=== PATIENT | female | born 1950 | race Caucasian/White ===

== ENCOUNTER → 2018-02-20 08:48 | Outpatient (CLI) | payer MEDICARE, SELFPAY ==
[2018-02-20 09:23] LABS: Hematocrit 28.7 % (37-47); Hemoglobin 8.6 g/dl (12.0-15.0); Mean Corpuscular Hgb 23.2 pg (27.0-32.0); Mean Corpuscular Volume 77.6 fL (81-99); Mean Platelet Vol. 11.7 fl (6.2-12.0); Platelet Count 181 K/mm3 (150-450); RBC Distribution Width CV 17.1 % (11.6-14.6); White Blood Count 4.1 K/mm3 (4.4-11.0)
[2018-02-20 09:24] LABS: Scan Indicated on CBC? Y/N NO
[2018-02-20 09:36] LABS: Albumin, Serum 3.4 g/dL (3.2-5.0); BUN 14 mg/dL (7-18); BUN/Creat Ratio 8.9 RATIO (10-20); Calcium,Total 8.8 mg/dL (8.5-10.1); Chloride 108 mmol/L (98-107); Creatinine, Serum 1.58 mg/dL (0.55-1.02); EST Glomerular Filtration Rate 34 mL/min (>60); Est Glom Filt Rate - Afr Amer 42 mL/min (>60); Glucose 142 mg/dL (74-106); Phosphorus 3.5 mg/dL (2.5-4.9); Potassium 4.3 mmol/L (3.5-5.1); Sodium Level 143 mmol/L (136-145)
[2018-02-20 09:46] LABS: Microalbumin,Random Urine 26.6 mg/L (NO RANGE EST.); Microalbumin:Creatinine Ratio 21.3 mg/g CRE (<30 mg/g CRE)
[2018-02-21 09:06] LABS: PTHIN 84.9 pg/mL (18.4-80.1)
[2018-02-21 09:37] LABS: Vitamin D,25 Hydroxy 41.2 ng/mL (29.95-100.01)
== END ==
PROVIDERS: Family Provider Student in an Organized Health Care Education/Training Program; PCP Student in an Organized Health Care Education/Training Program; Visit Provider Internal Medicine Nephrology
DX: N18.4 Chronic kidney disease, stage 4 (severe) (principal)
CPT/HCPCS: 36415; 80069; 82043; 82306; 82570; 83970; 85027

== ENCOUNTER → 2018-04-04 12:30 | Outpatient (CLI) | payer MEDICARE, SELFPAY ==
--- NOTE | 2018-04-04 12:45 | RAD_ITS ---
STUDY: X-RAY - LUMBAR SPINE REASON FOR EXAM: Female, 67 years old. Back pain worsening radiating down left leg TECHNIQUE: 3 view(s) of the lumbar spine were obtained. COMPARISON: October 10, 2015 lumbar spine x-ray FINDINGS: There is an exaggerated lumbar lordosis. There is a levoscoliosis of the lumbar spine. There is slight anterolisthesis at the level of L4-L5. This appears stable when compared to prior study. There is multilevel spondylosis. There is mild disc space narrowing and endplate sclerosis. There are surgical clips in the right upper quadrant status post cholecystectomy. There is facet arthropathy especially at the level of L4-L5 and L5-S1. The soft tissue structures are unremarkable. RAD/Lumbar Spine 2 or 3 Views IMPRESSION: There is multilevel degenerative disc disease. Worsening levoscoliosis of the lumbar spine. Similar appearing mild anterolisthesis at L4-L5. Facet arthropathy L4-L5 L5-S1. Electronically Signed: Marina Pena MD at 15:50 EDT Tel , Service support ,
== END ==
PROVIDERS: Family Provider Student in an Organized Health Care Education/Training Program; PCP Student in an Organized Health Care Education/Training Program; Visit Provider Anesthesiology Pain Medicine
DX: M54.9 Dorsalgia, unspecified (principal)
CPT/HCPCS: 72100

== ENCOUNTER → 2018-04-22 12:27 | Outpatient (CLI) | payer MEDICARE, SELFPAY ==
[2018-04-22 13:06] LABS: Hemoglobin A1c 6.4 % (4.2-6.3)
[2018-04-22 13:14] LABS: Microalbumin,Random Urine 16.9 mg/L (NO RANGE EST.); Microalbumin:Creatinine Ratio 14.3 mg/g CRE (<30 mg/g CRE)
[2018-04-22 13:22] LABS: Anion Gap 11 (5-15); BUN 15 mg/dL (7-18); BUN/Creat Ratio 10.1 RATIO (10-20); Calcium,Total 9.2 mg/dL (8.5-10.1); Chloride 107 mmol/L (98-107); Creatinine, Serum 1.49 mg/dL (0.55-1.02); EST Glomerular Filtration Rate 37 mL/min (>60); Est Glom Filt Rate - Afr Amer 45 mL/min (>60); Glucose 97 mg/dL (74-106); Potassium 4.3 mmol/L (3.5-5.1); Sodium Level 144 mmol/L (136-145)
== END ==
PROVIDERS: Family Provider Student in an Organized Health Care Education/Training Program; PCP Student in an Organized Health Care Education/Training Program; Visit Provider Student in an Organized Health Care Education/Training Program
DX: Z79.899 Other long term (current) drug therapy (principal); M54.9 Dorsalgia, unspecified; M54.2 Cervicalgia
CPT/HCPCS: 80048; 82043; 82570; 83036; 97113

== ENCOUNTER 2018-05-01 11:00 | Outpatient (RCR) | payer MEDICARE, SELFPAY ==
--- NOTE | 2018-03-28 15:31 | HP.PTEVAL_ITS ---
Patient's Visit Information ISIS JONES is a 67 year old F referred to Physical Therapy by Sherri Pastor with a diagnosis of BACK AND NECK PAIN. Date of Evaluation: 03/28/18 Physical Therapist: Michelle Melton - Visit Plan Frequency: 2-3x /Week Duration: 4-6 Weeks Plan: AQUATIC THERAPY FOR PAIN RELEIF, POSTURE CORRECTION/STRENGTHENING, INSTRUCTION IN APPROPRIATE BODY MECHANICS AND ACTIVITY MODIFICATIONS. DLS STARTING WITH A NEUTRAL SPINE PROGRESSING ROM TOLERATED. ALEKSEY LE ROM, STRETCHING AND STRENGTHENING. HEP INSTRUCTION. - Subjective Subjective: Diagnosis: Work/Leisure: RETIRED. Disability: YES. Present symptoms: LOW BACK PAIN, NECK AND SHOULDER PAIN, MID BACK PAIN ON LEFT, LEFT LE PAIN TO FOOT. INTERMITTENT RIGHT LE PAIN TOO. INTERMITTENT ALEKSEY LE NUMBNESS AND TINGLING. INTERMITTENT ALEKSEY UE NUMBNESS AND TINGLING. Present since: CHRONIC. Pain Scale: WORST 8/10, LEAST 3/10. Currently: 8/10. Commenced as a result of: NO APPARENT REASON. Symptoms at onset: LEGS. Worse: CROCHETING , SWEEPING THE FLOOR, TRYING TO DO OUTSIDE WORK IN FLOWER BEDS, WALKING, HOUSEKEEPING, LIFTING, AND BENDING. Better: HOT SHOWER. Disturbed sleep: NO. Previous history/Previous treatment: PHYSICAL THERAPY, PAIN MGMT - INJECTIONS, CHIRO LONG TIME AGO. Coughing/sneezing/straining: NEGATIVE. Gait : INDEP GAIT WITHOUT AD. DISTANCE LIMITED. LEANS ON CART TO GROCERY SHOP. Difficulty initiating urinatin: NO. DIZZINESS: INTERMITTENT. DIFFICULTY SWOLLOWING: NO. Accidents: FELL SATURDAY NIGHT TAKING THE DOG OUT. DOG PULLED. HURT BACK AND LEFT LEG. WENT TO DR. PASTOR ON SATURDAY AND THIS HAPPENED ON SATURDAY. DOES NOT WANT TO GO TO THE DOCTOR BEFORE STARTING THERAPY. STATES SHE DOESN'T HAVE ANY PAIN NOW THAT SHE HASN'T HAD BEFORE. Unexplained weight loss: NO. Imaging: NECK MRI A YEAR AGO: MPRESSION: No significant interval changes since the last examination. C3-4 small central disc herniation of the protrusion type. C4-5 degenerative disc disease with annular bulge contacting the ventral. aspect of the cord with minimal spinal canal stenosis and left foraminal. stenosis. C5-6 and C6-7 and bulges with right foraminal stenosis at C5-6. NO RECENT LUMBAR IMAGING FOUND. PMH: LUPAS , NIDDM, HTN, ARTHRITIS, ANXIETY. Recent major surgery: ALEKSEY TKR'S. LEFT ACHILLES REPAIR - Objective Sitting Posture: POOR. FORWARD HEAD, ROUNDED SHOULDERS AND INCREASED KYPHOSIS. Standing Posture: POOR. INCREASED TRUNK FLEXION. Lordosis: REDUCED. THERE IS A RED SCRATCH OVER THE LEFT LOW BACK/BUTTOCK AREA. Lateral shift: NO. Relevant shift: N/A. Active Correction of posture: WORSE. Other Observations: INDEP GAIT INTO PT WITHOUT ANY ASSISTIVE DEVICES AND WITHOUT LOB OR ASSYMETRICAL LIMP BUT DECREASED CADANCE AND INCREASED TRUNK FLEXION. Motor deficit: ALEKSEY UE STRENGTH GROSSLY 4/5 EXCEPT RIGHT SHOULDER ER 3+/5. ALEKSEY LE STRENGTH GROSSLY 4/5. Sensory deficit: ALEKSEY UE AND LE LIGHT TOUCH SENSATION GROSSLY INTACT AND SYMMETRICAL BUT FEET NT. ROM deficit: ALEKSEY SHOULER ELEVATION ABOUT 25% LIMITED. TIGHT ALEKSEY HIP FLEXORS, HAMSTRINGS AND GASTROC SOLEUS COMPLEX'S. Lumbar mvmt loss: flex - MOD. ext - JONAS. R SG - JONAS. L SG - MOD TO JONAS. PATIENT COMPLAINT OF INCREASED THORACIC AND LUMBAR PAIN WITH ROM TESTING ALL PLANES. CERVICAL MVMT LOSS: FLEX - NIL, PRO - NIL, EXT - JONAS, RET - JONAS, ALEKSEY ROT - MOD, ALEKSEY SB - MOD TO JONAS. C/O INCRASED PAIN WITH CERVICAL ROM TESTING TOO. Core strength: POOR. Palpation: PATIENT IS TENDER IN HER ENTIRE SPINE WITH PALPATION BUT SHE IS ESPECIALLY HYPERSENSATIVE WITH VERY LIGHT PALPATION OF THE T9,10, 11 AND 12 REGION. SHE REPORTS SHE HAS BEEN HAVING PAIN HERE FOR A LONG TIME BUT IT IS WORSE SINCE SHE FELL SATURDAY. I STRONGLY RECOMMENDED SHE CONTACT HER PHYSICIAN TO REPORT THIS INCREASED PAIN. - Goals Goal 1:: DECREASE C/O SPINE AND EXTREMITY SX'S. Goal Time Frame: 4-6 Weeks Goal 2:: IMPROVE PERSONAL CARE, LIFTING, WALKING, STANDING, SOCIAL LIFE AND HOMEMAKING FUNCTION Goal Time Frame: 4-6 Weeks Goal 3:: INSTRUCT IN PROPHYLAXIS Goal Time Frame: 4-6 Weeks - Rehabilitation Potential Rehabilitation Potential: Fair - Anticipated Interventions Patient/Client Instruction: Educate patient on: Condition, Plan of Care, Risk Factors, Benefits of Fitness Program For the Purpose of:: To improve self management Therapeutic Exercise to Include: Strength training, Body mechanics, Postural training, Flexibilty training, Gait and locomotor training, In an aquatic setting, Active ROM, Dynamic Lumbar Stabilization, Scapular Strength/ Stabilization For the Purpose of:: To decrease pain, To increase tolerance to activity/ condition/position, To improve performance and independence with ADL's, To improve ability of physical actions for home/community/work/leisure, To improve gait and locomotor functions Thank you for the opportunity to evaluate your patient. For Medicare and Medicare HMO plans, please review the plan of care and approve it. It will need to be FAXED BACK to us at [phone] for Medicare purposes. Please let me know if there are questions or concerns regarding this plan of care. Physician Signature: Date:
--- NOTE | 2018-05-01 14:14 | HP.PTDCSUM_ITS ---
HP - PT D/C Summary It has been my pleasure to treat ISIS JONES under orders from Sherri Pastor, for the diagnosis of BACK AND NECK PAIN for a total of 10 visit(s). Discharge Date: Please see the following information for a summary of their discharge status. - Subjective Subjective: PATIENT REPORTS SHE ENJOYED THE WATER AND SOME OF THE THINGS AT THE END WERE KIND OF HARD BUT THEY WERE NOT HURTFUL. SHE REPORTS SHE REALLY LIKES THE WATER AND AND SHE IS JOINING [employer]. 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 Present symptoms: LOW BACK PAIN, NECK AND SHOULDER PAIN, MID BACK PAIN ON LEFT, LEFT LE PAIN TO FOOT. INTERMITTENT RIGHT LE PAIN TOO. INTERMITTENT ALEKSEY LE NUMBNESS AND TINGLING. PATIENT REPORTS MOST OF HER SYMPTOMS ARE ALL STILL OCCURRING BUT THEY ARE BETTER. Pain Scale: WORST 7/10, LEAST 0/10. Currently: 3/10 LOW BACK PAIN. SHE REPORTS SHE CAN GET HER PAIN TO 0/10 IN THE POOL. PATIENT DENIES HAVING ANY MORE FALLS SINCE STARTING PT. PATIENT REPORTS SHE FEELS A LOT BETTER BECAUSE SHE KNOWS HOW TO GET UP AND DOWN FROM A CHAIR, IN AND OUT OF A CAR AND MOVE IN GENERAL BETTER NOW TO PROTECT HER BACK. REPORTS APPOINTMENT PENDING WITH DR. PASTOR May. - Pain Cerv. Spine Pain Intensity (Out of 10): 2 Lumbar Spine Pain Intensity (Out of 10): 3 LE Pain Intensity (Out of 10): 0 - Overall Improvement % Improvement: 75 - Objective Objective/Function: PATIENT IS INDEP WITH A HEP AND POOL EX'S AND WISHES TO BE DISCHARGED. Motor deficit: ALEKSEY UE STRENGTH GROSSLY 4/5 EXCEPT RIGHT SHOULDER ER 3+/5. ALEKSEY LE STRENGTH GROSSLY 4/5. Sensory deficit: ALEKSEY UE AND LE LIGHT TOUCH SENSATION GROSSLY INTACT AND SYMMETRICAL BUT FEET NT. ROM deficit: ALEKSEY SHOULER ELEVATION ABOUT 25% LIMITED. TIGHT ALEKSEY HIP FLEXORS, HAMSTRINGS AND GASTROC SOLEUS COMPLEX'S. Lumbar mvmt loss: flex - MIN. ext - JONAS. R SG - MOD. L SG - MOD. PATIENT COMPLAINT OF INCREASED THORACIC AND LUMBAR PAIN WITH ROM TESTING INTO EXTENSION AND RIGHT SG'ING. NO SIGNIFICANT CHANGE IN NECK OR SHOULDER TESTING. LUMBAR OSWESTRY SCORE HAS IMPROVED FROM 19 TO 16. - Goals Goal 1:: DECREASE C/O SPINE AND EXTREMITY SX'S. Goal Progress: Goal Met Goal 2:: IMPROVE PERSONAL CARE, LIFTING, WALKING, STANDING, SOCIAL LIFE AND HOMEMAKING FUNCTION Goal Progress: Goal Met Goal 3:: INSTRUCT IN PROPHYLAXIS Goal Progress: Goal Met - Plan Plan: D/C. PATIENT IS AGREEABLE TO DISCHARGE. - D/C Information If there are questions or concerns regarding this patient's physical therapy, please feel free to call me at [phone]. Thank you for the referral of this patient. Sincerely, Michelle Melton
== END 2018-05-01 19:00 | disposition home or self-care (01) ==
LOC: PT 11:00
PROVIDERS: Family Provider Student in an Organized Health Care Education/Training Program; PCP Student in an Organized Health Care Education/Training Program; Visit Provider Anesthesiology Pain Medicine
DX: M54.9 Dorsalgia, unspecified (principal); M54.2 Cervicalgia
CPT/HCPCS: 97113; 97162; 97164; 97530

== ENCOUNTER → 2018-06-03 12:12 | Outpatient (CLI) | payer MEDICARE, SELFPAY ==
[2018-06-03 12:36] LABS: Absolute Lymphocyte Count 1.38 X10^3/ul (0.83-4.51); Absolute Neutrophil Count 4.4 X10^3/uL (2.0-7.7); Basophil# 0.03 X10^3/uL; Basophil% 0.5 % (0-1); Eosinophil# 0.22 X10^3/uL; Eosinophils% 3.4 % (0-5); Hematocrit 36.2 % (37-47); Lymphocyte # 1.38 X10^3/ul (4.0); Lymphocyte % 21.5 % (19-41); Mean Corp Hgb Conc 33.1 g/gl (32-36); Mean Corpuscular Hgb 28.8 pg (27.0-32.0); Mean Platelet Vol. 12.1 fl (6.2-12.0); Monocyte# 0.41 X10^3/uL; Monocyte% 6.4 % (0-10); Neutrophil # 4.38 X10^3/uL (2.7-7.7); POSITIVE COUNT NO; POSITIVE DIFFERENTIAL NO; POSITIVE MORPHOLOGY NO; Platelet Count 137 K/mm3 (150-450); RBC Distribution Width CV 16.6 % (11.6-14.6); RBC Distribution Width SD 52.4 fl (35.1-43.9); Red Blood Count 4.16 M/mm3 (4.2-5.4); White Blood Count 6.4 K/mm3 (4.4-11.0)
[2018-06-03 13:15] LABS: AST(SGOT) 24 U/L (15-37); Alanine Aminotransfer ALT/SGPT 20 U/L (13-56); Albumin, Serum 3.4 g/dL (3.2-5.0); Alkaline Phosphatase 83 U/L (45-117); Anion Gap 6 (5-15); BUN 15 mg/dL (7-18); BUN/Creat Ratio 9.9 RATIO (10-20); Calcium,Total 9.1 mg/dL (8.5-10.1); Chloride 111 mmol/L (98-107); Creatinine, Serum 1.52 mg/dL (0.55-1.02); EST Glomerular Filtration Rate 36 mL/min (>60); Est Glom Filt Rate - Afr Amer 44 mL/min (>60); Globulin 3.5 g/dL (2.2-4.2); Glucose 98 mg/dL (74-106); Potassium 4.3 mmol/L (3.5-5.1); Protein, Total 6.9 g/dL (6.4-8.2); Sodium Level 143 mmol/L (136-145)
== END ==
PROVIDERS: Family Provider Student in an Organized Health Care Education/Training Program; PCP Student in an Organized Health Care Education/Training Program; Visit Provider Internal Medicine Rheumatology
DX: M06.4 Inflammatory polyarthropathy (principal); M35.00 Sjogren syndrome, unspecified; E11.42 Type 2 diabetes mellitus with diabetic polyneuropathy; I10 Essential (primary) hypertension; E78.4 Other hyperlipidemia; K22.70 Barrett's esophagus without dysplasia; K21.0 Gastro-esophageal reflux disease with esophagitis; F32.89 Other specified depressive episodes
CPT/HCPCS: 36415; 80053; 85025

== ENCOUNTER → 2018-08-21 10:16 | Outpatient (CLI) | payer MEDICARE, SELFPAY ==
[2018-08-21 11:08] LABS: Hematocrit 38.4 % (37-47); Hemoglobin 12.5 g/dl (12.0-15.0); Mean Corp Hgb Conc 32.6 g/gl (32-36); Mean Corpuscular Volume 92.1 fL (81-99); Mean Platelet Vol. 12.3 fl (6.2-12.0); Platelet Count 166 K/mm3 (150-450); RBC Distribution Width CV 14.4 % (11.6-14.6); RBC Distribution Width SD 47.4 fl (35.1-43.9); Red Blood Count 4.17 M/mm3 (4.2-5.4); White Blood Count 6.1 K/mm3 (4.4-11.0)
[2018-08-21 11:11] LABS: Scan Indicated on CBC? Y/N NO
[2018-08-21 11:14] LABS: Protein, Urine (Random) 38.5 mg/dL (<11.9); Protein:Creat Ratio 279 mg/g CRE (0-200)
[2018-08-21 11:28] LABS: Albumin, Serum 3.4 g/dL (3.2-5.0); BUN 18 mg/dL (7-18); BUN/Creat Ratio 11.1 RATIO (10-20); Calcium,Total 9.2 mg/dL (8.5-10.1); Chloride 110 mmol/L (98-107); Creatinine, Serum 1.62 mg/dL (0.55-1.02); EST Glomerular Filtration Rate 33 mL/min (>60); Est Glom Filt Rate - Afr Amer 40 mL/min (>60); Glucose 113 mg/dL (74-106); Iron 54 ug/dL (50-170); Iron Binding Capacity,Total 344 ug/dL (250-450); PERCENT IRON SATURATION 15.7 % (15.0-55.0); Potassium 4.3 mmol/L (3.5-5.1); Sodium Level 142 mmol/L (136-145)
[2018-08-21 11:33] LABS: PTHIN 76.8 pg/mL (18.4-80.1); Vitamin D,25 Hydroxy 25.4 ng/mL (29.95-100.01)
== END ==
PROVIDERS: Family Provider Student in an Organized Health Care Education/Training Program; PCP Student in an Organized Health Care Education/Training Program; Visit Provider Internal Medicine Nephrology
DX: N18.4 Chronic kidney disease, stage 4 (severe) (principal); D64.9 Anemia, unspecified; R80.9 Proteinuria, unspecified
CPT/HCPCS: 36415; 80069; 82306; 82570; 83540; 83550; 83970; 84156; 85027

== ENCOUNTER → 2018-08-25 14:47 | Outpatient (CLI) | payer MEDICARE, SELFPAY ==
--- NOTE | 2018-08-25 14:53 | RAD_ITS ---
STUDY: X-RAY - RIGHT SHOULDER REASON FOR EXAM: Female, 67 years old. Right shoulder pain TECHNIQUE: 4 view(s) of the shoulder. COMPARISON: None. FINDINGS: There is mild degenerative arthrosis of the glenohumeral articulation. There is degenerative arthrosis of the acromioclavicular joint without inferior osseous spur formation. Normal acromion. Normal humeral head and visualized proximal humerus. The soft tissue structures are unremarkable. Normal visualized pulmonary apex. RAD/Shoulder min 2 Views IMPRESSION: Mild degenerative changes without acute findings Electronically Signed: Nitish Le DO at 11:42 EDT Tel , Service support ,
== END ==
PROVIDERS: Family Provider Student in an Organized Health Care Education/Training Program; PCP Student in an Organized Health Care Education/Training Program; Visit Provider Anesthesiology Pain Medicine
DX: M25.511 Pain in right shoulder (principal)
CPT/HCPCS: 73030

== ENCOUNTER → 2018-11-05 17:06 | Outpatient (CLI) | payer MEDICARE, SELFPAY ==
[2018-11-05 17:49] LABS: Hematocrit 41.3 % (37-47); Hemoglobin 13.3 g/dl (12.0-15.0); Mean Corp Hgb Conc 32.2 g/gl (32-36); Mean Corpuscular Hgb 30.2 pg (27.0-32.0); Mean Corpuscular Volume 93.9 fL (81-99); Mean Platelet Vol. 11.8 fl (6.2-12.0); Platelet Count 172 K/mm3 (150-450); RBC Distribution Width CV 13.3 % (11.6-14.6); RBC Distribution Width SD 45.7 fl (35.1-43.9); White Blood Count 6.3 K/mm3 (4.4-11.0)
[2018-11-05 17:58] LABS: Scan Indicated on CBC? Y/N NO
[2018-11-05 18:05] LABS: Albumin, Serum 3.9 g/dL (3.2-5.0); BUN 25 mg/dL (7-18); BUN/Creat Ratio 17.6 RATIO (10-20); Creatinine, Serum 1.42 mg/dL (0.55-1.02); EST Glomerular Filtration Rate 39 mL/min (>60); Est Glom Filt Rate - Afr Amer 47 mL/min (>60); Globulin 3.8 g/dL (2.2-4.2); Glucose 94 mg/dL (74-106); Protein, Total 7.7 g/dL (6.4-8.2)
[2018-11-05 18:06] LABS: AST(SGOT) 19 U/L (15-37); Alanine Aminotransfer ALT/SGPT 21 U/L (13-56); Alkaline Phosphatase 101 U/L (45-117); Anion Gap 5 (5-15); Calcium,Total 9.1 mg/dL (8.5-10.1); Chloride 109 mmol/L (98-107); Potassium 4.6 mmol/L (3.5-5.1); Sodium Level 141 mmol/L (136-145); Thyroid Stim Hormone (TSH) 2.06 uIU/mL (0.358-3.74); Vitamin B12 277 pg/mL (211-911); Vitamin D,25 Hydroxy 18.6 ng/mL (29.95-100.01)
== END ==
PROVIDERS: Family Provider Student in an Organized Health Care Education/Training Program; PCP Student in an Organized Health Care Education/Training Program; Referring Provider Student in an Organized Health Care Education/Training Program; Visit Provider Student in an Organized Health Care Education/Training Program
DX: E55.9 Vitamin D deficiency, unspecified (principal); F03.90 Unspecified dementia, unspecified severity, without behavioral disturbance, psychotic disturbance, mood disturbance, and anxiety; I67.9 Cerebrovascular disease, unspecified
CPT/HCPCS: 80053; 82306; 82607; 84443; 85027

== ENCOUNTER → 2018-11-12 10:39 | Outpatient (CLI) | payer MEDICARE, SELFPAY ==
[2018-11-12 11:23] LABS: Absolute Lymphocyte Count 1.37 X10^3/ul (0.83-4.51); Absolute Neutrophil Count 3.6 X10^3/uL (2.0-7.7); Basophil# 0.03 X10^3/uL; Basophil% 0.5 % (0-1); Eosinophil# 0.33 X10^3/uL; Eosinophils% 5.8 % (0-5); Hemoglobin 13.1 g/dl (12.0-15.0); Lymphocyte # 1.37 X10^3/ul (4.0); Lymphocyte % 24.1 % (19-41); Mean Corpuscular Hgb 30.2 pg (27.0-32.0); Mean Corpuscular Volume 94.5 fL (81-99); Mean Platelet Vol. 12.1 fl (6.2-12.0); Monocyte# 0.37 X10^3/uL; Monocyte% 6.5 % (0-10); Neutrophil # 3.57 X10^3/uL (2.7-7.7); Neutrophil % 62.9 % (47-70); Platelet Count 155 K/mm3 (150-450); RBC Distribution Width CV 13.2 % (11.6-14.6); Red Blood Count 4.34 M/mm3 (4.2-5.4); White Blood Count 5.7 K/mm3 (4.4-11.0)
[2018-11-12 11:26] LABS: POSITIVE COUNT NO; POSITIVE DIFFERENTIAL NO; POSITIVE MORPHOLOGY NO
[2018-11-12 11:48] LABS: AST(SGOT) 19 U/L (15-37); Alanine Aminotransfer ALT/SGPT 23 U/L (13-56); Albumin, Serum 3.7 g/dL (3.2-5.0); Alkaline Phosphatase 96 U/L (45-117); Anion Gap 8 (5-15); BUN 30 mg/dL (7-18); BUN/Creat Ratio 19.2 RATIO (10-20); Calcium,Total 9.1 mg/dL (8.5-10.1); Chloride 107 mmol/L (98-107); Creatinine, Serum 1.56 mg/dL (0.55-1.02); EST Glomerular Filtration Rate 35 mL/min (>60); Est Glom Filt Rate - Afr Amer 42 mL/min (>60); Globulin 3.6 g/dL (2.2-4.2); Glucose 97 mg/dL (74-106); Potassium 5.2 mmol/L (3.5-5.1); Protein, Total 7.3 g/dL (6.4-8.2); Sodium Level 140 mmol/L (136-145)
--- OUTSIDE RECORDS SUMMARY | 2018-12-29 12:42 | XMS RPT_ITS ---
:1950 Author Organization OHIP Support Name Relationship Address Phone R Unavailable Unavailable Unavailable CECILIA WRIGHT Unavailable [address] + [place] [address] SHUFF, JULIO Unavailable [address] + [place] [address] R Unavailable Unavailable Unavailable CECILIA WRIGHT Unavailable [address] + [place] [address] SHUFF, JULIO Unavailable [address] + [place] [address] R Unavailable Unavailable Unavailable CECILIA WRIGHT Unavailable [address] + [place] [address] SHUFF, JULIO Unavailable [address] + [place] [address] R Unavailable Unavailable Unavailable CECILIA WRIGHT Unavailable [address] + [place] [address] SHUFF, JULIO Unavailable [address] + [place] [address] R Unavailable Unavailable Unavailable CECILIA WRIGHT Unavailable [address] + [place] [address] SHUFF, JULIO Unavailable [address] + [place] [address] R Unavailable Unavailable Unavailable CECILIA WRIGHT Unavailable [address] + [place] [address] SHUFF, JULIO Unavailable [address] + [place] [address] R Unavailable Unavailable Unavailable CECILIA WRIGHT Unavailable [address] + [place] [address] SHUFF, JULIO Unavailable [address] + [place] [address] R Unavailable Unavailable Unavailable CECILIA WRIGHT Unavailable [address] + [place] [address] SHUFF, JULIO Unavailable [address] + [place] [address] R Unavailable Unavailable Unavailable ROBERT CECILIA Unavailable [address] + [place] [address] SHUFF, JULIO Unavailable [address] + [place] [address] R Unavailable Unavailable Unavailable ROBERT, CECILIA Unavailable [address] + [place] [address] SHUFF, JULIO Unavailable [address] + [place] [address] R Unavailable Unavailable Unavailable ROBERT CECILIA Unavailable [address] + [place] [address] SHUFF, JULIO Unavailable [address] + [place] [address] Care Team Providers Name Role Phone BUSH, AKIL L Referring Unavailable BUSH, AKIL L Attending Unavailable BUSH, AKIL L Referring Unavailable BUSH, AKIL L Referring Unavailable BUSH, AKIL L Referring Unavailable BUSH, AKIL L Attending Unavailable BUSH, AKIL L Referring Unavailable BUSH, AKIL L Referring Unavailable BUSH, AKIL L Attending Unavailable BUSH, AKIL L Referring Unavailable BUSH, AKIL L Referring Unavailable BUSH, AKIL L Referring Unavailable BUSH, AKIL L Referring Unavailable Josuelanandressa, [place] Attending Unavailable Josuelanandressa, [place] Referring Unavailable Bush, Akil Primary Care Unavailable Bush, Akil Attending Unavailable Bush, Akil Referring Unavailable Bush, Akil Primary Care Unavailable Alena, Jayaprakash Attending Unavailable Alena, Jayaprakash Referring Unavailable Bush, Akil Primary Care Unavailable Basali, Ayman Attending Unavailable Basali, Ayman Referring Unavailable Bush, Akil Primary Care Unavailable Basali, Ayman Attending Unavailable Bush, Akil Primary Care Unavailable Basali, Ayman Referring Unavailable Bush, Akil Attending Unavailable Bush, Akil Referring Unavailable Bush, Akil Primary Care Unavailable Bush, Akil Attending Unavailable Bush, Akil Primary Care Unavailable Bush, Akil Referring Unavailable Josuelanki, Georgia Attending Unavailable Josuelanki, [place] Referring Unavailable Bush, Akil Primary Care Unavailable Alena, Jayaprakash Attending Unavailable Alena, Jayaprakash Referring Unavailable Bush, Akil Primary Care Unavailable Basali, Ayman Attending Unavailable Basali, Ayman Referring Unavailable Bush, Akil Primary Care Unavailable Akil Bush Attending Unavailable Akil Bush Referring Unavailable Akil Bush Primary Care Unavailable PROBLEMS PROBLEMS DATE TYPE CONDITION / CODE ATTENDING STATUS SOURCE 12/22/2018 Active Altered mental NA Active [place] status, unspecified Clinic Main / R41.82(ICD-10) [place] Repository 12/22/2018 Active Essential (primary) [facility] hypertension / Clinic Main I10(ICD-10) [place] Repository 12/22/2018 Active Deficiency of other [facility] specified B group Clinic Main vitamins / [place] E53.8(ICD-10) Repository 12/18/2018 Unknown R76.8 - Other Akil Bush Active [place] specified abnormal Community immunological Hospital findings in serum / Repository R76.8(ICD-10) 12/16/2018 Active Other specified Active [place] abnormal Clinic Main immunological [place] findings in serum / Repository R76.8(ICD-10) 12/12/2018 Unknown Z20.5 - Contact with Akil Bush Active [place] and (suspected) Community exposure to viral Hospital hepatitis / Repository Z20.5(ICD-10) 12/12/2018 Active Contact with and Active [place] (suspected) exposure Clinic Main to viral hepatitis / [place] Z20.5(ICD-10) Repository 11/12/2018 Unknown 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 / Community M06.4(ICD-10) Hospital Repository 11/12/2018 Unknown 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, Community unspecified / Hospital M35.00(ICD-10) Repository 11/12/2018 Unknown K21.0 - Veladam [place] Active [place] Gastro-esophageal Community reflux disease with Hospital esophagitis / Repository K21.0(ICD-10) 11/12/2018 Unknown I10 - Essential Adelfo Madisonma Active [place] (primary) Community hypertension / Hospital I10(ICD-10) Repository 11/12/2018 Unknown E11.42 - Type 2 Vellanandressa, [place] Active [place] diabetes mellitus Community with diabetic Hospital polyneuropathy / Repository E11.42(ICD-10) 11/12/2018 Unknown 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 / Hospital K22.70(ICD-10) Repository 11/05/2018 Unknown E55.9 - Vitamin D Akil Bush Active [place] deficiency, Community unspecified / Hospital E55.9(ICD-10) Repository 11/05/2018 Unknown F03.90 - Unspecified BushAkil woods Active [place] dementia without Community behavioral Hospital disturbance / Repository F03.90(ICD-10) 11/05/2018 Unknown I67.9 - Akil Bush Active [place] Cerebrovascular Community disease, unspecified Hospital / I67.9(ICD-10) Repository 11/05/2018 Active Unspecified dementia NA Active [place] without behavioral Clinic Main disturbance / [place] F03.90(ICD-10) Repository 11/05/2018 Active Cerebrovascular NA Active [place] disease, unspecified Clinic Main / I67.9(ICD-10) [place] Repository 11/05/2018 Active Vitamin D NA Active [place] deficiency, Clinic Main unspecified / [place] E55.9(ICD-10) Repository 08/21/2018 Unknown N18.4 - Chronic Alena, Active [place] kidney disease, [facility] stage 4 (severe) / Hospital N18.4(ICD-10) Repository 08/21/2018 Unknown D64.9 - Anemia, Alena, Active [place] unspecified / [facility] D64.9(ICD-10) Hospital Repository 06/03/2018 Unknown E78.4 - Other Vellanki, [place] Active [place] hyperlipidemia / Community E78.4(ICD-10) Hospital Repository 05/07/2018 Active Encounter for NA Active [place] screening mammogram Clinic Main for malignant [place] neoplasm of breast / Repository Z12.31(ICD-10) 05/02/2018 Unknown M54.9 - Dorsalgia, Basali, Ayman Active [place] unspecified / Community M54.9(ICD-10) Hospital Repository 04/23/2018 Unknown Z79.899 - Other long Akil Bush Active [place] term (current) drug Community therapy / Hospital Z79.899(ICD-10) Repository 04/22/2018 Active Other half-way NA Active [place] (current) drug Clinic Main therapy / [place] Z79.899(ICD-10) Repository PROCEDURES PROCEDURES No Procedure Records FoundRESULTS RESULTS PROGRESS Observed: 12/22/2018 Status: COMPLETED Source: [place] 2:36 PM [facility] REPOSITORY HNO ID: [id number] Author: Alexander Vernon Service: (none) Author Type: (none) Type: Progress Notes Filed: 12/22/2018 2:37 PM Note Text: Radiology Service Progress Note PATIENT NAME: Belén Wright DATE OF SERVICE: December 22, 2018 TIME: 2:36 PM PATIENT IDENTITY VERIFICATION COMPLETED USING TWO (2) METHODS: Patient confirmed name verbally and Date of . PATIENT GENDER DATA: Female. status: : No status: NO. PATIENT RELEVANT IMPLANT DATA REVIEWED: Yes RADIOLOGY DEPARTMENT: MR; Exam(s) Completed: Head: Routine Brain PERIPHERAL IV DATA: Not applicable SIGNED BY: Alexander Vernon December 22, 2018 2:36 PM MRI BRAIN WO IVCON Observed: 12/22/2018 Status: F Source: [place] 2:31 PM [facility] REPOSITORY * * *Final Report* * * DATE OF EXAM: Dec 22 2018 2:31PM [id number] [id number] - MRI BRAIN WO IVCON / PROCEDURE REASON: multiple diagnoses * * * * Physician Interpretation * * * * EXAMINATION: MRI BRAIN WO IVCON CLINICAL HISTORY: Altered mental status, unspecified altered mental status type. Dementia without behavioral disturbance, unspecified dementia type. Cerebral microvascular disease. Essential hypertension TECHNIQUE: Routine noncontrast MRI protocol including diffusion images. MQ: [id number] COMPARISON: CT brain 05/01/2016. RESULT: Acute Change: There is no evidence of restricted diffusion to suggest an acute infarct. Hemorrhage: No evidence of prior parenchymal hemorrhage on the gradient echo images. Mass Lesion/ Mass Effect: No evidence of an intracranial mass or extra-axial fluid collection. No significant mass effect. Chronic Change: Scattered patchy and confluent areas of increased T2 and FLAIR signal are present in the supratentorial white matter which is nonspecific but likely represents moderate sequela of chronic microvascular ischemia. Remote lacunar infarcts in the left cerebellum and bilateral oglesby radiata. Parenchyma: No significant volume loss for age. Ventricles: Normal caliber and morphology. Skull Base: Hypothalamic and pituitary region are grossly normal. Craniocervical junction is normal. No significant marrow replacement process. Vasculature: Major intracranial arterial structures, and dural venous sinuses show typical flow void, suggesting patency by spin echo criteria. Other: The visualized paranasal sinuses clear. Small nonspecific fluid in the right mastoid air cells. The orbits demonstrated bilateral lens replacement. Extracranial soft tissues are unremarkable. IMPRESSION: No acute intracranial findings. White matter signal abnormalities chart nonspecific but likely represent sequela of chronic microvascular ischemic disease. Small right mastoid effusion. Twisting Machine Operator: BRANT Transcribe Date/Time: Dec 22 2018 2:34P Dictated by : JAVY STRANGE MD This examination was interpreted and the report reviewed and electronically signed by: JAVY STRANGE MD on Dec 22 2018 2:39PM EST [id number] LIVER PROFILE Collected: 12/16/2018 Status: F Source: [place] 1:15 PM [facility] Order Comment: Comments: [id number], HBV EVALUATION PROFILE, ROOM TEMP TYPE CODE TESTS RESULT OUT OF RANGE REFERENCE UNITS LAB L501.1500 6.4-8.2 g/dL Normal T PROT 7.0 LAB L501.1800 3.2-5.0 g/dL Normal ALB 3.6 LAB L501.1950 2.2-4.2 g/dL Normal GLOB 3.4 LAB L501.4100 15-37 U/L Normal AST 20 LAB L501.4305 45-117 U/L Normal ALK P 89 LAB L501.4405 13-56 U/L Normal ALT 21 LAB L501.4600 0.20-1.00 mg/dL Normal T BILI 0.30 LAB L501.4700 0.00-0.30 mg/dL Normal D BILI 0.13 Performed By: #### L500.3400 #### [facility] [address] [place] [address]. [place], [address] MISCELLANEOUS LAB Collected: 12/16/2018 Status: F Source: [place] PROCEDURE 1:15 PM [facility] [place] Order Comment: Comments: [id number], HBV EVALUATION PROFILE, ROOM TEMP Test(s) Ordered: [id number], HBV EVALUATION PROFILE, ROOM TEMP TYPE CODE TESTS RESULT OUT OF RANGE REFERENCE UNITS LAB L801.1541 Normal [facility] LAB TEST Result Comment: TEST RESULT LIMITS HBV Evaluation Profile HBsAg Screen Negative Negative Hep B Core Ab, Tot Negative Negative Hep B Surface Ab, Qual Non Reactive Non Reactive: Inconsistent with immunity, less than 10 mIU/mL Reactive: Consistent with immunity, greater than 9.9 mIU/mL TESTING PERFORMED AT [facility]. ORIGINAL REPORT ON FILE IN LAB CONTAINS ADDITIONAL TEST SITE INFORMATION. Performed By: #### L801.1541 #### [facility] [address] [place], [place], [address] HEPATITIS C ANTIBODIES Collected: 12/16/2018 Status: F Source: [place] 1:15 PM [facility] [place] TYPE CODE TESTS RESULT OUT OF RANGE REFERENCE UNITS LAB L3100.0650 0.0-0.9 s/co ratio Normal HEP C AB <0.1 Result Comment: Negative: < 0.8 Indeterminate: 0.8 - 0.9 Positive: > 0.9 The CDC recommends that a positive HCV antibody result be followed up with a HCV Nucleic Acid Amplification test ([id number]). Performed at: [address] [id number] Paving Contractor: Jose Angel Lynch PhD, Phone: [phone] Performed By: #### L3100.0625 #### [facility] (refer to report for specific site) refer to report for address and phone number HEPATIC FUNCTN PANEL Collected: 12/16/2018 Status: F Source: [place] 12:09 PM CLINIC MAIN [facility] REPOSITORY TYPE CODE TESTS RESULT OUT OF REFERENCE UNITS RANGE LAB ALB 3.9-4.9 g/dL Test Albumin sent to [facility]. Result Comment: Account Credited [facility] TBIL 0.2-1.3 mg/dL Bilirubin, Test Total sent to [facility]. Result Comment: Account Credited [facility] CBIL <0.2 mg/dL Bilirubin,Conjugated Test sent to [facility]. Result Comment: Account Credited [facility] ALKP 34-123 U/L Alkaline Test Phosphatase sent to [facility]. Result Comment: Account Credited [facility] AST 13-35 U/L Test sent AST to [facility]. Result Comment: Account Credited [facility] ALT 7-38 U/L Test sent to ALT [facility]. Result Comment: Account Credited [facility] TP 6.3-8.0 g/dL Protein, Test Total sent to [facility]. Result Comment: Account Credited [facility] HEPATITIS REMOTE PANEL Collected: 12/16/2018 Status: F Source: [place] 12:09 PM [facility] REPOSITORY TYPE CODE TESTS RESULT OUT OF RANGE REFERENCE UNITS LAB AHBCOT Negative Test Abnormal Hep B sent to [facility]. Result Comment: Account Credited [facility] AHCV Negative Abnormal Test Alert Hepatitis C Ab sent to [facility]. Result Comment: Account Credited [facility] HBSAGR Negative Abnormal Test Alert HBsAg sent to [facility]. Result Comment: Account Credited [facility] AHBSAG Negative Abnormal Test Alert HepB Surface sent to [facility]. Result Comment: Account Credited [facility] HEPATITIS REMOTE PANEL Collected: 12/12/2018 Status: F Source: [place] 12:00 PM [facility] REPOSITORY TYPE CODE TESTS RESULT OUT OF RANGE REFERENCE UNITS LAB AHBCOT Negative Test Abnormal Hep B sent to [facility]. Result Comment: Account Credited [facility] AHCV Negative Abnormal Test Alert Hepatitis C Ab sent to [facility]. Result Comment: Account Credited [facility] HBSAGR Negative Abnormal Test Alert HBsAg sent to [facility]. Result Comment: Account Credited [facility] LAB AHBSAG Negative Abnormal Test Alert HepB Surface sent to [facility]. Result Comment: Account Credited [facility] HEPATITIS ABC PROFILE Collected: 12/12/2018 Status: F Source: [place] 11:40 AM [facility] [place] TYPE CODE TESTS RESULT OUT OF RANGE REFERENCE UNITS LAB L3100.0200 Negative Normal HEP A Negative IgM 6734 LAB L3100.0300 Negative Normal HEP A Negative AB,T.6726 LAB L3100.0400 Negative Normal HB Negative SURF AG LAB L3100.0440 Negative High HB Positive CORE [id number] Result Comment: RESULTS CALLED TO Angella Pope 12/15/18 0931 [place]. REPORT READ BACK BY same. Sent to infection control. LAB L3100.0460 Negative Normal HEP B CORE,TOT Negative LAB L3100.0510 . Normal Hep B [place] AB Non Reactive Result Comment: Non Reactive: Inconsistent with immunity, less than 10 mIU/mL Reactive: Consistent with immunity, greater than 9.9 mIU/mL LAB L3100.0750 0.0-0.9 s/co ratio Normal HCV Ab 0.1 LAB L3100.0765 . Normal COMMENT Comment Result Comment: Non reactive HCV antibody screen is consistent with no HCV infection, unless recent infection is suspected or other evidence exists to indicate HCV infection. Performed at: - [facility] [address] [id number] Paving Contractor: Jose Angel Lynch PhD, Phone: [phone] Performed By: #### L3000.0700 #### [facility] (refer to report for specific site) refer to report for address and phone number PROGRESS Observed: 12/12/2018 Status: COMPLETED Source: [place] 11:24 AM [facility] [place] REPOSITORY O ID: [id number] Author: Akil Bush Service: (none) Author Type: Physician Type: Progress Notes Filed: 12/12/2018 11:28 AM Note Text: CC: Belén Wright is a 67 year old female who presents to the office for memory . HPI: Memory loss, short term, forgetting what she ate for lunch earlier in day, forgetting the subject/topic on her TV show that she watched and Unable to recall to tell her grandchild or . Not getting lost places. Denies new headaches or falls or vision changes or bladder incontinence or retention or shuffling gait. Mother had dementia and diagnosed in her 70s, likely was Alzheimer's disease. Hasn't been tested for this in the past. She also had to throw away 2-3 batches of cookies recently due to forgetting 1-2 ingredients that she still has no idea what she forgot. She also had to throw away 2-3 batches of rock candy because she used a meat thermometer instead of a candy thermometer for testing temp. is also noticing that she is becoming more forgetful Labs showed low vitamin D and B12 levels, never on vitamin B12 injections in the past. Normal thyroid, stable CMP and CBC labs. Hasn't had recent imaging PAST MEDICAL HISTORY Diagnosis Date - Arthritis - CKD (chronic kidney disease) stage 3, GFR 30-59 ml/min ([facility]) Sees Dr. 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 Rice - TOTAL KNEE REPLACEMENT 2004 bilateral - TUBAL LIGATION HX 1979 Current Outpatient Prescriptions: venlafaxine ER (EFFEXOR XR) 37.5 mg 24 hr capsule Take 1 capsule by mouth once daily. TAPERING OFF sertraline (ZOLOFT) 50 mg tablet Take 1 tablet by mouth once daily. INCREASING DOSE losartan (COZAAR) 100 mg tablet Take 1 tablet by mouth once daily. metFORMIN (GLUCOPHAGE) 1,000 mg tablet Take 2 tablets by mouth daily with breakfast. cyclobenzaprine (FLEXERIL) 10 mg tablet Take 1 tablet by mouth twice daily as needed. ondansetron (ZOFRAN) 4 mg tablet Take 1 tablet by mouth every 8 hours as needed. simvastatin (ZOCOR) 80 mg tablet Take 1 tablet by mouth once daily. gabapentin (NEURONTIN) 300 mg capsule Take 1 capsule by mouth three times daily for 30 days. omeprazole (PRILOSEC) 20 mg capsule Take 1 capsule by mouth once daily. HYDROcodone-acetaminophen (NORCO) 5-325 mg per tablet Take 1 tablet by mouth twice daily as needed for Pain. Per Dr. Pastor albuterol HFA (PROVENTIL HFA, VENTOLIN HFA) 90 mcg/actuation inhaler Inhale 2 Puffs as instructed every 6 hours as needed for Wheezing/Shortness of Breath. hydroxychloroquine (PLAQUENIL) 200 mg tablet 400 mg daily No current facility-administered medications for this visit. ALLERGIES Allergen Reactions - Ciprofloxacin Rash - Contrast Dye Other: See Comments Breaks out with blisters - Sulfabenzamide Rash, GI Upset, Other: See Comments Breaks out in a hot sweat Social History Marital status: Spouse name: Years of education: Number of children: Social History Main Topics Smoking status: Never Smoker Smokeless tobacco: Never Used Alcohol use: No Drug use: No ROS: See HPI PE: BP 134/80 Pulse 80 Temp (Src) 96.1 (Left Tympanic) Resp 20 Wt 196 lb (88.9kg) Gen: AANDOX3, NAD, non-toxic appearing HEENT: PERRLA, EOMs intact b/l, nares without drainage, pharynx without erythema, exudate, lesions, or drainage. Uvula midline. Neck: No LAD, no thyromegaly, no meningismus. CV: RRR, no murmur Lungs: CTA b/l, no wheezing Skin: No rashes, lesions, or wounds on exposed skin. Non focal neuro, has a resting arm tremor and + romberg sign, normal strength and DTRs UE and LE b/l No edema MINI-MENTAL STATE EXAMINATION (MMSE) Make the patient comfortable and establish rapport. Ask questions in the order listed. Total possible score is 30. ORIENTATION 1. What is the (year) (season) (date) (day) (month)? Max score=5 Patient's score=5 2. Where are we? (state) (county) (town or city) (hospital) (floor)? Max score=5 Patient's score=5 REGISTRATION Ask the patient if you may test his/her memory. Then say the names of 3 unrelated objects, clearly and slowly, about one second for each (eg, apple, table, momo). After you have said all 3, ask him/her to repeat them. This first repetition determines the score(0-3), but keep saying them until he/she can repeat all 3, up to 6 trials. Max score=3 Patient's score=3 ATTENTION AND CALCULATION Ask the patient to begin with 100 and count backwards by 7. Stop after 5 subtractions (93, 86, 79, 72, 65). Score the total number of correct answers. If the patient cannot or will not perform the serial 7s task, ask him/her to spell the word WORLD backwards. The score is the number of letters in the correct order (eg, DLROW=5; DLRW=4; DLORW, DLW=3; OW=2; DRLWO=1). Max score=5 Patient's score=4 RECALL Ask the patient to recall the 3 items repeated above (eg, apple, table, momo). Max score=3 Patient's score=2 LANGUAGE Naming: Show the patient a wristwatch and ask him/her what it is. Repeat for pencil. Max score=2 Patient's score=2 Repetition: Ask the patient to repeat the phrase No ifs, ands, or buts: after you. Max score=1 Patient's score=1 3-Stage Command: Give the patient a piece of blank paper and ask him/her to take a piece of paper in your right hand, fold it in half, put it on the floor. Score 1 point for each part correctly executed. Max score=3 Patient's score=3 Reading: On a blank piece of paper, print the sentence CLOSE YOUR EYES in letters large enough for the patient to see clearly. Ask him/her to read it and do what it says. Score 1 point only if he/she actually closes his/her eyes. Max score=1 Patient's score=1 Writing: Give the patient a blank piece of paper and ask him/her to write a sentence. Do not dictate a sentence; it is to be written spontaneously. It must contain a subject and verb and be sensible. Correct grammar and punctuation are not necessary. Max score=1 Patient's score=1 Copying: Ask the patient to copy the figure of intersecting pentagons exactly as it is. All 10 angles must be present and 2 must intersect to form a 4-sided figure to score 1 point. Tremor and rotation are ignored. Max score=1 Patient's score=1 MAXIMUM TOTAL SCORE = 30 TOTAL SCORE = 28/30 Suggested guideline for determining the severity of cognitive impairment: Mild: MMSE>21 Moderate: MMSE 10-20 Severe: MMSE<9 Expected decline in MMSE scores in untreated mild to moderate Alzheimer's patient is 2 to 4 points per year. *Adapted from Folstein et al.1 and Chel and Folstein2. (c) 1974, 1997 [employer] Used with permission. References: 1. Folstein MF, Folstein SE, Vahe TN. Mini- Mental State: a practical method for grading the cognitive state of patients for the clinician. J Psychiatr Res. 1975; 12:189-198. 2. Chel, JR, Folstein MF, Mini-Mental State Examination (MMSE). Psychopharm Bull. 1988;24:689-692. 3. Ernestina JT, Myriam FJ, Oz RD, Abundio A, Kaykay F. Neuropsychological function in Alzheimer's disease: pattern of impairment and rates of progression. Arch Neurol. 1988;45:263-268. 4. Migdalia INIGUEZ, Tamia B, Oliver SShaniqueP, Cheyanne ROBERTS. Predictors of cognitive and functional progression in patients with probable Alzheimer's disease. Neurology. 1992;42:7902-9291. ASSESSMENT/PLAN: 1. Dementia without behavioral disturbance, unspecified dementia type - ICD9: 294.20, ICD10: F03.90 (primary diagnosis) - need for MRI brain as ordered, if showing vascular changes then would recommend starting on Plavix as a consideration, if volume changes extreme then needs to consider alzheimer's medications, needs to likely also start on Vitamin B12 monthly injections as well - MRI BRAIN WO IVCON 2. Cerebral microvascular disease - ICD9: 437.9, ICD10: I67.9 - see above - MRI BRAIN WO IVCON 3. Essential hypertension - ICD9: 401.9, ICD10: I10 - good control - Continue current medication(s) - Encouraged dietary sodium restriction/DASH diet - Recommended regular aerobic exercise. - Recommend home blood pressure monitoring, to bring results in on next visit - Goal of BP <130/80 - MRI BRAIN WO IVCON 4. Altered mental status, unspecified altered mental status type - ICD9: 780.97, ICD10: R41.82 - see above - MRI BRAIN WO IVCON 5. Vitamin B12 deficiency - ICD9: 266.2, ICD10: E53.8 - see above - MRI BRAIN WO IVCON 6. Vitamin D deficiency - ICD9: 268.9, ICD10: E55.9 - see above 7. Exposure to hepatitis C - ICD9: V01.79, ICD10: Z20.5 - HEP REMOTE PANEL BL Akil Bush DO Return if no improvement. Follow up with Akil Bush DO. Discussed risks, benefits, alternatives, and potential side effects of medications. Patient/Guardian expressed understanding and agreed with the plan. See patient instructions. kAil Bush, [address] [place] [address] VANNESSA Observed: 12/12/2018 Status: COMPLETED Source: [place] 11:00 AM [facility] REPOSITORY Office Visit (FAMPWS) BELÉN WRIGHT ([id number]) 1950 F Date Time Provider Department 12/12/18 11:00 AM [facility] During your visit today, we recorded the following information about you: Temperature Pulse Respiration Blood pressure 96.1 degrees 80/minute 20/minute 134/80 Weight 88.9 kg Akil Bush DO 12/12/2018 11:28 AM Signed CC: Belén Wright is a 67 year old female who presents to the office for memory . HPI: Memory loss, short term, forgetting what she ate for lunch earlier in day, forgetting the subject/topic on her TV show that she watched and Unable to recall to tell her grandchild or . Not getting lost places. Denies new headaches or falls or vision changes or bladder incontinence or retention or shuffling gait. Mother had dementia and diagnosed in her 70s, likely was Alzheimer's disease. Hasn't been tested for this in the past. She also had to throw away 2-3 batches of cookies recently due to forgetting 1-2 ingredients that she still has no idea what she forgot. She also had to throw away 2-3 batches of rock candy because she used a meat thermometer instead of a candy thermometer for testing temp. is also noticing that she is becoming more forgetful Labs showed low vitamin D and B12 levels, never on vitamin B12 injections in the past. Normal thyroid, stable CMP and CBC labs. Hasn't had recent imaging PAST MEDICAL HISTORY Diagnosis Date - Arthritis - CKD (chronic kidney disease) stage 3, GFR 30-59 ml/min ([facility]) Sees Dr. 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 Rice - TOTAL KNEE REPLACEMENT 2004 bilateral - TUBAL LIGATION HX 1979 Current Outpatient Prescriptions: venlafaxine ER (EFFEXOR XR) 37.5 mg 24 hr capsule Take 1 capsule by mouth once daily. TAPERING OFF sertraline (ZOLOFT) 50 mg tablet Take 1 tablet by mouth once daily. INCREASING DOSE losartan (COZAAR) 100 mg tablet Take 1 tablet by mouth once daily. metFORMIN (GLUCOPHAGE) 1,000 mg tablet Take 2 tablets by mouth daily with breakfast. cyclobenzaprine (FLEXERIL) 10 mg tablet Take 1 tablet by mouth twice daily as needed. ondansetron (ZOFRAN) 4 mg tablet Take 1 tablet by mouth every 8 hours as needed. simvastatin (ZOCOR) 80 mg tablet Take 1 tablet by mouth once daily. gabapentin (NEURONTIN) 300 mg capsule Take 1 capsule by mouth three times daily for 30 days. omeprazole (PRILOSEC) 20 mg capsule Take 1 capsule by mouth once daily. HYDROcodone-acetaminophen (NORCO) 5-325 mg per tablet Take 1 tablet by mouth twice daily as needed for Pain. Per Dr. Pastor albuterol HFA (PROVENTIL HFA, VENTOLIN HFA) 90 mcg/actuation inhaler Inhale 2 Puffs as instructed every 6 hours as needed for Wheezing/Shortness of Breath. hydroxychloroquine (PLAQUENIL) 200 mg tablet 400 mg daily No current facility-administered medications for this visit. ALLERGIES Allergen Reactions - Ciprofloxacin Rash - Contrast Dye Other: See Comments Breaks out with blisters - Sulfabenzamide Rash, GI Upset, Other: See Comments Breaks out in a hot sweat Social History Marital status: Spouse name: Years of education: Number of children: Social History Main Topics Smoking status: Never Smoker Smokeless tobacco: Never Used Alcohol use: No Drug use: No ROS: See HPI PE: BP 134/80 Pulse 80 Temp (Src) 96.1 (Left Tympanic) Resp 20 Wt 196 lb (88.9kg) Gen: AANDOX3, NAD, non-toxic appearing HEENT: PERRLA, EOMs intact b/l, nares without drainage, pharynx without erythema, exudate, lesions, or drainage. Uvula midline. Neck: No LAD, no thyromegaly, no meningismus. CV: RRR, no murmur Lungs: CTA b/l, no wheezing Skin: No rashes, lesions, or wounds on exposed skin. Non focal neuro, has a resting arm tremor and + romberg sign, normal strength and DTRs UE and LE b/l No edema MINI-MENTAL STATE EXAMINATION (MMSE) Make the patient comfortable and establish rapport. Ask questions in the order listed. Total possible score is 30. ORIENTATION 1. What is the (year) (season) (date) (day) (month)? Max score=5 Patient's score=5 2. Where are we? (state) (county) (town or city) (hospital) (floor)? Max score=5 Patient's score=5 REGISTRATION Ask the patient if you may test his/her memory. Then say the names of 3 unrelated objects, clearly and slowly, about one second for each (eg, apple, table, momo). After you have said all 3, ask him/her to repeat them. This first repetition determines the score(0-3), but keep saying them until he/she can repeat all 3, up to 6 trials. Max score=3 Patient's score=3 ATTENTION AND CALCULATION Ask the patient to begin with 100 and count backwards by 7. Stop after 5 subtractions (93, 86, 79, 72, 65). Score the total number of correct answers. If the patient cannot or will not perform the serial 7s task, ask him/her to spell the word WORLD backwards. The score is the number of letters in the correct order (eg, DLROW=5; DLRW=4; DLORW, DLW=3; OW=2; DRLWO=1). Max score=5 Patient's score=4 RECALL Ask the patient to recall the 3 items repeated above (eg, apple, table, momo). Max score=3 Patient's score=2 LANGUAGE Naming: Show the patient a wristwatch and ask him/her what it is. Repeat for pencil. Max score=2 Patient's score=2 Repetition: Ask the patient to repeat the phrase No ifs, ands, or buts: after you. Max score=1 Patient's score=1 3-Stage Command: Give the patient a piece of blank paper and ask him/her to take a piece of paper in your right hand, fold it in half, put it on the floor. Score 1 point for each part correctly executed. Max score=3 Patient's score=3 Reading: On a blank piece of paper, print the sentence CLOSE YOUR EYES in letters large enough for the patient to see clearly. Ask him/her to read it and do what it says. Score 1 point only if he/she actually closes his/her eyes. Max score=1 Patient's score=1 Writing: Give the patient a blank piece of paper and ask him/her to write a sentence. Do not dictate a sentence; it is to be written spontaneously. It must contain a subject and verb and be sensible. Correct grammar and punctuation are not necessary. Max score=1 Patient's score=1 Copying: Ask the patient to copy the figure of intersecting pentagons exactly as it is. All 10 angles must be present and 2 must intersect to form a 4-sided figure to score 1 point. Tremor and rotation are ignored. Max score=1 Patient's score=1 MAXIMUM TOTAL SCORE = 30 TOTAL SCORE = 28/30 Suggested guideline for determining the severity of cognitive impairment: Mild: MMSE>21 Moderate: MMSE 10-20 Severe: MMSE<9 Expected decline in MMSE scores in untreated mild to moderate Alzheimer's patient is 2 to 4 points per year. *Adapted from Folstein et al.1 and Chel and Ralph2. (c) 1974, 1997 [employer] Used with permission. References: 1. Ralph BANERJEE, Ralph SE, [place]he [place]. Mini- Mental State: a practical method for grading the cognitive state of patients for the clinician. J Psychiatr Res. 1975; 12:189-198. 2. JR Chel, Folstein MF, Mini-Mental State Examination (MMSE). Psychopharm Bull. 1988;24:689-692. 3. Ernestina JT, Miguel FJ, Oz RD, Abundio A, Kaykya F. Neuropsychological function in Alzheimer's disease: pattern of impairment and rates of progression. Arch Neurol. 1988;45:263-268. 4. Migdalia INIGUEZ, Tamia B, Oliver Drummond P, Cheyanne ROBERTS. Predictors of cognitive and functional progression in patients with probable Alzheimer's disease. Neurology. 1992;42:7274-4607. ASSESSMENT/PLAN: 1. Dementia without behavioral disturbance, unspecified dementia type - ICD9: 294.20, ICD10: F03.90 (primary diagnosis) - need for MRI brain as ordered, if showing vascular changes then would recommend starting on Plavix as a consideration, if volume changes extreme then needs to consider alzheimer's medications, needs to likely also start on Vitamin B12 monthly injections as well - MRI BRAIN WO IVCON 2. Cerebral microvascular disease - ICD9: 437.9, ICD10: I67.9 - see above - MRI BRAIN WO IVCON 3. Essential hypertension - ICD9: 401.9, ICD10: I10 - good control - Continue current medication(s) - Encouraged dietary sodium restriction/DASH diet - Recommended regular aerobic exercise. - Recommend home blood pressure monitoring, to bring results in on next visit - Goal of BP <130/80 - MRI BRAIN WO IVCON 4. Altered mental status, unspecified altered mental status type - ICD9: 780.97, ICD10: R41.82 - see above - MRI BRAIN WO IVCON 5. Vitamin B12 deficiency - ICD9: 266.2, ICD10: E53.8 - see above - MRI BRAIN WO IVCON 6. Vitamin D deficiency - ICD9: 268.9, ICD10: E55.9 - see above 7. Exposure to hepatitis C - ICD9: V01.79, ICD10: Z20.5 - HEP REMOTE PANEL BL Akil Bush DO Return if no improvement. Follow up with Akil Bush DO. Discussed risks, benefits, alternatives, and potential side effects of medications. Patient/Guardian expressed understanding and agreed with the plan. See patient instructions. Akil Bush DO [address] [place] [address] Referring Provider: AKIL BUSH [[id number]] Allergies As of Date: 12/12/2018 Noted Allergy Reaction CIPROFLOXACIN 08/01/2017 2 - Rash CONTRAST DYE 09/14/2014 14 - Other: See Comments Comments: Breaks out with blisters SULFABENZAMIDE 09/14/2014 2 - Rash 8 - GI Upset 14 - Other: See Comments Comments: Breaks out in a hot sweat Date Reviewed: 12/12/2018 Reviewed by: Shelley Waggoner LPN - Fully Assessed Reason for Visit: Follow Up [171] Primary Visit Diagnosis:Dementia without behavioral disturbance, unspecified dementia type [F03.90] Other Visit Diagnoses:Cerebral microvascular disease [I67.9] Essential hypertension [I10] Altered mental status, unspecified altered mental status type [R41.82] Vitamin B12 deficiency [E53.8] Vitamin D deficiency [E55.9] Exposure to hepatitis C [Z20.5] Order(s):MRI BRAIN WO IVCON [9119563] Order #: [id number] FUTURE HEP REMOTE PANEL BL [SQHREMOP] Order #: [id number] FUTURE Prescriptions as of 12/12/2018 Sig: VENLAFAXINE ER 37.5 MG CAPSUL* Take 1 capsule by mouth once * SERTRALINE 50 MG TABLET Take 1 tablet by mouth once d* LOSARTAN 100 MG TABLET Take 1 tablet by mouth once d* METFORMIN 1,000 MG TABLET Take 2 tablets by mouth daily* CYCLOBENZAPRINE 10 MG TABLET Take 1 tablet by mouth twice * ONDANSETRON HCL 4 MG TABLET Take 1 tablet by mouth every * SIMVASTATIN 80 MG TABLET Take 1 tablet by mouth once d* GABAPENTIN 300 MG CAPSULE Take 1 capsule by mouth three* OMEPRAZOLE 20 MG CAPSULE,ANNE MARIE* Take 1 capsule by mouth once * HYDROCODONE 5 MG-ACETAMINOPHE* Take 1 tablet by mouth twice * ALBUTEROL SULFATE HFA 90 MCG/* Inhale 2 Puffs as instructed * HYDROXYCHLOROQUINE 200 MG TAB* 400 mg daily Problem List As Of Date 12/12/2018 Noted Resolved Diabetes mellitus type 2 in obese (HCC) [E11.69*INVALID FOR*02/27/2016 Hypertension [I10] INVALID FOR* Hypercholesteremia [E78.00] INVALID FOR* GERD (gastroesophageal reflux disease) [K21.9] INVALID FOR*02/27/2016 Depression [F32.9] INVALID FOR* Anxiety [F41.9] INVALID FOR* Lupus (HCC) [M32.9] INVALID FOR* Controlled substance agreement signed [Z00.480] INVALID FOR* Diabetes mellitus type 2, controlled, without c* Diarrhea [R19.7] INVALID FOR* GERD without esophagitis [K21.9] INVALID FOR* CKD stage 3 due to type 2 diabetes mellitus (HC*INVALID FOR* More... Encounter Status:Closed by AKIL BUSH DO on 12/12/18 CBC W/DIFF, AUTOMATED Collected: 11/12/2018 Status: F Source: [place] 10:44 AM [facility] [place] TYPE CODE TESTS RESULT OUT OF RANGE REFERENCE UNITS LAB L100.1000 4.4-11.0 K/mm3 Normal WBC 5.7 LAB L100.1200 4.2-5.4 M/mm3 Normal RBC 4.34 LAB L100.1300 12.0-15.0 g/dl Normal HGB 13.1 LAB L100.1400 37-47 % Normal HCT 41.0 LAB L100.1500 81-99 fL Normal MCV 94.5 LAB L100.1600 27.0-32.0 pg Normal MCH 30.2 LAB L100.1700 32-36 g/gl Normal MCHC 32.0 LAB L100.1810 11.6-14.6 % Normal RDW CV 13.2 LAB L100.1820 35.1-43.9 fl High RDW SD 44.0 LAB L100.1900 150-450 K/mm3 Normal PLT 155 LAB L100.2000 6.2-12.0 fl High MPV 12.1 LAB L100.2100 47-70 % Normal NEUT% 62.9 LAB L100.2200 19-41 % Normal LY% 24.1 LAB L100.2300 0-10 % Normal MONO% 6.5 LAB L100.2400 0-5 % High EO% 5.8 LAB L100.2500 0-1 % Normal BASO% 0.5 LAB L100.2550 0.0-0.9 % Normal IM GRAN % 0.200 Result Comment: IG% - Immature Granulocytes (promyelocytes, myelocytes and metamyelocytes) > 1% indicates that a LEFT SHIFT is Present. LAB L100.2620 2.0-7.7 X10 3/uL Normal Absolute Neut 3.6 LAB L100.2720 0.83-4.51 X10 3/ul Normal Absolute Lymph 1.37 Performed By: #### L100.0100 #### [facility] [address] [place], [address] COMPREHENSIVE METABOLIC Collected: 11/12/2018 Status: F Source: [place] 10:44 AM [facility] [place] TYPE CODE TESTS RESULT OUT OF RANGE REFERENCE UNITS LAB L501.0100 74-106 mg/dL Normal GLU 97 Result Comment: Please note revised GLUCOSE reference range effective 2018. LAB L501.1000 7-18 mg/dL High BUN 30 LAB L501.1100 0.55-1.02 mg/dL High CREAT,SERUM 1.56 Result Comment: The validity of the calculated GFR AND GFRAA in patients over 70 years has not been determined. Clinical correlation is essential. LAB L501.1110 >60 mL/min Low EST GFR 35 Result Comment: Non- GFR Calc LAB L501.1115 >60 mL/min Low EST GFR - AA 42 Result Comment: GFR Calc LAB L501.1300 10-20 RATIO Normal BUN/CRE 19.2 LAB L501.1500 6.4-8.2 g/dL T Normal PROT 7.3 LAB L501.1800 3.2-5.0 g/dL Normal ALB 3.7 LAB L501.1950 2.2-4.2 g/dL Normal GLOB 3.6 LAB L501.2000 0.9-2.4 RATIO Normal A/G 1.0 LAB L501.2200 8.5-10.1 mg/dL CA Normal 9.1 LAB L501.4100 15-37 U/L Normal AST 19 LAB L501.4305 45-117 U/L Normal ALK P 96 LAB L501.4405 13-56 U/L Normal ALT 23 LAB L501.4600 0.20-1.00 mg/dL T Normal BILI 0.40 LAB L501.5300 136-145 mmol/L NA Normal 140 LAB L501.5600 3.5-5.1 mmol/L High K 5.2 LAB L501.5900 98-107 mmol/L CL Normal 107 LAB L501.6100 21.0-32.0 mmol/L Normal CO2 25.0 LAB L501.6200 5-15 Normal GAP 8 Performed By: #### L500.4050 #### [facility] [address] [place], [address] PROGRESS Observed: 11/05/2018 Status: COMPLETED Source: [place] 4:37 PM [facility] [place] REPOSITORY HNO ID: [id number] Author: Akil Bush Service: (none) Author Type: Physician Type: Progress Notes Filed: 11/05/2018 4:45 PM Note Text: Patient presents with: Follow Up: 6 months Imm/Inj: Flu Vaccine HPI: Belén Wright is a 67 year old female who presents to the office today for review of health conditions. Concerns today: Depression, seems to be more down lately, taking the effexor 75 mg twice a day, has been on this medication for a while, doesn't remember ever being on anything else. No SI or HI, Memory loss, short term, forgetting what she ate for lunch earlier in day, forgetting the subject/topic on her TV show that she watched and Unable to recall to tell her grandchild or . Not getting lost places. Denies new headaches or falls or vision changes or bladder incontinence or retention or shuffling gait. Mother had dementia and diagnosed in her 70s, likely was Alzheimer's disease. Hasn't been tested for this in the past Ms. Wright has past history of diabetes. Since our last visit she denies excessive thirst or increased frequency of urination, chest pain or dyspnea , new or unusual visual symptoms and low sugar/hypoglycemic reactions. Follows a diabetic diet some of the time. She is compliant with medication(s) and is tolerating med(s) without any side effects. She reports checking her glucose on a once a day schedule with sugars in the <150 range. Patient's last HgA1C was Hemoglobin A1C (%) Date Value 11/01/2018 5.9 04/22/2018 Test sent to [facility]. ) Last Ophthalmology exam was within the past 12 months Ms. Wright reports history of hyperlipidemia. Current therapy includes simvastatin (Zocor) 80 mg. Denies side effects of muscle weakness or achiness. Her most recent lipid panels are reviewed. Cholesterol, Total (mg/dL) Date Value 11/01/2018 120 HDL Cholesterol (mg/dL) Date Value 11/01/2018 58 LDL Cholesterol (mg/dL) Date Value 11/01/2018 45 Triglyceride (mg/dL) Date Value 11/01/2018 85 Ms. Wright indicates a history of hypertension and states that she is feeling well and denies any symptoms referable to elevated blood pressure. Specifically denies headache, chest pain, palpitations, dyspnea and peripheral edema. Patient denies any side effects of her medication(s) and is compliant with their regimen. Last 3 Encounter BP Readings: Date: BP: 11/05/2018 124/80 05/02/2018 116/80 02/01/2018 110/68 She watches her diet for sodium, low fat and low cholesterol some of the time. She does not check BP's generally. Belén gets minimal exercise. PAST MEDICAL HISTORY Diagnosis Date - Arthritis - CKD (chronic kidney disease) stage 3, GFR 30-59 ml/min Sees Dr. 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 Rice - TOTAL KNEE REPLACEMENT 2004 bilateral - TUBAL LIGATION HX 1979 Social History Marital status: Spouse name: Years of education: Number of children: Social History Main Topics Smoking status: Never Smoker Smokeless tobacco: Never Used Alcohol use: No Drug use: No No family history on file. Allergies: ALLERGIES Allergen Reactions - Ciprofloxacin Rash - Contrast Dye Other: See Comments Breaks out with blisters - Sulfabenzamide Rash, GI Upset, Other: See Comments Breaks out in a hot sweat Current Meds: losartan (COZAAR) 100 mg tablet Take 1 tablet by mouth once daily. metFORMIN (GLUCOPHAGE) 1,000 mg tablet Take 2 tablets by mouth daily with breakfast. venlafaxine ER (EFFEXOR XR) 75 mg 24 hr capsule Take 1 capsule by mouth twice daily. cyclobenzaprine (FLEXERIL) 10 mg tablet Take 1 tablet by mouth twice daily as needed. ondansetron (ZOFRAN) 4 mg tablet Take 1 tablet by mouth every 8 hours as needed. simvastatin (ZOCOR) 80 mg tablet Take 1 tablet by mouth once daily. gabapentin (NEURONTIN) 300 mg capsule Take 1 capsule by mouth three times daily for 30 days. omeprazole (PRILOSEC) 20 mg capsule Take 1 capsule by mouth once daily. HYDROcodone-acetaminophen (NORCO) 5-325 mg per tablet Take 1 tablet by mouth twice daily as needed for Pain. Per Dr. Pastor albuterol HFA (PROVENTIL HFA, VENTOLIN HFA) 90 mcg/actuation inhaler Inhale 2 Puffs as instructed every 6 hours as needed for Wheezing/Shortness of Breath. hydroxychloroquine (PLAQUENIL) 200 mg tablet 400 mg daily sertraline (ZOLOFT) 25 mg tablet Take 1 tablet by mouth once daily. Review of Systems: The remainder of the review of systems is negative. PE: 11/05/18 1513 BP: 124/80 Pulse: 76 Resp: 16 Temp: 36.3 ?C (97.4 ?F) TempSrc: Left Tympanic Weight: 86.6 kg (191 lb) Gen: AANDO, NAD, non-toxic appearing, tearful, obese, appropriately dressed, cooperative HEENT: NT/AC, PERRLA, EOMs intact b/l, nares clear and patent b/l, pharynx without erythema, exudate or lesions. Missing teeth, slightly dry mucous membranes, Uvula midline. EACs without erythema or debris. TMs pearly bradley with intact landmarks b/l. Neck: supple, No cervical LAD, no thyromegaly, no carotid bruits CV: RRR, normal S1 and S2, no murmurs, no gallops, no rubs, Pulses 2+ and symmetric in UE and LE b/l Lungs: normal respiratory effort, CTA b/l, no wheezing or rhonchi or rales Abd: soft, NT, ND, +BS, no hepatosplenomegaly MS: FROM all 4 extremities Neuro: CN II-XII intact b/l, strength 5/5 b/l UE and LE, DTRs 2/4 UE and LE, sensation intact. Skin: warm, dry, intact, No rashes or lesions on exposed skin. Overall steady balance ASSESSMENT/PLAN: 1. Need for vaccination - ICD9: V05.9, ICD10: Z23 (primary diagnosis) - INFLUENZA SEASONAL HIGH DOSE AGE 65+ 2. Controlled type 2 diabetes mellitus without complication, without long-term current use of insulin (HCC) - ICD9: 250.00, ICD10: E11.9 Controlled. - Continue current medications - Blood glucose monitoring on a weekly schedule - LOSARTAN 100 MG TABLET - METFORMIN 1,000 MG TABLET - ONDANSETRON HCL 4 MG TABLET 3. Other depression - ICD9: 311, ICD10: F32.89 - taper off the Effexor, start on Zoloft, will plan on getting off the Effexor and increasing Zoloft to target dose depending on mood and control of symptoms. Wondering if the effexor is causing SE of memory changes. - VENLAFAXINE ER 75 MG CAPSULE,EXTENDED RELEASE 24 HR - SERTRALINE 25 MG TABLET 4. Hypercholesteremia - ICD9: 272.0, ICD10: E78.00 - suboptimal control - Continue current medication. - Encouraged following a low fat, low cholesterol diet. - Discussed the benefits of regular aerobic exercise and weight loss. - SIMVASTATIN 80 MG TABLET 5. Pain, joint, multiple sites - ICD9: 719.49, ICD10: M25.50 - would recommend consideration of tapering down on dose of medication because may be causing memory loss - GABAPENTIN 300 MG CAPSULE 6. Dementia without behavioral disturbance, unspecified dementia type - ICD9: 294.20, ICD10: F03.90 - unsure of cause of memory loss/changes, labs as ordered, CT brain and tapering down on Effexor and starting on Zoloft, will need to complete MMSE evaluation in office at follow up and then Neurology referral afterwards if abnormal. - CT BRAIN WO IVCON - VITAMIN B12 BLOOD - TSH BLD - CBC - COMP METABOLIC PANEL 7. Cerebral microvascular disease - ICD9: 437.9, ICD10: I67.9 - see above, start on ASA, seen on CT brain in the past changes of vessel disease. - CT BRAIN WO IVCON - VITAMIN B12 BLOOD - TSH BLD - CBC - COMP METABOLIC PANEL 8. Vitamin D deficiency - ICD9: 268.9, ICD10: E55.9 - VITAMIN D 25 HYDROXY Akil Bush DO To ER if develops chest pain, shortness of breath, or severe worsening of symptoms. Discussed risks, benefits, alternatives, and potential side effects of medications. Patient expressed understanding and agreed with the plan. Akil Bush DO [address] [place] [address] CBC-COMPLETE BLOOD CNT Collected: 11/05/2018 Status: F Source: [place] NO DIFF 4:25 PM [facility] [place] CODE TESTS RESULT OUT OF RANGE REFERENCE UNITS LAB L100.1000 4.4-11.0 K/mm3 Normal WBC 6.3 LAB L100.1200 4.2-5.4 M/mm3 Normal RBC 4.40 LAB L100.1300 12.0-15.0 g/dl Normal HGB 13.3 LAB L100.1400 37-47 % Normal HCT 41.3 LAB L100.1500 81-99 fL Normal MCV 93.9 LAB L100.1600 27.0-32.0 pg Normal MCH 30.2 LAB L100.1700 32-36 g/gl Normal MCHC 32.2 LAB L100.1810 11.6-14.6 % Normal RDW CV 13.3 LAB L100.1820 35.1-43.9 fl High RDW SD 45.7 LAB L100.1900 150-450 K/mm3 Normal PLT 172 LAB L100.2000 6.2-12.0 fl Normal MPV 11.8 Performed By: #### L100.0500 #### [facility] [address] [place], [place], [address] COMPREHENSIVE METABOLIC Collected: 11/05/2018 Status: F Source: [place] PROFIL 4:25 PM [facility] [place] CODE TESTS RESULT OUT OF RANGE REFERENCE UNITS LAB L501.0100 74-106 mg/dL Normal GLU 94 Result Comment: Please note revised GLUCOSE reference range effective 2018. LAB L501.1000 7-18 mg/dL High BUN 25 LAB L501.1100 0.55-1.02 mg/dL High CREAT,SERUM 1.42 Result Comment: The validity of the calculated GFR AND GFRAA in patients over 70 years has not been determined. Clinical correlation is essential. LAB L501.1110 >60 mL/min Low EST GFR 39 Result Comment: Non- GFR Calc LAB L501.1115 >60 mL/min Low EST GFR - AA 47 Result Comment: GFR Calc LAB L501.1300 10-20 RATIO Normal BUN/CRE 17.6 LAB L501.1500 6.4-8.2 g/dL T Normal PROT 7.7 LAB L501.1800 3.2-5.0 g/dL Normal ALB 3.9 LAB L501.1950 2.2-4.2 g/dL Normal GLOB 3.8 LAB L501.2000 0.9-2.4 RATIO Normal A/G 1.0 LAB L501.2200 8.5-10.1 mg/dL CA Normal 9.1 LAB L501.4100 15-37 U/L Normal AST 19 LAB L501.4305 45-117 U/L Normal ALK P 101 LAB L501.4405 13-56 U/L Normal ALT 21 LAB L501.4600 0.20-1.00 mg/dL T Normal BILI 0.40 LAB L501.5300 136-145 mmol/L NA Normal 141 LAB L501.5600 3.5-5.1 mmol/L K Normal 4.6 LAB L501.5900 98-107 mmol/L High CL 109 LAB L501.6100 21.0-32.0 mmol/L Normal CO2 27.0 LAB L501.6200 5-15 Normal GAP 5 Performed By: #### L500.4050, L501.9520 #### [facility] [address] [place], [place], [id number] THYROID STIM HORMONE Collected: 11/05/2018 Status: F Source: [place] (TSH) 4:25 PM [facility] [place] CODE TESTS RESULT OUT OF RANGE REFERENCE UNITS LAB L501.9520 0.358-3.74 uIU/mL Normal TSH 2.06 Performed By: #### L500.4050, L501.9520 #### [facility] [address] [place], [address] VITAMIN B12 Collected: 11/05/2018 Status: F Source: [place] 4:25 PM [facility] [place] CODE TESTS RESULT OUT OF RANGE REFERENCE UNITS LAB L503.0105 211-911 pg/mL Normal Vitamin B12 277 Performed By: #### L503.0105, L506.1000 #### [facility] [address] [place], [address] VITAMIN D,25 HYDROXY Collected: 11/05/2018 Status: F Source: [place] 4:25 PM [facility] [place] CODE TESTS RESULT OUT OF REFERENCE UNITS RANGE LAB L506.1000 29.95-100.01 ng/mL Low Vitamin D 18.6 25-OH Result Comment: Vitamin D 25(OH) Status Range Deficiency <20 ng/mL (50nmol/L) Insuffciency 20 - 30 ng/mL (50 - 75 nmol/L) Sufficiency 30 - 100 ng/mL (75 - 250 nmol/L) Toxicity >100 ng/mL (>250 nmol/L) Performed By: #### L503.0105, L506.1000 #### [facility] [address] [place], [address] VITAMIN B12 Collected: 11/05/2018 Status: F Source: [place] 4:23 PM [facility] REPOSITORY TYPE CODE TESTS RESULT OUT OF REFERENCE UNITS RANGE LAB B12 232-1245 pg/mL Test Vitamin B12 sent to [facility]. Result Comment: Account Credited LATHA CBC Collected: 11/05/2018 Status: F Source: [place] 4:23 PM [facility] REPOSITORY TYPE CODE TESTS RESULT OUT OF REFERENCE UNITS RANGE LAB WBC 3.70-11.00 k/uL Test WBC sent to [facility]. Result Comment: Account Credited [facility] RBC 3.90-5.20 m/uL Test sent RBC to [facility]. Result Comment: Account Credited [facility] HGB 11.5-15.5 g/dL Hemoglobin Test sent to [facility]. Result Comment: Account Credited [facility] HCT 36.0-46.0 % Hematocrit Test sent to [facility]. Result Comment: Account Credited [facility] MCV 80.0-100.0 fL Test sent MCV to [facility]. Result Comment: Account Credited [facility] MCH 26.0-34.0 pG Test sent MCH to [facility]. Result Comment: Account Credited [facility] MCHC 30.5-36.0 g/dL Test MCHC sent to [facility]. Result Comment: Account Credited [facility] RDWCV 11.5-15.0 % Test RDW-CV sent to [facility]. Result Comment: Account Credited [facility] PLTCT 150-400 k/uL Test Platelet Count sent to [facility]. Result Comment: Account Credited [facility] MPV 9.0-12.7 fL Test sent MPV to [facility]. Result Comment: Account Credited [facility] LAB KINJAL Recheck Test sent to [facility]. Result Comment: Account Credited JOVANNIE LAB REVW Test sent to Review [facility]. Result Comment: Account Credited [facility] CBCCOM Comment Test sent to [facility]. Result Comment: Account Credited [facility] LAB ABSNUC <0.01 k/uL Test Absolute nRBC sent to [facility]. Result Comment: Account Credited [facility] COMP METABOLIC PANEL Collected: 11/05/2018 Status: F Source: [place] 4:23 PM [facility] REPOSITORY TYPE CODE TESTS RESULT OUT OF REFERENCE UNITS RANGE LAB TP 6.3-8.0 g/dL Test sent to [facility]. Result Comment: Account Credited [facility] ALB 3.9-4.9 g/dL Test Albumin sent to [facility]. Result Comment: Account Credited [facility] CA 8.5-10.2 mg/dL Test Calcium, Total sent to [facility]. Result Comment: Account Credited [facility] TBIL 0.2-1.3 mg/dL Bilirubin, Test Total sent to [facility]. Result Comment: Account Credited [facility] ALKP 34-123 U/L Alkaline Test Phosphatase sent to [facility]. Result Comment: Account Credited [facility] AST 13-35 U/L Test sent AST to [facility]. Result Comment: Account Credited [facility] GLU 74-99 mg/dL Test sent Glucose to [facility]. Result Comment: Account Credited [facility] BUN 7-21 mg/dL Test sent BUN to [facility]. Result Comment: Account Credited [facility] CRET 0.58-0.96 mg/dL Creatinine Test sent to [facility]. Result Comment: Account Credited [facility] NA 136-144 mmol/L Test Sodium sent to [facility]. Result Comment: Account Credited [facility] K 3.7-5.1 mmol/L Test Potassium sent to [facility]. Result Comment: Account Credited [facility] CL 97-105 mmol/L Test Chloride sent to [facility]. Result Comment: Account Credited [facility] CO2 22-30 mmol/L Test sent CO2 to [facility]. Result Comment: Account Credited [facility] AGAP 9-18 mmol/L Test sent Anion Gap to [facility]. Result Comment: Account Credited [facility] ALT 7-38 U/L Test sent to ALT [facility]. Result Comment: Account Credited [facility] GFRAA eGFR- Amer. Test sent to [facility]. Result Comment: Account Credited [facility] GFRNAA . eGFR-All Test sent Other Races to [facility]. Result Comment: Account Credited [facility] GFRPED eGFR-Ped. Test sent Factor to [facility]. Result Comment: Account Credited JOVANNIE TSH Collected: 11/05/2018 Status: F Source: [place] 4:23 PM [facility] REPOSITORY TYPE CODE TESTS RESULT OUT OF REFERENCE UNITS RANGE LAB TSH 0.400-5.500 uU/mL Test TSH sent to [facility]. Result Comment: Account Credited JOVANNIE VITAMIN D 25 HYDROXY Collected: 11/05/2018 Status: F Source: [place] 4:23 PM [facility] REPOSITORY TYPE CODE TESTS RESULT OUT OF REFERENCE UNITS RANGE LAB VITD 31.0-80.0 ng/mL Test Vitamin D 25 sent to [facility]. Result Comment: Account Credited LATHA PROGRESS Observed: 11/05/2018 Status: COMPLETED Source: [place] 3:22 PM [facility] REPOSITORY HNO ID: [id number] Author: Shelley Waggoner LPN Service: (none) Author Type: (none) Type: Progress Notes Filed: 11/05/2018 4:45 PM Note Text: 67 year old female here for INACTIVATED INFLUENZA VACCINE. 3681-7610 Season Patient is identified by name and date of : Yes [] CONTRAINDICATIONS color enhanced section Age less than 6 months? No Allergy to eggs, chicken, chicken feathers, or chicken dander? No Allergy to thimerosal (a preservative) or formaldehyde, gelatin? No History of severe reaction to any vaccine component or a previous dose of influenza vaccination? No History of Guillain-Harrison Syndrome within 6 weeks after a previous influenza vaccine? No Patient is not moderately or severely ill? No Current temperature greater or equal to 100.4F? No History of Bone Marrow Transplant prior 6 months or solid organ transplant in the past 3 months ? No History of fainting after a prior injection or medical procedure? No- ? If patient has fainted in the past, the CDC recommends sitting or lying down for 15 minutes after the vaccination. [] VERIFICATION color enhanced section Was the answer Yes for any of the above contraindications? No contraindications present. Acceptable to proceed with vaccine. Patient/guardian agrees the above answers are true to the best of their knowledge? Yes Flu vaccine information sheet given? Yes See immunization activity in [facility] for details of immunizations adminstered today. Patient age: [age] year old For The 9970-8742 Flu Season 6-35 months old: Fluzone 0.25 ml - IM (Preservative Free) 3 years of age: Fluzone 0.5 ml - IM (Preservative Free) 3 years and older: Fluzone 0.5 ml- IM-(with Preservatives) 65+ years old: 2-49 years old Fluzone High-Dose 0.5 ml - IM (Preservative Free) FLUMIST- intranasal REMEMBER: If patient is less than 9 years of age and this is the first vaccine of Influenza to be received in any flu season, they should receive a second dose in one months time. CNOV Observed: 11/05/2018 Status: COMPLETED Source: [place] 3:20 PM [facility] REPOSITORY Office Visit (FAMPWS) BELÉN WRIGHT ([id number]) 1950 F Date Time Provider Department 11/05/18 3:20 PM AKIL BUSH FAMPWS During your visit today, we recorded the following information about you: Temperature Pulse Respiration Blood pressure 97.4 degrees 76/minute 16/minute 124/80 Weight 86.6 kg Shelley Waggoner LPN 11/05/2018 4:45 PM Signed 67 year old female here for INACTIVATED INFLUENZA VACCINE. 4228-4307 Season Patient is identified by name and date of : Yes [] CONTRAINDICATIONS color enhanced section Age less than 6 months? No Allergy to eggs, chicken, chicken feathers, or chicken dander? No Allergy to thimerosal (a preservative) or formaldehyde, gelatin? No History of severe reaction to any vaccine component or a previous dose of influenza vaccination? No History of Guillain-Harrison Syndrome within 6 weeks after a previous influenza vaccine? No Patient is not moderately or severely ill? No Current temperature greater or equal to 100.4F? No History of Bone Marrow Transplant prior 6 months or solid organ transplant in the past 3 months ? No History of fainting after a prior injection or medical procedure? No- ? If patient has fainted in the past, the CDC recommends sitting or lying down for 15 minutes after the vaccination. [] VERIFICATION color enhanced section Was the answer Yes for any of the above contraindications? No contraindications present. Acceptable to proceed with vaccine. Patient/guardian agrees the above answers are true to the best of their knowledge? Yes Flu vaccine information sheet given? Yes See immunization activity in [facility] for details of immunizations adminstered today. Patient age: [age] year old For The 1150-8668 Flu Season 6-35 months old: Fluzone 0.25 ml - IM (Preservative Free) 3 years of age: Fluzone 0.5 ml - IM (Preservative Free) 3 years and older: Fluzone 0.5 ml- IM-(with Preservatives) 65+ years old: 2-49 years old Fluzone High-Dose 0.5 ml - IM (Preservative Free) FLUMIST- intranasal REMEMBER: If patient is less than 9 years of age and this is the first vaccine of Influenza to be received in any flu season, they should receive a second dose in one months time. Akil Bush, 11/05/2018 3:56 PM Signed Start on Zoloft 25 mg at bedtime once a day. In 1 week, start to taper off the Effexor by decreasing the dose to 1 capsule (75 mg) once a day in the morning (stop the evening dose). Continue this once a day Effexor for 3 weeks. Akil Bush DO 11/05/2018 4:45 PM Signed Patient presents with: Follow Up: 6 months Imm/Inj: Flu Vaccine HPI: Belén Wright is a 67 year old female who presents to the office today for review of health conditions. Concerns today: Depression, seems to be more down lately, taking the effexor 75 mg twice a day, has been on this medication for a while, doesn't remember ever being on anything else. No SI or HI, Memory loss, short term, forgetting what she ate for lunch earlier in day, forgetting the subject/topic on her TV show that she watched and Unable to recall to tell her grandchild or . Not getting lost places. Denies new headaches or falls or vision changes or bladder incontinence or retention or shuffling gait. Mother had dementia and diagnosed in her 70s, likely was Alzheimer's disease. Hasn't been tested for this in the past Ms. Wright has past history of diabetes. Since our last visit she denies excessive thirst or increased frequency of urination, chest pain or dyspnea , new or unusual visual symptoms and low sugar/hypoglycemic reactions. Follows a diabetic diet some of the time. She is compliant with medication(s) and is tolerating med(s) without any side effects. She reports checking her glucose on a once a day schedule with sugars in the <150 range. Patient's last HgA1C was Hemoglobin A1C (%) Date Value 11/01/2018 5.9 04/22/2018 Test sent to [facility]. ) Last Ophthalmology exam was within the past 12 months Ms. Wright reports history of hyperlipidemia. Current therapy includes simvastatin (Zocor) 80 mg. Denies side effects of muscle weakness or achiness. Her most recent lipid panels are reviewed. Cholesterol, Total (mg/dL) Date Value 11/01/2018 120 HDL Cholesterol (mg/dL) Date Value 11/01/2018 58 LDL Cholesterol (mg/dL) Date Value 11/01/2018 45 Triglyceride (mg/dL) Date Value 11/01/2018 85 Ms. Wright indicates a history of hypertension and states that she is feeling well and denies any symptoms referable to elevated blood pressure. Specifically denies headache, chest pain, palpitations, dyspnea and peripheral edema. Patient denies any side effects of her medication(s) and is compliant with their regimen. Last 3 Encounter BP Readings: Date: BP: 11/05/2018 124/80 05/02/2018 116/80 02/01/2018 110/68 She watches her diet for sodium, low fat and low cholesterol some of the time. She does not check BP's generally. Belén gets minimal exercise. PAST MEDICAL HISTORY Diagnosis Date - Arthritis - CKD (chronic kidney disease) stage 3, GFR 30-59 ml/min Sees Dr. 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 Rice - TOTAL KNEE REPLACEMENT 2005 bilateral - TUBAL LIGATION HX 1980 Social History Marital status: Spouse name: Years of education: Number of children: Social History Main Topics Smoking status: Never Smoker Smokeless tobacco: Never Used Alcohol use: No Drug use: No No family history on file. Allergies: ALLERGIES Allergen Reactions - Ciprofloxacin Rash - Contrast Dye Other: See Comments Breaks out with blisters - Sulfabenzamide Rash, GI Upset, Other: See Comments Breaks out in a hot sweat Current Meds: losartan (COZAAR) 100 mg tablet Take 1 tablet by mouth once daily. metFORMIN (GLUCOPHAGE) 1,000 mg tablet Take 2 tablets by mouth daily with breakfast. venlafaxine ER (EFFEXOR XR) 75 mg 24 hr capsule Take 1 capsule by mouth twice daily. cyclobenzaprine (FLEXERIL) 10 mg tablet Take 1 tablet by mouth twice daily as needed. ondansetron (ZOFRAN) 4 mg tablet Take 1 tablet by mouth every 8 hours as needed. simvastatin (ZOCOR) 80 mg tablet Take 1 tablet by mouth once daily. gabapentin (NEURONTIN) 300 mg capsule Take 1 capsule by mouth three times daily for 30 days. omeprazole (PRILOSEC) 20 mg capsule Take 1 capsule by mouth once daily. HYDROcodone-acetaminophen (NORCO) 5-325 mg per tablet Take 1 tablet by mouth twice daily as needed for Pain. Per Dr. Pastor albuterol HFA (PROVENTIL HFA, VENTOLIN HFA) 90 mcg/actuation inhaler Inhale 2 Puffs as instructed every 6 hours as needed for Wheezing/Shortness of Breath. hydroxychloroquine (PLAQUENIL) 200 mg tablet 400 mg daily sertraline (ZOLOFT) 25 mg tablet Take 1 tablet by mouth once daily. Review of Systems: The remainder of the review of systems is negative. PE: 11/05/18 1513 BP: 124/80 Pulse: 76 Resp: 16 Temp: 36.3 ?C (97.4 ?F) TempSrc: Left Tympanic Weight: 86.6 kg (191 lb) Gen: AANDO, NAD, non-toxic appearing, tearful, obese, appropriately dressed, cooperative HEENT: NT/AC, PERRLA, EOMs intact b/l, nares clear and patent b/l, pharynx without erythema, exudate or lesions. Missing teeth, slightly dry mucous membranes, Uvula midline. EACs without erythema or debris. TMs pearly bradley with intact landmarks b/l. Neck: supple, No cervical LAD, no thyromegaly, no carotid bruits CV: RRR, normal S1 and S2, no murmurs, no gallops, no rubs, Pulses 2+ and symmetric in UE and LE b/l Lungs: normal respiratory effort, CTA b/l, no wheezing or rhonchi or rales Abd: soft, NT, ND, +BS, no hepatosplenomegaly MS: FROM all 4 extremities Neuro: CN II-XII intact b/l, strength 5/5 b/l UE and LE, DTRs 2/4 UE and LE, sensation intact. Skin: warm, dry, intact, No rashes or lesions on exposed skin. Overall steady balance ASSESSMENT/PLAN: 1. Need for vaccination - ICD9: V05.9, ICD10: Z23 (primary diagnosis) - INFLUENZA SEASONAL HIGH DOSE AGE 65+ 2. Controlled type 2 diabetes mellitus without complication, without long-term current use of insulin (HCC) - ICD9: 250.00, ICD10: E11.9 Controlled. - Continue current medications - Blood glucose monitoring on a weekly schedule - LOSARTAN 100 MG TABLET - METFORMIN 1,000 MG TABLET - ONDANSETRON HCL 4 MG TABLET 3. Other depression - ICD9: 311, ICD10: F32.89 - taper off the Effexor, start on Zoloft, will plan on getting off the Effexor and increasing Zoloft to target dose depending on mood and control of symptoms. Wondering if the effexor is causing SE of memory changes. - VENLAFAXINE ER 75 MG CAPSULE,EXTENDED RELEASE 24 HR - SERTRALINE 25 MG TABLET 4. Hypercholesteremia - ICD9: 272.0, ICD10: E78.00 - suboptimal control - Continue current medication. - Encouraged following a low fat, low cholesterol diet. - Discussed the benefits of regular aerobic exercise and weight loss. - SIMVASTATIN 80 MG TABLET 5. Pain, joint, multiple sites - ICD9: 719.49, ICD10: M25.50 - would recommend consideration of tapering down on dose of medication because may be causing memory loss - GABAPENTIN 300 MG CAPSULE 6. Dementia without behavioral disturbance, unspecified dementia type - ICD9: 294.20, ICD10: F03.90 - unsure of cause of memory loss/changes, labs as ordered, CT brain and tapering down on Effexor and starting on Zoloft, will need to complete MMSE evaluation in office at follow up and then Neurology referral afterwards if abnormal. - CT BRAIN WO IVCON - VITAMIN B12 BLOOD - TSH BLD - CBC - COMP METABOLIC PANEL 7. Cerebral microvascular disease - ICD9: 437.9, ICD10: I67.9 - see above, start on ASA, seen on CT brain in the past changes of vessel disease. - CT BRAIN WO IVCON - VITAMIN B12 BLOOD - TSH BLD - CBC - COMP METABOLIC PANEL 8. Vitamin D deficiency - ICD9: 268.9, ICD10: E55.9 - VITAMIN D 25 HYDROXY Akil Bush DO To ER if develops chest pain, shortness of breath, or severe worsening of symptoms. Discussed risks, benefits, alternatives, and potential side effects of medications. Patient expressed understanding and agreed with the plan. Akil Bush DO [address] [place] [address] Referring Provider: AKIL BUSH [[id number]] Allergies As of Date: 11/05/2018 Noted Allergy Reaction CIPROFLOXACIN 08/01/2017 2 - Rash CONTRAST DYE 09/14/2014 14 - Other: See Comments Comments: Breaks out with blisters SULFABENZAMIDE 09/14/2014 2 - Rash 8 - GI Upset 14 - Other: See Comments Comments: Breaks out in a hot sweat Date Reviewed: 11/05/2018 Reviewed by: Shelley Waggoner LPN - Fully Assessed Reason for Visit: Follow Up [171] Cmt: 6 months Imm/Inj [58] Cmt: Flu Vaccine Reason For Visit History Recorded Primary Visit Diagnosis:Need for vaccination [Z23] Other Visit Diagnoses:Controlled type 2 diabetes mellitus without complication, without long-term current use of insulin (HCC) [E11.9] Other depression [F32.89] Hypercholesteremia [E78.00] Pain, joint, multiple sites [M25.50] Dementia without behavioral disturbance, unspecified dementia type [F03.90] Cerebral microvascular disease [I67.9] Vitamin D deficiency [E55.9] Order(s):INFLUENZA SEASONAL HIGH DOSE AGE 65+ [[id number]] Order #: [id number] losartan (COZAAR) 100 mg tabletTake 1 tablet by mouth once daily.Disp: 30 tabletRfl: 5 metFORMIN (GLUCOPHAGE) 1,000 mg tabletTake 2 tablets by mouth daily with breakfast.Disp: 60 tabletRfl: 5 venlafaxine ER (EFFEXOR XR) 75 mg 24 hr capsuleTake 1 capsule by mouth twice daily.Disp: 60 capsuleRfl: 5 cyclobenzaprine (FLEXERIL) 10 mg tabletTake 1 tablet by mouth twice daily as needed.Disp: 60 tabletRfl: 5 ondansetron (ZOFRAN) 4 mg tabletTake 1 tablet by mouth every 8 hours as needed.Disp: 30 tabletRfl: 5 simvastatin (ZOCOR) 80 mg tabletTake 1 tablet by mouth once daily.Disp: 30 tabletRfl: 5 gabapentin (NEURONTIN) 300 mg capsuleTake 1 capsule by mouth three times daily for 30 days.Disp: 90 capsuleRfl: 5 CT BRAIN WO IVCON [[id number]] Order #: [id number] FUTURE VITAMIN B12 BLOOD [SQB12] Order #: [id number] FUTURE TSH BLD [SQTSH] Order #: [id number] FUTURE CBC [SQCBC] Order #: [id number] FUTURE COMP METABOLIC PANEL [SQCMP] Order #: [id number] FUTURE VITAMIN D 25 HYDROXY [SQVITD] Order #: [id number] FUTURE sertraline (ZOLOFT) 25 mg tabletTake 1 tablet by mouth once daily.Disp: 30 tabletRfl: 3 Prescriptions as of 11/05/2018 Sig: LOSARTAN 100 MG TABLET Take 1 tablet by mouth once d* METFORMIN 1,000 MG TABLET Take 2 tablets by mouth daily* VENLAFAXINE ER 75 MG CAPSULE,* Take 1 capsule by mouth twice* CYCLOBENZAPRINE 10 MG TABLET Take 1 tablet by mouth twice * ONDANSETRON HCL 4 MG TABLET Take 1 tablet by mouth every * SIMVASTATIN 80 MG TABLET Take 1 tablet by mouth once d* GABAPENTIN 300 MG CAPSULE Take 1 capsule by mouth three* OMEPRAZOLE 20 MG CAPSULE,ANNE MARIE* Take 1 capsule by mouth once * HYDROCODONE 5 MG-ACETAMINOPHE* Take 1 tablet by mouth twice * ALBUTEROL SULFATE HFA 90 MCG/* Inhale 2 Puffs as instructed * HYDROXYCHLOROQUINE 200 MG TAB* 400 mg daily SERTRALINE 25 MG TABLET Take 1 tablet by mouth once d* Problem List As Of Date 11/05/2018 Noted Resolved Diabetes mellitus type 2 in obese (HCC) [E11.69*INVALID FOR*02/27/2016 Hypertension [I10] INVALID FOR* Hypercholesteremia [E78.00] INVALID FOR* GERD (gastroesophageal reflux disease) [K21.9] INVALID FOR*02/27/2016 Depression [F32.9] INVALID FOR* Anxiety [F41.9] INVALID FOR* Lupus (HCC) [L93.0] INVALID FOR* Controlled substance agreement signed [Z79.899] INVALID FOR* Diabetes mellitus type 2, controlled, without c* Diarrhea [R19.7] INVALID FOR* GERD without esophagitis [K21.9] INVALID FOR* CKD stage 3 due to type 2 diabetes mellitus (HC*INVALID FOR* More... Other instructions from your clinician: Start on Zoloft 25 mg at bedtime once a day. In 1 week, start to taper off the Effexor by decreasing the dose to 1 capsule (75 mg) once a day in the morning (stop the evening dose). Continue this once a day Effexor for 3 weeks. Prescriptions ordered this encounter Disp Refills Start End LOSARTAN 100 MG TABLET 30 t* 5 11/05/2018 Route: ORAL Sig: Take 1 tablet by mouth once daily. METFORMIN 1,000 MG TABLET 60 t* 5 11/05/2018 Route: ORAL Sig: Take 2 tablets by mouth daily with breakfast. VENLAFAXINE ER 75 MG CAPSULE,EXTENDE* 60 c* 5 11/05/2018 Route: ORAL Sig: Take 1 capsule by mouth twice daily. CYCLOBENZAPRINE 10 MG TABLET 60 t* 5 11/05/2018 Route: ORAL Sig: Take 1 tablet by mouth twice daily as needed. ONDANSETRON HCL 4 MG TABLET 30 t* 5 11/05/2018 Route: ORAL Sig: Take 1 tablet by mouth every 8 hours as needed. SIMVASTATIN 80 MG TABLET 30 t* 5 11/05/2018 Route: ORAL Sig: Take 1 tablet by mouth once daily. GABAPENTIN 300 MG CAPSULE 90 c* 5 11/05/2018 12/05/2018 Route: ORAL Sig: Take 1 capsule by mouth three times daily for 30 days. SERTRALINE 25 MG TABLET 30 t* 3 11/05/2018 Route: ORAL Sig: Take 1 tablet by mouth once daily. Medications Discontinued During This Encounter losartan (COZAAR) 100 mg tablet 30 t* 5 06/03/2018 11/05/2018 Route: ORAL Sig: Take 1 tablet by mouth once daily. Disc: Reason for discontinue is not on file. metFORMIN (GLUCOPHAGE) 1,000 mg tabl* 60 t* 5 06/03/2018 11/05/2018 Route: ORAL Sig: Take 2 tablets by mouth daily with breakfast. Disc: Reason for discontinue is not on file. venlafaxine ER (EFFEXOR XR) 75 mg 24* 60 c* 5 06/03/2018 11/05/2018 Route: ORAL Sig: Take 1 capsule by mouth twice daily. Disc: Reason for discontinue is not on file. cyclobenzaprine (FLEXERIL) 10 mg tab* 60 t* 5 05/02/2018 11/05/2018 Route: ORAL Sig: Take 1 tablet by mouth twice daily as needed. Disc: Reason for discontinue is not on file. ondansetron (ZOFRAN) 4 mg tablet 30 t* 5 05/02/2018 11/05/2018 Route: ORAL Sig: Take 1 tablet by mouth every 8 hours as needed. Disc: Reason for discontinue is not on file. simvastatin (ZOCOR) 80 mg tablet 30 t* 5 05/02/2018 11/05/2018 Route: ORAL Sig: Take 1 tablet by mouth once daily. Disc: Reason for discontinue is not on file. gabapentin (NEURONTIN) 300 mg capsule 90 c* 5 05/02/2018 11/05/2018 Route: ORAL Sig: Take 1 capsule by mouth three times daily for 30 days. Disc: Reason for discontinue is not on file. Encounter Status:Closed by AKIL BUSH DO on 11/05/18 LIPID PANEL, BASIC Collected: 11/01/2018 Status: F Source: [place] 10:02 AM [facility] [place] REPOSITORY TYPE CODE TESTS RESULT OUT OF REFERENCE UNITS RANGE LAB CHOL <200 mg/dL Cholesterol 120 Result Comment: <200 mg/dL, Desirable 200-239 mg/dL, Borderline high >239 mg/dL, High LAB TRIGLY <150 mg/dL Triglyceride 85 Result Comment: <150 mg/dL, Normal 150-199 mg/dL, Borderline high 200-499 mg/dL, High >499 mg/dL, Very high LAB HDL >39 mg/dL HDL-Cholesterol 58 Result Comment: 40-59 mg/dL, Acceptable >59 mg/dL, High: Negative risk factor for coronary heart disease <40 mg/dL, Low: Positive risk factor for coronary heart disease LAB LDL <100 mg/dL LDL-Cholesterol 45 Result Comment: <100 mg/dL, Optimal 100-129 mg/dL, Near optimal/above optimal 130-159 mg/dL, Borderline high 160-189 mg/dL, High >189 mg/dL, Very high Secondary prevention optimal LDL Cholesterol levels are recommended to be < 70 mg/dL LAB NONHDL <130 mg/dL Non HDL Cholesterol 62 Result Comment: <130 mg/dL, Optimal 130-159 mg/dL, Near optimal/above optimal 160-189 mg/dL, Borderline high 190-219 mg/dL, High >219 mg/dL, Very high Secondary prevention optimal non HDL Cholesterol levels are recommended to be < 100 mg/dL LAB FT hrs Fasting Time 12 LAB VLDL <30 mg/dL VLDL Cholesterol 17 LAB TCHDL <5.10 TC:HDL Ratio 2.07 LAB LDLHDL <2.54 LDL:HDL Ratio 0.78 Result Comment: Reference: 1. National Cholesterol Education Program ATP III Guideline At-A-Glance Quick Desk Reference: National Heart, Lung, and Blood [place]. National Institutes of Health. 2001: NIH Publication No. 01-3305. 2. An International Atherosclerosis Society position paper: global recommendations for the management of dyslipidemia: executive summary, Atherosclerosis. 2014: 232(2):410-413. Performed By: #### LIPB, HBA1C #### [facility] [address] [address] HEMOGLOBIN A1C Collected: 11/01/2018 Status: F Source: [place] 10:02 AM [facility] REPOSITORY TYPE CODE TESTS RESULT OUT OF REFERENCE UNITS RANGE LAB HGBA1C 4.3-5.6 % High Hemoglobin A1c 5.9 Result Comment: [place] Diabetes Association guidelines indicate that patients with HgbA1c in the range 5.7-6.4% are at increased risk for development of diabetes, and intervention by lifestyle modification may be beneficial. HgbA1c greater or equal to 6.5% is considered diagnostic of diabetes. LAB HBA0 mg/dL Est. Average Glucose 123 Result Comment: eAG: (Estimated average glucose) is a calculated value from HgbA1c and is sales support representative of the average blood glucose level in the last 2-3 month period. Performed By: #### LIPB, HBA1C #### [facility] [address] [place], [place] [address] CNPTOUTREACH Observed: 10/21/2018 Status: COMPLETED Source: [place] 12:00 AM [facility] REPOSITORY Patient Outreach (INTMWH) BELÉN WRIGHT ([id number]) 1950 F Date Time Provider Department 10/21/18 AKIL BUSH [facility] During your visit today, we recorded the following information about you: Allergies As of Date: 10/21/2018 Noted Allergy Reaction CIPROFLOXACIN 08/01/2017 2 - Rash CONTRAST DYE 09/14/2014 14 - Other: See Comments Comments: Breaks out with blisters SULFABENZAMIDE 09/14/2014 2 - Rash 8 - GI Upset 14 - Other: See Comments Comments: Breaks out in a hot sweat Date Reviewed: 05/02/2018 Reviewed by: Akil Bush - Fully Assessed Visit Diagnosis:Medication management [Z79.899] Order(s):HGB A1C [DQPPB2D] Order #: [id number] FUTURE LIPID PANEL BASIC [SQLIPB] Order #: [id number] FUTURE Prescriptions as of 10/21/2018 Sig: ALBUTEROL SULFATE HFA 90 MCG/* Inhale 2 Puffs as instructed * HYDROCODONE 5 MG-ACETAMINOPHE* Take 1 tablet by mouth twice * HYDROXYCHLOROQUINE 200 MG TAB* 400 mg daily X CYCLOBENZAPRINE 10 MG TABLET Take 1 tablet by mouth twice * X GABAPENTIN 300 MG CAPSULE Take 1 capsule by mouth three* X LOSARTAN 100 MG TABLET Take 1 tablet by mouth once d* X METFORMIN 1,000 MG TABLET Take 2 tablets by mouth daily* X OMEPRAZOLE 20 MG CAPSULE,ANNE MARIE* Take 1 capsule by mouth once * X ONDANSETRON HCL 4 MG TABLET Take 1 tablet by mouth every * X SIMVASTATIN 80 MG TABLET Take 1 tablet by mouth once d* X VENLAFAXINE ER 75 MG CAPSULE,* Take 1 capsule by mouth twice* Problem List As Of Date 10/21/2018 Noted Resolved Diabetes mellitus type 2 in obese (HCC) [E11.69*INVALID FOR*02/27/2016 Hypertension [I10] INVALID FOR* Hypercholesteremia [E78.00] INVALID FOR* GERD (gastroesophageal reflux disease) [K21.9] INVALID FOR*02/27/2016 Depression [F32.9] INVALID FOR* Anxiety [F41.9] INVALID FOR* Lupus (HCC) [L93.0] INVALID FOR* Controlled substance agreement signed [Z79.899] INVALID FOR* Diabetes mellitus type 2, controlled, without c* Diarrhea [R19.7] INVALID FOR* GERD without esophagitis [K21.9] INVALID FOR* CKD stage 3 due to type 2 diabetes mellitus (HC*INVALID FOR* More... Encounter Status:Closed by EPIC, PRODUSER on 11/21/18 SHOULDER MIN 2 VIEWS Observed: 08/25/2018 Status: F Source: [place] 2:54 PM [facility] [place] [facility] Imaging Services [address] [place] [id number] Shoulder min 2 Views MR#: [id number] Acct: [id number] Name: BELÉN WRIGHT Rep #: [id number] : 1950 F 67 From: Nitish Le DO PCP: Akil Carroll DO Status: REG CLI Study: Shoulder min 2 Views Date of Exam: 08/25/18 Exam# [id number] Ordering Dr: Sherri Pastor MD STUDY: X-RAY - RIGHT SHOULDER REASON FOR EXAM: Female, 67 years old. Right shoulder pain TECHNIQUE: 4 view(s) of the shoulder. COMPARISON: None. FINDINGS: There is mild degenerative arthrosis of the glenohumeral articulation. There is degenerative arthrosis of the acromioclavicular joint without inferior osseous spur formation. Normal acromion. Normal humeral head and visualized proximal humerus. The soft tissue structures are unremarkable. Normal visualized pulmonary apex. RAD/Shoulder min 2 Views IMPRESSION: Mild degenerative changes without acute findings Electronically Signed: Nitish Le DO at 11:42 EDT Tel , Service support , CC: Sherri Pastor MD; Akil Carroll DO Twisting Machine Operator: Signed CBC-COMPLETE BLOOD CNT Collected: 08/21/2018 Status: F Source: [place] NO DIFF 10:22 AM [facility] [place] TYPE CODE TESTS RESULT OUT OF RANGE REFERENCE UNITS LAB L100.1000 4.4-11.0 K/mm3 Normal WBC 6.1 LAB L100.1200 4.2-5.4 M/mm3 Low RBC 4.17 LAB L100.1300 12.0-15.0 g/dl Normal HGB 12.5 LAB L100.1400 37-47 % Normal HCT 38.4 LAB L100.1500 81-99 fL Normal MCV 92.1 LAB L100.1600 27.0-32.0 pg Normal MCH 30.0 LAB L100.1700 32-36 g/gl Normal MCHC 32.6 LAB L100.1810 11.6-14.6 % Normal RDW CV 14.4 LAB L100.1820 35.1-43.9 fl High RDW SD 47.4 LAB L100.1900 150-450 K/mm3 Normal PLT 166 LAB L100.2000 6.2-12.0 fl High MPV 12.3 Performed By: #### L100.0500 #### [facility] [address] [place], [address] PROTEIN+CREATININE Collected: Status: F Source: [place] RATIO,URINE 08/21/2018 10:22 AM [facility] [place] TYPE CODE TESTS RESULT OUT OF RANGE REFERENCE UNITS LAB L501.1200 NO RANGE EST. mg/dL Normal UR CREAT 138.00 LAB L501.1930 <11.9 mg/dL High 38.5 PROTEIN,UR.R AN. LAB L501.1940 0-200 mg/g CRE High PROT:CRE 279 RATIO Performed By: #### L501.0900 #### [facility] [address] [facility] [place], [place], [address] RENAL PROFILE Collected: 08/21/2018 Status: F Source: [place] 10:22 AM [facility] [place] TYPE CODE TESTS RESULT OUT OF RANGE REFERENCE UNITS LAB L501.0100 74-106 mg/dL High GLU 113 Result Comment: Fasting Glucose result from 100 to 125 mg/dL suggests IMPAIRED HOMEOSTASIS per A.D.A. criteria. Please note revised GLUCOSE reference range effective 2018. LAB L501.1000 7-18 mg/dL Normal BUN 18 LAB L501.1100 0.55-1.02 mg/dL High CREAT,SERUM 1.62 Result Comment: The validity of the calculated GFR AND GFRAA in patients over 70 years has not been determined. Clinical correlation is essential. LAB L501.1110 >60 mL/min Low EST GFR 33 Result Comment: Non- GFR Calc LAB L501.1115 >60 mL/min Low EST GFR - AA 40 Result Comment: GFR Calc LAB L501.1300 10-20 RATIO Normal BUN/CRE 11.1 LAB L501.1800 3.2-5.0 g/dL Normal ALB 3.4 LAB L501.2200 8.5-10.1 mg/dL CA Normal 9.2 LAB L501.2300 2.5-4.9 mg/dL Normal PHOS 4.0 LAB L501.5300 136-145 mmol/L NA Normal 142 LAB L501.5600 3.5-5.1 mmol/L K Normal 4.3 LAB L501.5900 98-107 mmol/L High CL 110 LAB L501.6100 21.0-32.0 mmol/L Normal CO2 23.0 Performed By: #### L500.3600, L503.6030 #### [facility] [address] [place], [address] IRON+IRON BINDING Collected: 08/21/2018 Status: F Source: [place] CAPACITY 10:22 AM [facility] [place] TYPE CODE TESTS RESULT OUT OF RANGE REFERENCE UNITS LAB L503.6075 250-450 ug/dL TIBC Normal 344 LAB L503.6150 50-170 ug/dL IRON Normal 54 LAB L503.6250 15.0-55.0 % IRON Normal SATURATION 15.7 Performed By: #### L500.3600, L503.6030 #### [facility] [address] [place], [address] VITAMIN D,25 HYDROXY Collected: 08/21/2018 Status: F Source: [place] 10:22 AM [facility] [place] TYPE CODE TESTS RESULT OUT OF REFERENCE UNITS RANGE LAB L506.1000 29.95-100.01 ng/mL Low Vitamin D 25.4 25-OH Result Comment: Vitamin D 25(OH) Status Range Deficiency <20 ng/mL (50nmol/L) Insuffciency 20 - 30 ng/mL (50 - 75 nmol/L) Sufficiency 30 - 100 ng/mL (75 - 250 nmol/L) Toxicity >100 ng/mL (>250 nmol/L) Performed By: #### L506.1000 #### [facility] [address] [place], [address] PTHIN Collected: 08/21/2018 Status: F Source: [place] 10:22 AM [facility] [place] TYPE CODE TESTS RESULT OUT OF RANGE REFERENCE UNITS LAB L509.1000 18.4-80.1 pg/mL Normal PTHIN 76.8 Performed By: #### L509.1000 #### [facility] [address] [place], [address] CBC W/DIFF, AUTOMATED Collected: 06/03/2018 Status: F Source: [place] 12:20 PM [facility] [place] TYPE CODE TESTS RESULT OUT OF RANGE REFERENCE UNITS LAB L100.1000 4.4-11.0 K/mm3 Normal WBC 6.4 LAB L100.1200 4.2-5.4 M/mm3 Low RBC 4.16 LAB L100.1300 12.0-15.0 g/dl Normal HGB 12.0 LAB L100.1400 37-47 % Low HCT 36.2 LAB L100.1500 81-99 fL Normal MCV 87.0 LAB L100.1600 27.0-32.0 pg Normal MCH 28.8 LAB L100.1700 32-36 g/gl Normal MCHC 33.1 LAB L100.1810 11.6-14.6 % High RDW CV 16.6 LAB L100.1820 35.1-43.9 fl High RDW SD 52.4 LAB L100.1900 150-450 K/mm3 Low PLT 137 LAB L100.2000 6.2-12.0 fl High MPV 12.1 LAB L100.2100 47-70 % Normal NEUT% 68.0 LAB L100.2200 19-41 % Normal LY% 21.5 LAB L100.2300 0-10 % Normal MONO% 6.4 LAB L100.2400 0-5 % Normal EO% 3.4 LAB L100.2500 0-1 % Normal BASO% 0.5 LAB L100.2550 0.0-0.9 % Normal IM GRAN % 0.200 Result Comment: IG% - Immature Granulocytes (promyelocytes, myelocytes and metamyelocytes) > 1% indicates that a LEFT SHIFT is Present. LAB L100.2620 2.0-7.7 X10 3/uL Normal Absolute Neut 4.4 LAB L100.2720 0.83-4.51 X10 3/ul Normal Absolute Lymph 1.38 Performed By: #### L100.0100 #### [facility] [address] [place], [place], [address] COMPREHENSIVE METABOLIC Collected: 06/03/2018 Status: F Source: [place] [facility] 12:20 PM [facility] [place] TYPE CODE TESTS RESULT OUT OF RANGE REFERENCE UNITS LAB L501.0100 74-106 mg/dL Normal GLU 98 Result Comment: Please note revised GLUCOSE reference range effective 2018. LAB L501.1000 7-18 mg/dL Normal BUN 15 LAB L501.1100 0.55-1.02 mg/dL High CREAT,SERUM 1.52 Result Comment: The validity of the calculated GFR AND GFRAA in patients over 70 years has not been determined. Clinical correlation is essential. LAB L501.1110 >60 mL/min Low EST GFR 36 Result Comment: Non- GFR Calc LAB L501.1115 >60 mL/min Low EST GFR - AA 44 Result Comment: GFR Calc LAB L501.1300 10-20 RATIO Low BUN/CRE 9.9 LAB L501.1500 6.4-8.2 g/dL Normal T PROT 6.9 LAB L501.1800 3.2-5.0 g/dL Normal ALB 3.4 LAB L501.1950 2.2-4.2 g/dL Normal GLOB 3.5 LAB L501.2000 0.9-2.4 RATIO Normal A/G 1.0 LAB L501.2200 8.5-10.1 mg/dL Normal CA 9.1 LAB L501.4100 15-37 U/L Normal AST 24 LAB L501.4305 45-117 U/L Normal ALK P 83 LAB L501.4405 13-56 U/L Normal ALT 20 LAB L501.4600 0.20-1.00 mg/dL Normal T BILI 0.20 LAB L501.5300 136-145 mmol/L Normal NA 143 LAB L501.5600 3.5-5.1 mmol/L Normal K 4.3 LAB L501.5900 98-107 mmol/L High CL 111 LAB L501.6100 21.0-32.0 mmol/L Normal CO2 26.0 LAB L501.6200 5-15 Normal GAP 6 Performed By: #### L500.4050 #### [facility] [place], [address] CNCO Observed: 05/07/2018 Status: COMPLETED Source: [place] 4:26 PM [facility] REPOSITORY HNO ID: [id number] Author: Mammography Coordinator Service: (none) Author Type: Physician Type: Letter Filed: 05/08/2018 11:32 PM Note Text: May 07, 2018 PID: [id number] Belén Wright [address] [place] [id number] Dear Ms. Wright, We are pleased to inform you that the results of your recent breast imaging exam on 05/07/2018 are normal. Early detection of cancer is very important. We also understand recommendations regarding breast cancer screening are controversial. Please discuss with your primary care provider which strategy is best for you and whether a mammogram is right for you. Your imaging studies and report will be kept on file at [facility] as part of your permanent medical record and are available for your continuing care. Thank you for allowing us to help in meeting your health care needs. Sincerely, Dr. Francis Interpreting Radiologist [facility] (Normal over 40) [facility] SCREENING Observed: 05/07/2018 Status: F Source: [place] 4:14 PM [facility] REPOSITORY * * *Final Report* * * DATE OF EXAM: May 07 2018 4:14PM [facility] - [facility] SCREENING / PROCEDURE REASON: Encounter for screening mammogram for malignant neoplasm of breast * * * * Physician Interpretation * * * * RESULT: #[id number] - [facility] SCREENING BILATERAL DIGITAL SCREENING MAMMOGRAM WITH CAD: 05/07/2018 HISTORY: Screening Mammogram - patient reports NO breast symptoms /priors available for comparison. RESULT: TECHNIQUE: The study was acquired using full field digital technology and interpreted from soft copy. Current study was also evaluated with a Computer Aided Detection (CAD). Comparison is made to exams dated: 05/01/2017 mammogram, 02/07/2016 mammogram, 02/02/2015 mammogram - [facility], and 09/10/2013 mammogram. There are scattered fibroglandular elements in both breasts. No significant masses, calcifications, or other findings are seen in either breast. There has been no significant interval change. IMPRESSION: NEGATIVE There is no mammographic evidence of malignancy.A 1 year screening mammogram is recommended. Yvonne Francis M.D., jr/meka:05/07/2018 16:26:27 Senior Network Security Engineer: Analia VERNON(Nas)(Marciano), [facility] letter sent: Normal over 40 Mammogram BI-RADS: 1 Negative Twisting Machine Operator: Meka Transcribe Date/Time: May 07 2018 4:00P Dictated by: YVONNE FRANCIS MD This examination was interpreted and the report reviewed and electronically signed by: YVONNE FRANCIS MD on May 07 2018 4:26PM EST [id number] Observed: 05/07/2018 Status: COMPLETED Source: [place] 3:52 PM [facility] [place] REPOSITORY HNO ID: [id number] Author: Annie Vernon Service: (none) Author Type: (none) Type: Progress Notes Filed: 05/07/2018 3:52 PM Note Text: Radiology Service Progress Note PATIENT NAME: Belén Wright DATE OF SERVICE: May 07, 2018 TIME: 3:52 PM PATIENT IDENTITY VERIFICATION COMPLETED USING TWO (2) METHODS: Patient confirmed name verbally and Date of . PATIENT GENDER DATA: Female. status: : No status: NO. PATIENT RELEVANT IMPLANT DATA REVIEWED: Not Applicable RADIOLOGY DEPARTMENT: [facility] DATA: Not applicable SIGNED BY: Annie Vernon May 07, 2018 3:52 PM PROGRESS Observed: 05/02/2018 Status: COMPLETED Source: [place] 2:32 PM [facility] REPOSITORY HNO ID: [id number] Author: Akil Bush Service: (none) Author Type: Physician Type: Progress Notes Filed: 05/02/2018 2:48 PM Note Text: Patient presents with: Follow Up: 6 months HPI: Belén Wright is a 67 year old female who presents to the office today for review of health conditions. Concerns today: Overall doing well, no new concerns. ? Anxiety is overall stable, use of Valium for increased anxiety and insomnia with anxiety. No SE from medication she is concerned about CKD stage 3, seeing [facility] [facility], no new changes or concerns. Ms. Wright has past history of diabetes. Since our last visit she denies excessive thirst or increased frequency of urination, chest pain or dyspnea , numbness, tingling or pain in extremities, new or unusual visual symptoms and low sugar/hypoglycemic reactions. Follows a diabetic diet most of the time. She is compliant with medication(s) and is tolerating med(s) without any side effects. She reports checking her glucose on a infrequent to not at all basis schedule. Patient's last HgA1C was Hemoglobin A1C (%) Date Value 04/22/2018 Test sent to [facility]. 04/22/2018 6.4 10/29/2017 Test sent to [facility]. ) Last Ophthalmology exam was within the past 3 months Ms. Wright reports history of hyperlipidemia. Current therapy includes simvastatin (Zocor) 80 mg. Denies side effects of muscle weakness or achiness. Her most recent lipid panels are reviewed. Cholesterol, Total (mg/dL) Date Value 10/29/2017 Test sent to [facility]. HDL Cholesterol (mg/dL) Date Value 10/29/2017 Test sent to [facility]. LDL Cholesterol (mg/dL) Date Value 10/29/2017 Test sent to [facility]. Triglyceride (mg/dL) Date Value 10/29/2017 Test sent to [facility]. Ms. Wright indicates a history of hypertension and states that she is feeling well and denies any symptoms referable to elevated blood pressure. Specifically denies headache, chest pain, palpitations, dyspnea and peripheral edema. Patient denies any side effects of her medication(s) and is compliant with their regimen. Last 3 Encounter BP Readings: Date: BP: 05/02/2018 116/80 02/01/2018 110/68 11/01/2017 120/70 She watches her diet for sodium, low fat and low cholesterol some of the time. She does not check BP's generally. Belén gets minimal exercise. PAST MEDICAL HISTORY Diagnosis Date - Arthritis - CKD (chronic kidney disease) stage 3, GFR 30-59 ml/min Sees Dr. 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 Rice - TOTAL KNEE REPLACEMENT 2005 bilateral - TUBAL LIGATION HX 1980 Social History Marital status: Spouse name: Years of education: Number of children: Social History Main Topics Smoking status: Never Smoker Smokeless tobacco: Never Used Alcohol use: No Drug use: No No family history on file. Allergies: ALLERGIES Allergen Reactions - Ciprofloxacin Rash - Contrast Dye Other: See Comments Breaks out with blisters - Sulfabenzamide Rash, GI Upset, Other: See Comments Breaks out in a hot sweat Current Meds: losartan (COZAAR) 100 mg tablet Take 1 tablet by mouth once daily. metFORMIN (GLUCOPHAGE) 1,000 mg tablet Take 2 tablets by mouth daily with breakfast. venlafaxine ER (EFFEXOR XR) 75 mg 24 hr capsule Take 1 capsule by mouth twice daily. gabapentin (NEURONTIN) 300 mg capsule Take 1 capsule by mouth three times daily. simvastatin (ZOCOR) 80 mg tablet Take 1 tablet by mouth once daily. omeprazole (PRILOSEC) 20 mg capsule Take 1 capsule by mouth once daily. diazePAM (VALIUM) 2 mg tablet Take 1 tablet by mouth at bedtime as needed for Anxiety (or vertigo). ondansetron (ZOFRAN, HYDROCHLORIDE,) 4 mg tablet Take 1 tablet by mouth every 8 hours as needed. cyclobenzaprine (FLEXERIL) 10 mg tablet Take 1 tablet by mouth twice daily as needed. HYDROcodone-acetaminophen (NORCO) 5-325 mg per tablet Take 1 tablet by mouth twice daily as needed for Pain. Per Dr. Pastor albuterol HFA (PROVENTIL HFA, VENTOLIN HFA) 90 mcg/actuation inhaler Inhale 2 Puffs as instructed every 6 hours as needed for Wheezing/Shortness of Breath. hydroxychloroquine (PLAQUENIL) 200 mg tablet 400 mg daily Review of Systems: The remainder of the review of systems is negative. PE: 05/02/18 1422 BP: 116/80 Pulse: 76 Resp: 20 Temp: 36.1 ?C (97 ?F) TempSrc: Left Tympanic Weight: 85.3 kg (188 lb) Gen: AANDO, NAD, non-toxic appearing, Pleasant, cooperative HEENT: NT/AC, PERRLA, EOMs intact b/l, nares clear and patent b/l, pharynx without erythema, exudate or lesions, MMM. Uvula midline. EACs without erythema or debris. TMs pearly bradley with intact landmarks b/l. Neck: supple, No cervical LAD, no thyromegaly, no carotid bruits CV: RRR, normal S1S2, 2/6 HSM RUSB murmurs, no gallops, no rubs, Pulses 2+ and symmetric in UE and LE b/l Lungs: normal respiratory effort, CTA b/l, no wheezing or rhonchi or rales Abd: soft, NT, ND, +BS, no hepatosplenomegaly MS: FROM all 4 extremities Neuro: CN II-XII intact b/l, strength 5/5 b/l UE and LE, DTRs 2/4 UE and LE, sensation intact. Skin: warm, dry, intact, No rashes or lesions on exposed skin. Foot exam: Monofilament normal on right and left feet. ASSESSMENT/PLAN: 1. Controlled type 2 diabetes mellitus without complication, without long-term current use of insulin (HCC) - ICD9: 250.00, ICD10: E11.9 (primary diagnosis) Controlled. - Continue current medications - Blood glucose monitoring on a once a day schedule - ONDANSETRON HCL 4 MG TABLET 2. CKD stage 3 due to type 2 diabetes mellitus (HCC) - ICD9: 250.40, 585.3, ICD10: E11.22, N18.3 Controlled. - Continue current medications 3. Visit for screening mammogram - ICD9: V76.12, ICD10: Z12.31 - Set up for mammogram, yearly mammogram recommended - Encouraged monthly BSE - FINA SCREENING 4. Essential hypertension - ICD9: 401.9, ICD10: I10 - good control - Continue current medication(s) - Encouraged dietary sodium restriction/DASH diet - Recommended regular aerobic exercise. - Recommend home blood pressure monitoring, to bring results in on next visit - Goal of BP <130/80 5. Hypercholesteremia - ICD9: 272.0, ICD10: E78.00 - good control - Continue current medication. - Encouraged following a low fat, low cholesterol diet. - Discussed the benefits of regular aerobic exercise and weight loss. - Check fasting lipid panel and ALT in 6 months. - SIMVASTATIN 80 MG TABLET 6. Other depression - ICD9: 311, ICD10: F32.89 - stable, continue effexor 7. Anxiety - ICD9: 300.00, ICD10: F41.9 - stable, continue effexor and prn Diazepam - DIAZEPAM 2 MG TABLET 8. Gastroesophageal reflux disease without esophagitis - ICD9: 530.81, ICD10: K21.9 - Discussed lifestyle modifications including losing weight, limiting caffeine, no meals three hours before sleep and head of bed elevation - OMEPRAZOLE 20 MG CAPSULE,DELAYED RELEASE 9. Pain, joint, multiple sites - ICD9: 719.49, ICD10: M25.50 - rx refilled, stable - GABAPENTIN 300 MG CAPSULE 10. Need for shingles vaccine - ICD9: V04.89, ICD10: Z23 - VARICELLA-ZOSTER GLYCOE VACC-AS01B ADJ(PF) 50 MCG/0.5 ML IM SUSPENSION Akil Bush DO [facility] website checked and validated. All prescriptions have been APPROPRIATELY filled. No suspicious activity was identified.- 05/02/2018 by Akil Bush DO To ER if develops chest pain, shortness of breath, or severe worsening of symptoms. Discussed risks, benefits, alternatives, and potential side effects of medications. Patient expressed understanding and agreed with the plan. Akil Bush DO [address] [place] [address] CNOV Observed: 05/02/2018 Status: COMPLETED Source: [place] 2:20 PM [facility] REPOSITORY Office Visit (FAMPWS) BELÉN WRIGHT ([id number]) 1950 F Date Time Provider Department 05/02/18 2:20 PM AKIL BUSH During your visit today, we recorded the following information about you: Temperature Pulse Respiration Blood pressure 97 degrees 76/minute 20/minute 116/80 Weight 85.3 kg Akil Bush DO 05/02/2018 2:48 PM Signed Patient presents with: Follow Up: 6 months HPI: Belén Wright is a 67 year old female who presents to the office today for review of health conditions. Concerns today: Overall doing well, no new concerns. ? Anxiety is overall stable, use of Valium for increased anxiety and insomnia with anxiety. No SE from medication she is concerned about CKD stage 3, seeing L[facility] Brusher, no new changes or concerns. Ms. Wright has past history of diabetes. Since our last visit she denies excessive thirst or increased frequency of urination, chest pain or dyspnea , numbness, tingling or pain in extremities, new or unusual visual symptoms and low sugar/hypoglycemic reactions. Follows a diabetic diet most of the time. She is compliant with medication(s) and is tolerating med(s) without any side effects. She reports checking her glucose on a infrequent to not at all basis schedule. Patient's last HgA1C was Hemoglobin A1C (%) Date Value 04/22/2018 Test sent to [facility]. 04/22/2018 6.4 10/29/2017 Test sent to [facility]. ) Last Ophthalmology exam was within the past 3 months Ms. Wright reports history of hyperlipidemia. Current therapy includes simvastatin (Zocor) 80 mg. Denies side effects of muscle weakness or achiness. Her most recent lipid panels are reviewed. Cholesterol, Total (mg/dL) Date Value 10/29/2017 Test sent to [facility]. HDL Cholesterol (mg/dL) Date Value 10/29/2017 Test sent to [facility]. LDL Cholesterol (mg/dL) Date Value 10/29/2017 Test sent to [facility]. Triglyceride (mg/dL) Date Value 10/29/2017 Test sent to [facility]. Ms. Wright indicates a history of hypertension and states that she is feeling well and denies any symptoms referable to elevated blood pressure. Specifically denies headache, chest pain, palpitations, dyspnea and peripheral edema. Patient denies any side effects of her medication(s) and is compliant with their regimen. Last 3 Encounter BP Readings: Date: BP: 05/02/2018 116/80 02/01/2018 110/68 11/01/2017 120/70 She watches her diet for sodium, low fat and low cholesterol some of the time. She does not check BP's generally. Belén gets minimal exercise. PAST MEDICAL HISTORY Diagnosis Date - Arthritis - CKD (chronic kidney disease) stage 3, GFR 30-59 ml/min Sees Dr. 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 Rice - TOTAL KNEE REPLACEMENT 2004 bilateral - TUBAL LIGATION HX 1979 Social History Marital status: Spouse name: Years of education: Number of children: Social History Main Topics Smoking status: Never Smoker Smokeless tobacco: Never Used Alcohol use: No Drug use: No No family history on file. Allergies: ALLERGIES Allergen Reactions - Ciprofloxacin Rash - Contrast Dye Other: See Comments Breaks out with blisters - Sulfabenzamide Rash, GI Upset, Other: See Comments Breaks out in a hot sweat Current Meds: losartan (COZAAR) 100 mg tablet Take 1 tablet by mouth once daily. metFORMIN (GLUCOPHAGE) 1,000 mg tablet Take 2 tablets by mouth daily with breakfast. venlafaxine ER (EFFEXOR XR) 75 mg 24 hr capsule Take 1 capsule by mouth twice daily. gabapentin (NEURONTIN) 300 mg capsule Take 1 capsule by mouth three times daily. simvastatin (ZOCOR) 80 mg tablet Take 1 tablet by mouth once daily. omeprazole (PRILOSEC) 20 mg capsule Take 1 capsule by mouth once daily. diazePAM (VALIUM) 2 mg tablet Take 1 tablet by mouth at bedtime as needed for Anxiety (or vertigo). ondansetron (ZOFRAN, HYDROCHLORIDE,) 4 mg tablet Take 1 tablet by mouth every 8 hours as needed. cyclobenzaprine (FLEXERIL) 10 mg tablet Take 1 tablet by mouth twice daily as needed. HYDROcodone-acetaminophen (NORCO) 5-325 mg per tablet Take 1 tablet by mouth twice daily as needed for Pain. Per Dr. Pastor albuterol HFA (PROVENTIL HFA, VENTOLIN HFA) 90 mcg/actuation inhaler Inhale 2 Puffs as instructed every 6 hours as needed for Wheezing/Shortness of Breath. hydroxychloroquine (PLAQUENIL) 200 mg tablet 400 mg daily Review of Systems: The remainder of the review of systems is negative. PE: 05/02/18 1422 BP: 116/80 Pulse: 76 Resp: 20 Temp: 36.1 ?C (97 ?F) TempSrc: Left Tympanic Weight: 85.3 kg (188 lb) Gen: AANDO, NAD, non-toxic appearing, Pleasant, cooperative HEENT: NT/AC, PERRLA, EOMs intact b/l, nares clear and patent b/l, pharynx without erythema, exudate or lesions, MMM. Uvula midline. EACs without erythema or debris. TMs pearly bradley with intact landmarks b/l. Neck: supple, No cervical LAD, no thyromegaly, no carotid bruits CV: RRR, normal S1S2, 2/6 HSM RUSB murmurs, no gallops, no rubs, Pulses 2+ and symmetric in UE and LE b/l Lungs: normal respiratory effort, CTA b/l, no wheezing or rhonchi or rales Abd: soft, NT, ND, +BS, no hepatosplenomegaly MS: FROM all 4 extremities Neuro: CN II-XII intact b/l, strength 5/5 b/l UE and LE, DTRs 2/4 UE and LE, sensation intact. Skin: warm, dry, intact, No rashes or lesions on exposed skin. Foot exam: Monofilament normal on right and left feet. ASSESSMENT/PLAN: 1. Controlled type 2 diabetes mellitus without complication, without long-term current use of insulin (HCC) - ICD9: 250.00, ICD10: E11.9 (primary diagnosis) Controlled. - Continue current medications - Blood glucose monitoring on a once a day schedule - ONDANSETRON HCL 4 MG TABLET 2. CKD stage 3 due to type 2 diabetes mellitus (HCC) - ICD9: 250.40, 585.3, ICD10: E11.22, N18.3 Controlled. - Continue current medications 3. Visit for screening mammogram - ICD9: V76.12, ICD10: Z12.31 - Set up for mammogram, yearly mammogram recommended - Encouraged monthly BSE - FINA SCREENING 4. Essential hypertension - ICD9: 401.9, ICD10: I10 - good control - Continue current medication(s) - Encouraged dietary sodium restriction/DASH diet - Recommended regular aerobic exercise. - Recommend home blood pressure monitoring, to bring results in on next visit - Goal of BP <130/80 5. Hypercholesteremia - ICD9: 272.0, ICD10: E78.00 - good control - Continue current medication. - Encouraged following a low fat, low cholesterol diet. - Discussed the benefits of regular aerobic exercise and weight loss. - Check fasting lipid panel and ALT in 6 months. - SIMVASTATIN 80 MG TABLET 6. Other depression - ICD9: 311, ICD10: F32.89 - stable, continue effexor 7. Anxiety - ICD9: 300.00, ICD10: F41.9 - stable, continue effexor and prn Diazepam - DIAZEPAM 2 MG TABLET 8. Gastroesophageal reflux disease without esophagitis - ICD9: 530.81, ICD10: K21.9 - Discussed lifestyle modifications including losing weight, limiting caffeine, no meals three hours before sleep and head of bed elevation - OMEPRAZOLE 20 MG CAPSULE,DELAYED RELEASE 9. Pain, joint, multiple sites - ICD9: 719.49, ICD10: M25.50 - rx refilled, stable - GABAPENTIN 300 MG CAPSULE 10. Need for shingles vaccine - ICD9: V04.89, ICD10: Z23 - VARICELLA-ZOSTER GLYCOE VACC-AS01B ADJ(PF) 50 MCG/0.5 ML IM SUSPENSION Akil Bush DO [facility] website checked and validated. All prescriptions have been APPROPRIATELY filled. No suspicious activity was identified.- 05/02/2018 by Akil Bush DO To ER if develops chest pain, shortness of breath, or severe worsening of symptoms. Discussed risks, benefits, alternatives, and potential side effects of medications. Patient expressed understanding and agreed with the plan. Akil Bush DO [address] [place] [address] Referring Provider: AKIL BUSH [[id number]] Allergies As of Date: 05/02/2018 Noted Allergy Reaction CIPROFLOXACIN 08/01/2017 2 - Rash CONTRAST DYE 09/14/2014 14 - Other: See Comments Comments: Breaks out with blisters SULFABENZAMIDE 09/14/2014 2 - Rash 8 - GI Upset 14 - Other: See Comments Comments: Breaks out in a hot sweat Date Reviewed: 05/02/2018 Reviewed by: Akil Bush - Fully Assessed Reason for Visit: Follow Up [171] Cmt: 6 months Primary Visit Diagnosis:Controlled type 2 diabetes mellitus without complication, without long-term current use of insulin (HCC) [E11.9] Other Visit Diagnoses:CKD stage 3 due to type 2 diabetes mellitus (HCC) [E11.22, N18.3] Visit for screening mammogram [Z12.31] Essential hypertension [I10] Hypercholesteremia [E78.00] Other depression [F32.89] Anxiety [F41.9] Gastroesophageal reflux disease without esophagitis [K21.9] Pain, joint, multiple sites [M25.50] Need for shingles vaccine [Z23] Order(s):[facility] SCREENING [[id number]] Order #: [id number] FUTURE cyclobenzaprine (FLEXERIL) 10 mg tabletTake 1 tablet by mouth twice daily as needed.Disp: 60 tabletRfl: 5 ondansetron (ZOFRAN) 4 mg tabletTake 1 tablet by mouth every 8 hours as needed.Disp: 30 tabletRfl: 5 diazePAM (VALIUM) 2 mg tabletTake 1 tablet by mouth at bedtime as needed for Anxiety (or vertigo) for up to 90 days.Disp: 90 tabletRfl: 1 omeprazole (PRILOSEC) 20 mg capsuleTake 1 capsule by mouth once daily.Disp: 30 capsuleRfl: 5 simvastatin (ZOCOR) 80 mg tabletTake 1 tablet by mouth once daily.Disp: 30 tabletRfl: 5 gabapentin (NEURONTIN) 300 mg capsuleTake 1 capsule by mouth three times daily for 30 days.Disp: 90 capsuleRfl: 5 zoster vaccine, recombinant, adjuvanted, (SHINGRIX) 50 mcg/0.5 mL injectionInject 0.5 mL intramuscularly one time only for 1 dose.Disp: 0.5 mLRfl: 0 Prescriptions as of 05/02/2018 Sig: CYCLOBENZAPRINE 10 MG TABLET Take 1 tablet by mouth twice * ONDANSETRON HCL 4 MG TABLET Take 1 tablet by mouth every * DIAZEPAM 2 MG TABLET Take 1 tablet by mouth at bed* OMEPRAZOLE 20 MG CAPSULE,ANNE MARIE* Take 1 capsule by mouth once * SIMVASTATIN 80 MG TABLET Take 1 tablet by mouth once d* GABAPENTIN 300 MG CAPSULE Take 1 capsule by mouth three* LOSARTAN 100 MG TABLET Take 1 tablet by mouth once d* METFORMIN 1,000 MG TABLET Take 2 tablets by mouth daily* VENLAFAXINE ER 75 MG CAPSULE,* Take 1 capsule by mouth twice* HYDROCODONE 5 MG-ACETAMINOPHE* Take 1 tablet by mouth twice * ALBUTEROL SULFATE HFA 90 MCG/* Inhale 2 Puffs as instructed * HYDROXYCHLOROQUINE 200 MG TAB* 400 mg daily VARICELLA-ZOSTER GLYCOE VACC-* Inject 0.5 mL intramuscularly* Problem List As Of Date 05/02/2018 Noted Resolved Diabetes mellitus type 2 in obese (HCC) [E11.69*INVALID FOR*02/27/2016 Hypertension [I10] INVALID FOR* Hypercholesteremia [E78.00] INVALID FOR* GERD (gastroesophageal reflux disease) [K21.9] INVALID FOR*02/27/2016 Depression [F32.9] INVALID FOR* Anxiety [F41.9] INVALID FOR* Lupus (HCC) [L93.0] INVALID FOR* Controlled substance agreement signed [Z79.899] INVALID FOR* Diabetes mellitus type 2, controlled, without c* Diarrhea [R19.7] INVALID FOR* GERD without esophagitis [K21.9] INVALID FOR* CKD stage 3 due to type 2 diabetes mellitus (HC*INVALID FOR* More... Prescriptions ordered this encounter Disp Refills Start End CYCLOBENZAPRINE 10 MG TABLET 60 t* 5 05/02/2018 Route: ORAL Sig: Take 1 tablet by mouth twice daily as needed. ONDANSETRON HCL 4 MG TABLET 30 t* 5 05/02/2018 Route: ORAL Sig: Take 1 tablet by mouth every 8 hours as needed. DIAZEPAM 2 MG TABLET 90 t* 1 05/02/2018 07/31/2018 Class: Print RX Route: ORAL Sig: Take 1 tablet by mouth at bedtime as needed for Anxiety (or vertigo) for up to 90 days. OMEPRAZOLE 20 MG CAPSULE,DELAYED REL* 30 c* 5 05/02/2018 Route: ORAL Sig: Take 1 capsule by mouth once daily. SIMVASTATIN 80 MG TABLET 30 t* 5 05/02/2018 Route: ORAL Sig: Take 1 tablet by mouth once daily. GABAPENTIN 300 MG CAPSULE 90 c* 5 05/02/2018 06/01/2018 Route: ORAL Sig: Take 1 capsule by mouth three times daily for 30 days. VARICELLA-ZOSTER GLYCOE VACC-AS01B A* 0.5 * 0 05/02/2018 05/02/2018 Class: Print RX Route: INTRAMUSCULA Sig: Inject 0.5 mL intramuscularly one time only for 1 dose. Medications Discontinued During This Encounter cyclobenzaprine (FLEXERIL) 10 mg tab* 60 t* 5 11/01/2017 05/02/2018 Cmt: This prescription was filled on 08/02/2017. Any refills authorized will be placed on file. Route: ORAL Sig: Take 1 tablet by mouth twice daily as needed. Disc: Reason for discontinue is not on file. ondansetron (ZOFRAN, HYDROCHLORID* 30 t* 5 11/01/2017 05/02/2018 Route: ORAL Sig: Take 1 tablet by mouth every 8 hours as needed. Disc: Reason for discontinue is not on file. diazePAM (VALIUM) 2 mg tablet 90 t* 1 11/01/2017 05/02/2018 Class: Print RX Route: ORAL Sig: Take 1 tablet by mouth at bedtime as needed for Anxiety (or vertigo). Disc: Reason for discontinue is not on file. omeprazole (PRILOSEC) 20 mg capsule 30 c* 5 11/01/2017 05/02/2018 Route: ORAL Sig: Take 1 capsule by mouth once daily. Disc: Reason for discontinue is not on file. simvastatin (ZOCOR) 80 mg tablet 30 t* 5 11/01/2017 05/02/2018 Route: ORAL Sig: Take 1 tablet by mouth once daily. Disc: Reason for discontinue is not on file. gabapentin (NEURONTIN) 300 mg capsule 90 c* 5 11/01/2017 05/02/2018 Route: ORAL Sig: Take 1 capsule by mouth three times daily. Disc: Reason for discontinue is not on file. Encounter Status:Closed by AKIL BUSH DO on 05/02/18 PT D/C SUMMARY (1) Observed: 05/01/2018 Status: F Source: [place] 2:14 PM [facility] [place] [facility] [address] [place] [address] Fax REHABILITATION SERVICES DISCHARGE SUMMARY MR#: [id number] Acct: [id number] Name: BELÉN WRIGHT Rep #: [id number] : 1950 67 From: Michelle Melton PT, Cert. MDT Referring Dr.: Sherri Pastor MD Status: REG RCR Insurance: [facility]8hands [facility] MEDICARE SELF PAY INSURANCE HP - PT D/C Summary It has been my pleasure to treat BELÉN WRIGHT under orders from Sherri Pastor, for the diagnosis of BACK AND NECK PAIN for a total of 10 visit(s). Discharge Date: Please see the following information for a summary of their discharge status. - Subjective Subjective: PATIENT REPORTS SHE ENJOYED THE WATER AND SOME OF THE THINGS AT THE END WERE KIND OF HARD BUT THEY WERE NOT HURTFUL. SHE REPORTS SHE REALLY LIKES THE WATER AND AND SHE IS JOINING [employer]. 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 Present symptoms: LOW BACK PAIN, NECK AND SHOULDER PAIN, MID BACK PAIN ON LEFT, LEFT LE PAIN TO FOOT. INTERMITTENT RIGHT LE PAIN TOO. INTERMITTENT ALEKSEY LE NUMBNESS AND TINGLING. PATIENT REPORTS MOST OF HER SYMPTOMS ARE ALL STILL OCCURRING BUT THEY ARE BETTER. Pain Scale: WORST 7/10, LEAST 0/10. Currently: 3/10 LOW BACK PAIN. SHE REPORTS SHE CAN GET HER PAIN TO 0/10 IN THE POOL. PATIENT DENIES HAVING ANY MORE FALLS SINCE STARTING PT. PATIENT REPORTS SHE FEELS A LOT BETTER BECAUSE SHE KNOWS HOW TO GET UP AND DOWN FROM A CHAIR, IN AND OUT OF A CAR AND MOVE IN GENERAL BETTER NOW TO PROTECT HER BACK. REPORTS APPOINTMENT PENDING WITH DR. PASTOR May. - Pain Cerv. Spine Pain Intensity (Out of 10): 2 Lumbar Spine Pain Intensity (Out of 10): 3 LE Pain Intensity (Out of 10): 0 - Overall Improvement % Improvement: 75 - Objective Objective/Function: PATIENT IS INDEP WITH A HEP AND POOL EX'S AND WISHES TO BE DISCHARGED. Motor deficit: ALEKSEY UE STRENGTH GROSSLY 4/5 EXCEPT RIGHT SHOULDER ER 3+/5. ALEKSEY LE STRENGTH GROSSLY 4/5. Sensory deficit: ALEKSEY UE AND LE LIGHT TOUCH SENSATION GROSSLY INTACT AND SYMMETRICAL BUT FEET NT. ROM deficit: ALEKSEY SHOULER ELEVATION ABOUT 25% LIMITED. TIGHT ALEKSEY HIP FLEXORS, HAMSTRINGS AND GASTROC SOLEUS COMPLEX'S. Lumbar mvmt loss: flex - MIN. ext - JONAS. R SG - MOD. L SG - MOD. PATIENT COMPLAINT OF INCREASED THORACIC AND LUMBAR PAIN WITH ROM TESTING INTO EXTENSION AND RIGHT SG'ING. NO SIGNIFICANT CHANGE IN NECK OR SHOULDER TESTING. LUMBAR OSWESTRY SCORE HAS IMPROVED FROM 19 TO 16. - Goals Goal 1:: DECREASE C/O SPINE AND EXTREMITY SX'S. Goal Progress: Goal Met Goal 2:: IMPROVE PERSONAL CARE, LIFTING, WALKING, STANDING, SOCIAL LIFE AND HOMEMAKING FUNCTION Goal Progress: Goal Met Goal 3:: INSTRUCT IN PROPHYLAXIS Goal Progress: Goal Met - Plan Plan: D/C. PATIENT IS AGREEABLE TO DISCHARGE. - D/C Information If there are questions or concerns regarding this patient's physical therapy, please feel free to call me at [phone]. Thank you for the referral of this patient. Sincerely, Michelle Melton <Electronically signed by Michelle Melton PT, Cert. MDT> 05/01/18 1414 CC: Sherri Pastor MD; Akil Carroll DO ARTURO Signed HEMOGLOBIN A1C Collected: 04/22/2018 Status: F Source: [place] 10:20 AM [facility] REPOSITORY TYPE CODE TESTS RESULT OUT OF REFERENCE UNITS RANGE LAB HGBA1C 4.0-6.0 % Test Hemoglobin A1c sent to [facility]. Result Comment: Account Credited HIDE LAB HBA0 mg/dL Est. Test sent Average Glucose to [facility]. Result Comment: Account Credited HIDE BASIC METABOLIC PANL Collected: 04/22/2018 Status: F Source: [place] 10:20 AM [facility] REPOSITORY TYPE CODE TESTS RESULT OUT OF REFERENCE UNITS RANGE LAB GLU 74-99 mg/dL Test Glucose sent to [facility]. Result Comment: Account Credited HIDE LAB BUN 7-21 mg/dL Test sent BUN to [facility]. Result Comment: Account Credited HIDE LAB CRET 0.58-0.96 mg/dL Creatinine Test sent to [facility]. Result Comment: Account Credited HIDE LAB NA 136-144 mmol/L Test Sodium sent to [facility]. Result Comment: Account Credited HIDE LAB K 3.7-5.1 mmol/L Test Potassium sent to [facility]. Result Comment: Account Credited HIDE LAB CL 97-105 mmol/L Test Chloride sent to [facility]. Result Comment: Account Credited HIDE LAB CO2 22-30 mmol/L Test sent CO2 to [facility]. Result Comment: Account Credited HIDE LAB AGAP 9-18 mmol/L Test sent Anion Gap to [facility]. Result Comment: Account Credited HIDE LAB CA 8.5-10.2 mg/dL Test Calcium, Total sent to [facility]. Result Comment: Account Credited HIDE LAB GFRAA eGFR- Amer. Test sent to [facility]. Result Comment: Account Credited HIDE LAB GFRNAA . eGFR-All Test sent Other Races to [facility]. Result Comment: Account Credited HIDE LAB GFRPED eGFR-Ped. Test sent Factor to [facility]. Result Comment: Account Credited HIDE ALBUMIN/CREAT RATIO Collected: 04/22/2018 Status: F Source: [place] 10:12 AM [facility] RE[facility] TYPE CODE TESTS RESULT OUT OF REFERENCE UNITS RANGE LAB UCRR 20-300 mg/dL Test sent to [facility]. Result Comment: Account Credited HIDE LAB UALBR 0.0-23.0 mg/L Test Albumin Urine sent to [facility]. Result Comment: Account Credited HIDE LAB UALBCR 0-30 mg/g Albumin/Creat Ratio Test sent to [facility]. Result Comment: Account Credited JOVANNIE HEMOGLOBIN A1C Collected: 04/22/2018 Status: F Source: [place] 12:00 AM [facility] [place] TYPE CODE TESTS RESULT OUT OF RANGE REFERENCE UNITS LAB L501.9985 4.2-6.3 % High HGB A1C 6.4 Performed By: #### L501.9985 #### [facility] [address] [place], [place], [id number] MICROALB:CREAT Collected: 04/22/2018 Status: F Source: [place] RATIO,RANDOM UR 12:00 AM [facility] [place] TYPE CODE TESTS RESULT OUT OF RANGE REFERENCE UNITS LAB L501.1200 NO RANGE EST. mg/dL Normal UR CREAT 118.00 LAB L502.0500 NO RANGE EST. mg/L Normal 16.9 MICROALBUMIN ,UR LAB L502.0600 <30 mg/g CRE mg/g CRE Normal 14.3 MALB:CREAT Performed By: #### L502.0250 #### [facility] [address] [place], [place], [address] BASIC METABOLIC Collected: 04/22/2018 Status: F Source: [place] PROFILE (BMP) 12:00 AM [facility] [place] TYPE CODE TESTS RESULT OUT OF RANGE REFERENCE UNITS LAB L501.0100 74-106 mg/dL Normal GLU 97 Result Comment: Please note revised GLUCOSE reference range effective 2018. LAB L501.1000 7-18 mg/dL Normal BUN 15 LAB L501.1100 0.55-1.02 mg/dL High CREAT,SERUM 1.49 Result Comment: The validity of the calculated GFR AND GFRAA in patients over 70 years has not been determined. Clinical correlation is essential. LAB L501.1110 >60 mL/min Low EST GFR 37 Result Comment: Non- GFR Calc LAB L501.1115 >60 mL/min Low EST GFR - AA 45 Result Comment: GFR Calc LAB L501.1300 10-20 RATIO Normal BUN/CRE 10.1 LAB L501.2200 8.5-10.1 mg/dL CA Normal 9.2 LAB L501.5300 136-145 mmol/L NA Normal 144 LAB L501.5600 3.5-5.1 mmol/L K Normal 4.3 LAB L501.5900 98-107 mmol/L CL Normal 107 LAB L501.6100 21.0-32.0 mmol/L Normal CO2 26.0 LAB L501.6200 5-15 Normal GAP 11 Performed By: #### L500.2500 #### [facility] [address] [place], [place], [address] CNPTOUTREACH Observed: 04/15/2018 Status: COMPLETED Source: [place] 12:00 AM [facility] REPOSITORY Patient Outreach (FAMPST) BELÉN WRIGHT ([id number]) 1950 F Date Time Provider Department 04/15/18 AKIL BUSH FAMPST During your visit today, we recorded the following information about you: Allergies As of Date: 04/15/2018 Noted Allergy Reaction CIPROFLOXACIN 08/01/2017 2 - Rash CONTRAST DYE 09/14/2014 14 - Other: See Comments Comments: Breaks out with blisters SULFABENZAMIDE 09/14/2014 2 - Rash 8 - GI Upset 14 - Other: See Comments Comments: Breaks out in a hot sweat Date Reviewed: 02/01/2018 Reviewed by: Davina Hood Ma - Fully Assessed Visit Diagnosis:Medication management [Z79.899] Order(s):ALBUMIN/CREAT RATIO RND UR [SQUACR] Order #: [id number] FUTURE BASIC METABOLIC PNL [SQBMP] Order #: [id number] FUTURE HGB A1C [OIBAT0J] Order #: [id number] FUTURE Prescriptions as of 04/15/2018 Sig: X LOSARTAN 100 MG TABLET Take 1 tablet by mouth once d* X METFORMIN 1,000 MG TABLET Take 2 tablets by mouth daily* X VENLAFAXINE ER 75 MG CAPSULE,* Take 1 capsule by mouth twice* X GABAPENTIN 300 MG CAPSULE Take 1 capsule by mouth three* X SIMVASTATIN 80 MG TABLET Take 1 tablet by mouth once d* X OMEPRAZOLE 20 MG CAPSULE,ANNE MARIE* Take 1 capsule by mouth once * X DIAZEPAM 2 MG TABLET Take 1 tablet by mouth at bed* X ONDANSETRON HCL 4 MG TABLET Take 1 tablet by mouth every * X CYCLOBENZAPRINE 10 MG TABLET Take 1 tablet by mouth twice * HYDROCODONE 5 MG-ACETAMINOPHE* Take 1 tablet by mouth twice * ALBUTEROL SULFATE HFA 90 MCG/* Inhale 2 Puffs as instructed * HYDROXYCHLOROQUINE 200 MG TAB* 400 mg daily Problem List As Of Date 04/15/2018 Noted Resolved Diabetes mellitus type 2 in obese (HCC) [E11.69*INVALID FOR*02/27/2016 Hypertension [I10] INVALID FOR* Hypercholesteremia [E78.00] INVALID FOR* GERD (gastroesophageal reflux disease) [K21.9] INVALID FOR*02/27/2016 Depression [F32.9] INVALID FOR* Anxiety [F41.9] INVALID FOR* Lupus (HCC) [L93.0] INVALID FOR* Controlled substance agreement signed [Z79.899] INVALID FOR* Diabetes mellitus type 2, controlled, without c* Diarrhea [R19.7] INVALID FOR* GERD without esophagitis [K21.9] INVALID FOR* CKD stage 3 due to type 2 diabetes mellitus (HC*INVALID FOR* More... Encounter Status:Closed by EPIC, PRODUSER on 09/12/18 LUMBAR SPINE 2 OR 3 Observed: 04/04/2018 Status: F Source: [place] 12:32 PM [facility] [place] [facility] Imaging Services [address] [place] [address] Lumbar Spine 2 or 3 Views MR#: [id number] Acct: [id number] Name: BELÉN WRIGHT Rep #: [id number] : 1950 F 67 From: Marina Pena MD PCP: Akil Carroll DO Status: REG CLI Study: Lumbar Spine 2 or 3 Views Date of Exam: 04/04/18 Exam# [id number] Ordering Dr: Sherri Pastor MD STUDY: X-RAY - LUMBAR SPINE REASON FOR EXAM: Female, 67 years old. Back pain worsening radiating down left leg TECHNIQUE: 3 view(s) of the lumbar spine were obtained. COMPARISON: October 10, 2015 lumbar spine x-ray FINDINGS: There is an exaggerated lumbar lordosis. There is a levoscoliosis of the lumbar spine. There is slight anterolisthesis at the level of L4-L5. This appears stable when compared to prior study. There is multilevel spondylosis. There is mild disc space narrowing and endplate sclerosis. There are surgical clips in the right upper quadrant status post cholecystectomy. There is facet arthropathy especially at the level of L4-L5 and L5-S1. The soft tissue structures are unremarkable. RAD/Lumbar Spine 2 or 3 Views IMPRESSION: There is multilevel degenerative disc disease. Worsening levoscoliosis of the lumbar spine. Similar appearing mild anterolisthesis at L4-L5. Facet arthropathy L4-L5 L5-S1. Electronically Signed: Marina Pena MD at 15:50 EDT Tel , Service support , CC: Sherri Pastor MD; Akil Carroll DO Twisting Machine Operator: Signed INITAL EVALUATION (1) Observed: 03/28/2018 Status: F Source: [place] - PT 3:31 PM [facility] [place] [facility] [address] [place] [address]. [address] [place] [address] Fax REHABILITATION SERVICES INITIAL EVALUATION MR#: [id number] Acct: [id number] Name: BELÉN WRIGHT Rep #: [id number] : 1950 67 From: Michelle Melton PT, Cert. MDT Referring Dr.: Sherri Pastor MD Status: REG RCR Insurance: [employer] SELF PAY INSURANCE Patient's Visit Information BELÉN WRIGHT is a 67 year old F referred to Physical Therapy by Sherri Pastor with a diagnosis of BACK AND NECK PAIN. Date of Evaluation: 03/28/18 Physical Therapist: Michelle Melton - Visit Plan Frequency: 2-3x /Week Duration: 4-6 Weeks Plan: AQUATIC THERAPY FOR PAIN RELEIF, POSTURE CORRECTION/STRENGTHENING, INSTRUCTION IN APPROPRIATE BODY MECHANICS AND ACTIVITY MODIFICATIONS. DLS STARTING WITH A NEUTRAL SPINE PROGRESSING ROM TOLERATED. ALEKSEY LE ROM, STRETCHING AND STRENGTHENING. HEP INSTRUCTION. - Subjective Subjective: Diagnosis: Work/Leisure: RETIRED. Disability: YES. Present symptoms: LOW BACK PAIN, NECK AND SHOULDER PAIN, MID BACK PAIN ON LEFT, LEFT LE PAIN TO FOOT. INTERMITTENT RIGHT LE PAIN TOO. INTERMITTENT ALEKSEY LE NUMBNESS AND TINGLING. INTERMITTENT ALEKSEY UE NUMBNESS AND TINGLING. Present since: CHRONIC. Pain Scale: WORST 8/10, LEAST 3/10. Currently: 8/10. Commenced as a result of: NO APPARENT REASON. Symptoms at onset: LEGS. Worse: CROCHETING, SWEEPING THE FLOOR, TRYING TO DO OUTSIDE WORK IN FLOWER BEDS, WALKING, HOUSEKEEPING, LIFTING, AND BENDING. Better: HOT SHOWER. Disturbed sleep: NO. Previous history/Previous treatment: PHYSICAL THERAPY, PAIN MGMT - INJECTIONS, CHIRO LONG TIME AGO. Coughing/sneezing/straining: NEGATIVE. Gait: INDEP GAIT WITHOUT AD. DISTANCE LIMITED. LEANS ON CART TO GROCERY SHOP. Difficulty initiating urinatin: NO. DIZZINESS: INTERMITTENT. DIFFICULTY SWOLLOWING: NO. Accidents: FELL SATURDAY NIGHT TAKING THE DOG OUT. DOG PULLED. HURT BACK AND LEFT LEG. WENT TO DR. PASTOR ON SATURDAY AND THIS HAPPENED ON SATURDAY. DOES NOT WANT TO GO TO THE DOCTOR BEFORE STARTING THERAPY. STATES SHE DOESN'T HAVE ANY PAIN NOW THAT SHE HASN'T HAD BEFORE. Unexplained weight loss: NO. Imaging: NECK MRI A YEAR AGO: MPRESSION: No significant interval changes since the last examination. C3-4 small central disc herniation of the protrusion type. C4-5 degenerative disc disease with annular bulge contacting the ventral. aspect of the cord with minimal spinal canal stenosis and left foraminal. stenosis. C5-6 and C6-7 and bulges with right foraminal stenosis at C5-6. NO RECENT LUMBAR IMAGING FOUND. PMH: LUPAS, NIDDM, HTN, ARTHRITIS, ANXIETY. Recent major surgery: ALEKSEY TKR'S. LEFT ACHILLES REPAIR - Objective Sitting Posture: POOR. FORWARD HEAD, ROUNDED SHOULDERS AND INCREASED KYPHOSIS. Standing Posture: POOR. INCREASED TRUNK FLEXION. Lordosis: REDUCED. THERE IS A RED SCRATCH OVER THE LEFT LOW BACK/BUTTOCK AREA. Lateral shift: NO. Relevant shift: N/A. Active Correction of posture: WORSE. Other Observations: INDEP GAIT INTO PT WITHOUT ANY ASSISTIVE DEVICES AND WITHOUT LOB OR ASSYMETRICAL LIMP BUT DECREASED CADANCE AND INCREASED TRUNK FLEXION. Motor deficit: ALEKSEY UE STRENGTH GROSSLY 4/5 EXCEPT RIGHT SHOULDER ER 3+/5. ALEKSEY LE STRENGTH GROSSLY 4/5. Sensory deficit: ALEKSEY UE AND LE LIGHT TOUCH SENSATION GROSSLY INTACT AND SYMMETRICAL BUT FEET NT. ROM deficit: ALEKSEY SHOULER ELEVATION ABOUT 25% LIMITED. TIGHT ALEKSEY HIP FLEXORS, HAMSTRINGS AND GASTROC SOLEUS COMPLEX'S. Lumbar mvmt loss: flex - MOD. ext - JONAS. R SG - JONAS. L SG - MOD TO JONAS. PATIENT COMPLAINT OF INCREASED THORACIC AND LUMBAR PAIN WITH ROM TESTING ALL PLANES. CERVICAL MVMT LOSS: FLEX - NIL, PRO - NIL, EXT - JONAS, RET - JONAS, ALEKSEY ROT - MOD, ALEKSEY SB - MOD TO JONAS. C/O INCRASED PAIN WITH CERVICAL ROM TESTING TOO. Core strength: POOR. Palpation: PATIENT IS TENDER IN HER ENTIRE SPINE WITH PALPATION BUT SHE IS ESPECIALLY HYPERSENSATIVE WITH VERY LIGHT PALPATION OF THE T9,10, 11 AND 12 REGION. SHE REPORTS SHE HAS BEEN HAVING PAIN HERE FOR A LONG TIME BUT IT IS WORSE SINCE SHE FELL SATURDAY. I STRONGLY RECOMMENDED SHE CONTACT HER PHYSICIAN TO REPORT THIS INCREASED PAIN. - Goals Goal 1:: DECREASE C/O SPINE AND EXTREMITY SX'S. Goal Time Frame: 4-6 Weeks Goal 2:: IMPROVE PERSONAL CARE, LIFTING, WALKING, STANDING, SOCIAL LIFE AND HOMEMAKING FUNCTION Goal Time Frame: 4-6 Weeks Goal 3:: INSTRUCT IN PROPHYLAXIS Goal Time Frame: 4-6 Weeks - Rehabilitation Potential Rehabilitation Potential: Fair - Anticipated Interventions Patient/Client Instruction: Educate patient on: Condition, Plan of Care, Risk Factors, Benefits of Fitness Program For the Purpose of:: To improve self management Therapeutic Exercise to Include: Strength training, Body mechanics, Postural training, Flexibilty training, Gait and locomotor training, In an aquatic setting, Active ROM, Dynamic Lumbar Stabilization, Scapular Strength/Stabilization For the Purpose of:: To decrease pain, To increase tolerance to activity/condition/position, To improve performance and independence with ADL's, To improve ability of physical actions for home/community/work/leisure, To improve gait and locomotor functions Thank you for the opportunity to evaluate your patient. For Medicare and Medicare HMO plans, please review the plan of care and approve it. It will need to be FAXED BACK to us at [phone] for Medicare purposes. Please let me know if there are questions or concerns regarding this plan of care. Physician Signature: Date: <Electronically signed by Michelle Melton PT, Cert. MDT> 03/28/18 1531 CC: Sherri Pastor MD; Akil Carroll DO ARTURO Signed For Medicare only, by signing this I certify the plan of care. Physicians Signature Date CBC-COMPLETE BLOOD CNT Collected: 02/20/2018 Status: F Source: [place] NO DIFF 8:54 AM [facility] [place] TYPE CODE TESTS RESULT OUT OF RANGE REFERENCE UNITS LAB L100.1000 4.4-11.0 K/mm3 Low WBC 4.1 LAB L100.1200 4.2-5.4 M/mm3 Low RBC 3.70 LAB L100.1300 12.0-15.0 g/dl Low HGB 8.6 LAB L100.1400 37-47 % Low HCT 28.7 LAB L100.1500 81-99 fL Low MCV 77.6 LAB L100.1600 27.0-32.0 pg Low MCH 23.2 LAB L100.1700 32-36 g/gl Low MCHC 30.0 LAB L100.1810 11.6-14.6 % High RDW CV 17.1 LAB L100.1820 35.1-43.9 fl High RDW SD 46.0 LAB L100.1900 150-450 K/mm3 Normal PLT 181 LAB L100.2000 6.2-12.0 fl Normal MPV 11.7 Performed By: #### L100.0500 #### [facility] [address] [place], [place], [id number] RENAL PROFILE Collected: 02/20/2018 Status: F Source: [place] 8:54 AM [facility] [place] TYPE CODE TESTS RESULT OUT OF RANGE REFERENCE UNITS LAB L501.0100 74-106 mg/dL High GLU 142 Result Comment: Fasting Glucose result greater than or equal to 126 mg/dL suggests DIABETES MELLITUS per A.D.A. criteria. Please note revised GLUCOSE reference range effective 2018. LAB L501.1000 7-18 mg/dL Normal BUN 14 LAB L501.1100 0.55-1.02 mg/dL High CREAT,SERUM 1.58 Result Comment: The validity of the calculated GFR AND GFRAA in patients over 70 years has not been determined. Clinical correlation is essential. LAB L501.1110 >60 mL/min Low EST GFR 34 Result Comment: Non- GFR Calc LAB L501.1115 >60 mL/min Low EST GFR - AA 42 Result Comment: GFR Calc LAB L501.1300 10-20 RATIO Low BUN/CRE 8.9 LAB L501.1800 3.2-5.0 g/dL Normal ALB 3.4 LAB L501.2200 8.5-10.1 mg/dL Normal CA 8.8 LAB L501.2300 2.5-4.9 mg/dL Normal PHOS 3.5 LAB L501.5300 136-145 mmol/L Normal NA 143 LAB L501.5600 3.5-5.1 mmol/L Normal K 4.3 LAB L501.5900 98-107 mmol/L High CL 108 LAB L501.6100 21.0-32.0 mmol/L Normal CO2 25.0 Performed By: #### L500.3600 #### [facility] [address] [facility]. [place], [place], [address] MICROALB:CREAT Collected: 02/20/2018 Status: F Source: [place] RATIO,RANDOM UR 8:54 AM [facility] [place] TYPE CODE TESTS RESULT OUT OF RANGE REFERENCE UNITS LAB L501.1200 NO RANGE EST. mg/dL Normal UR CREAT 125.00 LAB L502.0500 NO RANGE EST. mg/L Normal 26.6 MICROALBUMIN ,UR LAB L502.0600 <30 mg/g CRE mg/g CRE Normal 21.3 MALB:CREAT Performed By: #### L502.0250 #### [facility] [address] [place], [address] PTHIN Collected: 02/20/2018 Status: F Source: [place] 8:54 AM [facility] [place] TYPE CODE TESTS RESULT OUT OF RANGE REFERENCE UNITS LAB L509.1000 18.4-80.1 pg/mL High PTHIN 84.9 Result Comment: Please Note: PTH INTACT METHOD AND REFERENCE RANGE CHANGE Effective 11/20/2017. Performed By: #### L509.1000 #### [facility] [address] [place], [address] VITAMIN D,25 HYDROXY Collected: 02/20/2018 Status: F Source: [place] 8:54 AM [facility] [place] TYPE CODE TESTS RESULT OUT OF RANGE REFERENCE UNITS LAB L506.1000 29.95-100.01 ng/mL Normal Vitamin D 41.2 25-OH Result Comment: Vitamin D 25(OH) Status Range Deficiency <20 ng/mL (50nmol/L) Insuffciency 20 - 30 ng/mL (50 - 75 nmol/L) Sufficiency 30 - 100 ng/mL (75 - 250 nmol/L) Toxicity >100 ng/mL (>250 nmol/L) Performed By: #### L506.1000 #### [facility] [address] [place], [address] PROGRESS Observed: 02/01/2018 Status: COMPLETED Source: [place] 2:35 PM [facility] REPOSIT[facility] O ID: [id number] Author: Sara (Acid Painter) Dontae Service: (none) Author Type: Nurse Practitioner Type: Progress Notes Filed: 02/01/2018 2:57 PM Note Text: Subjective HPI Belén Wright is a 67 year old female who presents with a cough present for 1 week, 7 to 10 days. She has not had a fever. She feels cough is worsening. diagnosed with respiratory infection today. Review of Systems Constitutional: Positive for chills. Negative for fever and malaise/fatigue. HENT: Positive for congestion. Respiratory: Positive for cough. Negative for shortness of breath. Cardiovascular: Negative. Negative for chest pain. Gastrointestinal: Negative. Negative for abdominal pain, diarrhea, nausea and vomiting. Skin: Negative. BP 110/68 Pulse 100 Temp 37.1 ?C (98.7 ?F) (Tympanic) Resp 18 Wt 86.6 kg (191 lb) SpO2 99% BMI 32.79 kg/m2 PAST MEDICAL HISTORY Diagnosis Date - Arthritis - CKD (chronic kidney disease) stage 3, GFR 30-59 ml/min Sees Dr. 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 Rice - TOTAL KNEE REPLACEMENT 2004 bilateral - TUBAL LIGATION HX 1979 ALLERGIES Ciprofloxacin; Contrast Dye; Sulfabenzamide MEDICATIONS losartan (COZAAR) 100 mg tablet Take 1 tablet by mouth once daily. metFORMIN (GLUCOPHAGE) 1,000 mg tablet Take 2 tablets by mouth daily with breakfast. venlafaxine ER (EFFEXOR XR) 75 mg 24 hr capsule Take 1 capsule by mouth twice daily. gabapentin (NEURONTIN) 300 mg capsule Take 1 capsule by mouth three times daily. simvastatin (ZOCOR) 80 mg tablet Take 1 tablet by mouth once daily. omeprazole (PRILOSEC) 20 mg capsule Take 1 capsule by mouth once daily. diazePAM (VALIUM) 2 mg tablet Take 1 tablet by mouth at bedtime as needed for Anxiety (or vertigo). ondansetron (ZOFRAN, HYDROCHLORIDE,) 4 mg tablet Take 1 tablet by mouth every 8 hours as needed. cyclobenzaprine (FLEXERIL) 10 mg tablet Take 1 tablet by mouth twice daily as needed. HYDROcodone-acetaminophen (NORCO) 5-325 mg per tablet Take 1 tablet by mouth twice daily as needed for Pain. Per Dr. Pastor albuterol HFA (PROVENTIL HFA, VENTOLIN HFA) 90 mcg/actuation inhaler Inhale 2 Puffs as instructed every 6 hours as needed for Wheezing/Shortness of Breath. hydroxychloroquine (PLAQUENIL) 200 mg tablet 400 mg daily No family history on file. Social History Substance Use Topics - Smoking status: Never Smoker - Smokeless tobacco: Never Used - Alcohol use No Objective Physical Exam Constitutional: She is well-developed, well-nourished, and in no distress. HENT: Head: Normocephalic. Nose: Nose normal. No rhinorrhea. Mouth/Throat: Uvula is midline, oropharynx is clear and moist and mucous membranes are normal. Mucous membranes are not pale, not dry and not cyanotic. No posterior oropharyngeal edema or posterior oropharyngeal erythema. Eyes: Conjunctivae are normal. Right eye exhibits no discharge. Left eye exhibits no discharge. Neck: Neck supple. Cardiovascular: Normal rate and regular rhythm. Pulmonary/Chest: Effort normal and breath sounds normal. No respiratory distress. She has no wheezes. She has no rales. Frequent productive cough Lymphadenopathy: She has no cervical adenopathy. Neurological: She is alert. Skin: Skin is warm and dry. No rash noted. Nursing note and vitals reviewed. ASSESSMENT/PLAN: 1. Protracted URI - ICD9: 465.9, ICD10: J06.9 - Discussed viral etiology and rationale for treatment. - Symptomatic treatment with prn analgesia - Supportive care with fluids and rest - The patient may also use Mucinex. - AMOXICILLIN 875 MG TABLET - Follow-up with your PCP in 3-5 days if symptoms have not improved or sooner if symptoms worsen - Discussed red flags and need for immediate medical evaluation if any occur. - Discussed supportive care treatment with fluids, rest and analgesia. - Discussed expected course of illness Sara Diggs CNP CNOV Observed: 02/01/2018 Status: COMPLETED Source: [place] 2:30 PM [facility] REPOSITORY Office Visit (UCWSTR) BELÉN WRIGHT ([id number]) 1950 F Date Time Provider Department 02/01/18 2:30 PM SARA DIGGS (ARLETTE) WSTR During your visit today, we recorded the following information about you: Temperature Pulse Respiration Blood pressure 98.7 degrees 100/minute 18/minute 110/68 Weight 86.6 kg Sara Diggs CNP 02/01/2018 2:57 PM Signed Subjective HPI Belén Wright is a 67 year old female who presents with a cough present for 1 week, 7 to 10 days. She has not had a fever. She feels cough is worsening. diagnosed with respiratory infection today. Review of Systems Constitutional: Positive for chills. Negative for fever and malaise/fatigue. HENT: Positive for congestion. Respiratory: Positive for cough. Negative for shortness of breath. Cardiovascular: Negative. Negative for chest pain. Gastrointestinal: Negative. Negative for abdominal pain, diarrhea, nausea and vomiting. Skin: Negative. BP 110/68 Pulse 100 Temp 37.1 ?C (98.7 ?F) (Tympanic) Resp 18 Wt 86.6 kg (191 lb) SpO2 99% BMI 32.79 kg/m2 PAST MEDICAL HISTORY Diagnosis Date - Arthritis - CKD (chronic kidney disease) stage 3, GFR 30-59 ml/min Sees Dr. 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 Rice - TOTAL KNEE REPLACEMENT 2004 bilateral - TUBAL LIGATION HX 1979 ALLERGIES Ciprofloxacin; Contrast Dye; Sulfabenzamide MEDICATIONS losartan (COZAAR) 100 mg tablet Take 1 tablet by mouth once daily. metFORMIN (GLUCOPHAGE) 1,000 mg tablet Take 2 tablets by mouth daily with breakfast. venlafaxine ER (EFFEXOR XR) 75 mg 24 hr capsule Take 1 capsule by mouth twice daily. gabapentin (NEURONTIN) 300 mg capsule Take 1 capsule by mouth three times daily. simvastatin (ZOCOR) 80 mg tablet Take 1 tablet by mouth once daily. omeprazole (PRILOSEC) 20 mg capsule Take 1 capsule by mouth once daily. diazePAM (VALIUM) 2 mg tablet Take 1 tablet by mouth at bedtime as needed for Anxiety (or vertigo). ondansetron (ZOFRAN, HYDROCHLORIDE,) 4 mg tablet Take 1 tablet by mouth every 8 hours as needed. cyclobenzaprine (FLEXERIL) 10 mg tablet Take 1 tablet by mouth twice daily as needed. HYDROcodone-acetaminophen (NORCO) 5-325 mg per tablet Take 1 tablet by mouth twice daily as needed for Pain. Per Dr. Pastor albuterol HFA (PROVENTIL HFA, VENTOLIN HFA) 90 mcg/actuation inhaler Inhale 2 Puffs as instructed every 6 hours as needed for Wheezing/Shortness of Breath. hydroxychloroquine (PLAQUENIL) 200 mg tablet 400 mg daily No family history on file. Social History Substance Use Topics - Smoking status: Never Smoker - Smokeless tobacco: Never Used - Alcohol use No Objective Physical Exam Constitutional: She is well-developed, well-nourished, and in no distress. HENT: Head: Normocephalic. Nose: Nose normal. No rhinorrhea. Mouth/Throat: Uvula is midline, oropharynx is clear and moist and mucous membranes are normal. Mucous membranes are not pale, not dry and not cyanotic. No posterior oropharyngeal edema or posterior oropharyngeal erythema. Eyes: Conjunctivae are normal. Right eye exhibits no discharge. Left eye exhibits no discharge. Neck: Neck supple. Cardiovascular: Normal rate and regular rhythm. Pulmonary/Chest: Effort normal and breath sounds normal. No respiratory distress. She has no wheezes. She has no rales. Frequent productive cough Lymphadenopathy: She has no cervical adenopathy. Neurological: She is alert. Skin: Skin is warm and dry. No rash noted. Nursing note and vitals reviewed. ASSESSMENT/PLAN: 1. Protracted URI - ICD9: 465.9, ICD10: J06.9 - Discussed viral etiology and rationale for treatment. - Symptomatic treatment with prn analgesia - Supportive care with fluids and rest - The patient may also use Mucinex. - AMOXICILLIN 875 MG TABLET - Follow-up with your PCP in 3-5 days if symptoms have not improved or sooner if symptoms worsen - Discussed red flags and need for immediate medical evaluation if any occur. - Discussed supportive care treatment with fluids, rest and analgesia. - Discussed expected course of illness ARLETTE Chavez CNP 02/01/2018 2:48 PM Signed Take medications as prescribed. If not improving in 3-5 days, or you have worsening symptoms, see your primary care provider for recheck. Take mucinex also COUGH: Your doctor wants you to have this information about coughing. The body has a cough reflex which helps expel mucous secretions and irritants from the lung and airway passages. Cough spasms are periods of continuous coughing lasting several minutes. Most coughs is caused by virus infections which may last for up to 2-3 weeks. Coughing helps to protect the lung from pneumonia. A persistent cough lasting longer than 4-6 weeks requires medical evaluation by your primary care doctor. Treatment of cough includes measures to loosen the cough and thin the mucous. Warm liquids, cough drops, and nonprescription cough medicine may help reduce dry hacking cough. Use a humidifier if necessary as dry air can make coughs worse. Ultrasonic humidifiers are especially useful as they kill molds and many bacteria. Some cough medicines have antihistamines, decongestants, or alcohol in them; there is no proof that any of these help control cough. Prescription cough medicine or those with dextromethorphan (DM) should be reserved for dry coughs that prevent sleep or cause spasms or chest pain. Avoid any exposure to cigarette smoke as this will worsen the cough or make it last much longer. Call your doctor right away if you or your child have increased breathing difficulty, a high fever, a cough that lasts longer than 3 weeks, or other serious complaints. Referring Provider: SELF [200] Allergies As of Date: 02/01/2018 Noted Allergy Reaction CIPROFLOXACIN 08/01/2017 2 - Rash CONTRAST DYE 09/14/2014 14 - Other: See Comments Comments: Breaks out with blisters SULFABENZAMIDE 09/14/2014 2 - Rash 8 - GI Upset 14 - Other: See Comments Comments: Breaks out in a hot sweat Date Reviewed: 02/01/2018 Reviewed by: Davina Hood Ma - Fully Assessed Reason for Visit: Cough [28] Cmt: x 1 week Primary Visit Diagnosis:Protracted URI [J06.9] Order(s):amoxicillin (AMOXIL) 875 mg tabletTake 1 tablet by mouth twice daily for 10 days.Disp: 20 tabletRfl: 0 Prescriptions as of 02/01/2018 Sig: LOSARTAN 100 MG TABLET Take 1 tablet by mouth once d* METFORMIN 1,000 MG TABLET Take 2 tablets by mouth daily* VENLAFAXINE ER 75 MG CAPSULE,* Take 1 capsule by mouth twice* GABAPENTIN 300 MG CAPSULE Take 1 capsule by mouth three* SIMVASTATIN 80 MG TABLET Take 1 tablet by mouth once d* OMEPRAZOLE 20 MG CAPSULE,ANNE MARIE* Take 1 capsule by mouth once * DIAZEPAM 2 MG TABLET Take 1 tablet by mouth at bed* ONDANSETRON HCL 4 MG TABLET Take 1 tablet by mouth every * CYCLOBENZAPRINE 10 MG TABLET Take 1 tablet by mouth twice * HYDROCODONE 5 MG-ACETAMINOPHE* Take 1 tablet by mouth twice * ALBUTEROL SULFATE HFA 90 MCG/* Inhale 2 Puffs as instructed * HYDROXYCHLOROQUINE 200 MG TAB* 400 mg daily AMOXICILLIN 875 MG TABLET Take 1 tablet by mouth twice * Problem List As Of Date 02/01/2018 Noted Resolved Diabetes mellitus type 2 in obese (HCC) [E11.69*INVALID FOR*02/27/2016 Hypertension [I10] INVALID FOR* Hypercholesteremia [E78.00] INVALID FOR* GERD (gastroesophageal reflux disease) [K21.9] INVALID FOR*02/27/2016 Depression [F32.9] INVALID FOR* Anxiety [F41.9] INVALID FOR* Lupus (HCC) [L93.0] INVALID FOR* Controlled substance agreement signed [Z79.899] INVALID FOR* Diabetes mellitus type 2, controlled, without c* Diarrhea [R19.7] INVALID FOR* GERD without esophagitis [K21.9] INVALID FOR* CKD stage 3 due to type 2 diabetes mellitus (HC*INVALID FOR* More... Other instructions from your clinician: Take medications as prescribed. If not improving in 3- 5 days, or you have worsening symptoms, see your primary care provider for recheck. Take mucinex also COUGH: Your doctor wants you to have this information about coughing. The body has a cough reflex which helps expel mucous secretions and irritants from the lung and airway passages. Cough spasms are periods of continuous coughing lasting several minutes. Most coughs is caused by virus infections which may last for up to 2-3 weeks. Coughing helps to protect the lung from pneumonia. A persistent cough lasting longer than 4-6 weeks requires medical evaluation by your primary care doctor. Treatment of cough includes measures to loosen the cough and thin the mucous. Warm liquids, cough drops, and nonprescription cough medicine may help reduce dry hacking cough. Use a humidifier if necessary as dry air can make coughs worse. Ultrasonic humidifiers are especially useful as they kill molds and many bacteria. Some cough medicines have antihistamines, decongestants, or alcohol in them; there is no proof that any of these help control cough. Prescription cough medicine or those with dextromethorphan (DM) should be reserved for dry coughs that prevent sleep or cause spasms or chest pain. Avoid any exposure to cigarette smoke as this will worsen the cough or make it last much longer. Call your doctor right away if you or your child have increased breathing difficulty, a high fever, a cough that lasts longer than 3 weeks, or other serious complaints. Prescriptions ordered this encounter Disp Refills Start End AMOXICILLIN 875 MG TABLET 20 t* 0 02/01/2018 02/11/2018 Route: ORAL Sig: Take 1 tablet by mouth twice daily for 10 days. Encounter Status:Closed by SARA DIGGS on 02/01/18 ALLERGIES ALLERGIES DATE TYPE / CODE NAME / CODE REACTION SEVERITY SOURCE DRUG CIPROFLOXACIN RASH [place] 7 INGREDI/352984983( [facility] SNOMED CT) [place] Repository Drug Sulfa (Sulfonamide Hives Unknown Jose Luis 7 Allergy/765193211( Antibiotics)/L98966 [facility] SNOMED CT) 0491(RXNORM) Hospital Repository Miscellaneous COLOR DIES Swelling Unknown [place] 7 Allergy/584257619( [facility] SNOMED CT) Hospital Repository DRUG CONTRAST DYE OTHER: SEE C [place] 4 INGREDI/737167144( [facility] SNOMED CT) [place] Repository DRUG SULFABENZAMIDE RASH [place] 4 INGREDI/883508475( [facility] SNOMED CT) [place] Repository ENCOUNTERS ENCOUNTERS ADMIT/DISCHARGE ACCOUNT ADMITTING ENCOUNTER LOCATION SOURCE NUMBER CLASS 12/22/2018/12/22/[id number] Repository 12/16/[id number] [facility] ing:LABSPEC Repository 12/16/2018/12/16/[id number] Repository 12/12/2018 [id number] Ambulatory [facility] ing:LABSPEC Repository 12/12/2018/12/12/19 [id number] Ambulatory [address] [place] Repository 12/12/2018/12/15/19 [id number] Ambulatory [address] [place] Repository 11/12/2018 [id number] Ambulatory [facility] ing:LAB Repository 11/05/2018 [id number] Ambulatory [facility] ing:LABSPEC Repository 11/05/2018/11/05/20 [id number] Ambulatory [address] [place] Repository 11/05/2018/11/06/20 [id number] Ambulatory [address] [place] Repository 11/01/2018/11/01/20 [id number] Ambulatory [address] Repository 08/25/2018 [id number] Ambulatory [facility] ing:LAB Repository 08/21/2018 [id number] Ambulatory [facility] ing:LAB Repository 06/03/2018 [id number] Ambulatory [facility] ing:LAB Repository 05/07/2018/05/07/20 [id number] Ambulatory [address] [place] Repository 05/02/2018/05/05/20 [id number] Ambulatory [address] [place] Repository 05/01/2018/05/01/20 [id number] Ambulatory [address] [facility] ing:PT Repository 04/22/2018 [id number] Ambulatory [facility] ing:LABSPEC Repository 04/22/2018/04/22/20 [id number] Ambulatory [address] [place] Repository 04/04/2018 [id number] Ambulatory [facility] ing:RAD.FUTUR Repository E 02/20/2018 [id number] Ambulatory [facility] ing:LAB Repository 02/01/2018/02/04/20 [id number] Ambulatory [address] Repository PAYERS PAYERS ENCOUNTER GUARANTOR PAYER SUBSCRIBER SOURCE 12/16/2018 [address]N [id number] [place], Insurance:[place] CARE [place]: [place] [address]Ahr: MEDICAREPolicy [id number] Hospital Number: Repository () [id number] Date:8272-08-11[address] [place] [address]EY: 12/16/2018 Secondary NOT GIVENUNK [place] Insurance:SELF PAY [facility] Number: Effective Repository Date:2018-12-16 12/12/2018 BELÉN BLAS9 Primary BELÉN [address]aya [address] [place], [facility] [place]: [place] [address]Scp: MEDICAREPolicy [id number] Hospital Number: Repository () [id number] Date:0768-22-78[address] [place] [address]DA: 12/12/2018 Secondary NOT GIVENUNK [place] Insurance:SELF PAY [facility] Number: Effective Repository Date:2018-12-12 11/12/2018 BELÉN BLAS9 Primary [place], [facility] SAGED[place]: [facility] [place] [address]Agt: MEDICAREPolicy [id number] Hospital Number: Repository () [id number] Date:4222-07-77[address] [place] [address]MC: 11/12/2018 Secondary NOT GIVENUNK Jose Luis Insurance:SELF PAY [facility] Number: Effective Repository Date:2018-11-12 11/05/2018 BELÉN BLAS9 Primary [place], [facility] [place]: [place] [address]Fvz: MEDICAREPolicy [id number] Hospital Number: Repository () [id number] Date:9596-81-46RW [address] [place] [address]MF: 11/05/2018 Secondary NOT GIVENUNK Jose Luis Insurance:SELF PAY [facility] Number: Effective Repository Date:2018-11-05 08/25/2018 BELÉN BLAS9 Primary [place], [facility] SAGEDOB: [facility] [place] [address]Jpz: MEDICAREPolicy [id number] Hospital Number: Repository (HP) [id number] Date:1507-07-09OB [address] [place] [address]RJ: 08/25/2018 Secondary NOT GIVENUNK Jose Luis Insurance:SELF PAY [facility] Number: Effective Repository Date:2018-08-25 08/21/2018 BELÉN BLAS9 Primary [place], [facility] [place] [facility] [place] [address]Zuw: MEDICAREPolicy [id number] Hospital Number: Repository () [id number] Date:2146-23-99ZU [address] [place] [address]KQ: 08/21/2018 Secondary NOT GIVENUNK [place] Insurance:SELF PAY [facility] Number: Effective Repository Date:2018-08-21 06/03/2018 BELÉN BLAS9 Primary BELÉN [address], Insurance:[facility] [place] [address]Sbv: MEDICAREPolicy [id number] Hospital Number: Repository (HP) [id number] Date:8735-07-45DF [address] [place] [address]XL: 06/03/2018 Secondary NOT GIVENUNK [place] Insurance:SELF PAY [facility] Number: Effective Repository Date:2018-06-03 05/01/2018 BELÉN BLAS9 Primary BELÉN [address], Insurance:[facility] [place]: [facility] [place] [address]Nqn: MEDICAREPolicy [id number] Hospital [phone] Number: Repository -5 (HP) [id number] Date:7185-77-48[address] [place] [address]GH: 05/01/2018 Secondary NOT GIVENUNK [place] Insurance:SELF PAY [facility] Number: Effective Repository Date:2018-03-25 04/22/2018 BELÉN ARNOLD Primary BELÉN [place], Insurance:SUMMA CARE [place]EDOB: [place] [address]Avf: MEDICAREPolicy [id number] [id number] Number: Repository -5 (HP) [id number] Date:9370-49-26OJ [address] [place] [address]XG: 04/22/2018 Secondary NOT GIVENUNK [place] Insurance:SELF PAY [facility] Number: Effective Repository Date:2018-04-22 04/04/2018 BELÉN ARNOLD Primary BELÉN [place], Insurance:[facility] SAGEDOB: [facility] [place] [address]Aco: MEDICAREPolicy [id number] [place] [address]~330 Number: Repository -5 (HP) [id number] Date:0002-39-86RQ [address] [place] [address]SA: 04/04/2018 Secondary NOT GIVENUNK [place] Insurance:SELF PAY [facility] Number: Effective Repository Date:2018-04-04 02/20/2018 Belén Arnold Primary Belén [place], Insurance:[facility] [place] [facility] [place] [address]Oxo: MEDICAREPolicy [id number] [id number]~330 Number: Repository -5 (HP) [id number] Date:1011-12-74TY [address] [place] [address]QJ: 02/20/2018 Secondary NOT GIVENUNK Jose Luis Insurance:SELF PAY [facility] Number: Effective Repository Date:2018-02-20
== END ==
PROVIDERS: Family Provider Student in an Organized Health Care Education/Training Program; PCP Student in an Organized Health Care Education/Training Program; Referring Provider Internal Medicine Rheumatology; Visit Provider Internal Medicine Rheumatology
DX: M06.4 Inflammatory polyarthropathy (principal); M35.00 Sjogren syndrome, unspecified; I10 Essential (primary) hypertension; E11.42 Type 2 diabetes mellitus with diabetic polyneuropathy; E78.49 Other hyperlipidemia; K22.70 Barrett's esophagus without dysplasia; K21.0 Gastro-esophageal reflux disease with esophagitis; F32.89 Other specified depressive episodes
CPT/HCPCS: 36415; 80053; 85025

== ENCOUNTER → 2018-12-12 15:38 | Outpatient (CLI) | payer MEDICARE, SELFPAY ==
[2018-12-15 03:06] LABS: HEPATITIS B SURFACE AG Negative (Negative); Hepatitis A AB, Total Negative (Negative); Hepatitis A IgM Antibody Negative (Negative); Hepatitis B Core Ab Total Negative (Negative); Hepatitis C Ab 0.1 s/co ratio (0.0-0.9)
[2018-12-15 09:29] LABS: Hep B Surface Antibodies Non Reactive (.)
[2018-12-15 09:33] LABS: Hepatitis B Core AB IgM Positive (Negative)
== END ==
PROVIDERS: Family Provider Student in an Organized Health Care Education/Training Program; PCP Student in an Organized Health Care Education/Training Program; Referring Provider Student in an Organized Health Care Education/Training Program; Visit Provider Student in an Organized Health Care Education/Training Program
DX: Z20.5 Contact with and (suspected) exposure to viral hepatitis (principal)
CPT/HCPCS: 86704; 86705; 86706; 86708; 86709; 86803; 87340

== ENCOUNTER → 2018-12-16 16:03 | Outpatient (CLI) | payer MEDICARE, SELFPAY ==
[2018-12-16 16:48] LABS: AST(SGOT) 20 U/L (15-37); Alanine Aminotransfer ALT/SGPT 21 U/L (13-56); Albumin, Serum 3.6 g/dL (3.2-5.0); Alkaline Phosphatase 89 U/L (45-117); Bilirubin, Direct 0.13 mg/dL (0.00-0.30); Globulin 3.4 g/dL (2.2-4.2)
[2018-12-18 14:20] LABS: Hep C Antibodies <0.1 s/co ratio (0.0-0.9)
== END ==
PROVIDERS: Family Provider Student in an Organized Health Care Education/Training Program; PCP Student in an Organized Health Care Education/Training Program; Referring Provider Student in an Organized Health Care Education/Training Program; Visit Provider Student in an Organized Health Care Education/Training Program
DX: R76.8 Other specified abnormal immunological findings in serum (principal)
CPT/HCPCS: 80076; 86803

== ENCOUNTER → 2018-12-29 12:44 | Outpatient (CLI) | payer MEDICARE, SELFPAY ==
[2018-12-29 13:49] LABS: Amphetamine Urine VISTA NEGATIVE (<1000 ng/mL); Barbiturate Urine VISTA NEGATIVE (< 200 ng/mL); Benzodiazepine Urine VISTA POSITIVE (< 200 ng/mL); Cocaine Urine VISTA NEGATIVE (< 300 ng/mL); Ecstacy Urine VISTA NEGATIVE (< 500 ng/mL); Methadone Urine VISTA NEGATIVE (< 300 ng/mL); PCP Urine VISTA NEGATIVE (< 25 ng/mL); THC Urine VISTA NEGATIVE (< 50 ng/mL); Vista UDS pH Range 5
== END ==
PROVIDERS: Family Provider Student in an Organized Health Care Education/Training Program; PCP Student in an Organized Health Care Education/Training Program; Referring Provider Anesthesiology Pain Medicine; Visit Provider Anesthesiology Pain Medicine
DX: F11.20 Opioid dependence, uncomplicated (principal)
CPT/HCPCS: 80307

== ENCOUNTER → 2019-02-23 12:35 | Outpatient (CLI) | payer MEDICARE, SELFPAY ==
[2019-02-23 13:13] LABS: Amphetamine Urine VISTA NEGATIVE (<1000 ng/mL); Barbiturate Urine VISTA NEGATIVE (< 200 ng/mL); Benzodiazepine Urine VISTA POSITIVE (< 200 ng/mL); Cocaine Urine VISTA NEGATIVE (< 300 ng/mL); Ecstacy Urine VISTA NEGATIVE (< 500 ng/mL); Methadone Urine VISTA NEGATIVE (< 300 ng/mL); PCP Urine VISTA NEGATIVE (< 25 ng/mL); THC Urine VISTA NEGATIVE (< 50 ng/mL); Vista UDS pH Range 5
== END ==
PROVIDERS: Family Provider Student in an Organized Health Care Education/Training Program; PCP Student in an Organized Health Care Education/Training Program; Referring Provider Anesthesiology Pain Medicine; Visit Provider Anesthesiology Pain Medicine
DX: F11.20 Opioid dependence, uncomplicated (principal)
CPT/HCPCS: 80307

== ENCOUNTER → 2019-02-26 10:27 | Outpatient (CLI) | payer MEDICARE, SELFPAY ==
[2019-02-26 11:29] LABS: Hematocrit 39.6 % (37-47); Hemoglobin 12.8 g/dl (12.0-15.0); Mean Corp Hgb Conc 32.3 g/gl (32-36); Mean Corpuscular Hgb 30.3 pg (27.0-32.0); Mean Corpuscular Volume 93.8 fL (81-99); Mean Platelet Vol. 12.4 fl (6.2-12.0); Platelet Count 154 K/mm3 (150-450); RBC Distribution Width CV 14.1 % (11.6-14.6); Red Blood Count 4.22 M/mm3 (4.2-5.4); White Blood Count 5.5 K/mm3 (4.4-11.0)
[2019-02-26 11:30] LABS: Scan Indicated on CBC? Y/N NO
[2019-02-26 11:34] LABS: Protein, Urine (Random) 30.8 mg/dL (<11.9); Protein:Creat Ratio 226 mg/g CRE (0-200)
[2019-02-26 11:58] LABS: Albumin, Serum 3.8 g/dL (3.2-5.0); BUN 25 mg/dL (7-18); BUN/Creat Ratio 16.3 RATIO (10-20); Calcium,Total 9.1 mg/dL (8.5-10.1); Chloride 111 mmol/L (98-107); Creatinine, Serum 1.53 mg/dL (0.55-1.02); EST Glomerular Filtration Rate 36 mL/min (>60); Est Glom Filt Rate - Afr Amer 43 mL/min (>60); Glucose 102 mg/dL (74-106); Phosphorus 3.6 mg/dL (2.5-4.9); Potassium 5.1 mmol/L (3.5-5.1); Sodium Level 141 mmol/L (136-145)
== END ==
PROVIDERS: Family Provider Student in an Organized Health Care Education/Training Program; PCP Student in an Organized Health Care Education/Training Program; Referring Provider Internal Medicine Nephrology; Visit Provider Internal Medicine Nephrology
DX: N18.4 Chronic kidney disease, stage 4 (severe) (principal); D64.9 Anemia, unspecified
CPT/HCPCS: 36415; 80069; 82570; 84156; 85027

== ENCOUNTER 2019-03-09 11:47 | Emergency (ER) | payer MEDICARE, SELFPAY ==
[2019-03-09 11:47] VITALS: BP 151/81; PULSE 68; RESP 18; TEMP 36.6; O2SAT 100; BMI 31.7
--- NOTE | 2019-03-09 11:55 | RAD_ITS ---
STUDY: X-RAY - RIGHT KNEE REASON FOR EXAM: Female, 68 years old. Pain following injury. TECHNIQUE: 4 view(s) of the knee. COMPARISON: Comparison is made with prior examination dated May 19, 2011. FINDINGS: Normal visualized distal femur. Normal visualized proximal tibia and fibula. Normal proximal tibiofibular articulation. The patient is status post total knee replacement. There is good alignment. Soft tissue swelling RAD/Knee 4 or More Views IMPRESSION: Status post total knee replacement. There is good alignment. Electronically Signed: Jakub Gasca, at 13:24 EDT , Service support ,
--- NOTE | 2019-03-09 11:55 | RAD_ITS ---
STUDY: X-RAY - PELVIS AND RIGHT HIP REASON FOR EXAM: Female, 68 years old. Pain following a fall. TECHNIQUE: 3 views of the pelvis and hip. COMPARISON: None. FINDINGS: There is a non-specific bowel gas pattern. There are atherosclerotic vascular calcifications of the pelvic arteries. There is narrowing with cortical sclerosis and osteophyte formation of the sacroiliac joint consistent with degenerative osteoarthritic changes. Normal bilateral superior and inferior pubic rami. There is narrowing with sclerosis of the pubic symphysis. Normal bilateral ischial tuberosities. Normal visualized femoral head. Normal acetabulum. There is mild articular joint space narrowing of the hip. RAD/HIP, UNI W/ Pelvis 2-3 Views IMPRESSION: Degenerative changes. No fracture or dislocation is seen. Electronically Signed: Jakub Gasca, at 13:23 EDT , Service support ,
--- NOTE | 2019-03-09 12:03 | ED.VISSUMM ---
- ER Visit Summary Date of Service: 03/09/19 Chief Complaint: Mechanical fall History of Present Illness: The patient is a 68 F presents to the emergency department after mechanical fall. Patient was in her normal state of health. She was walking her dog. She states she got tangled and the lesion fell. She landed on her right knee and struck her right hip. She did not strike her head. She denies loss of consciousness. She has been able to ambulate but has had increasing pain in the knee. Patient is otherwise been in her normal state of health. She does have chronic pain and follows with pain management. She is on [place] at home. She is a history of lupus but is not on anticoagulants. Physical Examination: Exam is relatively unremarkable. Well appearing female no acute distress. She does have contusion over the anterior knee. She is able to flex and extend. She has a mild tenderness of the hip. Pulses are normal. Skin is intact. There is a superficial abrasion. Test Results: [] Emergency Department Course and Treatment: Plain films were obtained of the right knee and right hip. There is no evidence of acute fracture. Patient's pain was addressed. She is able to ambulate without issue. I do feel that her symptoms are secondary to contusion. At this time, I do feel that she is safe for outpatient therapy. She is comfortable with this plan of care Treatment Plan: [] Disposition: Discharge Impression: I think he 1. Right knee contusion 2. Right hip contusion status post fall This note was generated with [employer] dictation software. It may contain incorrect words, spelling, and punctuation that were not noted in review of the chart prior to signing ED Disposition - Plan for ED Patient: Disposition: Home or Assisted Living Instructions: ED Contusion Lower Ext Referrals: Akil Kelly DO [Primary Care Provider] -
[2019-03-09] MEDS: HYDROcodone Bitartrate/Apap 5/325 Tablet PO (12:04)
== END 2019-03-09 13:56 | disposition home or self-care (01) ==
LOC: ED 12:12
PROVIDERS: Emergency Provider Emergency Medicine; Family Provider Student in an Organized Health Care Education/Training Program; PCP Student in an Organized Health Care Education/Training Program
DX: S80.01XA Contusion of right knee, initial encounter (principal); S70.01XA Contusion of right hip, initial encounter; W01.0XXA Fall on same level from slipping, tripping and stumbling without subsequent striking against object, initial encounter; Y93.K1 Activity, walking an animal; Y92.9 Unspecified place or not applicable; Y99.9 Unspecified external cause status; I10 Essential (primary) hypertension; G89.29 Other chronic pain; Z79.84 Long term (current) use of oral hypoglycemic drugs; Z79.899 Other long term (current) drug therapy
CPT/HCPCS: 73502; 73564; 99283

== ENCOUNTER 2019-03-24 10:39 | Inpatient (IN) | payer MEDICARE, SELFPAY ==
[2019-03-24 10:42] VITALS: BP 138/73; PULSE 70; RESP 20; TEMP 36.6; O2SAT 100; BMI 30.7
[2019-03-24] MEDS: Dicyclomine 10 MG Capsule 20 MG PO (11:04)
[2019-03-24] MEDS: 0.9% Normal Saline 1,000 ML 1000 ML IV (11:05)
[2019-03-24] MEDS: Ondansetron 4 MG/2 ML Vial IV (11:05)
[2019-03-24] MEDS: Morphine 4 MG/ML Syringe IV (11:05)
[2019-03-24 11:15] LABS: Absolute Lymphocyte Count 0.96 X10^3/ul (0.83-4.51); Absolute Neutrophil Count 3.9 X10^3/uL (2.0-7.7); Basophil# 0.01 X10^3/uL; Basophil% 0.2 % (0-1); Eosinophil# 0.06 X10^3/uL; Eosinophils% 1.1 % (0-5); Hemoglobin 13.8 g/dl (12.0-15.0); Lymphocyte # 0.96 X10^3/ul (4.0); Lymphocyte % 17.1 % (19-41); Mean Corp Hgb Conc 33.7 g/gl (32-36); Mean Corpuscular Hgb 30.7 pg (27.0-32.0); Mean Corpuscular Volume 91.3 fL (81-99); Mean Platelet Vol. 12.4 fl (6.2-12.0); Monocyte# 0.72 X10^3/uL; Monocyte% 12.8 % (0-10); Neutrophil # 3.87 X10^3/uL (2.7-7.7); Neutrophil % 68.6 % (47-70); Platelet Count 159 K/mm3 (150-450); RBC Distribution Width CV 13.6 % (11.6-14.6); Red Blood Count 4.49 M/mm3 (4.2-5.4); White Blood Count 5.6 K/mm3 (4.4-11.0)
[2019-03-24 11:17] LABS: POSITIVE COUNT NO; POSITIVE DIFFERENTIAL NO; POSITIVE MORPHOLOGY NO
--- NOTE | 2019-03-24 11:25 | ED.DCSUM_ITS ---
- ER Visit Summary Date of Service: 03/24/19 Chief Complaint: [Abdominal pain, vomiting, diarrhea] History of Present Illness: The patient is a 68 F [presents to the emergency department with symptoms that started 4 days ago. Patient states that she had significant amounts of vomiting that has now mostly resolved and she is just having dry heaves on time. Patient complains of watery stools more than 10/day. Patient denies any blood in her stool or vomitus. Patient describes intermittent abdominal discomfort. Patient states that a few days ago she had a fever up to 100.0 but none since. She denies recent travel. Patient had been on antibiotics for sinus infection 3 weeks ago but she cannot tell me what antibiotic she was on. She denies any sick contacts.] Physical Examination: [HEENT-PERRLA, EOMI. Cranial nerves II through XII grossly intact. TMs clear. Mucous membranes moist. No adenopathy. Cardiovascular-regular rate and rhythm without murmur or ectopy Lungs-clear to auscultation, chest wall stable without crepitus or subcu emphysema Abdomen-normoactive bowel sounds, soft patient has some mild diffuse tenderness. There is no rebound, rigidity, or perineal signs. Extremities-intact ?4, normal range of motion, normal pulses, atraumatic] Test Results: [CBC with differential obtained showed a white count of 5.6, hemoglobin 13.8, hematocrit 41, platelets 159. Chemistries unremarkable. BUN was 28 creatinine 1.71. LFTs and lipase was normal. Lactate was 1.9. Urinalysis positive for 500 leukocyte esterase, positive nitrites, 25-50 WBCs, and +1 bacteria.] Stool for C. difficile as well as enteric pathogens ordered and results pending. Emergency Department Course and Treatment: [Patient was given a liter normal same fluid bolus as well as Zofran. Patient received Rocephin 1 g IV admit] Treatment Plan: [Admit for fluids and IV antibiotics] Disposition: [Admit] Impression: [UTI Gastroenteritis Dehydration] This note was generated with [employer] dictation software. It may contain incorrect words, spelling, and punctuation that were not noted in review of the chart prior to signing ED Disposition - Plan for ED Patient: Referrals: Akil Kelly DO [Primary Care Provider] -
[2019-03-24 11:28] LABS: AST(SGOT) 21 U/L (15-37); Alanine Aminotransfer ALT/SGPT 21 U/L (13-56); Albumin, Serum 3.6 g/dL (3.2-5.0); Alkaline Phosphatase 100 U/L (45-117); Anion Gap 8 (5-15); BUN 28 mg/dL (7-18); BUN/Creat Ratio 16.4 RATIO (10-20); Calcium,Total 9.3 mg/dL (8.5-10.1); Chloride 108 mmol/L (98-107); Creatinine, Serum 1.71 mg/dL (0.55-1.02); EST Glomerular Filtration Rate 31 mL/min (>60); Est Glom Filt Rate - Afr Amer 38 mL/min (>60); Estimated Creatinine Clearance 26.43 ml/min; Globulin 3.7 g/dL (2.2-4.2); Glucose 123 mg/dL (74-106); Lipase 21 U/L (73-393); Potassium 3.9 mmol/L (3.5-5.1); Protein, Total 7.3 g/dL (6.4-8.2); Sodium Level 137 mmol/L (136-145)
[2019-03-24 11:56] LABS: Lactic Acid 1.9 mmol/L (0.4-2.0)
[2019-03-24 12:21] LABS: Mucous, Urine 0 SEEN /hpf (<or=2+)
[2019-03-24 12:23] LABS: Color, Urine Yellow (Yellow); Glucose, Dipstick Normal (Normal); Ketone-Dipstick Negative (Negative); Leukocyte Esterase-Dipstick 500 /ul (Negative); Nitrite-Dipstick Positive (Negative); Occult Blood-Urine 10 /ul (Negative); Protein-Dipstick Negative (Negative); Urine Bilirubin Dipstick Negative (Negative); Urine Clarity Sl. Cloudy (Clear); Urine Urobilinogen Normal (Normal)
[2019-03-24 12:29] LABS: Red Blood Cells-Urine 0-5 SEEN /hpf (0-5); Squamous Epithelial Cells - UA 0-5 SEEN /hpf (5-10); White Blood Cells 25-50 SEEN /hpf (0-5)
[2019-03-24 12:30] LABS: Bacteria 1+ /hpf (None Seen)
[2019-03-24 12:43] VITALS: BP 134/67; PULSE 72; RESP 15; O2SAT 96
[2019-03-24] MEDS: Ceftriaxone 1 GM/50 ML BAG IV (13:19)
--- NOTE | 2019-03-24 13:30 | HP.PCM_ITS ---
Problem List (1) UTI (urinary tract infection) Status: Acute Qualifiers: Urinary tract infection type: acute cystitis (2) HLD (hyperlipidemia) Status: Chronic Qualifiers: Hyperlipidemia type: pure hypercholesterolemia Qualified Code(s): E78.00 - Pure hypercholesterolemia, unspecified; E78.0 - Pure hypercholesterolemia (3) Obesity (BMI 30.0-34.9) Status: Chronic (4) GERD (gastroesophageal reflux disease) Status: Chronic Qualifiers: Esophagitis presence: esophagitis presence not specified Qualified Code(s): K21.9 - Gastro-esophageal reflux disease without esophagitis (5) CKD (chronic kidney disease) stage 3, GFR 30-59 ml/min Status: Chronic (6) Systemic lupus erythematosus Status: Chronic Qualifiers: Systemic lupus erythematosus type: unspecified Systemic lupus erythematosus organ involvement: unspecified Qualified Code(s): M32.9 - Systemic lupus erythematosus, unspecified (7) Sjoegren syndrome Status: Chronic Qualifiers: Sjogren's organ involvement: unspecified organ involvement Qualified Code(s): M35.00 - Sicca syndrome, unspecified (8) HTN (hypertension) Status: Chronic Qualifiers: Hypertension type: essential hypertension Qualified Code(s): I10 - Essential (primary) hypertension (9) DM type 2 (diabetes mellitus, type 2) Status: Chronic Qualifiers: Diabetes mellitus middle or intermediate school principal insulin use: without middle or intermediate school principal use Diabetes mellitus complication status: with circulatory complication Diabetes mellitus complication detail: with peripheral angiopathy without gangrene Qualified Code(s): E11.51 - Type 2 diabetes mellitus with diabetic peripheral angiopathy without gangrene History of Present Illness Date of Admission: 03/24/19 Chief Complaint: N/V/D, dysuria, frequency, low grade T The patient is a 68 y/o F w/ PMHx: Diabetes mellitus type II w/ Neuropathy, HTN, HLD, GERD, Fe Deficiency anemia, CKD stage III following w/ Dr. Carvajal, Systemic lupus erythematosus, Sjoegren syndrome, Obesity who presents to the [facility] ED on 03/24/19 with history of nausea, occasional emesis especially with food intake attempts as well as loose stools w/ generalized abdominal cramping, 5 bouts prior to presenting to the ED on day of presentation, initially starting this past Saturday with then onset on day of ED presentation associated low grade temperature 100 as well as dysuria, frequency, incontinence and suprapubic TTP. She noted feeling weak, dehydrated and unable to safely care for self. She notes having been treated with unclear antibiotic regimen approximately 3 weeks prior for an acute sinus infection. In the ED work-up included T 97.8, heart rate 70, BP 130/73, respiratory rate 20, 100% room air, CBC with WBC 5.6, hemoglobin 13.8, platelet 159 without market left shift, CMP with chloride 108, BUN/Cr 28/1.71, glucose 123, LA 1.9, lipase 21, UA notable for concern for UTI, UCx pending per ED, stool enteric and cdiff pending per ED. In the ED patient administered Rocephin, Bentyl, morphine, Zofran, normal saline. Past Medical History Past Medical History (Chronic Problems): Chronic Problems HLD (hyperlipidemia) (Chronic) Obesity (BMI 30.0-34.9) (Chronic) GERD (gastroesophageal reflux disease) (Chronic) CKD (chronic kidney disease) stage 3, GFR 30-59 ml/min (Chronic) Systemic lupus erythematosus (Chronic) Sjoegren syndrome (Chronic) HTN (hypertension) (Chronic) DM type 2 (diabetes mellitus, type 2) (Chronic) Allergies ciprofloxacin Allergy (Verified 03/24/19 10:42) Other Sulfa (Sulfonamide Antibiotics) Adverse Reaction (Verified 03/24/19 10:42) Hives COLOR DIES Allergy (Uncoded 03/24/19 10:42) Swelling Home Medications: Ambulatory Orders Medication Instructions Recorded Cyclobenzaprine [Flexeril] 10 mg PO TID 12/21/15 Gabapentin [Neurontin] 300 mg PO TIDCM 12/21/15 Hydrocodone Bitart/Apap 5-325 5 - 325 mg PO BID 12/21/15 [[place] 5/325] Hydroxychloroquine [Plaquenil] 200 mg PO DAILY 12/21/15 Omeprazole [Prilosec] 20 mg PO DAILY 12/21/15 Albuterol Inhaler [Ventolin Hfa 1 - 2 puff INHALATION Q6H PRN PRN 03/24/19 (SP)] Aspirin E.C. [Ecotrin] 81 mg PO DAILY@0800 03/24/19 Ferrous Sulfate 325 mg PO BIDCM 03/24/19 Losartan Potassium [Cozaar] 100 mg PO DAILY 03/24/19 Meloxicam 7.5 mg PO DAILY 03/24/19 Metformin HCl 1,000 mg PO BID 03/24/19 Multivit-Min/Iron/Folic/Lutein 1 tab PO DAILY 03/24/19 [Centrum Silver Women Tablet] Sertraline HCl [Zoloft] 50 mg PO DAILY 03/24/19 Simvastatin [Zocor] 80 mg PO QHS 03/24/19 Surgical History: cholecystectomy, - - Bilateral tubal ligation, bilateral total knee arthroplasty, bilateral carpal tunnel surgery, L heel spur surgery, T+A, Cholecystectomy. 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 VTE Information - Inpt Only VTE Present on Admission: No VTE Mechan Device Prophylaxis: SCD's VTE Pharm Prophylaxis ordered?: Yes Patient Problems: Active and Suspected Problems UTI (urinary tract infection) (Acute) Subjective: Seated upright in ED, fatigued appearing. Objective: Physical Examination: General: awake, alert, oriented x 3 and cooperative, seated upright in the ED be d in no apparent distress, fatigued appearing. Skin: normal color, turgor, no icterus, cyanosis. HEENT: AT/NC, EOMI, PERRLA, dry MM, no carotid bruits or JVD noted. Lungs: CTA bilaterally, moderate effort, mild decrease BL bases, no rales, ronchi or wheezing. Heart: Regular rate and rhythm; no gallop, rub audible. Abdomen: soft, generalized discomfort w/ palpation, ND, hyperactive BS, + suprapubic TTP, no HSM but difficult assessment given discomfort. Extremities: no cyanosis, clubbing, or edema. Neurological: patient awake, alert, oriented x 3; cognitive function intact; pupils equally reactive to light and accomodation; cranial nerves II-XII grossly normal, moving all 4 extremities, no focal deficits, strength moderately globally decreased secondary to acute presentation. Psychiatric: affect appears fatigued, flat, no acute evidence of depressive or anxiety feelings. - Physical Exam Vital Signs Temp Pulse Resp BP Pulse Ox 97.8 F 72 15 134/67 H 96 03/24/19 10:42 03/24/19 12:43 03/24/19 12:43 03/24/19 12:43 03/24/19 12:43 Oxygen Delivery Method Room Air Weight: 179 lb Body Mass Index (BMI) 30.7 Laboratory Tests Past 24 Hrs 03/24/19 03/24/19 03/24/19 10:57 10:57 10:57 WBC 5.6 RBC 4.49 Hgb 13.8 Hct 41.0 MCV 91.3 MCH 30.7 MCHC 33.7 RDW 13.6 RDW Differential 45.0 H Plt Count 159 MPV 12.4 H Immature Gran % (Auto) 0.200 Neut % (Auto) 68.6 Lymph % (Auto) 17.1 L [place] % (Auto) 12.8 H Eos % (Auto) 1.1 Baso % (Auto) 0.2 Absolute Neuts (auto) 3.9 Absolute Lymphs (auto) 0.96 Total Counted Not Reportable Sodium 137 Potassium 3.9 Chloride 108 H Carbon Dioxide 21.0 Anion Gap 8 BUN 28 H Creatinine 1.71 H Estim Creat Clear Calc 26.43 Est GFR (MDRD) Af Amer 38 L Est GFR (MDRD) Non-Af 31 L BUN/Creatinine Ratio 16.4 Glucose 123 H Lactic Acid 1.9 Calcium 9.3 Total Bilirubin 0.70 AST 21 ALT 21 Alkaline Phosphatase 100 Total Protein 7.3 Albumin 3.6 Globulin 3.7 Albumin/Globulin Ratio 1.0 Lipase 21 L Urine Color Urine Clarity Urine pH Ur Specific [place] Urine Protein Urine Glucose (UA) Urine Ketones Urine Occult Blood Urine Nitrite Urine Bilirubin Urine Urobilinogen Ur Leukocyte Esterase Urine RBC Urine WBC Ur Squamous Epith Cells Urine Bacteria Urine Mucus 03/24/19 12:16 WBC RBC Hgb Hct MCV MCH MCHC RDW RDW Differential Plt Count MPV Immature Gran % (Auto) Neut % (Auto) Lymph % (Auto) [place] % (Auto) Eos % (Auto) Baso % (Auto) Absolute Neuts (auto) Absolute Lymphs (auto) Total Counted Sodium Potassium Chloride Carbon Dioxide Anion Gap BUN Creatinine Estim Creat Clear Calc Est GFR (MDRD) Af Amer Est GFR (MDRD) Non-Af BUN/Creatinine Ratio Glucose Lactic Acid Calcium Total Bilirubin AST ALT Alkaline Phosphatase Total Protein Albumin Globulin Albumin/Globulin Ratio Lipase Urine Color Yellow Urine Clarity Sl. Cloudy Urine pH 6.0 Ur Specific [place] 1.010 Urine Protein Negative Urine Glucose (UA) Normal Urine Ketones Negative Urine Occult Blood 10 H Urine Nitrite Positive H Urine Bilirubin Negative Urine Urobilinogen Normal Ur Leukocyte Esterase 500 H Urine RBC 0-5 SEEN Urine WBC 25-50 SEEN Ur Squamous Epith Cells 0-5 SEEN Urine Bacteria 1+ Urine Mucus 0 SEEN Assessment/Plan All Active Problems UTI (urinary tract infection) (Acute) Severe dehydration (Acute) Anemia (Acute) Fever in adult (Acute) Diarrhea of presumed infectious origin (Acute) Prerenal acute renal failure (Acute) Severe sepsis (Acute) The patient is a 68 y/o F w/ PMHx: Diabetes mellitus type II w/ Neuropathy, HTN, HLD, GERD, Fe Deficiency anemia, CKD stage III following w/ Dr. Carvajal, Systemic lupus erythematosus, Sjoegren syndrome, Obesity who presents to the [facility] ED on 03/24/19 with history of nausea, occasional emesis especially with food intake attempts as well as loose stools w/ generalized abdominal cramping, 5 bouts prior to presenting to the ED on day of presentation, initially starting this past Saturday with then onset on day of ED presentation associated low grade temperature 100 as well as dysuria, frequency, incontinence and suprapubic TTP. (1) Acute Urinary Tract Infection: Will admit to [facility] UA upon ED evaluation remarkable, pending UCx, continue IVFs, monitor I/Os, continue IV Rocephin w/ transition as able pending sensitivities and speciation. (2) N/V/D, ? Gastroenteritis versus side effect #1: Will continue hydration, pending c diff, stool cx, anti-emetics PRN, pain regimen PRN. Recent abx therapy ~ 3 weeks prior for sinus infection. Holding PPI pending results in case of cdiff. Clears w/ ADAT to ADA. (3) CKD stage III: Admission BUN/Cr 28/1.71, baseline Cr 1.5-1.7, stable despite recent poor intake, UA w/ SG 1.010, not severe, continue hydration, repeat level in AM. (4) Diabetes mellitus type II w/ Neuropathy: Hold oral home regimen, clears initially given acute presentation with ADAT to ADA diet, accu checks w/ ISS, continue Neurontin. (5) Chronic back pain: We will continue patient home regimen [place], Neurontin, Flexeril although will hold if needed for sedate of effect. Patient lower dose mobic, recommended reconsideration given renal disease. (6) Systemic lupus erythematosus, Sjoegren syndrome: Will continue home pain regimen as well as home Plaquenil regimen. (7) Hypertension: Continue home regimen including Cozaar, PRN hydralazine. (8) Obesity: Weight loss and lifestyle changes encouraged. (9) Anxiety and depression: Continue home Zoloft regimen. (10) GERD: Hold PPI pending stool studies in case + cdiff, if unremarkable, restart. (11) Fe Deficiency anemia: Admission Hgb 13.8, continue home Fe supplementation. (12) Hyperlipidemia: Continue home statin regimen. (13) DVT Prophylaxis: SCDs, heparin. Code Visit OBSV E&M: 73106 Initial observation care L3
--- NOTE | 2019-03-24 14:07 | CASEMGMT ---
RN CM Assessment Introduced role of RN CM to patient.? Patient is alert, oriented and able?to participate in RN CM Assessment. ?Care providers, pharmacy, and demographics verified. Presentation: N/V/Watery Stools, Abd Discomfort Admit Dx: UTI, ? Gastroenteritis Re-Admit: No, ER 03/09/19 Fall & Knee Pain Barriers/Issues: None PCP: Akil Kelly Specialists: Pain- Dr Olson, Nephro- Cannot recall name [facility] Insurance: [facility] Rx Benefit:?Yes LNOK: Wilmer Wright LW/HPOA: Yes-LW. [facility] has the Info on HPOA but has not done one. [facility] would like HPOA to be Wilmer Wright and Granddaughter Denita Living Arrangements: Lives with in a Mobile home, 3 steps to enter? ADL?s: Independent with ambulation and ADL's Transportation: Transports and will transport on DC DME: Glucometer, Shower Chair, and TSR HHC: None SNF: None Goal: Home with DC PLAN: Home with no anticipated needs identified at this time. Daquan Mcdaniel RNCM
[2019-03-24 14:37] VITALS: BMI 32.0
[2019-03-24 14:49] VITALS: BP 154/97; PULSE 73; RESP 20; TEMP 37; O2SAT 100
[2019-03-24 14:55] VITALS: BMI 32.0
[2019-03-24 15:41] LABS: Magnesium 1.5 mg/dL (1.6-2.6)
[2019-03-24 15:50] VITALS: O2SAT 98
[2019-03-24 16:21] LABS: Bedside Glucose 72 mg/dL (70-110)
[2019-03-24] MEDS: 0.9% Normal Saline 1,000 ML 125 ML IV (16:36)
[2019-03-24] MEDS: Gabapentin 300 MG Capsule PO (16:37)
[2019-03-24 22:38] VITALS: BP 108/67; PULSE 81; RESP 18; TEMP 36.9; O2SAT 97
[2019-03-24 22:40] VITALS: PULSE 81; RESP 18; O2SAT 97
[2019-03-24] MEDS: HYDROcodone Bitartrate/Apap 5/325 Tablet PO (22:48)
[2019-03-24] MEDS: Atorvastatin Calcium 40 MG Tablet PO (22:51)
[2019-03-24] MEDS: Heparin Injection (Vial) 5,000 UNIT/ML VIAL 5000 UNIT SC (22:51)
[2019-03-24 23:10] LABS: Bedside Glucose 93 mg/dL (70-110)
[2019-03-25 03:56] VITALS: BP 121/69; PULSE 95; RESP 18; TEMP 37.1; O2SAT 97
[2019-03-25] MEDS: Mag Hydrox/Al Hydrox/Simeth 30 ML UDC PO ×2 (04:02→21:27)
[2019-03-25] MEDS: 0.9% Normal Saline 1,000 ML 125 ML IV ×3 (04:02→19:52)
[2019-03-25] MEDS: Morphine 2 MG/ML Syringe IV (06:27)
[2019-03-25 06:37] LABS: Absolute Lymphocyte Count 0.67 X10^3/ul (0.83-4.51); Basophil# 0.01 X10^3/uL; Basophil% 0.2 % (0-1); Eosinophil# 0.03 X10^3/uL; Eosinophils% 0.7 % (0-5); Hematocrit 33.5 % (37-47); Hemoglobin 11.1 g/dl (12.0-15.0); Lymphocyte # 0.67 X10^3/ul (4.0); Lymphocyte % 15.4 % (19-41); Mean Corp Hgb Conc 33.1 g/gl (32-36); Mean Corpuscular Hgb 30.6 pg (27.0-32.0); Mean Corpuscular Volume 92.3 fL (81-99); Mean Platelet Vol. 12.3 fl (6.2-12.0); Monocyte# 0.66 X10^3/uL; Monocyte% 15.2 % (0-10); Neutrophil # 2.96 X10^3/uL (2.7-7.7); Neutrophil % 68.3 % (47-70); Platelet Count 116 K/mm3 (150-450); RBC Distribution Width CV 13.8 % (11.6-14.6); RBC Distribution Width SD 46.2 fl (35.1-43.9); Red Blood Count 3.63 M/mm3 (4.2-5.4); White Blood Count 4.3 K/mm3 (4.4-11.0)
[2019-03-25 06:41] LABS: POSITIVE COUNT NO; POSITIVE DIFFERENTIAL NO; POSITIVE MORPHOLOGY NO
[2019-03-25 06:55] LABS: Bedside Glucose 115 mg/dL (70-110)
[2019-03-25 07:02] LABS: AST(SGOT) 21 U/L (15-37); Alanine Aminotransfer ALT/SGPT 15 U/L (13-56); Albumin, Serum 2.6 g/dL (3.2-5.0); Alkaline Phosphatase 74 U/L (45-117); Anion Gap 5 (5-15); BUN 21 mg/dL (7-18); BUN/Creat Ratio 14.7 RATIO (10-20); Calcium,Total 7.6 mg/dL (8.5-10.1); Chloride 117 mmol/L (98-107); Creatinine, Serum 1.43 mg/dL (0.55-1.02); EST Glomerular Filtration Rate 39 mL/min (>60); Est Glom Filt Rate - Afr Amer 47 mL/min (>60); Estimated Creatinine Clearance 31.61 ml/min; Globulin 2.7 g/dL (2.2-4.2); Glucose 116 mg/dL (74-106); Potassium 3.6 mmol/L (3.5-5.1); Protein, Total 5.3 g/dL (6.4-8.2); Sodium Level 141 mmol/L (136-145)
--- NOTE | 2019-03-25 08:50 | PCM.PN.HOSP ---
Patient Problems: Active and Suspected Problems UTI (urinary tract infection) (Acute) Subjective: Patient is a 68-year-old lady with multiple comorbidities including diabetes mellitus type 2, chronic kidney disease stage III, hypertension who presented with intractable nausea vomiting and diarrhea. An assessment of acute cystitis was made admitted to regular nursing floor for further management Objective: GENERAL: cooperative but patient appears ill looking HEENT: Atraumatic; moist oral mucosa EYES; Anicteric, Normal Conjunctiva NECK; supple, normal thyroid, no distended JVD. RESPIRATORY: Diminished to auscultation bilaterally, CARDIOVASCULAR: Regular S1 S2, no audible murmurs GI: soft, non-tender, normoactive bowel sounds, : No Renal angle tenderness; EXTREMITIES: No edema, no clubbing, no cyanosis. MUSCULOSKELETAL: No Joint Tenderness; no muscle waisting NEURO: Awake; no lateralizing signs. SKIN: No Rash PSYCH; flat affect Vitals/I&O's: Vital Signs Temp Pulse Resp BP Pulse Ox 98.7 F 95 18 121/69 H 97 03/25/19 03:56 03/25/19 03:56 03/25/19 03:56 03/25/19 03:56 03/25/19 03:56 Oxygen Delivery Method Room Air Weight: 84.6 kg Body Mass Index (BMI) 32.0 Intake and Output for Last 24 Hours 03/23/19 03/24/19 03/25/19 23:59 23:59 23:59 Intake Total 786 / 786 2380 / 2380 Output Total 800 / 800 Balance 786 / 786 1580 / 1580 Microbiology Past 72 Hours 03/24/19 12:10 Stool Enteric Bacteriology - Final 03/24/19 12:10 Stool C. difficile DNA Amplification - Final Laboratory Results 03/24/19 10:57: WBC 5.6, RBC 4.49, Hgb 13.8, Hct 41.0, MCV 91.3, MCH 30.7, MCHC 33.7, RDW 13.6, RDW Differential 45.0 H, Plt Count 159, MPV 12.4 H, Immature Gran % (Auto) 0.200, Neut % (Auto) 68.6, Lymph % (Auto) 17.1 L, [place] % (Auto) 12.8 H, Eos % (Auto) 1.1, Baso % (Auto) 0.2, Absolute Neuts (auto) 3.9, Absolute Lymphs (auto) 0.96, Total Counted Not Reportable 03/24/19 10:57: Sodium 137, Potassium 3.9, Chloride 108 H, Carbon Dioxide 21.0, Anion Gap 8, BUN 28 H, Creatinine 1.71 H, Estim Creat Clear Calc 26.43, Est GFR (MDRD) Af Amer 38 L, Est GFR (MDRD) Non-Af 31 L, BUN/Creatinine Ratio 16.4, Glucose 123 H, Calcium 9.3, Total Bilirubin 0.70, AST 21, ALT 21, Alkaline Phosphatase 100, Total Protein 7.3, Albumin 3.6, Globulin 3.7, Albumin/Globulin Ratio 1.0, Lipase 21 L 03/24/19 10:57: Lactic Acid 1.9 03/24/19 10:57: Magnesium 1.5 L 03/24/19 12:16: Urine Color Yellow, Urine Clarity Sl. Cloudy, Urine pH 6.0, Ur Specific [place] 1.010, Urine Protein Negative, Urine Glucose (UA) Normal, Urine Ketones Negative, Urine Occult Blood 10 H, Urine Nitrite Positive H, Urine Bilirubin Negative, Urine Urobilinogen Normal, Ur Leukocyte Esterase 500 H, Urine RBC 0-5 SEEN, Urine WBC 25-50 SEEN, Ur Squamous Epith Cells 0-5 SEEN, Urine Bacteria 1+, Urine Mucus 0 SEEN 03/24/19 16:13: POC Glucose 72 03/24/19 22:57: POC Glucose 93 03/25/19 06:20: WBC 4.3 L, RBC 3.63 L, Hgb 11.1 L, Hct 33.5 L, MCV 92.3, MCH 30.6, MCHC 33.1, RDW 13.8, RDW Differential 46.2 H, Plt Count 116 L, MPV 12.3 H, Immature Gran % (Auto) 0.200, Neut % (Auto) 68.3, Lymph % (Auto) 15.4 L, [place] % (Auto) 15.2 H, Eos % (Auto) 0.7, Baso % (Auto) 0.2, Absolute Neuts (auto) 3.0, Absolute Lymphs (auto) 0.67 L, Total Counted Not Reportable 03/25/19 06:20: Sodium 141, Potassium 3.6, Chloride 117 H, Carbon Dioxide 19.0 L, Anion Gap 5, BUN 21 H, Creatinine 1.43 H, Estim Creat Clear Calc 31.61, Est GFR (MDRD) Af Amer 47 L, Est GFR (MDRD) Non-Af 39 L, BUN/Creatinine Ratio 14.7, Glucose 116 H, Calcium 7.6 L, Total Bilirubin 0.40, AST 21, ALT 15, Alkaline Phosphatase 74, Total Protein 5.3 L, Albumin 2.6 L, Globulin 2.7, Albumin/Globulin Ratio 1.0 03/25/19 06:33: POC Glucose 115 H Current Medications Acetaminophen (Tylenol) 650 mg PO Q6H PRN PRN PRN Reason: Non-cardiac pain (mod-severe) Hydrocodone Bitart/Acetaminophen ([place] 5mg-325mg) 1 tablet PO BID [facility] Last Admin: 03/24/19 22:48 Dose: 1 tablet Al Hydroxide/Mg Hydroxide (Mylanta Ii) 15 - 30 ml PO Q4H PRN PRN PRN Reason: INDIGESTION Last Admin: 03/25/19 04:02 Dose: 30 ml Albuterol Sulfate (Ventolin Aerosols) 2.5 mg INHALATION Q2H PRN PRN PRN Reason: dyspnea, wheezing Aspirin (Ecotrin) 81 mg PO DAILY@0800 [facility] Atorvastatin Calcium (Lipitor) 40 mg PO QHS [facility] Last Admin: 03/24/19 22:51 Dose: 40 mg Cyclobenzaprine HCl (Flexeril) 10 mg PO TID [facility] Last Admin: 03/25/19 06:25 Dose: 10 mg Dextrose (D50w Syringe) 0 gm IV X1 PRN; Protocol PRN Reason: Hypoglycemia Gabapentin (Neurontin) 300 mg PO TIDCM [facility] Last Admin: 03/24/19 16:37 Dose: 300 mg Glucagon () 1 mg IM .X1 PRN PRN Reason: Hypoglycemia Heparin Sodium (Porcine) (Heparin Na) 5,000 unit SC Q12 [facility] Last Admin: 03/24/19 22:51 Dose: 5,000 unit Hydralazine HCl (Apresoline Iv) 10 mg IV Q4H PRN PRN PRN Reason: SBP > 160 Hydroxychloroquine Sulfate (Plaquenil) 200 mg PO DAILY@0800 [facility] Sodium Chloride () 1,000 mls @ 125 mls/hr IV .Q8H [facility] Last Admin: 03/25/19 04:02 Dose: 125 mls/hr Ceftriaxone Sodium (Rocephin) 1 gm in 50 mls @ 100 mls/hr IV Q24 [facility] Insulin Human Lispro (Humalog Kwikpen (Bkc)) 0 unit SQ ACHS [facility]; Protocol Last Admin: 03/25/19 06:34 Dose: Not Given Losartan Potassium (Cozaar) 100 mg PO DAILY [facility] Meloxicam (Mobic) 7.5 mg PO DAILY [facility] Morphine Sulfate () 1 - 2 mg IV Q4H PRN PRN PRN Reason: PAIN Last Admin: 03/25/19 06:27 Dose: 2 mg Nutritional Formula (Lactose Free) (Glucerna Shake) 120 ml PO 4X/DAY [facility] Ondansetron HCl (Zofran) 4 mg IV Q8H PRN PRN PRN Reason: NAUSEA/VOMITING Sertraline HCl (Zoloft) 50 mg PO DAILY [facility] Sodium Chloride () 5 - 15 ml IV UD PRN PRN Reason: SALINE FLUSH Medical Necessity - Tobacco Use Smoking Status: Never smoker Tobacco Use: Non-smoker Assessment/Plan All Active Problems UTI (urinary tract infection) (Acute) Severe dehydration (Acute) Anemia (Acute) Fever in adult (Acute) Diarrhea of presumed infectious origin (Acute) Prerenal acute renal failure (Acute) Severe sepsis (Acute) Patient is a 68-year-old lady with multiple comorbidities including diabetes mellitus type 2, chronic kidney disease stage III, hypertension who presented with intractable nausea vomiting and diarrhea. An assessment of acute cystitis was made admitted to regular nursing floor for further management 1. Acute cystitis: Admitted to regular nursing floor cultures were sent on admission patient started on Rocephin with plans to adjust antibiotics based on culture result 2. Intractable nausea vomiting suspected to be secondary to gastroenteritis most likely viral 3. Diabetes mellitus type II: With complications complications including diabetic nephropathy. Placed on long acting insulin, Accu-Cheks a.c. and at bedtime and covered with sliding scale insulin 4. CKD stage III patient kidney function at baseline 5. Hypertension-blood pressure controlled, home medications continued with dose adjustment as needed 6. Sjogren's syndrome 7. SLE patient is on Plaquenil 8. Depression with anxiety patient is on SSRI Zoloft did continue 9. GERD 10. Dyslipidemia: Patient is on statin therapy did continue 11. Obesity with BMI of 32 left eye modification including weight loss advised 12. DVT Prophylaxis: SCDs, heparin. Advance planning; did discuss with the patient and family regarding advanced directives as well as CODE STATUS. Did explain the various scenarios involved ( FULL CODE, DNR CCA, DNR CCA with no intubation, and DNR CC and what each meant) patient elected to be DNR CCA no intubation. Order was placed. Time spent on discussion 18 minutes. Active Medications Acetaminophen (Tylenol) 650 mg PO Q6H PRN PRN PRN Reason: Non-cardiac pain (mod-severe) Hydrocodone Bitart/Acetaminophen ([place] 5mg-325mg) 1 tablet PO BID [facility] Last Admin: 03/24/19 22:48 Dose: 1 tablet Al Hydroxide/Mg Hydroxide (Mylanta Ii) 15 - 30 ml PO Q4H PRN PRN PRN Reason: INDIGESTION Last Admin: 03/25/19 04:02 Dose: 30 ml Albuterol Sulfate (Ventolin Aerosols) 2.5 mg INHALATION Q2H PRN PRN PRN Reason: dyspnea, wheezing Aspirin (Ecotrin) 81 mg PO DAILY@0800 [facility] Atorvastatin Calcium (Lipitor) 40 mg PO QHS [facility] Last Admin: 03/24/19 22:51 Dose: 40 mg Cyclobenzaprine HCl (Flexeril) 10 mg PO TID [facility] Last Admin: 03/25/19 06:25 Dose: 10 mg Dextrose (D50w Syringe) 0 gm IV X1 PRN; Protocol PRN Reason: Hypoglycemia Gabapentin (Neurontin) 300 mg PO TIDCM [facility] Last Admin: 03/24/19 16:37 Dose: 300 mg Glucagon () 1 mg IM .X1 PRN PRN Reason: Hypoglycemia Heparin Sodium (Porcine) (Heparin Na) 5,000 unit SC Q12 [facility] Last Admin: 03/24/19 22:51 Dose: 5,000 unit Hydralazine HCl (Apresoline Iv) 10 mg IV Q4H PRN PRN PRN Reason: SBP > 160 Hydroxychloroquine Sulfate (Plaquenil) 200 mg PO DAILY@0800 [facility] Sodium Chloride () 1,000 mls @ 125 mls/hr IV .Q8H [facility] Last Admin: 03/25/19 04:02 Dose: 125 mls/hr Ceftriaxone Sodium (Rocephin) 1 gm in 50 mls @ 100 mls/hr IV Q24 [facility] Insulin Human Lispro (Humalog Kwikpen (Bkc)) 0 unit SQ ACHS [facility]; Protocol Last Admin: 03/25/19 06:34 Dose: Not Given Losartan Potassium (Cozaar) 100 mg PO DAILY [facility] Meloxicam (Mobic) 7.5 mg PO DAILY [facility] Morphine Sulfate () 1 - 2 mg IV Q4H PRN PRN PRN Reason: PAIN Last Admin: 03/25/19 06:27 Dose: 2 mg Nutritional Formula (Lactose Free) (Glucerna Shake) 120 ml PO 4X/DAY [facility] Ondansetron HCl (Zofran) 4 mg IV Q8H PRN PRN PRN Reason: NAUSEA/VOMITING Sertraline HCl (Zoloft) 50 mg PO DAILY [facility] Sodium Chloride () 5 - 15 ml IV UD PRN PRN Reason: SALINE FLUSH Code Visit Inpatient E&M: 10175 Subs Hosp L3 Procedures: 81290 Advncd Care Plan 30 Min
--- NOTE | 2019-03-25 08:53 | PN_ITS ---
Patient Problems: Active and Suspected Problems UTI (urinary tract infection) (Acute) Subjective: Patient is a 68-year-old lady with multiple comorbidities including diabetes mellitus type 2, chronic kidney disease stage III, hypertension who presented with intractable nausea vomiting and diarrhea. An assessment of acute cystitis was made admitted to regular nursing floor for further management Objective: GENERAL: cooperative but patient appears ill looking HEENT: Atraumatic; moist oral mucosa EYES; Anicteric, Normal Conjunctiva NECK; supple, normal thyroid, no distended JVD. RESPIRATORY: Diminished to auscultation bilaterally, CARDIOVASCULAR: Regular S1 S2, no audible murmurs GI: soft, non-tender, normoactive bowel sounds, : No Renal angle tenderness; EXTREMITIES: No edema, no clubbing, no cyanosis. MUSCULOSKELETAL: No Joint Tenderness; no muscle waisting NEURO: Awake; no lateralizing signs. SKIN: No Rash PSYCH; flat affect Vitals/I&O's: Vital Signs Temp Pulse Resp BP Pulse Ox 98.7 F 95 18 121/69 H 97 03/25/19 03:56 03/25/19 03:56 03/25/19 03:56 03/25/19 03:56 03/25/19 03:56 Oxygen Delivery Method Room Air Weight: 84.6 kg Body Mass Index (BMI) 32.0 Intake and Output for Last 24 Hours 03/23/19 03/24/19 03/25/19 23:59 23:59 23:59 Intake Total 786 / 786 2380 / 2380 Output Total 800 / 800 Balance 786 / 786 1580 / 1580 Microbiology Past 72 Hours 03/24/19 12:10 Stool Enteric Bacteriology - Final 03/24/19 12:10 Stool C. difficile DNA Amplification - Final Laboratory Results 03/24/19 10:57: WBC 5.6, RBC 4.49, Hgb 13.8, Hct 41.0, MCV 91.3, MCH 30.7, MCHC 33.7, RDW 13.6, RDW Differential 45.0 H, Plt Count 159, MPV 12.4 H, Immature Gran % (Auto) 0.200, Neut % (Auto) 68.6, Lymph % (Auto) 17.1 L, [place] % (Auto) 12.8 H, Eos % (Auto) 1.1, Baso % (Auto) 0.2, Absolute Neuts (auto) 3.9, Absolute Lymphs (auto) 0.96, Total Counted Not Reportable 03/24/19 10:57: Sodium 137, Potassium 3.9, Chloride 108 H, Carbon Dioxide 21.0, Anion Gap 8, BUN 28 H, Creatinine 1.71 H, Estim Creat Clear Calc 26.43, Est GFR (MDRD) Af Amer 38 L, Est GFR (MDRD) Non-Af 31 L, BUN/Creatinine Ratio 16.4, Glucose 123 H, Calcium 9.3, Total Bilirubin 0.70, AST 21, ALT 21, Alkaline Phosphatase 100, Total Protein 7.3, Albumin 3.6, Globulin 3.7, Albumin/Globulin Ratio 1.0, Lipase 21 L 03/24/19 10:57: Lactic Acid 1.9 03/24/19 10:57: Magnesium 1.5 L 03/24/19 12:16: Urine Color Yellow, Urine Clarity Sl. Cloudy, Urine pH 6.0, Ur Specific [place] 1.010, Urine Protein Negative, Urine Glucose (UA) Normal, Urine Ketones Negative, Urine Occult Blood 10 H, Urine Nitrite Positive H, Urine Bilirubin Negative, Urine Urobilinogen Normal, Ur Leukocyte Esterase 500 H, Urine RBC 0-5 SEEN, Urine WBC 25-50 SEEN, Ur Squamous Epith Cells 0-5 SEEN, Urine Bacteria 1+, Urine Mucus 0 SEEN 03/24/19 16:13: POC Glucose 72 03/24/19 22:57: POC Glucose 93 03/25/19 06:20: WBC 4.3 L, RBC 3.63 L, Hgb 11.1 L, Hct 33.5 L, MCV 92.3, MCH 30.6, MCHC 33.1, RDW 13.8, RDW Differential 46.2 H, Plt Count 116 L, MPV 12.3 H, Immature Gran % (Auto) 0.200, Neut % (Auto) 68.3, Lymph % (Auto) 15.4 L, [place] % (Auto) 15.2 H, Eos % (Auto) 0.7, Baso % (Auto) 0.2, Absolute Neuts (auto) 3.0, Absolute Lymphs (auto) 0.67 L, Total Counted Not Reportable 03/25/19 06:20: Sodium 141, Potassium 3.6, Chloride 117 H, Carbon Dioxide 19.0 L , Anion Gap 5, BUN 21 H, Creatinine 1.43 H, Estim Creat Clear Calc 31.61, Est GFR (MDRD) Af Amer 47 L, Est GFR (MDRD) Non-Af 39 L, BUN/Creatinine Ratio 14.7, Glucose 116 H, Calcium 7.6 L, Total Bilirubin 0.40, AST 21, ALT 15, Alkaline Phosphatase 74, Total Protein 5.3 L, Albumin 2.6 L, Globulin 2.7, Albumin/Globulin Ratio 1.0 03/25/19 06:33: POC Glucose 115 H Current Medications Acetaminophen (Tylenol) 650 mg PO Q6H PRN PRN PRN Reason: Non-cardiac pain (mod-severe) Hydrocodone Bitart/Acetaminophen ([place] 5mg-325mg) 1 tablet PO BID [facility] Last Admin: 03/24/19 22:48 Dose: 1 tablet Al Hydroxide/Mg Hydroxide (Mylanta Ii) 15 - 30 ml PO Q4H PRN PRN PRN Reason: INDIGESTION Last Admin: 03/25/19 04:02 Dose: 30 ml Albuterol Sulfate (Ventolin Aerosols) 2.5 mg INHALATION Q2H PRN PRN PRN Reason: dyspnea, wheezing Aspirin (Ecotrin) 81 mg PO DAILY@0800 [facility] Atorvastatin Calcium (Lipitor) 40 mg PO QHS [facility] Last Admin: 03/24/19 22:51 Dose: 40 mg Cyclobenzaprine HCl (Flexeril) 10 mg PO TID [facility] Last Admin: 03/25/19 06:25 Dose: 10 mg Dextrose (D50w Syringe) 0 gm IV X1 PRN; Protocol PRN Reason: Hypoglycemia Gabapentin (Neurontin) 300 mg PO TIDCM [facility] Last Admin: 03/24/19 16:37 Dose: 300 mg Glucagon () 1 mg IM .X1 PRN PRN Reason: Hypoglycemia Heparin Sodium (Porcine) (Heparin Na) 5,000 unit SC Q12 [facility] Last Admin: 03/24/19 22:51 Dose: 5,000 unit Hydralazine HCl (Apresoline Iv) 10 mg IV Q4H PRN PRN PRN Reason: SBP > 160 Hydroxychloroquine Sulfate (Plaquenil) 200 mg PO DAILY@0800 [facility] Sodium Chloride () 1,000 mls @ 125 mls/hr IV .Q8H [facility] Last Admin: 03/25/19 04:02 Dose: 125 mls/hr Ceftriaxone Sodium (Rocephin) 1 gm in 50 mls @ 100 mls/hr IV Q24 [facility] Insulin Human Lispro (Humalog Kwikpen (Bkc)) 0 unit SQ ACHS [facility]; Protocol Last Admin: 03/25/19 06:34 Dose: Not Given Losartan Potassium (Cozaar) 100 mg PO DAILY [facility] Meloxicam (Mobic) 7.5 mg PO DAILY [facility] Morphine Sulfate () 1 - 2 mg IV Q4H PRN PRN PRN Reason: PAIN Last Admin: 03/25/19 06:27 Dose: 2 mg Nutritional Formula (Lactose Free) (Glucerna Shake) 120 ml PO 4X/DAY [facility] Ondansetron HCl (Zofran) 4 mg IV Q8H PRN PRN PRN Reason: NAUSEA/VOMITING Sertraline HCl (Zoloft) 50 mg PO DAILY [facility] Sodium Chloride () 5 - 15 ml IV UD PRN PRN Reason: SALINE FLUSH Medical Necessity - Tobacco Use Smoking Status: Never smoker Tobacco Use: Non-smoker Assessment/Plan All Active Problems UTI (urinary tract infection) (Acute) Severe dehydration (Acute) Anemia (Acute) Fever in adult (Acute) Diarrhea of presumed infectious origin (Acute) Prerenal acute renal failure (Acute) Severe sepsis (Acute) Patient is a 68-year-old lady with multiple comorbidities including diabetes mellitus type 2, chronic kidney disease stage III, hypertension who presented with intractable nausea vomiting and diarrhea. An assessment of acute cystitis was made admitted to regular nursing floor for further management 1. Acute cystitis: Admitted to regular nursing floor cultures were sent on admission patient started on Rocephin with plans to adjust antibiotics based on culture result 2. Intractable nausea vomiting suspected to be secondary to gastroenteritis most likely viral 3. Diabetes mellitus type II: With complications complications including diabetic nephropathy. Placed on long acting insulin, Accu-Cheks a.c. and at bedtime and covered with sliding scale insulin 4. CKD stage III patient kidney function at baseline 5. Hypertension-blood pressure controlled, home medications continued with dose adjustment as needed 6. Sjogren's syndrome 7. SLE patient is on Plaquenil 8. Depression with anxiety patient is on SSRI Zoloft did continue 9. GERD 10. Dyslipidemia: Patient is on statin therapy did continue 11. Obesity with BMI of 32 left eye modification including weight loss advised 12. DVT Prophylaxis: SCDs, heparin. Advance planning; did discuss with the patient and family regarding advanced directives as well as CODE STATUS. Did explain the various scenarios involved ( FULL CODE, DNR CCA, DNR CCA with no intubation, and DNR CC and what each meant) patient elected to be DNR CCA no intubation. Order was placed. Time spent on discussion 18 minutes. Active Medications Acetaminophen (Tylenol) 650 mg PO Q6H PRN PRN PRN Reason: Non-cardiac pain (mod-severe) Hydrocodone Bitart/Acetaminophen ([place] 5mg-325mg) 1 tablet PO BID [facility] Last Admin: 03/24/19 22:48 Dose: 1 tablet Al Hydroxide/Mg Hydroxide (Mylanta Ii) 15 - 30 ml PO Q4H PRN PRN PRN Reason: INDIGESTION Last Admin: 03/25/19 04:02 Dose: 30 ml Albuterol Sulfate (Ventolin Aerosols) 2.5 mg INHALATION Q2H PRN PRN PRN Reason: dyspnea, wheezing Aspirin (Ecotrin) 81 mg PO DAILY@0800 [facility] Atorvastatin Calcium (Lipitor) 40 mg PO QHS [facility] Last Admin: 03/24/19 22:51 Dose: 40 mg Cyclobenzaprine HCl (Flexeril) 10 mg PO TID [facility] Last Admin: 03/25/19 06:25 Dose: 10 mg Dextrose (D50w Syringe) 0 gm IV X1 PRN; Protocol PRN Reason: Hypoglycemia Gabapentin (Neurontin) 300 mg PO TIDCM [facility] Last Admin: 03/24/19 16:37 Dose: 300 mg Glucagon () 1 mg IM .X1 PRN PRN Reason: Hypoglycemia Heparin Sodium (Porcine) (Heparin Na) 5,000 unit SC Q12 [facility] Last Admin: 03/24/19 22:51 Dose: 5,000 unit Hydralazine HCl (Apresoline Iv) 10 mg IV Q4H PRN PRN PRN Reason: SBP > 160 Hydroxychloroquine Sulfate (Plaquenil) 200 mg PO DAILY@0800 [facility] Sodium Chloride () 1,000 mls @ 125 mls/hr IV .Q8H [facility] Last Admin: 03/25/19 04:02 Dose: 125 mls/hr Ceftriaxone Sodium (Rocephin) 1 gm in 50 mls @ 100 mls/hr IV Q24 [facility] Insulin Human Lispro (Humalog Kwikpen (Bkc)) 0 unit SQ ACHS [facility]; Protocol Last Admin: 03/25/19 06:34 Dose: Not Given Losartan Potassium (Cozaar) 100 mg PO DAILY [facility] Meloxicam (Mobic) 7.5 mg PO DAILY [facility] Morphine Sulfate () 1 - 2 mg IV Q4H PRN PRN PRN Reason: PAIN Last Admin: 03/25/19 06:27 Dose: 2 mg Nutritional Formula (Lactose Free) (Glucerna Shake) 120 ml PO 4X/DAY [facility] Ondansetron HCl (Zofran) 4 mg IV Q8H PRN PRN PRN Reason: NAUSEA/VOMITING Sertraline HCl (Zoloft) 50 mg PO DAILY [facility] Sodium Chloride () 5 - 15 ml IV UD PRN PRN Reason: SALINE FLUSH Code Visit Inpatient E&M: 83132 Subs Hosp L3 Procedures: 87236 Advncd Care Plan 30 Min
[2019-03-25 09:50] VITALS: BP 118/66; PULSE 88; RESP 18; TEMP 37.3; O2SAT 96
[2019-03-25] MEDS: Aspirin E.C. 81 MG Tablet PO (10:39)
[2019-03-25] MEDS: Hydroxychloroquine 200 MG Tablet PO (10:39)
[2019-03-25] MEDS: Gabapentin 300 MG Capsule PO ×3 (10:39→17:28)
[2019-03-25] MEDS: Losartan Potassium 100 MG Tablet PO (10:39)
[2019-03-25] MEDS: HYDROcodone Bitartrate/Apap 5/325 Tablet PO ×2 (10:40→21:27)
[2019-03-25] MEDS: Heparin Injection (Vial) 5,000 UNIT/ML VIAL 5000 UNIT SC ×2 (10:40→21:27)
[2019-03-25] MEDS: Sertraline 50 MG Tablet PO (10:40)
[2019-03-25] MEDS: Meloxicam 7.5 MG Tablet PO (10:40)
--- NOTE | 2019-03-25 10:42 | NURSING ---
inpatient pharmacy called and informed 1000 rocephin not on unit for pt administration
[2019-03-25] MEDS: Ceftriaxone 1 GM/50 ML BAG IV (10:45)
[2019-03-25 11:56] LABS: Bedside Glucose 127 mg/dL (70-110)
--- NOTE | 2019-03-25 14:31 | CASEMGMT ---
RN JASMEET REWARDS CONSULTANT CM to room to meet with patient for initial transition planning/care coordination assessment. VELIA ALAMO introduced self and role at [facility]. Pt voices understanding and consents to assessment at this time. Pt resting in bed in no distress at this time. Pt is A/O at this time and answers all questions appropriately. Care providers, pharmacy, and demographics verified/updated at this time. PCP: Robin Specialists: Wesley--pain mgmt, Alena--nephrology. Preferred Pharmacy: Doc Andersen ([facility]) Insurance: [facility] Prescription Benefit: Yes Living Will/HPOA: Has both LW and HCPOA, who is her , Wilmer Wright. Pt states she will ask her if he can bring paperwork in so they can be placed in her chart. LNOK: . Living Arrangements: Lives w/ in mobile home. 4 steps to enter. States is independent. Transportation: drives and denies transportation concerns at this time. DME: Denies using any DME and denies needs. Has a shower chair and BSC available but does not use. HHC/SNF: No history of either. Discussed PT recommendations for additional therapy. Pt declines wanting HHC or out-pt therapy. Pt states she goes to [facility] for swimming exercises and does not want further out-pt therapy at this time. States she will discuss this with her and if she decides she would want further therapy, that she will let staff know. Pt also made aware if, in the future, she decides she wants HHC or therapy, to discuss this with her PCP. Pt voices understanding. Pt wishes to return home and states has no concerns with going home at time of discharge. Pt states does not smoke or drink ETOH. CM to follow for any discharge planning/needs. Pt voices no further concerns/needs at this time. Advised pt to ask for CM if any further questions/concerns/needs arise. Voices understanding. PLAN: Home with and discharge plans in place. Garo HERNÁNDEZ RN, CM
--- NOTE | 2019-03-25 14:57 | CASEMGMT ---
VELIA ALAMO NOTE: PRADO form reviewed with pt. Pt denies having any questions. PRADO form signed by pt, copy made and placed on chart, and original given to pt. Pt made aware if she has any questions to ask to speak to CM. Garo HERNÁNDEZ RN CM
[2019-03-25 15:06] VITALS: BP 128/57; PULSE 81; RESP 20; TEMP 36.7; O2SAT 95
[2019-03-25] MEDS: Loperamide 2 MG Capsule 4 MG PO (17:27)
[2019-03-25] MEDS: Ensure Clear 120 ML Liquid PO ×2 (17:30→21:27)
[2019-03-25 17:45] LABS: Bedside Glucose 139 mg/dL (70-110)
[2019-03-25 21:05] VITALS: BP 99/61; PULSE 83; RESP 18; TEMP 37.5; O2SAT 96
[2019-03-25 21:15] VITALS: PULSE 83
[2019-03-25] MEDS: Atorvastatin Calcium 40 MG Tablet PO (21:28)
[2019-03-25 22:51] LABS: Bedside Glucose 113 mg/dL (70-110)
[2019-03-26 04:21] VITALS: BP 96/58; PULSE 87; RESP 18; TEMP 37.1; O2SAT 92
[2019-03-26] MEDS: 0.9% Normal Saline 1,000 ML 125 ML IV ×3 (04:27→20:58)
[2019-03-26] MEDS: Acetaminophen 325 MG Tablet 650 MG PO (04:30)
[2019-03-26 07:00] LABS: Bedside Glucose 102 mg/dL (70-110)
[2019-03-26] MEDS: Hydroxychloroquine 200 MG Tablet PO (07:41)
[2019-03-26] MEDS: Aspirin E.C. 81 MG Tablet PO (07:41)
[2019-03-26] MEDS: Gabapentin 300 MG Capsule PO ×3 (07:41→16:08)
--- NOTE | 2019-03-26 08:47 | PN_ITS ---
Patient Problems: Active and Suspected Problems UTI (urinary tract infection) (Acute) Subjective: Patient seen still complains of lower abdominal discomfort and watery diarrhea. Given her recent antibiotic use order stool studies as well as stool for C. difficile. Objective: GENERAL: cooperative but patient appears ill looking HEENT: Atraumatic; moist oral mucosa EYES; Anicteric, Normal Conjunctiva NECK; supple, normal thyroid, no distended JVD. RESPIRATORY: Diminished to auscultation bilaterally, CARDIOVASCULAR: Regular S1 S2, GI: soft, normoactive bowel sounds, tenderness in the hypogastrium : No Renal angle tenderness; EXTREMITIES: No edema, no clubbing, no cyanosis. MUSCULOSKELETAL: No Joint Tenderness; no muscle waisting NEURO: Awake; no lateralizing signs. SKIN: No Rash PSYCH; flat affect Vitals/I&O's: Vital Signs Temp Pulse Resp BP Pulse Ox 98.7 F 87 18 96/58 L 92 03/26/19 04:21 03/26/19 04:21 03/26/19 04:21 03/26/19 04:21 03/26/19 04:21 Oxygen Delivery Method Room Air Weight: 84.6 kg Body Mass Index (BMI) 32.0 Intake and Output for Last 24 Hours 03/24/19 03/25/19 03/26/19 23:59 23:59 23:59 Intake Total 786 / 786 4113 / 4113 2103 / 2103 Output Total 800 / 800 Balance 786 / 786 3313 / 3313 2103 / 2103 Microbiology Past 72 Hours 03/24/19 12:10 Urine, Clean Catch Urine Culture - Preliminary Enterobacter aerogenes 03/24/19 12:10 Stool Enteric Bacteriology - Final 03/24/19 12:10 Stool C. difficile DNA Amplification - Final Laboratory Results 03/25/19 11:43: POC Glucose 127 H 03/25/19 17:32: POC Glucose 139 H 03/25/19 22:00: POC Glucose 113 H 03/26/19 06:46: POC Glucose 102 Current Medications Acetaminophen (Tylenol) 650 mg PO Q6H PRN PRN PRN Reason: Non-cardiac pain (mod-severe) Last Admin: 03/26/19 04:30 Dose: 650 mg Hydrocodone Bitart/Acetaminophen ([place] 5mg-325mg) 1 tablet PO BID [facility] Last Admin: 03/25/19 21:27 Dose: 1 tablet Al Hydroxide/Mg Hydroxide (Mylanta Ii) 15 - 30 ml PO Q4H PRN PRN PRN Reason: INDIGESTION Last Admin: 03/25/19 21:27 Dose: 30 ml Albuterol Sulfate (Ventolin Aerosols) 2.5 mg INHALATION Q2H PRN PRN PRN Reason: dyspnea, wheezing Aspirin (Ecotrin) 81 mg PO DAILY@0800 [facility] Last Admin: 03/26/19 07:41 Dose: 81 mg Atorvastatin Calcium (Lipitor) 40 mg PO QHS [facility] Last Admin: 03/25/19 21:28 Dose: 40 mg Cyclobenzaprine HCl (Flexeril) 10 mg PO TID [facility] Last Admin: 03/26/19 04:30 Dose: 10 mg Dextrose (D50w Syringe) 0 gm IV X1 PRN; Protocol PRN Reason: Hypoglycemia Gabapentin (Neurontin) 300 mg PO TIDCM [facility] Last Admin: 03/26/19 07:41 Dose: 300 mg Glucagon () 1 mg IM .X1 PRN PRN Reason: Hypoglycemia Heparin Sodium (Porcine) (Heparin Na) 5,000 unit SC Q12 [facility] Last Admin: 03/25/19 21:27 Dose: 5,000 unit Hydralazine HCl (Apresoline Iv) 10 mg IV Q4H PRN PRN PRN Reason: SBP > 160 Hydroxychloroquine Sulfate (Plaquenil) 200 mg PO DAILY@0800 [facility] Last Admin: 03/26/19 07:41 Dose: 200 mg Sodium Chloride () 1,000 mls @ 125 mls/hr IV .Q8H [facility] Last Admin: 03/26/19 04:27 Dose: 125 mls/hr Ceftriaxone Sodium (Rocephin) 1 gm in 50 mls @ 100 mls/hr IV Q24 [facility] Last Admin: 03/25/19 10:45 Dose: 100 mls/hr Insulin Human Lispro (Humalog Kwikpen (Bkc)) 0 unit SQ ACHS [facility]; Protocol Last Admin: 03/26/19 06:50 Dose: Not Given Losartan Potassium (Cozaar) 100 mg PO DAILY [facility] Last Admin: 03/25/19 10:39 Dose: 100 mg Meloxicam (Mobic) 7.5 mg PO DAILY [facility] Last Admin: 03/25/19 10:40 Dose: 7.5 mg Morphine Sulfate () 1 - 2 mg IV Q4H PRN PRN PRN Reason: PAIN Last Admin: 03/25/19 06:27 Dose: 2 mg Nutritional Formula (Lactose Free) (Ensure Clear) 120 ml PO 4X/DAY [facility] Last Admin: 03/25/19 21:27 Dose: 120 ml Ondansetron HCl (Zofran) 4 mg IV Q8H PRN PRN PRN Reason: NAUSEA/VOMITING Sertraline HCl (Zoloft) 50 mg PO DAILY [facility] Last Admin: 03/25/19 10:40 Dose: 50 mg Sodium Chloride () 5 - 15 ml IV UD PRN PRN Reason: SALINE FLUSH Medical Necessity - Tobacco Use Smoking Status: Never smoker Tobacco Use: Non-smoker Assessment/Plan All Active Problems UTI (urinary tract infection) (Acute) Severe dehydration (Acute) Anemia (Acute) Fever in adult (Acute) Diarrhea of presumed infectious origin (Acute) Prerenal acute renal failure (Acute) Severe sepsis (Acute) Patient is a 68-year-old lady with multiple comorbidities including diabetes mellitus type 2, chronic kidney disease stage III, hypertension who presented with intractable nausea vomiting and diarrhea. An assessment of acute cystitis was made admitted to regular nursing floor for further management 1. Acute cystitis: Admitted to regular nursing floor cultures were sent on admission patient started on Rocephin with plans to adjust antibiotics based on culture result urine cultures positive for Enterobacter aerogenes 2. Intractable nausea vomiting with associated diarrhea. Acute viral gastroenteritis was suspected on admission however given patient recent C. difficile use prior to admission order stool studies to rule out C. difficile 3. Diabetes mellitus type II: With complications complications including diab etic nephropathy. Placed on long acting insulin, Accu-Cheks a.c. and at bedtime and covered with sliding scale insulin 4. CKD stage III patient kidney function at baseline 5. Hypertension-blood pressure controlled, home medications continued with dose adjustment as needed 6. Sjogren's syndrome 7. SLE patient is on Plaquenil 8. Depression with anxiety patient is on SSRI Zoloft did continue 9. GERD 10. Dyslipidemia: Patient is on statin therapy did continue 11. Obesity with BMI of 32 left eye modification including weight loss advised 12. DVT Prophylaxis: SCDs, heparin. Microbiology 03/24/19 12:10 Urine, Clean Catch Urine Culture - Preliminary Enterobacter aerogenes 03/24/19 12:10 Stool Enteric Bacteriology - Final 03/24/19 12:10 Stool C. difficile DNA Amplification - Final Code Visit Inpatient E&M: 06260 Subs Hosp L3
[2019-03-26 09:46] VITALS: BP 95/49; PULSE 71; RESP 18; TEMP 37; O2SAT 97
[2019-03-26] MEDS: Losartan Potassium 100 MG Tablet PO (10:58)
[2019-03-26] MEDS: Ceftriaxone 1 GM/50 ML BAG IV (10:58)
[2019-03-26] MEDS: Sertraline 50 MG Tablet PO (10:59)
[2019-03-26] MEDS: Heparin Injection (Vial) 5,000 UNIT/ML VIAL 5000 UNIT SC ×2 (10:59→21:00)
[2019-03-26] MEDS: Meloxicam 7.5 MG Tablet PO (10:59)
[2019-03-26] MEDS: HYDROcodone Bitartrate/Apap 5/325 Tablet PO ×2 (11:02→21:00)
--- NOTE | 2019-03-26 11:03 | CASEMGMT ---
RN CM Note: anticipate home today. Per PT, no therapy recommended. DC PLAN: Home, no needs identified. Karen SANDERSONN RN ACM
[2019-03-26] MEDS: Ensure Clear 120 ML Liquid PO ×4 (11:09→20:58)
[2019-03-26 11:15] LABS: Bedside Glucose 122 mg/dL (70-110)
[2019-03-26] MEDS: Morphine 2 MG/ML Syringe IV (16:07)
[2019-03-26 16:11] VITALS: BP 127/71; PULSE 72; RESP 18; TEMP 36.6; O2SAT 98
[2019-03-26 16:16] LABS: Bedside Glucose 140 mg/dL (70-110)
[2019-03-26 20:56] VITALS: BP 125/59; PULSE 72; RESP 18; TEMP 37.1; O2SAT 95
[2019-03-26] MEDS: Atorvastatin Calcium 40 MG Tablet PO (21:00)
[2019-03-26 21:11] LABS: Bedside Glucose 155 mg/dL (70-110)
[2019-03-27] VITALS (7 sets, daily range): BP systolic 105–126; BP diastolic 58–72; PULSE 82–94; RESP 16–20; TEMP 37.2–38.3; O2SAT 92–96
[2019-03-27] MEDS: 0.9% Normal Saline 1,000 ML 125 ML IV ×2 (05:05→13:13)
[2019-03-27 06:30] LABS: Bedside Glucose 118 mg/dL (70-110)
--- NOTE | 2019-03-27 07:33 | PN_ITS ---
Patient Problems: Active and Suspected Problems UTI (urinary tract infection) (Acute) Subjective: Patient is to actually obtain as a result of a persistent diarrhea came back positive for C. difficile subsequently started on p.o. vancomycin 125 mg every 6 hours Objective: GENERAL: patient appears ill looking HEENT: Atraumatic; moist oral mucosa EYES; Anicteric, Normal Conjunctiva NECK; supple, normal thyroid, RESPIRATORY: Diminished to auscultation bilaterally, CARDIOVASCULAR: Regular S1 S2, GI: soft, non-tender, normoactive bowel sounds, : No Renal angle tenderness; EXTREMITIES: No edema, no clubbing, no cyanosis. MUSCULOSKELETAL: No Joint Tenderness; NEURO: Awake; no lateralizing signs. SKIN: No Rash PSYCH; flat affect Vitals/I&O's: Vital Signs Temp Pulse Resp BP Pulse Ox 99.7 F H 82 16 110/67 96 03/27/19 05:03 03/27/19 05:03 03/27/19 05:03 03/27/19 05:03 03/27/19 05:03 Oxygen Delivery Method Room Air Weight: 84.6 kg Body Mass Index (BMI) 32.0 Intake and Output for Last 24 Hours 03/25/19 03/26/19 03/27/19 23:59 23:59 23:59 Intake Total 4113 / 4113 5328 / 5328 2190 / 2190 Output Total 800 / 800 Balance 3313 / 3313 5328 / 5328 2190 / 2190 Microbiology Past 72 Hours 03/26/19 12:58 Stool C. difficile DNA Amplification - Final Toxigenic C. difficile DNA 03/24/19 12:10 Urine, Clean Catch Urine Culture - Preliminary Enterobacter aerogenes 03/24/19 12:10 Stool Enteric Bacteriology - Final 03/24/19 12:10 Stool C. difficile DNA Amplification - Final Laboratory Results 03/26/19 11:08: POC Glucose 122 H 03/26/19 16:02: POC Glucose 140 H 03/26/19 20:54: POC Glucose 155 H 03/27/19 06:25: POC Glucose 118 H Current Medications Acetaminophen (Tylenol) 650 mg PO Q6H PRN PRN PRN Reason: Non-cardiac pain (mod-severe) Last Admin: 03/26/19 04:30 Dose: 650 mg Hydrocodone Bitart/Acetaminophen ([place] 5mg-325mg) 1 tablet PO BID REECE Last Admin: 03/26/19 21:00 Dose: 1 tablet Al Hydroxide/Mg Hydroxide (Mylanta Ii) 15 - 30 ml PO Q4H PRN PRN PRN Reason: INDIGESTION Last Admin: 03/25/19 21:27 Dose: 30 ml Albuterol Sulfate (Ventolin Aerosols) 2.5 mg INHALATION Q2H PRN PRN PRN Reason: dyspnea, wheezing Aspirin (Ecotrin) 81 mg PO DAILY@0800 [facility] Last Admin: 03/26/19 07:41 Dose: 81 mg Atorvastatin Calcium (Lipitor) 40 mg PO QHS [facility] Last Admin: 03/26/19 21:00 Dose: 40 mg Cyclobenzaprine HCl (Flexeril) 10 mg PO TID [facility] Last Admin: 03/27/19 05:05 Dose: 10 mg Dextrose (D50w Syringe) 0 gm IV X1 PRN; Protocol PRN Reason: Hypoglycemia Gabapentin (Neurontin) 300 mg PO TIDCM [facility] Last Admin: 03/26/19 16:08 Dose: 300 mg Glucagon () 1 mg IM .X1 PRN PRN Reason: Hypoglycemia Heparin Sodium (Porcine) (Heparin Na) 5,000 unit SC Q12 [facility] Last Admin: 03/26/19 21:00 Dose: 5,000 unit Hydralazine HCl (Apresoline Iv) 10 mg IV Q4H PRN PRN PRN Reason: SBP > 160 Hydroxychloroquine Sulfate (Plaquenil) 200 mg PO DAILY@0800 [facility] Last Admin: 03/26/19 07:41 Dose: 200 mg Sodium Chloride () 1,000 mls @ 125 mls/hr IV .Q8H [facility] Last Admin: 03/27/19 05:05 Dose: 125 mls/hr Ceftriaxone Sodium (Rocephin) 1 gm in 50 mls @ 100 mls/hr IV Q24 [facility] Last Admin: 03/26/19 10:58 Dose: 100 mls/hr Insulin Human Lispro (Humalog Kwikpen (Bkc)) 0 unit SQ ACHS [facility]; Protocol Last Admin: 03/27/19 06:28 Dose: Not Given Losartan Potassium (Cozaar) 100 mg PO DAILY [facility] Last Admin: 03/26/19 10:58 Dose: 100 mg Meloxicam (Mobic) 7.5 mg PO DAILY [facility] Last Admin: 03/26/19 10:59 Dose: 7.5 mg Morphine Sulfate () 1 - 2 mg IV Q4H PRN PRN PRN Reason: PAIN Last Admin: 03/26/19 16:07 Dose: 2 mg Nutritional Formula (Lactose Free) (Ensure Clear) 120 ml PO 4X/DAY [facility] Last Admin: 03/26/19 20:58 Dose: 120 ml Ondansetron HCl (Zofran) 4 mg IV Q8H PRN PRN PRN Reason: NAUSEA/VOMITING Sertraline HCl (Zoloft) 50 mg PO DAILY [facility] Last Admin: 03/26/19 10:59 Dose: 50 mg Sodium Chloride () 5 - 15 ml IV UD PRN PRN Reason: SALINE FLUSH Vancomycin HCl () 125 mg PO Q6 [facility] Last Admin: 03/27/19 05:05 Dose: 125 mg Medical Necessity - Tobacco Use Smoking Status: Never smoker Tobacco Use: Non-smoker Assessment/Plan All Active Problems UTI (urinary tract infection) (Acute) Severe dehydration (Acute) Anemia (Acute) Fever in adult (Acute) Diarrhea of presumed infectious origin (Acute) Prerenal acute renal failure (Acute) Severe sepsis (Acute) Patient is a 68-year-old lady with multiple comorbidities including diabetes mellitus type 2, chronic kidney disease stage III, hypertension who presented with intractable nausea vomiting and diarrhea. An assessment of acute cystitis was made admitted to regular nursing floor for further management 1. Acute cystitis: Admitted to regular nursing floor cultures were sent on admission patient started on Rocephin with plans to adjust antibiotics based on culture result urine cultures positive for Enterobacter aerogenes Rocephin discontinued on 04/26/2019 2. Acute C. difficile colitis patient started on p.o. vancomycin starting 04/25/2019 3. Diabetes mellitus type II: With complications complications including diabetic nephropathy. Placed on long acting insulin, Accu-Cheks a.c. and at bedtime and covered with sliding scale insulin 4. CKD stage III patient kidney function at baseline 5. Hypertension-blood pressure controlled, home medications continued with dose adjustment as needed 6. Sjogren's syndrome 7. SLE patient is on Plaquenil 8. Depression with anxiety patient is on SSRI Zoloft did continue 9. GERD 10. Dyslipidemia: Patient is on statin therapy did continue 11. Obesity with BMI of 32 left eye modification including weight loss advised 12. DVT Prophylaxis: SCDs, heparin. Microbiology 03/26/19 12:58 Stool C. difficile DNA Amplification - Final Toxigenic C. difficile DNA 03/24/19 12:10 Urine, Clean Catch Urine Culture - Preliminary Enterobacter aerogenes 03/24/19 12:10 Stool Enteric Bacteriology - Final 03/24/19 12:10 Stool C. difficile DNA Amplification - Final Code Visit Inpatient E&M: 00249 Subs Hosp L3
[2019-03-27 09:20] LABS: Absolute Lymphocyte Count 0.69 X10^3/ul (0.83-4.51); Absolute Neutrophil Count 2.9 X10^3/uL (2.0-7.7); Basophil# 0.01 X10^3/uL; Basophil% 0.2 % (0-1); Eosinophil# 0.16 X10^3/uL; Eosinophils% 3.8 % (0-5); Hematocrit 34.3 % (37-47); Hemoglobin 11.3 g/dl (12.0-15.0); Lymphocyte # 0.69 X10^3/ul (4.0); Lymphocyte % 16.3 % (19-41); Mean Corp Hgb Conc 32.9 g/gl (32-36); Mean Platelet Vol. 12.4 fl (6.2-12.0); Monocyte# 0.52 X10^3/uL; Monocyte% 12.3 % (0-10); Neutrophil # 2.85 X10^3/uL (2.7-7.7); Neutrophil % 67.4 % (47-70); Platelet Count 122 K/mm3 (150-450); RBC Distribution Width SD 48.4 fl (35.1-43.9); Red Blood Count 3.65 M/mm3 (4.2-5.4); White Blood Count 4.2 K/mm3 (4.4-11.0)
[2019-03-27 09:21] LABS: POSITIVE COUNT NO; POSITIVE DIFFERENTIAL NO; POSITIVE MORPHOLOGY NO
[2019-03-27 09:50] LABS: Anion Gap 6 (5-15); BUN 12 mg/dL (7-18); BUN/Creat Ratio 9.3 RATIO (10-20); Calcium,Total 7.6 mg/dL (8.5-10.1); Chloride 115 mmol/L (98-107); Creatinine, Serum 1.29 mg/dL (0.55-1.02); EST Glomerular Filtration Rate 43 mL/min (>60); Est Glom Filt Rate - Afr Amer 53 mL/min (>60); Estimated Creatinine Clearance 35.04 ml/min; Glucose 109 mg/dL (74-106); Magnesium 1.3 mg/dL (1.6-2.6); Potassium 3.7 mmol/L (3.5-5.1); Sodium Level 141 mmol/L (136-145)
[2019-03-27] MEDS: Gabapentin 300 MG Capsule PO ×3 (09:57→16:29)
[2019-03-27] MEDS: Aspirin E.C. 81 MG Tablet PO (09:57)
[2019-03-27] MEDS: Hydroxychloroquine 200 MG Tablet PO (09:58)
[2019-03-27] MEDS: Meloxicam 7.5 MG Tablet PO (09:58)
[2019-03-27] MEDS: Losartan Potassium 100 MG Tablet PO (09:58)
[2019-03-27] MEDS: Sertraline 50 MG Tablet PO (09:58)
[2019-03-27] MEDS: Heparin Injection (Vial) 5,000 UNIT/ML VIAL 5000 UNIT SC ×2 (09:58→21:30)
[2019-03-27] MEDS: HYDROcodone Bitartrate/Apap 5/325 Tablet PO (10:05)
[2019-03-27] MEDS: Ensure Clear 120 ML Liquid PO ×4 (10:05→21:29)
[2019-03-27 11:31] LABS: Bedside Glucose 132 mg/dL (70-110)
[2019-03-27] MEDS: Acetaminophen 325 MG Tablet 650 MG PO ×2 (15:23→21:30)
[2019-03-27 16:35] LABS: Bedside Glucose 139 mg/dL (70-110)
[2019-03-27] MEDS: 0.9% NaCl Peripheral Flush Adult/Peds IV ×2 (20:51→22:43)
[2019-03-27] MEDS: 0.9% Normal Saline 1,000 ML 75 ML IV (20:52)
[2019-03-27] MEDS: Atorvastatin Calcium 40 MG Tablet PO (21:30)
[2019-03-27 21:41] LABS: Bedside Glucose 142 mg/dL (70-110)
[2019-03-27] MEDS: Albuterol 2.5 MG/3 ML VIAL.NEB. INHALATION (22:16)
[2019-03-27] MEDS: Furosemide 40 MG/4 ML Vial IV (22:43)
[2019-03-28 00:06] VITALS: BP 94/57; PULSE 91; RESP 18; TEMP 37.3; O2SAT 94
[2019-03-28 06:05] VITALS: BP 121/68; PULSE 89; RESP 18; TEMP 37.1; O2SAT 94
[2019-03-28 07:12] LABS: Absolute Lymphocyte Count 0.81 X10^3/ul (0.83-4.51); Absolute Neutrophil Count 5.8 X10^3/uL (2.0-7.7); Basophil# 0.02 X10^3/uL; Basophil% 0.3 % (0-1); Differential Indicated SCAN CRITERIA MET; Eosinophil# 0.09 X10^3/uL; Eosinophils% 1.2 % (0-5); Hematocrit 36.4 % (37-47); Hemoglobin 12.1 g/dl (12.0-15.0); Lymphocyte # 0.81 X10^3/ul (4.0); Lymphocyte % 10.6 % (19-41); Mean Corp Hgb Conc 33.2 g/gl (32-36); Mean Corpuscular Volume 93.3 fL (81-99); Mean Platelet Vol. 12.5 fl (6.2-12.0); Monocyte# 0.83 X10^3/uL; Monocyte% 10.9 % (0-10); Neutrophil # 5.83 X10^3/uL (2.7-7.7); Neutrophil % 76.6 % (47-70); POSITIVE COUNT NO; POSITIVE DIFFERENTIAL NO; POSITIVE MORPHOLOGY YES; Platelet Count 126 K/mm3 (150-450); RBC Distribution Width CV 13.8 % (11.6-14.6); RBC Distribution Width SD 45.6 fl (35.1-43.9); White Blood Count 7.6 K/mm3 (4.4-11.0)
[2019-03-28 07:29] LABS: Anion Gap 5 (5-15); BUN 10 mg/dL (7-18); BUN/Creat Ratio 6.8 RATIO (10-20); Calcium,Total 7.7 mg/dL (8.5-10.1); Chloride 118 mmol/L (98-107); Creatinine, Serum 1.48 mg/dL (0.55-1.02); EST Glomerular Filtration Rate 37 mL/min (>60); Est Glom Filt Rate - Afr Amer 45 mL/min (>60); Estimated Creatinine Clearance 30.54 ml/min; Glucose 128 mg/dL (74-106); Magnesium 1.4 mg/dL (1.6-2.6); Potassium 3.5 mmol/L (3.5-5.1); Sodium Level 141 mmol/L (136-145)
--- NOTE | 2019-03-28 08:03 | PCM.PN.HOSP ---
Patient Problems: Active and Suspected Problems UTI (urinary tract infection) (Acute) Subjective: Patient was started on Lasix after she went to the floor in respiratory distress. Physical examination demonstrates significant edema of both upper and lower extremities. Kidney function slightly worsened compared to the day prior. Objective: GENERAL: cooperative HEENT: Atraumatic; EYES; Anicteric, Normal Conjunctiva NECK; supple, normal thyroid, RESPIRATORY: Diminished to auscultation bilaterally, CARDIOVASCULAR: Regular S1 S2, GI: soft, tender, normoactive bowel sounds, : No Renal angle tenderness; EXTREMITIES: edema, no clubbing, no cyanosis. NEURO: Awake; no lateralizing signs. SKIN: No Rash PSYCH;flat affect Vitals/I&O's: Vital Signs Temp Pulse Resp BP Pulse Ox 98.8 F 89 18 121/68 H 94 03/28/19 06:05 03/28/19 06:05 03/28/19 06:05 03/28/19 06:05 03/28/19 06:05 Oxygen Delivery Method Room Air Weight: 84.6 kg Body Mass Index (BMI) 32.0 Intake and Output for Last 24 Hours 03/26/19 03/27/19 03/28/19 23:59 23:59 23:59 Intake Total 5328 / 5328 4213 / 4213 500 / 500 Output Total 1100 / 1100 Balance 5328 / 5328 4213 / 4213 -600 / -600 Microbiology Past 72 Hours 03/24/19 12:10 Urine, Clean Catch Urine Culture - Final Enterobacter aerogenes 03/26/19 12:58 Stool C. difficile DNA Amplification - Final Toxigenic C. difficile DNA Laboratory Results 03/27/19 08:35: WBC 4.2 L, RBC 3.65 L, Hgb 11.3 L, Hct 34.3 L, MCV 94.0, MCH 31.0, MCHC 32.9, RDW 14.0, RDW Differential 48.4 H, Plt Count 122 L, MPV 12.4 H, Immature Gran % (Auto) 0.000, Neut % (Auto) 67.4, Lymph % (Auto) 16.3 L, [place] % (Auto) 12.3 H, Eos % (Auto) 3.8, Baso % (Auto) 0.2, Absolute Neuts (auto) 2.9, Absolute Lymphs (auto) 0.69 L, Total Counted Not Reportable 03/27/19 08:35: Sodium 141, Potassium 3.7, Chloride 115 H, Carbon Dioxide 20.0 L, Anion Gap 6, BUN 12, Creatinine 1.29 H, Estim Creat Clear Calc 35.04, Est GFR (MDRD) Af Amer 53 L, Est GFR (MDRD) Non-Af 43 L, BUN/Creatinine Ratio 9.3 L, Glucose 109 H, Calcium 7.6 L, Magnesium 1.3 L 03/27/19 11:17: POC Glucose 132 H 03/27/19 16:27: POC Glucose 139 H 03/27/19 21:28: POC Glucose 142 H 03/28/19 06:56: WBC 7.6, RBC 3.90 L, Hgb 12.1, Hct 36.4 L, MCV 93.3, MCH 31.0, MCHC 33.2, RDW 13.8, RDW Differential 45.6 H, Plt Count 126 L, MPV 12.5 H, Immature Gran % (Auto) 0.400, Neut % (Auto) 76.6 H, Lymph % (Auto) 10.6 L, [place] % (Auto) 10.9 H, Eos % (Auto) 1.2, Baso % (Auto) 0.3, Absolute Neuts (auto) 5.8, Absolute Lymphs (auto) 0.81 L, Total Counted Not Reportable 03/28/19 06:56: Sodium 141, Potassium 3.5, Chloride 118 H, Carbon Dioxide 18.0 L, Anion Gap 5, BUN 10, Creatinine 1.48 H, Estim Creat Clear Calc 30.54, Est GFR (MDRD) Af Amer 45 L, Est GFR (MDRD) Non-Af 37 L, BUN/Creatinine Ratio 6.8 L, Glucose 128 H, Calcium 7.7 L, Magnesium 1.4 L Current Medications Acetaminophen (Tylenol) 650 mg PO Q6H PRN PRN PRN Reason: Non-cardiac pain (mod-severe) Last Admin: 03/27/19 21:30 Dose: 650 mg Hydrocodone Bitart/Acetaminophen ([place] 5mg-325mg) 1 tablet PO BID REECE Last Admin: 03/27/19 21:31 Dose: Not Given Al Hydroxide/Mg Hydroxide (Mylanta Ii) 15 - 30 ml PO Q4H PRN PRN PRN Reason: INDIGESTION Last Admin: 03/25/19 21:27 Dose: 30 ml Albuterol Sulfate (Ventolin Aerosols) 2.5 mg INHALATION Q2H PRN PRN PRN Reason: dyspnea, wheezing Last Admin: 03/27/19 22:16 Dose: 2.5 mg Aspirin (Ecotrin) 81 mg PO DAILY@0800 [facility] Last Admin: 03/27/19 09:57 Dose: 81 mg Atorvastatin Calcium (Lipitor) 40 mg PO QHS [facility] Last Admin: 03/27/19 21:30 Dose: 40 mg Cyclobenzaprine HCl (Flexeril) 10 mg PO TID [facility] Last Admin: 03/28/19 06:19 Dose: 10 mg Dextrose (D50w Syringe) 0 gm IV X1 PRN; Protocol PRN Reason: Hypoglycemia Gabapentin (Neurontin) 300 mg PO TIDCM [facility] Last Admin: 03/27/19 16:29 Dose: 300 mg Glucagon () 1 mg IM .X1 PRN PRN Reason: Hypoglycemia Heparin Sodium (Porcine) (Heparin Na) 5,000 unit SC Q12 [facility] Last Admin: 03/27/19 21:30 Dose: 5,000 unit Hydralazine HCl (Apresoline Iv) 10 mg IV Q4H PRN PRN PRN Reason: SBP > 160 Hydroxychloroquine Sulfate (Plaquenil) 200 mg PO DAILY@0800 [facility] Last Admin: 03/27/19 09:58 Dose: 200 mg Magnesium Sulfate 2 gm/ Sodium (Chloride) 104 mls @ 52 mls/hr IV X1 ONE Stop: 03/28/19 10:29 Insulin Human Lispro (Humalog Kwikpen (Bkc)) 0 unit SQ ACHS [facility]; Protocol Last Admin: 03/28/19 06:23 Dose: Not Given Losartan Potassium (Cozaar) 100 mg PO DAILY [facility] Last Admin: 03/27/19 09:58 Dose: 100 mg Magnesium [facility] (Mag-Ox 400) [facility] Meloxicam (Mobic) 7.5 mg PO DAILY [facility] Last Admin: 03/27/19 09:58 Dose: 7.5 mg Morphine Sulfate () 1 - 2 mg IV Q4H PRN PRN PRN Reason: PAIN Last Admin: 03/26/19 16:07 Dose: 2 mg Nutritional Formula (Lactose Free) (Ensure Clear) 120 ml PO 4X/DAY [facility] Last Admin: 03/27/19 21:29 Dose: 120 ml Ondansetron HCl (Zofran) 4 mg IV Q8H PRN PRN PRN Reason: NAUSEA/VOMITING Sertraline HCl (Zoloft) 50 mg PO DAILY [facility] Last Admin: 03/27/19 09:58 Dose: 50 mg Sodium Chloride () 5 - 15 ml IV UD PRN PRN Reason: SALINE FLUSH Last Admin: 03/27/19 22:43 Dose: 10 ml Vancomycin HCl () 125 mg PO Q6 [facility] Last Admin: 03/28/19 06:19 Dose: 125 mg Medical Necessity - Tobacco Use Smoking Status: Never smoker Tobacco Use: Non-smoker Assessment/Plan All Active Problems UTI (urinary tract infection) (Acute) Severe dehydration (Acute) Anemia (Acute) Fever in adult (Acute) Diarrhea of presumed infectious origin (Acute) Prerenal acute renal failure (Acute) Severe sepsis (Acute) Patient is a 68-year-old lady with multiple comorbidities including diabetes mellitus type 2, chronic kidney disease stage III, hypertension who presented with intractable nausea vomiting and diarrhea. An assessment of acute cystitis was made admitted to regular nursing floor for further management 1. Acute cystitis: Admitted to regular nursing floor cultures were sent on admission patient started on Rocephin with plans to adjust antibiotics based on culture result urine cultures positive for Enterobacter aerogenes Rocephin discontinued on 04/26/2019 2. Acute C. difficile colitis patient started on p.o. vancomycin starting 04/25/2019 she has still complains of significant abdominal pain 3. Suspected congestive heart failure possibly diastolic dysfunction started on Lasix echo ordered for EF assessment 4. Acute on CKD stage III patient kidney function at baseline at the time of admission kidney function has reverted worsening with initiation of Lasix today to monitor closely 5. Diabetes mellitus type II: With complications complications including diabetic nephropathy. Placed on long acting insulin, Accu-Cheks a.c. and at bedtime and covered with sliding scale insulin 6. Sjogren's syndrome 7. SLE patient is on Plaquenil 8. Depression with anxiety patient is on SSRI Zoloft did continue 9. GERD 10. Dyslipidemia: Patient is on statin therapy did continue 11. Obesity with BMI of 32 left eye modification including weight loss advised 12. Hypertension-blood pressure controlled, home medications continued with dose adjustment as needed 13. DVT Prophylaxis: SCDs, heparin. Code Visit Inpatient E&M: 75328 Subs Hosp L3
[2019-03-28 09:09] VITALS: BP 106/63; PULSE 86; RESP 22; TEMP 36.9; O2SAT 95
[2019-03-28] MEDS: HYDROcodone Bitartrate/Apap 5/325 Tablet PO ×2 (09:23→22:18)
[2019-03-28] MEDS: Heparin Injection (Vial) 5,000 UNIT/ML VIAL 5000 UNIT SC ×2 (09:23→22:14)
[2019-03-28] MEDS: Gabapentin 300 MG Capsule PO ×3 (09:24→17:45)
[2019-03-28] MEDS: Meloxicam 7.5 MG Tablet PO (09:24)
[2019-03-28] MEDS: Sertraline 50 MG Tablet PO (09:24)
[2019-03-28] MEDS: Aspirin E.C. 81 MG Tablet PO (09:24)
[2019-03-28] MEDS: Magnesium Oxide 400 MG Tablet PO ×2 (09:24→17:44)
[2019-03-28] MEDS: Losartan Potassium 100 MG Tablet PO (09:24)
[2019-03-28] MEDS: 0.9% NaCl Peripheral Flush Adult/Peds IV (09:24)
[2019-03-28] MEDS: Hydroxychloroquine 200 MG Tablet PO (09:24)
--- NOTE | 2019-03-28 09:38 | ECHOD_ITS ---
Reason For Study: CHF Procedure This was a 2D Doppler, Color Flow transthoracic echocardiogram. The study was technically difficult. Exam performed portable in patient room. Left Ventricle Normal LV size. Left ventricular systolic function is hyperdynamic. The estimated ejection fraction is 75 %. Diastolic function is indeterminate. No regional wall motion abnormalities noted. Right Ventricle Normal RV size. Normal systolic function. Atria The left atrium is mildly enlarged. Normal right atrium. No doppler evidence for ASD. Mitral Valve There is no mitral annular calcification. Normal mitral valve. Trivial mitral valve insufficiency. Tricuspid Valve Normal tricuspid valve. Trivial tricuspid valve insufficiency. Right ventricular systolic pressure estimated to be 22 mmHg. Aortic Valve Trisinus/trileaflet aortic valve. Mild focal aortic valve calcification. Pulmonic Valve The pulmonic valve is not well visualized. Great Vessels Normal sized aortic root. Calcified aortic root. Pericardium/Pleural No pericardial effusion. MMode/2D Measurements & Calculations LVIDd: 4.3 cm IVSd: 1.1 cm LVOT diam: 2.0 cm LVIDs: 1.8 cm LVPWd: 0.86 cm LVOT area: 3.0 cm2 RVDd: 3.2 cm FS: 58.1 % Ao root diam: 2.8 cm LAV(MOD-bp): 34.4 ml LVAd ap4: 21.9 cm2 LAV(MOD-bp) Indexed: 18.4 ml/m2 EDV(MOD-sp4): 52.5 ml LAV(MOD-sp2): 45.3 ml EDV(sp4-el): 55.1 ml LAV(MOD-sp4): 24.7 ml LVAs ap4: 9.5 cm2 ESV(MOD-sp4): 13.2 ml ESV(sp4-el): 13.6 ml EF(MOD-sp4): 74.8 % EF(sp4-el): 75.4 % SV(MOD-sp4): 39.2 ml SV(sp4-el): 41.5 ml LA A4 area: 13.5 cm2 LA dimension(2D): 3.4 cm RA A4 area: 12.3 cm2 Time Measurements MV dec time: 0.16 sec Doppler Measurements & Calculations MV E max josue: 89.8 cm/sec Lat Peak E' Josue: 10.5 cm/sec Med Peak E' Josue: 6.5 cm/sec MV A max josue: 126.1 cm/sec E/E' lat: 8.6 E/E' med: 13.8 MV E/A: 0.71 MV V2 max: 138.8 cm/sec MV P1/2t max josue: 119.5 cm/sec Ao V2 max: 223.6 cm/sec MV max P.7 mmHg MV P1/2t: 88.0 msec Ao max P.0 mmHg MV V2 mean: 79.9 cm/sec Ao V2 mean: 160.4 cm/sec MV mean P.9 mmHg MV dec slope: 397.6 cm/sec2 Ao mean P.3 mmHg MV V2 VTI: 40.4 cm MVA(P1/2t): 2.5 cm2 Ao V2 VTI: 44.4 cm MVA(VTI): 2.2 cm2 CHUCK(I,D): 2.0 cm2 CHUCK(V,D): 2.3 cm2 LV V1 max: 172.3 cm/sec SV(LVOT): 89.2 ml PA V2 max: 136.8 cm/sec LV V1 max P.9 mmHg LV V1 mean P.7 mmHg LV V1 mean: 122.2 cm/sec LV V1 VTI: 29.7 cm TR max josue: 218.0 cm/sec TR max P.0 mmHg Interpretation Summary The study was technically difficult. Left ventricular systolic function is hyperdynamic. The estimated ejection fraction is 75 %. The left atrium is mildly enlarged. Trivial mitral valve insufficiency. Trivial tricuspid valve insufficiency. Mild focal aortic valve calcification. Calcified aortic root. Right ventricular systolic pressure estimated to be 22 mmHg. Diastolic function is indeterminate. Ordering Physician: Александр York Referring Physician: Akil Carroll Performed By: Annabel Carroll RDCS, RVT
[2019-03-28 10:30] LABS: Bedside Glucose 122 mg/dL (70-110)
[2019-03-28] MEDS: Mag Hydrox/Al Hydrox/Simeth 30 ML UDC PO (12:02)
[2019-03-28 12:11] LABS: Bedside Glucose 109 mg/dL (70-110)
[2019-03-28 15:00] VITALS: BP 93/58; PULSE 78; RESP 20; TEMP 36.7; O2SAT 95
[2019-03-28 15:01] VITALS: BP 105/59; PULSE 78
[2019-03-28] MEDS: Ensure Clear 120 ML Liquid PO ×3 (15:03→22:15)
[2019-03-28 17:06] LABS: Bedside Glucose 152 mg/dL (70-110)
[2019-03-28] MEDS: Insulin Lispro 100 UNIT/ML INSULN.PEN SQ (17:45)
[2019-03-28 22:11] VITALS: BP 110/78; PULSE 87; RESP 16; TEMP 37.4; O2SAT 94
[2019-03-28] MEDS: Atorvastatin Calcium 40 MG Tablet PO (22:14)
[2019-03-28 22:50] LABS: Bedside Glucose 125 mg/dL (70-110)
[2019-03-29] VITALS (8 sets, daily range): BP systolic 79–120; BP diastolic 47–71; PULSE 65–80; RESP 16–20; TEMP 36.4–36.9; O2SAT 94–97
[2019-03-29 06:41] LABS: Bedside Glucose 106 mg/dL (70-110)
--- NOTE | 2019-03-29 07:18 | PCM.PN.HOSP ---
Patient Problems: Active and Suspected Problems UTI (urinary tract infection) (Acute) Subjective: Patient seen still appears quite edematous (involving both hands and ankles). Per nursing staff patient had 3 loose bowel movement in the evening. Objective: GENERAL: cooperative HEENT: Atraumatic; EYES; Anicteric, Normal Conjunctiva NECK; supple, normal thyroid, RESPIRATORY: Diminished to auscultation bilaterally, CARDIOVASCULAR: Regular S1 S2, GI: soft, tender, normoactive bowel sounds, : No Renal angle tenderness; EXTREMITIES: edema, no clubbing, no cyanosis. NEURO: Awake; no lateralizing signs. SKIN: No Rash PSYCH;flat affect Vitals/I&O's: Vital Signs Temp Pulse Resp BP Pulse Ox 98.5 F 80 16 115/66 94 03/29/19 04:11 03/29/19 04:11 03/29/19 04:11 03/29/19 04:11 03/29/19 04:11 Oxygen Delivery Method Room Air Weight: 84.6 kg Body Mass Index (BMI) 32.0 Intake and Output for Last 24 Hours 03/27/19 03/28/19 03/29/19 23:59 23:59 23:59 Intake Total 4213 / 4213 860 / 860 540 / 540 Output Total 2100 / 2100 Balance 4213 / 4213 -1240 / -1240 540 / 540 Microbiology Past 72 Hours 03/24/19 12:10 Urine, Clean Catch Urine Culture - Final Enterobacter aerogenes 03/26/19 12:58 Stool C. difficile DNA Amplification - Final Toxigenic C. difficile DNA Laboratory Results 03/28/19 06:22: POC Glucose 122 H 03/28/19 06:56: Total Counted Not Reportable 03/28/19 06:56: Sodium 141, Potassium 3.5, Chloride 118 H, Carbon Dioxide 18.0 L, Anion Gap 5, BUN 10, Creatinine 1.48 H, Estim Creat Clear Calc 30.54, Est GFR (MDRD) Af Amer 45 L, Est GFR (MDRD) Non-Af 37 L, BUN/Creatinine Ratio 6.8 L, Glucose 128 H, Calcium 7.7 L, Magnesium 1.4 L 03/28/19 11:56: POC Glucose 109 03/28/19 16:58: POC Glucose 152 H 03/28/19 22:08: POC Glucose 125 H 03/29/19 06:31: POC Glucose 106 03/29/19 06:43: WBC Pending, RBC Pending, Hgb Pending, Hct Pending, MCV Pending, MCH Pending, MCHC Pending, RDW Pending, RDW Differential Pending, Plt Count Pending, Neut % (Auto) Pending, Absolute Neuts (auto) Pending, Total Counted Pending 03/29/19 06:43: Sodium Pending, Potassium Pending, Chloride Pending, Carbon Dioxide Pending, Anion Gap Pending, BUN Pending, Creatinine Pending, Est GFR (MDRD) Af Amer Pending, Est GFR (MDRD) Non-Af Pending, BUN/Creatinine Ratio Pending, Glucose Pending, Calcium Pending Current Medications Acetaminophen (Tylenol) 650 mg PO Q6H PRN PRN PRN Reason: Non-cardiac pain (mod-severe) Last Admin: 03/27/19 21:30 Dose: 650 mg Hydrocodone Bitart/Acetaminophen ([place] 5mg-325mg) 1 tablet PO BID [facility] Last Admin: 03/28/19 22:18 Dose: 1 tablet Al Hydroxide/Mg Hydroxide (Mylanta Ii) 15 - 30 ml PO Q4H PRN PRN PRN Reason: INDIGESTION Last Admin: 03/28/19 12:02 Dose: 15 ml Albuterol Sulfate (Ventolin Aerosols) 2.5 mg INHALATION Q2H PRN PRN PRN Reason: dyspnea, wheezing Last Admin: 03/27/19 22:16 Dose: 2.5 mg Aspirin (Ecotrin) 81 mg PO DAILY@0800 [facility] Last Admin: 03/28/19 09:24 Dose: 81 mg Atorvastatin Calcium (Lipitor) 40 mg PO QHS [facility] Last Admin: 03/28/19 22:14 Dose: 40 mg Cyclobenzaprine HCl (Flexeril) 10 mg PO TID [facility] Last Admin: 03/29/19 06:33 Dose: 10 mg Dextrose (D50w Syringe) 0 gm IV X1 PRN; Protocol PRN Reason: Hypoglycemia Gabapentin (Neurontin) 300 mg PO TIDCM [facility] Last Admin: 03/28/19 17:45 Dose: 300 mg Glucagon () 1 mg IM .X1 PRN PRN Reason: Hypoglycemia Heparin Sodium (Porcine) (Heparin Na) 5,000 unit SC Q12 [facility] Last Admin: 03/28/19 22:14 Dose: 5,000 unit Hydralazine HCl (Apresoline Iv) 10 mg IV Q4H PRN PRN PRN Reason: SBP > 160 Hydroxychloroquine Sulfate (Plaquenil) 200 mg PO DAILY@0800 [facility] Last Admin: 03/28/19 09:24 Dose: 200 mg Insulin Human Lispro (Humalog Kwikpen (Bkc)) 0 unit SQ ACHS [facility]; Protocol Last Admin: 03/29/19 06:33 Dose: Not Given Losartan Potassium (Cozaar) 100 mg PO DAILY [facility] Last Admin: 03/28/19 09:24 Dose: 100 mg Magnesium Oxide (Mag-Ox 400) 400 mg PO BIDCM [facility] Last Admin: 03/28/19 17:44 Dose: 400 mg Meloxicam (Mobic) 7.5 mg PO DAILY [facility] Last Admin: 03/28/19 09:24 Dose: 7.5 mg Morphine Sulfate () 1 - 2 mg IV Q4H PRN PRN PRN Reason: PAIN Last Admin: 03/26/19 16:07 Dose: 2 mg Nutritional Formula (Lactose Free) (Ensure Clear) 120 ml PO 4X/DAY [facility] Last Admin: 03/28/19 22:15 Dose: 120 ml Ondansetron HCl (Zofran) 4 mg IV Q8H PRN PRN PRN Reason: NAUSEA/VOMITING Sertraline HCl (Zoloft) 50 mg PO DAILY [facility] Last Admin: 03/28/19 09:24 Dose: 50 mg Sodium Chloride () 5 - 15 ml IV UD PRN PRN Reason: SALINE FLUSH Last Admin: 03/28/19 09:24 Dose: 10 ml Vancomycin HCl () 125 mg PO Q6 [facility] Last Admin: 03/29/19 06:33 Dose: 125 mg Medical Necessity - Tobacco Use Smoking Status: Never smoker Tobacco Use: Non-smoker Assessment/Plan All Active Problems UTI (urinary tract infection) (Acute) Severe dehydration (Acute) Anemia (Acute) Fever in adult (Acute) Diarrhea of presumed infectious origin (Acute) Prerenal acute renal failure (Acute) Severe sepsis (Acute) Patient is a 68-year-old lady with multiple comorbidities including diabetes mellitus type 2, chronic kidney disease stage III, hypertension who presented with intractable nausea vomiting and diarrhea. An assessment of acute cystitis was made admitted to regular nursing floor for further management 1. Acute cystitis: Admitted to regular nursing floor cultures were sent on admission patient started on Rocephin with plans to adjust antibiotics based on culture result urine cultures positive for Enterobacter aerogenes Rocephin discontinued on 04/26/2019 2. Acute C. difficile colitis patient started on p.o. vancomycin starting 04/25/2019 she has still complains of significant abdominal pain patient continues to experience loose bowel movement as of the evening of 03/28/2019. 3. Acute diastolic congestive heart failure ; started on Lasix echo ordered for EF assessment patient EF was estimated to be 75% 4. Acute on CKD stage III patient kidney function at baseline at the time of admission kidney function has reverted worsening with initiation of Lasix today to monitor closely patient kidney function appears to have stabilized 5. Diabetes mellitus type II: With complications complications including diabetic nephropathy. Placed on long acting insulin, Accu-Cheks a.c. and at bedtime and covered with sliding scale insulin 6. Sjogren's syndrome 7. SLE patient is on Plaquenil 8. Depression with anxiety patient is on SSRI Zoloft did continue 9. GERD 10. Dyslipidemia: Patient is on statin therapy did continue 11. Obesity with BMI of 32 left eye modification including weight loss advised 12. Hypertension-blood pressure controlled, home medications continued with dose adjustment as needed 13. DVT Prophylaxis: SCDs, heparin. Disposition: do anticipate discharge home possibly on 03/30/2019 Code Visit Inpatient E&M: 82966 Subs Hosp L2
[2019-03-29 07:34] LABS: Absolute Lymphocyte Count 0.72 X10^3/ul (0.83-4.51); Absolute Neutrophil Count 6.3 X10^3/uL (2.0-7.7); Basophil# 0.03 X10^3/uL; Basophil% 0.4 % (0-1); Eosinophil# 0.15 X10^3/uL; Eosinophils% 1.9 % (0-5); Hematocrit 34.4 % (37-47); Hemoglobin 11.2 g/dl (12.0-15.0); Lymphocyte # 0.72 X10^3/ul (4.0); Mean Corp Hgb Conc 32.6 g/gl (32-36); Mean Corpuscular Hgb 30.4 pg (27.0-32.0); Mean Corpuscular Volume 93.5 fL (81-99); Monocyte# 0.71 X10^3/uL; Monocyte% 8.9 % (0-10); Neutrophil # 6.34 X10^3/uL (2.7-7.7); Neutrophil % 79.7 % (47-70); Platelet Count 145 K/mm3 (150-450); RBC Distribution Width SD 47.7 fl (35.1-43.9); Red Blood Count 3.68 M/mm3 (4.2-5.4)
[2019-03-29 07:41] LABS: POSITIVE COUNT NO; POSITIVE DIFFERENTIAL NO; POSITIVE MORPHOLOGY NO
[2019-03-29 07:57] LABS: Anion Gap 5 (5-15); BUN 12 mg/dL (7-18); BUN/Creat Ratio 8.9 RATIO (10-20); Calcium,Total 8.1 mg/dL (8.5-10.1); Chloride 117 mmol/L (98-107); Creatinine, Serum 1.35 mg/dL (0.55-1.02); EST Glomerular Filtration Rate 41 mL/min (>60); Est Glom Filt Rate - Afr Amer 50 mL/min (>60); Estimated Creatinine Clearance 33.48 ml/min; Glucose 110 mg/dL (74-106); Sodium Level 141 mmol/L (136-145)
[2019-03-29] MEDS: Ensure Clear 120 ML Liquid PO ×4 (09:09→22:43)
[2019-03-29] MEDS: Furosemide 100 MG/10 ML Vial 60 MG IV (09:10)
[2019-03-29] MEDS: HYDROcodone Bitartrate/Apap 5/325 Tablet PO ×2 (09:10→22:36)
[2019-03-29] MEDS: Aspirin E.C. 81 MG Tablet PO (09:10)
[2019-03-29] MEDS: Losartan Potassium 100 MG Tablet PO (09:10)
[2019-03-29] MEDS: Hydroxychloroquine 200 MG Tablet PO (09:10)
[2019-03-29] MEDS: Gabapentin 300 MG Capsule PO ×3 (09:10→17:18)
[2019-03-29] MEDS: Heparin Injection (Vial) 5,000 UNIT/ML VIAL 5000 UNIT SC ×2 (09:10→22:37)
[2019-03-29] MEDS: Magnesium Oxide 400 MG Tablet PO ×2 (09:10→17:18)
[2019-03-29] MEDS: Sertraline 50 MG Tablet PO (09:10)
[2019-03-29] MEDS: Meloxicam 7.5 MG Tablet PO (09:10)
[2019-03-29] MEDS: 0.9% NaCl Peripheral Flush Adult/Peds IV (09:11)
[2019-03-29 17:35] LABS: Bedside Glucose 134 mg/dL (70-110)
[2019-03-29] MEDS: Atorvastatin Calcium 40 MG Tablet PO (22:36)
[2019-03-30 05:18] VITALS: BP 99/63; PULSE 67; RESP 16; TEMP 36.6; O2SAT 99
[2019-03-30 06:02] LABS: Absolute Lymphocyte Count 0.68 X10^3/ul (0.83-4.51); Absolute Neutrophil Count 4.9 X10^3/uL (2.0-7.7); Basophil# 0.01 X10^3/uL; Basophil% 0.2 % (0-1); Eosinophil# 0.18 X10^3/uL; Eosinophils% 2.8 % (0-5); Hematocrit 32.6 % (37-47); Hemoglobin 10.6 g/dl (12.0-15.0); Lymphocyte # 0.68 X10^3/ul (4.0); Lymphocyte % 10.8 % (19-41); Mean Corp Hgb Conc 32.5 g/gl (32-36); Mean Corpuscular Hgb 30.3 pg (27.0-32.0); Mean Corpuscular Volume 93.1 fL (81-99); Monocyte% 7.9 % (0-10); Neutrophil # 4.92 X10^3/uL (2.7-7.7); Neutrophil % 77.8 % (47-70); Platelet Count 160 K/mm3 (150-450); RBC Distribution Width CV 13.9 % (11.6-14.6); RBC Distribution Width SD 45.6 fl (35.1-43.9); White Blood Count 6.3 K/mm3 (4.4-11.0)
[2019-03-30 06:21] LABS: POSITIVE COUNT NO; POSITIVE DIFFERENTIAL NO; POSITIVE MORPHOLOGY NO
[2019-03-30 06:32] LABS: Anion Gap 7 (5-15); BUN 15 mg/dL (7-18); BUN/Creat Ratio 9.6 RATIO (10-20); Calcium,Total 8.3 mg/dL (8.5-10.1); Chloride 113 mmol/L (98-107); Creatinine, Serum 1.56 mg/dL (0.55-1.02); EST Glomerular Filtration Rate 35 mL/min (>60); Est Glom Filt Rate - Afr Amer 42 mL/min (>60); Estimated Creatinine Clearance 28.98 ml/min; Glucose 103 mg/dL (74-106); Potassium 3.1 mmol/L (3.5-5.1); Sodium Level 144 mmol/L (136-145)
[2019-03-30 06:55] LABS: Bedside Glucose 100 mg/dL (70-110)
[2019-03-30] MEDS: Aspirin E.C. 81 MG Tablet PO (08:27)
[2019-03-30] MEDS: Meloxicam 7.5 MG Tablet PO (08:28)
[2019-03-30] MEDS: Heparin Injection (Vial) 5,000 UNIT/ML VIAL 5000 UNIT SC (08:28)
[2019-03-30] MEDS: Sertraline 50 MG Tablet PO (08:28)
[2019-03-30] MEDS: Magnesium Oxide 400 MG Tablet PO (08:28)
[2019-03-30] MEDS: Hydroxychloroquine 200 MG Tablet PO (08:28)
[2019-03-30] MEDS: Gabapentin 300 MG Capsule PO ×2 (08:28→11:39)
[2019-03-30] MEDS: Ensure Clear 120 ML Liquid PO (08:34)
[2019-03-30] MEDS: Mag Hydrox/Al Hydrox/Simeth 30 ML UDC PO (08:35)
[2019-03-30] MEDS: HYDROcodone Bitartrate/Apap 5/325 Tablet PO (09:29)
[2019-03-30 11:20] VITALS: BP 109/42; PULSE 74; RESP 18; TEMP 36.6; O2SAT 94
--- NOTE | 2019-03-30 11:27 | DCINST_ITS ---
- Discharge Diagnoses Current Active Problems: Current Active and Chronic Problems HLD (hyperlipidemia) (Chronic) Obesity (BMI 30.0-34.9) (Chronic) GERD (gastroesophageal reflux disease) (Chronic) CKD (chronic kidney disease) stage 3, GFR 30-59 ml/min (Chronic) UTI (urinary tract infection) (Acute) You will use the following diet at home:: Calorie/Carbohydrate Controlled (specify 1200, 1400, etc) - 1800 Your food should be the consistency of: Regular Your liquids should be the consistency of: Regular/Thin Discharge Activity: Return to Normal Activity Call your doctor if your incision/area has: Continuous Slow Oozing Call your doctor if you observe: Fever of 101 or Higher, Inability to urinate, Shortness of breath, - - worsening diarrhea. worsening abdominal pain. Allergies/Adverse Reactions: Allergies ciprofloxacin Allergy (Verified 03/24/19 14:51) Rash Iodinated Contrast- Oral and IV Dye [CONTRASTS] Allergy (Verified 03/24/19 14:51) blisters Sulfa (Sulfonamide Antibiotics) Allergy (Verified 03/24/19 14:51) Hives colored dyes Adverse Reaction (Uncoded 03/24/19 14:54) blisters Pt reports having had a pair of sandals that got wet and caused her feet to break out in blisters marigold Adverse Reaction (Uncoded 03/24/19 14:53) blisters Medications to take at Discharge Cyclobenzaprine [Flexeril] 10 mg PO TID 12/21/15 Gabapentin [Neurontin] 300 mg PO TIDCM 12/21/15 Hydrocodone Bitart/Apap 5-325 [[place] 5/325] 5 - 325 mg PO BID 12/21/15 Hydroxychloroquine [Plaquenil] 200 mg PO DAILY 12/21/15 Omeprazole [Prilosec] 20 mg PO DAILY 12/21/15 Albuterol Inhaler [Ventolin Hfa] 1 - 2 puff INHALATION Q6H PRN PRN 03/24/19 Aspirin E.C. [Ecotrin] 81 mg PO DAILY@0800 03/24/19 Ferrous Sulfate 325 mg PO BIDCM 03/24/19 Losartan Potassium [Cozaar] 100 mg PO DAILY 03/24/19 Meloxicam 7.5 mg PO DAILY 03/24/19 Metformin HCl 1,000 mg PO BID 03/24/19 Multivit-Min/Iron/Folic/Lutein [Centrum Silver Women Tablet] 1 tab PO DAILY 03/24/19 Sertraline HCl [Zoloft] 50 mg PO DAILY 03/24/19 Simvastatin [Zocor] 80 mg PO QHS 03/24/19 Vancomcyin 125mg/5mL PO Liquid 125 mg PO Q6 #25 po.syringe 03/30/19 The following prescriptions were given: Vancomcyin 125mg/5mL PO Liquid 125 mg PO Q6 #25 po.syringe Primary Care Physician: Akil Kelly DO [Primary Care Provider] - Within 2 Weeks Test Results: Test results from this visit will be discussed in further detail at your follow- up appointment, if applicable. Proposed Discharge Date: 03/30/19
--- NOTE | 2019-03-30 11:27 | PCM.DC.SUM ---
Discharge Date and Diagnosis - Problem List Patient Problems: Active and Suspected Problems UTI (urinary tract infection) (Acute) Clostridium difficile colitis (Acute) Date of Admission: 03/24/19 Date of Discharge: 03/30/19 - Primary Discharge Diagnosis Active and Suspected Problems UTI (urinary tract infection) (Acute) - Secondary Discharge Diagnosis Chronic Problems HLD (hyperlipidemia) (Chronic) Obesity (BMI 30.0-34.9) (Chronic) GERD (gastroesophageal reflux disease) (Chronic) CKD (chronic kidney disease) stage 3, GFR 30-59 ml/min (Chronic) Systemic lupus erythematosus (Chronic) Sjoegren syndrome (Chronic) HTN (hypertension) (Chronic) DM type 2 (diabetes mellitus, type 2) (Chronic) Hospital Course and Treatment Operations: None Procedures: None Summary of Care Provided: The patient is a 68 year old F presents with nausea, vomiting and diarrhea. Also presented with dysuria. Patient was diagnosed with C. difficile as well as Enterobacter UTI. Patient completed Rocephin through and did well subsequently. Patient was started on oral vancomycin and diarrhea has essentially resolved. Patient is feeling better. Patient stated that she was briefly started on antibiotics for a sinus infection. I advised patient to remind providers, who wished to prescribe antibiotics, that she has had a history of C. difficile. Explained to the patient that many sinus infections if not the vast majority are viral and antibiotics generally are not indicated. I informed her that would be really the onus of the prescriber to take noted that the and to exercise judicious use of antibiotics particularly in a patient with a history of C. difficile. Patient will complete a total of 10 days of oral vancomycin. Patient advised that C. difficile can have spores that can potentially cause infections later and if patient does have symptoms of diarrhea or worsening abdominal pain in coming weeks that that could be a sign of recurrent C. difficile and she is advised to go to her primary care provider or go back to the emergency room in such an instance. [] Patient Problems: Active and Suspected Problems UTI (urinary tract infection) (Acute) Clostridium difficile colitis (Acute) - Physical Exam General: Alert, No apparent distress HEENT: Atraumatic, Normocephalic Oral: Moist Mucosa, No Gingival or Mucosal Lesions/ Ulcerations Lungs: Clear to auscultation, Normal air movement, No rhonchi, No wheeze Cardiovascular: Regular rate, Regular Rhythm, Normal S1, Normal S2, No murmurs Abdomen: Bowel Sounds Present, Soft, Non Tender, Non-Distended, No Hepato-splenomegaly Extremities: No edema, No Calf Tenderness Psych/Mental Status: Normal Affect, Appropriate Vital Signs Temp Pulse Resp BP Pulse Ox 36.6 C 67 16 99/63 99 03/30/19 05:18 03/30/19 05:18 03/30/19 05:18 03/30/19 05:18 03/30/19 05:18 Oxygen Delivery Method Room Air Weight: 84.6 kg Body Mass Index (BMI) 32.0 Intake and Output for Last 24 Hours 03/28/19 03/29/19 03/30/19 23:59 23:59 23:59 Intake Total 860 / 860 980 / 980 200 / 200 Output Total 2100 / 2100 550 / 550 150 / 150 Balance -1240 / -1240 430 / 430 50 / 50 Microbiology Past 72 Hours 03/24/19 12:10 Urine Culture - Final Urine, Clean Catch Enterobacter aerogenes Laboratory Tests Past 24 Hrs 03/30/19 03/30/19 05:40 05:40 WBC 6.3 RBC 3.50 L Hgb 10.6 L Hct 32.6 L MCV 93.1 MCH 30.3 MCHC 32.5 RDW 13.9 RDW Differential 45.6 H Plt Count 160 MPV 12.0 Immature Gran % (Auto) 0.500 Neut % (Auto) 77.8 H Lymph % (Auto) 10.8 L Day % (Auto) 7.9 Eos % (Auto) 2.8 Baso % (Auto) 0.2 Absolute Neuts (auto) 4.9 Absolute Lymphs (auto) 0.68 L Total Counted Not Reportable Sodium 144 Potassium 3.1 L Chloride 113 H Carbon Dioxide 24.0 Anion Gap 7 BUN 15 Creatinine 1.56 H Estim Creat Clear Calc 28.98 Est GFR (MDRD) Af Amer 42 L Est GFR (MDRD) Non-Af 35 L BUN/Creatinine Ratio 9.6 L Glucose 103 Calcium 8.3 L Magnesium 2.0 POC Glucose 03/30/19 03/29/19 06:49 17:13 POC Glucose 100 134 H Discharge Diet: 1800 Calorie Control Diet Discharge Activity: Return to Normal Activity Call your doctor if your incision/area has: Continuous Slow Oozing Call your doctor if you observe: Fever of 101 or Higher, Inability to urinate, Shortness of breath, - - worsening diarrhea. worsening abdominal pain. Home Medications: Medications to take at Discharge Cyclobenzaprine [Flexeril] 10 mg PO TID 12/21/15 Gabapentin [Neurontin] 300 mg PO TIDCM 12/21/15 Hydrocodone Bitart/Apap 5-325 [[place] 5/325] 5 - 325 mg PO BID 12/21/15 Hydroxychloroquine [Plaquenil] 200 mg PO DAILY 12/21/15 Omeprazole [Prilosec] 20 mg PO DAILY 12/21/15 Albuterol Inhaler [Ventolin Hfa] 1 - 2 puff INHALATION Q6H PRN PRN 03/24/19 Aspirin E.C. [Ecotrin] 81 mg PO DAILY@0800 03/24/19 Ferrous Sulfate 325 mg PO BIDCM 03/24/19 Losartan Potassium [Cozaar] 100 mg PO DAILY 03/24/19 Meloxicam 7.5 mg PO DAILY 03/24/19 Metformin HCl 1,000 mg PO BID 03/24/19 Multivit-Min/Iron/Folic/Lutein [Centrum Silver Women Tablet] 1 tab PO DAILY 03/24/19 Sertraline HCl [Zoloft] 50 mg PO DAILY 03/24/19 Simvastatin [Zocor] 80 mg PO QHS 03/24/19 Vancomcyin 125mg/5mL PO Liquid 125 mg PO Q6 #25 po.syringe 03/30/19 Following Prescrptions Were Given to Patient: Vancomcyin 125mg/5mL PO Liquid 125 mg PO Q6 #25 po.syringe Primary Care Physician: Akil Kelly DO [Primary Care Provider] - Within 2 Weeks Disposition: Home Minutes spent on discharge:: 32 Patient Condition:: Good Medical Necessity - Tobacco Use Smoking Status: Never smoker Tobacco Use: Non-smoker Meaningful Use Info Meaningful Use Diagnoses (Choose all that apply): None applicable Code Visit Inpatient E&M: 06953 Disch Hosp
[2019-03-30] MEDS: Losartan Potassium 100 MG Tablet PO (11:39)
[2019-03-30] MEDS: Furosemide 20 MG Tablet PO (11:39)
--- NOTE | 2019-03-30 12:33 | NURSING ---
PT PRESCRIBED VANCOMYCIN AT DISCHARGE. MED WAS DELIVERED TO ROOM AND PT REFUSED IT DUE TO COST OF $100. EDUCATED PT ABOUT IMPORTANCE OF THIS MEDICATION AND PT STATED SHE CAN NOT AFFORD IT. SPOKE WITH CASE MANAGEMENT AND NOTHING THEY CAN DO. OUR PHARMACY IS GOING TO SENT SCRIPT TO [facility] IN [place] TO SEE IF IT WILL BE CHEAPER FOR PT THERE.
== END 2019-03-30 12:35 | disposition home or self-care (01) | DRG 371 ==
LOC: ED 11:23 → MS2 13:57
PROVIDERS: Internal Medicine; Admitting Provider Family Medicine; Emergency Provider Emergency Medicine; Family Provider Student in an Organized Health Care Education/Training Program; PCP Student in an Organized Health Care Education/Training Program; Referring Provider Family Medicine
DX: A04.72 Enterocolitis due to Clostridium difficile, not specified as recurrent (principal); I50.31 Acute diastolic (congestive) heart failure; N30.00 Acute cystitis without hematuria; E11.40 Type 2 diabetes mellitus with diabetic neuropathy, unspecified; M32.9 Systemic lupus erythematosus, unspecified; B96.89 Other specified bacterial agents as the cause of diseases classified elsewhere; E11.22 Type 2 diabetes mellitus with diabetic chronic kidney disease; N18.3 Chronic kidney disease, stage 3 (moderate); M35.00 Sjogren syndrome, unspecified; K21.9 Gastro-esophageal reflux disease without esophagitis; E66.9 Obesity, unspecified; I12.9 Hypertensive chronic kidney disease with stage 1 through stage 4 chronic kidney disease, or unspecified chronic kidney disease; E78.5 Hyperlipidemia, unspecified; Z66 Do not resuscitate; F41.8 Other specified anxiety disorders; Z68.32 Body mass index [BMI] 32.0-32.9, adult; Z79.84 Long term (current) use of oral hypoglycemic drugs
CPT/HCPCS: 36415; 80048; 80053; 81001; 82962; 83605; 83690; 83735; 85025; 87077; 87086; 87088; 87186; 87493; 87506; 93306; 94640; 97110; 97162; 97165; 97530; 97535; 97802; 99284; J7030; A4216; J1940; J2405

== ENCOUNTER → 2019-04-20 13:30 | Outpatient (CLI) | payer MEDICARE, SELFPAY ==
[2019-03-24 14:37] VITALS: BMI 32.0
[2019-04-20 16:56] LABS: Mucous, Urine 0 SEEN /hpf (<or=2+)
[2019-04-20 17:05] LABS: Absolute Lymphocyte Count 1.34 X10^3/ul (0.83-4.51); Absolute Neutrophil Count 11.4 X10^3/uL (2.0-7.7); Basophil# 0.01 X10^3/uL; Basophil% 0.1 % (0-1); Eosinophil# 0.25 X10^3/uL; Eosinophils% 1.8 % (0-5); Hematocrit 37.2 % (37-47); Hemoglobin 12.2 g/dl (12.0-15.0); Lymphocyte # 1.34 X10^3/ul (4.0); Lymphocyte % 9.6 % (19-41); Mean Corp Hgb Conc 32.8 g/gl (32-36); Mean Corpuscular Hgb 30.1 pg (27.0-32.0); Mean Corpuscular Volume 91.9 fL (81-99); Mean Platelet Vol. 11.9 fl (6.2-12.0); Monocyte# 0.91 X10^3/uL; Monocyte% 6.5 % (0-10); Neutrophil # 11.37 X10^3/uL (2.7-7.7); Neutrophil % 81.6 % (47-70); POSITIVE COUNT NO; POSITIVE DIFFERENTIAL NO; POSITIVE MORPHOLOGY NO; Platelet Count 307 K/mm3 (150-450); RBC Distribution Width CV 14.7 % (11.6-14.6); RBC Distribution Width SD 49.4 fl (35.1-43.9); Red Blood Count 4.05 M/mm3 (4.2-5.4); White Blood Count 13.9 K/mm3 (4.4-11.0)
[2019-04-20 17:17] LABS: Color, Urine Yellow (Yellow); Glucose, Dipstick Normal (Normal); Ketone-Dipstick Negative (Negative); Leukocyte Esterase-Dipstick 500 /ul (Negative); Nitrite-Dipstick Negative (Negative); Occult Blood-Urine 10 /ul (Negative); Protein-Dipstick 15 mg/dl (Negative); Urine Bilirubin Dipstick Negative (Negative); Urine Clarity Clear (Clear); Urine Urobilinogen Normal (Normal)
[2019-04-20 17:19] LABS: ALB/GLOB Ratio 0.6 RATIO (0.9-2.4); AST(SGOT) 20 U/L (15-37); Alanine Aminotransfer ALT/SGPT 19 U/L (13-56); Albumin, Serum 2.4 g/dL (3.2-5.0); Alkaline Phosphatase 123 U/L (45-117); Anion Gap 11 (5-15); BUN 53 mg/dL (7-18); BUN/Creat Ratio 14.2 RATIO (10-20); Calcium,Total 8.8 mg/dL (8.5-10.1); Chloride 106 mmol/L (98-107); Creatinine, Serum 3.73 mg/dL (0.55-1.02); EST Glomerular Filtration Rate 13 mL/min (>60); Est Glom Filt Rate - Afr Amer 15 mL/min (>60); Glucose 104 mg/dL (74-106); Potassium 4.5 mmol/L (3.5-5.1); Protein, Total 6.4 g/dL (6.4-8.2); Sodium Level 137 mmol/L (136-145)
[2019-04-20 17:59] LABS: Bacteria 1+ /hpf (None Seen); Red Blood Cells-Urine 0-5 SEEN /hpf (0-5); Squamous Epithelial Cells - UA 0-5 SEEN /hpf (5-10); White Blood Cells 10-25 SEEN /hpf (0-5)
== END ==
PROVIDERS: Family Provider Student in an Organized Health Care Education/Training Program; PCP Student in an Organized Health Care Education/Training Program; Referring Provider Nurse Practitioner Adult Health; Visit Provider Nurse Practitioner Adult Health
DX: R60.0 Localized edema (principal); N39.0 Urinary tract infection, site not specified; R31.9 Hematuria, unspecified
CPT/HCPCS: 80053; 81001; 85025

== ENCOUNTER → 2019-04-21 15:41 | Outpatient (CLI) | payer MEDICARE, SELFPAY ==
[2019-03-24 14:37] VITALS: BMI 32.0
== END ==
PROVIDERS: Family Provider Student in an Organized Health Care Education/Training Program; PCP Student in an Organized Health Care Education/Training Program; Referring Provider Nurse Practitioner Adult Health; Visit Provider Nurse Practitioner Adult Health
DX: A04.72 Enterocolitis due to Clostridium difficile, not specified as recurrent (principal)
CPT/HCPCS: 82274; 87506

== ENCOUNTER → 2019-04-25 07:39 | Outpatient (CLI) | payer MEDICARE, SELFPAY | PROVIDERS: Family Provider Student in an Organized Health Care Education/Training Program; PCP Student in an Organized Health Care Education/Training Program; Referring Provider Student in an Organized Health Care Education/Training Program; Visit Provider Student in an Organized Health Care Education/Training Program | DX: R19.7 Diarrhea, unspecified (principal) | CPT/HCPCS: 87493 ==

== ENCOUNTER 2019-04-30 07:00 | Emergency (ER) | payer MEDICARE, SELFPAY ==
[2019-04-30 07:01] VITALS: BP 184/99; PULSE 78; RESP 24; TEMP 36.6; O2SAT 99; BMI 29.0
--- NOTE | 2019-04-30 07:06 | CT_ITS ---
STUDY: CT ABDOMEN AND PELVIS WITHOUT CONTRAST REASON FOR EXAM: Female, 68 years old. Abdominal pain. Bloody stool. Chronic stage III renal disease. History of lupus and Sjogren's syndrome. RADIATION DOSAGE (If Supplied By Facility): CTDIvol = ( 9.65 ) mGy, DLP = ( 513.59 ) mGycm TECHNIQUE: Transaxial images were obtained from the dome of the diaphragm to the symphysis pubis without oral contrast, and without intravenous contrast. Sagittal and coronal images were reconstructed. Individualized dose optimization techniques were used for this CT. COMPARISON: Comparison is made with prior study dated June 21, 2016. FINDINGS: The visualized lung bases are unremarkable. Coronary artery calcification. Normal liver. There are surgical clips in the gallbladder fossa consistent with a prior cholecystectomy. There are multiple benign calcified granulomata of the spleen. There is diffuse atrophy of the pancreas. Normal bilateral adrenal glands. Tiny nonobstructive calculi in the lower pole calyx of the right kidney. Normal left kidney. There is a small hiatal hernia. Normal small intestine. Normal colon. The appendix is visualized and appears normal. There is diffuse atherosclerotic calcification of the abdominal aorta and its major visceral branches, without a demonstrated aneurysm. Normal inferior vena cava. Normal retroperitoneum. Normal urinary bladder. Normal abdominal wall. There are mild degenerative changes of the visualized lumbar spine. CT/Abdomen/Pelvis without Cont IMPRESSION: No acute abnormality is seen. Electronically Signed: Jakub Gasca, at 8:36 EDT , Service support ,
--- NOTE | 2019-04-30 07:12 | ED.DCSUM_ITS ---
- ER Visit Summary Date of Service: 04/30/19 Chief Complaint: Abdominal pain, nausea History of Present Illness: The patient is a 68 F with history of chronic kidney disease and recent C. difficile infection presents to the emergency department with abdominal pain and nausea. Patient states she had a similar pain off and on. She went to her primary care about 10 days ago., She had outpatient stool studies done. Her C. difficile was negative. Her stool tox panel was negative. She did have some fecal occult blood. States over the past 3 days, she had some worsening, cramping pain mostly in the midepigastric area. She is been nauseated without vomiting. She does not think she had fever chills. She was also recently changed on her gabapentin medication. States it was stopped about a week ago. She denies chest pain. She denies short of breath. She has not had any recent antibiotics. Physical Examination: Vital signs reviewed General: Well-nourished, well-developed Head: Normocephalic, atraumatic Eyes: Pupils equal and reactive, extraocular muscles intact Neck, supple, no lymphadenopathy Heart: Regular rate and rhythm Respiratory: No distress, clear bilaterally Abdomen: Soft, nontender, nondistended, no peritoneal signs Back: Nontender Extremities: Nontender, no edema, no cords Skin: Normal color no rash Neuro: Alert and oriented, no focal or lateralizing deficits Test Results: [] Emergency Department Course and Treatment: The patient's symptoms began over the past few days. She recently was stopped cold turkey on her gabapentin medication 5 days ago. She had been on 300 mg 3 times a day. She states that she was feeling restless, and the abdominal pain started to come after that. However, given her recent hospitalization history of C. difficile, and other risk factors I did pursue a metabolic work-up. IV was established. Patient was given fluids and analgesics with improvement. CT of her abdomen pelvis does not show any acute process. Lipase and lactate are also negative. On reevaluation, the patient is resting comfortably. I do feel that a lot of the symptoms are likely secondary to her gabapentin withdrawal. I am going to treat her supportively with Bentyl and Zofran. I do not see clear indication for admission as the patient's pain is now improved and there is no evidence of dangerous process. She is comfortable with this plan of care. Treatment Plan: [] Disposition: Discharge Impression: 1. Abdominal cramping 2. Gabapentin withdrawal This note was generated with [employer] dictation software. It may contain incorrect words, spelling, and punctuation that were not noted in review of the chart prior to signing ED Disposition - Plan for ED Patient: Instructions: ED Abdominal Pain Unkn Cause Prescriptions: Ondansetron [Zofran Odt] 4 mg PO Q8H PRN PRN #10 tab PRN Reason: Nausea Dicyclomine HCl [Bentyl] 10 mg PO TIDAC #20 cap Referrals: Akil Kelly DO [Primary Care Provider] -
[2019-04-30] MEDS: 0.9% Normal Saline 1,000 ML 1000 ML IV (07:54)
[2019-04-30] MEDS: Ondansetron 4 MG/2 ML Vial IV (07:54)
[2019-04-30] MEDS: Morphine 4 MG/ML Syringe IV (07:54)
[2019-04-30 08:02] LABS: Absolute Lymphocyte Count 1.39 X10^3/ul (0.83-4.51); Absolute Neutrophil Count 4.1 X10^3/uL (2.0-7.7); Basophil# 0.03 X10^3/uL; Basophil% 0.5 % (0-1); Eosinophil# 0.07 X10^3/uL; Eosinophils% 1.2 % (0-5); Hematocrit 37.1 % (37-47); Hemoglobin 12.2 g/dl (12.0-15.0); Lymphocyte # 1.39 X10^3/ul (4.0); Lymphocyte % 23.3 % (19-41); Mean Corp Hgb Conc 32.9 g/gl (32-36); Mean Corpuscular Hgb 30.2 pg (27.0-32.0); Mean Corpuscular Volume 91.8 fL (81-99); Mean Platelet Vol. 10.3 fl (6.2-12.0); Monocyte# 0.35 X10^3/uL; Monocyte% 5.9 % (0-10); Neutrophil # 4.11 X10^3/uL (2.7-7.7); Neutrophil % 68.8 % (47-70); Platelet Count 324 K/mm3 (150-450); RBC Distribution Width CV 15.1 % (11.6-14.6); RBC Distribution Width SD 50.4 fl (35.1-43.9); Red Blood Count 4.04 M/mm3 (4.2-5.4)
[2019-04-30 08:05] LABS: POSITIVE COUNT NO; POSITIVE DIFFERENTIAL NO; POSITIVE MORPHOLOGY NO
[2019-04-30 08:13] LABS: BUN 15 mg/dL (7-18); Creatinine, Serum 1.67 mg/dL (0.55-1.02); EST Glomerular Filtration Rate 32 mL/min (>60); Estimated Creatinine Clearance 27.07 ml/min; Glucose 106 mg/dL (74-106)
[2019-04-30 08:14] LABS: ALB/GLOB Ratio 0.8 RATIO (0.9-2.4); AST(SGOT) 33 U/L (15-37); Alanine Aminotransfer ALT/SGPT 31 U/L (13-56); Alkaline Phosphatase 87 U/L (45-117); Anion Gap 12 (5-15); Calcium,Total 8.8 mg/dL (8.5-10.1); Chloride 113 mmol/L (98-107); Est Glom Filt Rate - Afr Amer 39 mL/min (>60); Globulin 3.8 g/dL (2.2-4.2); Lipase 36 U/L (73-393); Potassium 4.1 mmol/L (3.5-5.1); Protein, Total 6.8 g/dL (6.4-8.2); Sodium Level 143 mmol/L (136-145)
[2019-04-30 08:23] LABS: Lactic Acid 1.9 mmol/L (0.4-2.0)
[2019-04-30] MEDS: Dicyclomine 10 MG Capsule 20 MG PO (08:50)
[2019-04-30 08:55] VITALS: BP 124/77; PULSE 62; RESP 15; O2SAT 98
== END 2019-04-30 09:26 | disposition home or self-care (01) ==
PROVIDERS: Emergency Provider Emergency Medicine; Family Provider Student in an Organized Health Care Education/Training Program; PCP Student in an Organized Health Care Education/Training Program
DX: R10.9 Unspecified abdominal pain (principal); F19.939 Other psychoactive substance use, unspecified with withdrawal, unspecified; R19.7 Diarrhea, unspecified; R11.0 Nausea; E11.9 Type 2 diabetes mellitus without complications; K21.9 Gastro-esophageal reflux disease without esophagitis; Z86.19 Personal history of other infectious and parasitic diseases
CPT/HCPCS: 36415; 74176; 80053; 83605; 83690; 85025; 96361; 96374; 96375; 99285; J7030; Q9967; A4216; J2405

== ENCOUNTER → 2019-05-07 15:41 | Outpatient (CLI) | payer MEDICARE, SELFPAY ==
[2019-04-30 07:01] VITALS: BMI 29.0
== END ==
PROVIDERS: Family Provider Student in an Organized Health Care Education/Training Program; PCP Student in an Organized Health Care Education/Training Program; Referring Provider Nurse Practitioner Adult Health; Visit Provider Nurse Practitioner Adult Health
DX: A04.72 Enterocolitis due to Clostridium difficile, not specified as recurrent (principal)
CPT/HCPCS: 82274; 87493; 87506

== ENCOUNTER → 2019-05-21 13:22 | Outpatient (CLI) | payer MEDICARE, SELFPAY ==
[2019-04-30 07:01] VITALS: BMI 29.0
[2019-05-21 14:11] LABS: Hematocrit 33.8 % (37-47); Hemoglobin 10.7 g/dl (12.0-15.0); Mean Corp Hgb Conc 31.7 g/gl (32-36); Mean Corpuscular Volume 94.7 fL (81-99); Mean Platelet Vol. 10.9 fl (6.2-12.0); Platelet Count 200 K/mm3 (150-450); RBC Distribution Width CV 15.3 % (11.6-14.6); RBC Distribution Width SD 52.9 fl (35.1-43.9); Red Blood Count 3.57 M/mm3 (4.2-5.4); White Blood Count 6.5 K/mm3 (4.4-11.0)
[2019-05-21 14:13] LABS: Scan Indicated on CBC? Y/N NO
[2019-05-21 14:32] LABS: Albumin, Serum 2.6 g/dL (3.2-5.0); BUN 21 mg/dL (7-18); BUN/Creat Ratio 13.2 RATIO (10-20); Calcium,Total 8.7 mg/dL (8.5-10.1); Chloride 111 mmol/L (98-107); Creatinine, Serum 1.59 mg/dL (0.55-1.02); EST Glomerular Filtration Rate 34 mL/min (>60); Est Glom Filt Rate - Afr Amer 41 mL/min (>60); Glucose 95 mg/dL (74-106); Potassium 5.1 mmol/L (3.5-5.1); Sodium Level 146 mmol/L (136-145)
[2019-05-21 14:37] LABS: Protein, Urine (Random) 29.6 mg/dL (<11.9); Protein:Creat Ratio 320 mg/g CRE (0-200)
[2019-05-21 14:40] LABS: PTHIN 106.3 pg/mL (18.4-80.1); Vitamin D,25 Hydroxy 38.5 ng/mL (29.95-100.01)
== END ==
PROVIDERS: Family Provider Student in an Organized Health Care Education/Training Program; PCP Student in an Organized Health Care Education/Training Program; Referring Provider Internal Medicine Nephrology; Visit Provider Internal Medicine Nephrology
DX: N18.4 Chronic kidney disease, stage 4 (severe) (principal)
CPT/HCPCS: 36415; 80069; 82306; 82570; 83970; 84156; 85027

== ENCOUNTER → 2019-06-23 15:43 | Outpatient (CLI) | payer MEDICARE, SELFPAY ==
[2019-06-23 16:54] LABS: Hematocrit 36.1 % (37-47); Hemoglobin 11.6 g/dL (12.0-15.0); Mean Corp Hgb Conc 32.1 g/dL (32-36); Mean Corpuscular Hgb 31.3 pg (27.0-32.0); Mean Corpuscular Volume 97.3 fL (81-99); Mean Platelet Vol. 12.8 fl (6.2-12.0); Platelet Count 139 K/mm3 (150-450); RBC Distribution Width CV 14.6 % (11.6-14.6); RBC Distribution Width SD 51.1 fl (35.1-43.9); Red Blood Count 3.71 M/mm3 (4.2-5.4); White Blood Count 5.5 K/mm3 (4.4-11.0)
[2019-06-23 17:09] LABS: ALB/GLOB Ratio 1.1 RATIO (0.9-2.4); AST(SGOT) 20 U/L (15-37); Alanine Aminotransfer ALT/SGPT 20 U/L (13-56); Albumin, Serum 3.5 g/dL (3.2-5.0); Alkaline Phosphatase 84 U/L (45-117); Anion Gap 6 (5-15); BUN 17 mg/dL (7-18); BUN/Creat Ratio 11.7 RATIO (10-20); Chloride 110 mmol/L (98-107); Creatinine, Serum 1.45 mg/dL (0.55-1.02); EST Glomerular Filtration Rate 38 mL/min (>60); Est Glom Filt Rate - Afr Amer 46 mL/min (>60); Globulin 3.1 g/dL (2.2-4.2); Glucose 85 mg/dL (74-106); Potassium 4.2 mmol/L (3.5-5.1); Protein, Total 6.6 g/dL (6.4-8.2); Sodium Level 142 mmol/L (136-145)
[2019-06-23 17:16] LABS: Hemoglobin A1c 5.6 % (4.2-6.3)
== END ==
PROVIDERS: Family Provider Student in an Organized Health Care Education/Training Program; PCP Student in an Organized Health Care Education/Training Program; Referring Provider Student in an Organized Health Care Education/Training Program; Visit Provider Student in an Organized Health Care Education/Training Program
DX: E11.9 Type 2 diabetes mellitus without complications (principal); Z79.4 Long term (current) use of insulin
CPT/HCPCS: 80053; 83036; 85027

== ENCOUNTER → 2019-09-07 10:23 | Outpatient (CLI) | payer MEDICARE, SELFPAY ==
[2019-09-07 11:35] LABS: Absolute Lymphocyte Count 1.54 X10^3/uL (0.83-4.51); Absolute Neutrophil Count 4.1 X10^3/uL (2.0-7.7); Basophil# 0.03 X10^3/uL; Basophil% 0.5 % (0-1); Eosinophils% 3.2 % (0-5); Hematocrit 38.9 % (37-47); Hemoglobin 12.3 g/dL (12.0-15.0); Lymphocyte # 1.54 X10^3/ul (4.0); Lymphocyte % 24.3 % (19-41); Mean Corp Hgb Conc 31.6 g/dL (32-36); Mean Corpuscular Hgb 30.6 pg (27.0-32.0); Mean Corpuscular Volume 96.8 fL (81-99); Mean Platelet Vol. 12.4 fl (6.2-12.0); Monocyte# 0.46 X10^3/uL; Monocyte% 7.3 % (0-10); NRBC Flagged by Analyzer 0 % (0-5); Neutrophil # 4.09 X10^3/uL (2.7-7.7); Neutrophil % 64.5 % (47-70); Platelet Count 142 K/mm3 (150-450); RBC Distribution Width CV 12.9 % (11.6-14.6); RBC Distribution Width SD 46.1 fl (35.1-43.9); Red Blood Count 4.02 M/mm3 (4.2-5.4); White Blood Count 6.3 K/mm3 (4.4-11.0)
[2019-09-07 11:43] LABS: Protein, Urine (Random) 25.1 mg/dL (<11.9); Protein:Creat Ratio 218 mg/g CRE (0-200)
[2019-09-07 12:05] LABS: AST(SGOT) 23 U/L (15-37); Alanine Aminotransfer ALT/SGPT 23 U/L (13-56); Albumin, Serum 3.7 g/dL (3.2-5.0); Alkaline Phosphatase 80 U/L (45-117); BUN 26 mg/dL (7-18); BUN/Creat Ratio 17.2 RATIO (10-20); Calcium,Total 9.4 mg/dL (8.5-10.1); Chloride 111 mmol/L (98-107); Creatinine, Serum 1.51 mg/dL (0.55-1.02); EST Glomerular Filtration Rate 36 mL/min (>60); Est Glom Filt Rate - Afr Amer 44 mL/min (>60); Glucose 68 mg/dL (74-106); Phosphorus 3.6 mg/dL (2.5-4.9); Potassium 4.4 mmol/L (3.5-5.1); Sodium Level 141 mmol/L (136-145)
[2019-09-07 12:12] LABS: PTHIN 75.5 pg/mL (18.4-80.1); Vitamin D,25 Hydroxy 44.7 ng/mL (29.95-100.01)
== END ==
PROVIDERS: Family Provider Student in an Organized Health Care Education/Training Program; PCP Student in an Organized Health Care Education/Training Program; Referring Provider Internal Medicine Nephrology; Visit Provider Internal Medicine Nephrology
DX: I12.9 Hypertensive chronic kidney disease with stage 1 through stage 4 chronic kidney disease, or unspecified chronic kidney disease (principal); E11.22 Type 2 diabetes mellitus with diabetic chronic kidney disease; N18.4 Chronic kidney disease, stage 4 (severe); E11.42 Type 2 diabetes mellitus with diabetic polyneuropathy; M06.4 Inflammatory polyarthropathy; M35.00 Sjogren syndrome, unspecified; E78.49 Other hyperlipidemia; K22.70 Barrett's esophagus without dysplasia; K21.0 Gastro-esophageal reflux disease with esophagitis; F32.89 Other specified depressive episodes
CPT/HCPCS: 36415; 80069; 82247; 82306; 82570; 83970; 84075; 84156; 84450; 84460; 85025

== ENCOUNTER → 2019-10-13 11:41 | Outpatient (CLI) | payer MEDICARE, SELFPAY ==
[2019-10-13 12:19] LABS: Amphetamine Urine VISTA NEGATIVE (<1000 ng/mL); Barbiturate Urine VISTA NEGATIVE (< 200 ng/mL); Benzodiazepine Urine VISTA NEGATIVE (< 200 ng/mL); Cocaine Urine VISTA NEGATIVE (< 300 ng/mL); Ecstacy Urine VISTA NEGATIVE (< 500 ng/mL); Methadone Urine VISTA NEGATIVE (< 300 ng/mL); PCP Urine VISTA NEGATIVE (< 25 ng/mL); THC Urine VISTA NEGATIVE (< 50 ng/mL); Vista UDS pH Range 5
== END ==
PROVIDERS: Family Provider Student in an Organized Health Care Education/Training Program; PCP Student in an Organized Health Care Education/Training Program; Referring Provider Anesthesiology Pain Medicine; Visit Provider Anesthesiology Pain Medicine
DX: F11.20 Opioid dependence, uncomplicated (principal)
CPT/HCPCS: 80307

== ENCOUNTER → 2019-12-28 | Outpatient (CLI) | payer MEDICARE, SELFPAY ==
[2019-12-28 13:49] LABS: Absolute Neutrophil Count 3.1 X10^3/uL (2.0-7.7); Basophil# 0.04 X10^3/uL; Basophil% 0.8 % (0-1); Eosinophil# 0.34 X10^3/uL; Eosinophils% 6.7 % (0-5); Hematocrit 38.4 % (37-47); Hemoglobin 12.4 g/dL (12.0-15.0); Lymphocyte % 23.6 % (19-41); Mean Corp Hgb Conc 32.3 g/dL (32-36); Mean Corpuscular Hgb 31.6 pg (27.0-32.0); Mean Corpuscular Volume 97.7 fL (81-99); Mean Platelet Vol. 12.5 fl (6.2-12.0); Monocyte# 0.38 X10^3/uL; Monocyte% 7.5 % (0-10); NRBC Flagged by Analyzer 0 % (0-5); Neutrophil # 3.12 X10^3/uL (2.7-7.7); Neutrophil % 61.2 % (47-70); Platelet Count 152 K/mm3 (150-450); RBC Distribution Width CV 12.9 % (11.6-14.6); RBC Distribution Width SD 46.6 fl (35.1-43.9); Red Blood Count 3.93 M/mm3 (4.2-5.4); White Blood Count 5.1 K/mm3 (4.4-11.0)
[2019-12-28 14:04] LABS: ALB/GLOB Ratio 1.1 RATIO (0.9-2.4); AST(SGOT) 21 U/L (15-37); Alanine Aminotransfer ALT/SGPT 21 U/L (13-56); Albumin, Serum 3.5 g/dL (3.2-5.0); Alkaline Phosphatase 82 U/L (45-117); Anion Gap 4 (5-15); BUN 23 mg/dL (7-18); BUN/Creat Ratio 15.5 RATIO (10-20); Calcium,Total 9.5 mg/dL (8.5-10.1); Chloride 112 mmol/L (98-107); Cholesterol 118 mg/dL (200); Creatinine, Serum 1.48 mg/dL (0.55-1.02); EST Glomerular Filtration Rate 37 mL/min (>60); Est Glom Filt Rate - Afr Amer 45 mL/min (>60); Globulin 3.1 g/dL (2.2-4.2); Glucose 103 mg/dL (74-106); High Density Lipoprotein 56 mg/dL; Potassium 4.3 mmol/L (3.5-5.1); Protein, Total 6.6 g/dL (6.4-8.2); Sodium Level 142 mmol/L (136-145); Thyroid Stim Hormone (TSH) 5.17 uIU/mL (0.358-3.74); Triglycerides 99 mg/dL; Very Low Density Lipoprotein 20 mg/dL (5-40)
== END | disposition home or self-care (01) ==
LOC: LABSPEC 13:17
PROVIDERS: PCP Student in an Organized Health Care Education/Training Program; Referring Provider Student in an Organized Health Care Education/Training Program; Visit Provider Student in an Organized Health Care Education/Training Program
DX: E11.9 Type 2 diabetes mellitus without complications (principal); E78.00 Pure hypercholesterolemia, unspecified; Z79.899 Other long term (current) drug therapy; Z79.4 Long term (current) use of insulin
CPT/HCPCS: 80053; 80061; 83036; 84443; 85025

== ENCOUNTER → 2020-02-04 13:42 | Outpatient (CLI) | payer MEDICARE, SELFPAY ==
[2020-02-04 13:42] VITALS: BMI 29.0
--- NOTE | 2020-02-04 13:44 | RAD_ITS ---
STUDY: X-RAY - RIGHT SHOULDER REASON FOR EXAM: Shoulder pain, no trauma. TECHNIQUE: 4 view(s) of the shoulder. COMPARISON: Radiographs 08/25/2018. FINDINGS: There are marginal osteophytes of the humeral head and moderate joint space narrowing of the glenohumeral articulation. There is joint space narrowing of the acromioclavicular joint. Normal acromion. There is cystic change of the greater tuberosity. The soft tissue structures are unremarkable. Normal visualized pulmonary apex. RAD/Shoulder min 2 Views IMPRESSION: Glenohumeral arthrosis. Acromioclavicular arthrosis. Electronically Signed: Junior Sinha MD at 14:20 EST Tel , Service support ,
== END ==
PROVIDERS: PCP Student in an Organized Health Care Education/Training Program; Referring Provider Orthopaedic Surgery; Visit Provider Orthopaedic Surgery
DX: M25.511 Pain in right shoulder (principal)
CPT/HCPCS: 73030

== ENCOUNTER → 2020-02-19 09:12 | Outpatient (CLI) | payer MEDICARE, SELFPAY ==
[2020-02-04 13:45] VITALS: BMI 29.0
--- NOTE | 2020-02-19 09:13 | MRI_ITS ---
STUDY: MRI RIGHT SHOULDER REASON FOR EXAM: Right shoulder pain for 6 months, no specific injury. TECHNIQUE: Standardized fat and water weighted pulse sequences were obtained in all 3 orthogonal planes. COMPARISON: Radiographs 02/04/2020. FINDINGS: There is supraspinatus tendinosis, a low-grade intrasubstance partial thickness tear of the distal anterior supraspinatus tendon (T2 coronal image 15) measuring 0.6 cm in length and a low-grade intrasubstance partial-thickness tear of the posterior supraspinatus tendon (T2 coronal image 12) measuring 1.2 cm in length. Normal infraspinatus tendon. Normal subscapularis tendon. Normal teres minor tendon. Normal supraspinatus muscle. Normal infraspinatus muscle. Normal subscapularis muscle. Normal teres minor muscle. There is glenohumeral arthrosis with small marginal osteophytes of the humeral head and chondral thinning (T2 coronal images 12-14). There is a small glenohumeral joint effusion with fluid extending into the bicipital tendon sheath. There is a small cyst in the greater tuberosity. Normal biceps labral complex. There is tendinosis of the intracapsular long biceps tendon (T2 coronal images 16, 17) and subluxation of the proximal extracapsular long biceps tendon, perched at the lesser tuberosity (proton-density axial series 9 images 14, 15). Normal labrum. Normal capsulo- ligamentous complex. There is acromioclavicular arthrosis with hypertrophic changes abutting the supraspinatus musculotendinous junction (T2 sagittal image 10). There is a Type II morphology (curved), with a neutral orientation. There is a small volume of subacromial-subdeltoid bursal fluid (T2 coronal images 11-15). Normal visualized coracohumeral and coracoacromial ligaments. Normal deltoid muscle. Normal trapezius muscle. MRI/Upper Ext Joint Only(Routine) IMPRESSION: Low-grade intrasubstance partial thickness tears and tendinosis of the supraspinatus tendon. Glenohumeral arthrosis. Tendinosis of the long biceps tendon and subluxation of the proximal extracapsular long biceps tendon. Acromioclavicular arthrosis. Mild subacromial-subdeltoid bursitis. Small glenohumeral joint effusion. Electronically Signed: Junior Sinha MD at 11:20 EDT Tel , Service support ,
== END ==
PROVIDERS: PCP Student in an Organized Health Care Education/Training Program; Referring Provider Orthopaedic Surgery; Visit Provider Orthopaedic Surgery
DX: M75.81 Other shoulder lesions, right shoulder (principal)
CPT/HCPCS: 73221

== ENCOUNTER → 2020-04-21 08:59 | Outpatient (CLI) | payer MEDICARE, SELFPAY ==
[2020-04-19 10:00] VITALS: BMI 29.0
[2020-04-21 09:19] LABS: Absolute Lymphocyte Count 1.54 X10^3/uL (0.83-4.51); Absolute Neutrophil Count 4.1 X10^3/uL (2.0-7.7); Basophil# 0.03 X10^3/uL; Basophil% 0.5 % (0-1); Eosinophil# 0.36 X10^3/uL; Eosinophils% 5.6 % (0-5); Hematocrit 42.5 % (37-47); Hemoglobin 13.6 g/dL (12.0-15.0); Lymphocyte # 1.54 X10^3/ul (4.0); Lymphocyte % 23.8 % (19-41); Mean Corpuscular Hgb 30.6 pg (27.0-32.0); Mean Corpuscular Volume 95.7 fL (81-99); Mean Platelet Vol. 12.2 fl (6.2-12.0); Monocyte% 6.2 % (0-10); NRBC Flagged by Analyzer 0 % (0-5); Neutrophil # 4.11 X10^3/uL (2.7-7.7); Neutrophil % 63.6 % (47-70); Platelet Count 127 K/mm3 (150-450); RBC Distribution Width CV 12.5 % (11.6-14.6); RBC Distribution Width SD 43.8 fl (35.1-43.9); Red Blood Count 4.44 M/mm3 (4.2-5.4); White Blood Count 6.5 K/mm3 (4.4-11.0)
[2020-04-21 09:49] LABS: ALB/GLOB Ratio 1.1 RATIO (0.9-2.4); AST(SGOT) 26 U/L (15-37); Alanine Aminotransfer ALT/SGPT 27 U/L (13-56); Albumin, Serum 3.9 g/dL (3.2-5.0); Alkaline Phosphatase 92 U/L (45-117); Anion Gap 6 (5-15); BUN 21 mg/dL (7-18); BUN/Creat Ratio 14.4 RATIO (10-20); Calcium,Total 9.5 mg/dL (8.5-10.1); Chloride 108 mmol/L (98-107); Creatinine, Serum 1.46 mg/dL (0.55-1.02); EST Glomerular Filtration Rate 38 mL/min (>60); Est Glom Filt Rate - Afr Amer 45 mL/min (>60); Globulin 3.6 g/dL (2.2-4.2); Glucose 100 mg/dL (74-106); Potassium 4.1 mmol/L (3.5-5.1); Protein, Total 7.5 g/dL (6.4-8.2); Sodium Level 141 mmol/L (136-145)
== END ==
PROVIDERS: PCP Student in an Organized Health Care Education/Training Program; Referring Provider Internal Medicine Rheumatology; Visit Provider Internal Medicine Rheumatology
DX: M06.4 Inflammatory polyarthropathy (principal); K21.0 Gastro-esophageal reflux disease with esophagitis; I10 Essential (primary) hypertension; E11.42 Type 2 diabetes mellitus with diabetic polyneuropathy; K22.70 Barrett's esophagus without dysplasia
CPT/HCPCS: 36415; 80053; 85025

== ENCOUNTER 2020-05-04 08:02 | Day surgery (SDC) | payer MEDICARE, SELFPAY ==
[2020-03-01 13:58] VITALS: BMI 29.0
[2020-04-19 10:00] VITALS: BMI 29.0
--- NOTE | 2020-04-19 10:00 | HP_ITS ---
ADDENDUM by Dr. Opal Prado DO on 04/19/20 at 1248 Addendum entered and electronically signed by Opal Prado DO 04/19/20 12:48: Please note did discuss COVID risks with patient and patient elected to proceed with surgery. Also discussed the fact that I have not been tested for COVID and there is always a risk that I am carrying the virus asymptomatically without knowing. Assessment & Plan Problems 1. 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 Opal Prado DO Reviewed the pre-operative plans with the patient. Risks and benefits of the procedure were fully explained, including but not limited to infection, neurovascular injury, continued pain, arthritis, stiffness, need for further surgery, re-injury, DVT, PE, general risks of anesthesia, and loss of limb or life. The patient understands all the risks and does wish to proceed with written consent. Reviewed the post op sling use and PT based on what is done during surgery. Reviewed the tenodesis vs tenotomy and her return to [facility]. Follow up postop or sooner if pain, swelling, numbness or associated symptoms, or concerns develop. All questions answered. Patient in agreement of plan. 04/19/20 1248 <Electronically signed by Opal sanford DO> Date _ Opal Prado DO I have re-examined the patient. There are no clinical changes since date of exam. We discussed the current risk associated COVID-19. While it is understood that there is a community spread of COVID 19 the risk of todd COVID-19 while at [facility] is very low, however, the risk cannot be completely mitigated because of the community spread of the disease. We discussed in detail the risk of exposure to and or potential harm posed by the COVID-19 virus with having a surgery/procedure at this time versus the risk of delaying the surgery/procedure. Is not possible to know either the risk of delaying the surgery procedure or chance of getting an infection with perfect accuracy, but a joint decision was made to proceed at this time with a schedule surgery/procedure as indicated on the consent form. Patient was notified that we will need to comply with any screening or testing [facility] wishes to perform or that surgery may be delayed for any positive results. cc: ~* Signed Intake Vital Signs 04/19/20 BMI 29.0 Intake Visit Reasons: right shoulder Is patient in pain?: Yes Pain scale (1-10): 7 Allergies ciprofloxacin Allergy (Verified 03/01/20 13:45) Rash Iodinated Contrast Media [CONTRASTS] Allergy (Verified 03/01/20 13:45) blisters Sulfa (Sulfonamide Antibiotics) Allergy (Verified 03/01/20 13:45) Hives colored dyes Adverse Reaction (Uncoded 04/30/19 07:06) blisters marigold Adverse Reaction (Uncoded 04/30/19 07:06) blisters Medications Gabapentin [Neurontin] 300 mg PO TIDCM 12/21/15 [History Confirmed 04/19/20] Hydrocodone Bitart/Apap 5-325 [[place] 5/325] 5 - 325 mg PO BID 12/21/15 [History Confirmed 04/19/20] Hydroxychloroquine [Plaquenil] 200 mg PO DAILY 12/21/15 [History Confirmed 04/19/20] Omeprazole [Prilosec] 20 mg PO DAILY 12/21/15 [History Confirmed 04/19/20] Albuterol Inhaler [Ventolin Hfa] 1 - 2 puff INHALATION Q6H PRN PRN 03/24/19 [History Confirmed 04/19/20] Aspirin E.C. [Ecotrin] 81 mg PO DAILY@0800 03/24/19 [History Confirmed 04/19/20] Ferrous Sulfate 325 mg PO BIDCM 03/24/19 [History Confirmed 04/19/20] Losartan Potassium [Cozaar] 100 mg PO DAILY 03/24/19 [History Confirmed 04/19/20] Metformin HCl 1,000 mg PO BID 03/24/19 [History Confirmed 04/19/20] Multivit-Min/Iron/Folic/Lutein [Centrum Silver Women Tablet] 1 tab PO DAILY 03/24/19 [History Confirmed 04/19/20] Sertraline HCl [Zoloft] 25 mg PO DAILY 03/24/19 [History Confirmed 04/19/20] Simvastatin [Zocor] 80 mg PO QHS 03/24/19 [History Confirmed 04/19/20] Ondansetron [Zofran Odt] 4 mg PO Q8H PRN PRN #10 tab 04/30/19 [Rx Confirmed 04/19/20] PFSH Social History (Updated 04/19/20 @ 10:[address] Opal Prado DO) Smoking Status: Former smoker HPI right shoulder: Surgical H&P: Yes Details: Parts of this documentation were recorded by a scribe, this documentation accurately reflects the service provided and the decisions made by me, Dr. Opal Prado, 04/19/20 0922. ISIS JONES is a 69 year old F here today for right shoulder pain, she does continue to go to PT and has improved rom but still limited. Denies numbness, tingling or other associated symptoms. Her pain is all over but has the worst pain in the biceps and lateral arm with certain movements. Patient sees Dr Olson for pain management and prescribes [place] for her. Ortho Exam Right Shoulder Skin/Wound: Yes CDI Testing: Positive TTP Biceps; negative AROM-Forward Elevation 0-180 (100) or PROM-Forward Elevation 0-180 (165) Assessment & Plan Problems 1. 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 Risks and benefits of the procedure were fully explained, including but not limited to infection, neurovascular injury, continued pain, arthritis, stiffness, need for further surgery, re-injury, DVT, PE, general risks of anesthesia, and loss of limb or life. The patient understands all the risks and does wish to proceed with written consent. Reviewed the post op sling use and PT based on what is done during surgery. Reviewed the tenodesis vs tenotomy and her return to [facility]. Follow up postop or sooner if pain, swelling, numbness or associated symptoms, or concerns develop. All questions answered. Patient in agreement of plan. 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
--- NOTE | 2020-05-03 08:47 | EKG12_ITS ---
Test Reason : PRE OP Blood Pressure : / mmHG Vent. Rate : 059 BPM Atrial Rate : 059 BPM P-R Int : 158 ms QRS Dur : 072 ms QT Int : 422 ms P-R-T Axes : -25 007 021 degrees QTc Int : 417 ms Sinus bradycardia with sinus arrhythmia Inferior infarct , age undetermined, cannot be excluded Abnormal ECG Confirmed by ANTOINE ROBERTS, PEDRO ([id number]), international editorial producer KARTIK ANNE ([id number]) on 05/04/2020 9:31:51 AM Referred By: Opal Prado Confirmed By:PEDRO SCHULTZ MD
[2020-05-03 09:55] LABS: Hemoglobin A1c 5.9 % (3.8-5.6)
[2020-05-04 08:30] LABS: Bedside Glucose 95 mg/dL (70-110)
[2020-05-04 08:32] VITALS: BP 143/84; PULSE 60; RESP 15; TEMP 36.6; O2SAT 100; BMI 30.1
[2020-05-04] MEDS: Lactated Ringers 1,000 ML 100 ML IV (08:45)
--- NOTE | 2020-05-04 09:59 | OP.PCM_ITS ---
Report of Operation Date of Procedure: 05/04/20 Pre-Operative Diagnosis: right shoulder rotator cuff tear, biceps tendinosis, subacromial impingement syndrome Post-Operative Diagnosis: same Surgery/Procedure Performed:: sals, subscap and supraspinatus tear, sad/acromioplasty, biceps tenotomy orthodontic treatment coordinator: Seth Henderson Type of Anesthesia:: General/Regional Anesthesiologist: Lei Ricketts Estimated Blood Loss (mL): min Fluids Replaced: see anesthesia chart Description of Procedure: Preoperative note Patient is a 69-year-old female with continued right shoulder pain. Patient has weakness and pain with range of motion. Patient failed conservative treatment MRI confirms rotator cuff tear as well as biceps tendinosis as well as supra subacromial impingement. Risk benefits and alternatives were discussed with patient. Risk including but not limited to blood loss, blood clot, infection, neurovascular drain, failure procedure, loss of life and loss of limb. We discussed the current risk associated COVID-19. While it is understood that there is a community spread of COVID 19 the risk of todd COVID-19 while at [facility] is very low, however, the risk cannot be completely mitigated because of the community spread of the disease. We discussed in detail the risk of exposure to and or potential harm posed by the COVID-19 virus with having a surgery/procedure at this time versus the risk of delaying the surgery/procedure. Is not possible to know either the risk of delaying the surgery procedure or chance of getting an infection with perfect accuracy, but a joint decision was made to proceed at this time with a schedule surgery/procedure as indicated on the consent form. Patient was notified that we will need to comply with any screening or testing [facility] wishes to perform or that surgery may be delayed for any positive results. Patient is aware would like proceed with right shoulder arthroscopy repair as indicated. Operative note Patient seen and examined preop holding area. Right shoulder was marked. Patient received a preoperative regional block. Patient brought to the operating room and placed supine on the operating table. Signed, anesthesia, antibiotics were administered. All bony prominences well-padded and SCDs placed on her bilateral lower extremity. Patient was placed in beachchair positioning custodial through we did recheck her blood pressure which was stable throughout. We then prepped and draped the right arm as usual standard technique. We marked out our incision for bony landmarks and our portal placement. We then insufflated the joint from the posterior aspect and had good return. Timeout was performed. We then made an 11 using 11 blade to create a posterior incision and began our diagnostic arthroscopy. She had grade 3 eburnated changes of both her humerus as well as her glenoid more on the humeral side superior and medially consistent with glenohumeral arthritis. Created anterior portal under direct visualization. The biceps was torn off partially off of its insertion on the labrum it was further truncated we used a shaver to trim back any loose pieces of the labrum at the insertion. We then were able to probe to visualize and doing a humeral shuck test and noted that the subscap was partially torn off of its leading edge. We then created a bed on the lesser tuberosity in standard technique placed to cinch fiber links into the tendon. The tendon subscap down to bone using a push lock Arthrex. We had good yazdanism of her footprint at that point. We then moved to the rotator cuff there was a full-thickness leading edge tear by a centimeter in width of the supraspinatus will be back to the infraspinatus with infraspinatus spinatus was intact in its footprint. We then gently undersurface tear cleaned up the the tearing on the undersurface and then marked utterance rotator cuff tear with a 18-gauge spinal. We then moved to the subacromial space. We created a lateral portal under direct visualization. She had extensive bursitis throughout the subacromial space. This was resected with combination of a shaver and an ablator to coagulating bleeders. We then vision visualize the spinal needle we will place while we are intra-articular and we noted that it was a full-thickness and the tendon itself was quite thin just posterior to the full-thickness extending more posteriorly as we account and visualize this intra-articularly as well. We is a shaver to trim back any loose pieces of the rotator cuff we then used a shaver and a bur and an ablator to create our bed for our cord cortical screw. We then placed an Arthrex cortex 655 cortical screw and that was double loaded. We then placed the sequentially in standard technique we tied these and then placed the tied limbs down to 2 lateral swivel locks Arthrex we had good yazdanism of our footprint at this point there were no obvious dogears. We then irrigated the shoulder with copious amounts of sterile saline. We cleaned the portals with 2- 0 Vicryl and 4-0 Monocryl. Sterile dressings were applied. Sling was applied. Patient tolerated procedure well no complication transferred recovery room in stable condition. Postoperative note Discussed with on the phone Unable to fill [place] prescription as patient does not qualify through insurance because she is already has some at home. Call with increased pain numbness tingling or other issues arise When patient runs out of her prescription we will call we can call in the morning we can E scribe her another [place] prescription We will give pictures to patient in 2 weeks [employer] disclaimer This note was generated with [employer] dictation software. It may contain incorrect words, spelling, and punctuation that were not noted in checking the note before signing.
--- NOTE | 2020-05-04 09:59 | DCINST_ITS ---
Discharge Diet: No Restrictions - take arm out of sling and do pendulums at least three times a day, remove dressing and apply bandaids to incision sites after 4/5 days and may get incision wet at that time, sling all other times and at night, call with concerns Discharge Activity: May Not Drive May shower in (days): 1 Ice area for (Minutes): 20 - Every hour while awake. Weight Bearing Status: Weight bearing as tolerated Keep extremity elevated above heart level: Operative Extremity Call your doctor if your incision/area has: Continuous Slow Oozing, Sudden Increased Bleeding, Increased Pain/ Swelling, Increased Redness, Foul Smelling Discharge Call your doctor if you observe: Fever of 101 or Higher, Coldness, Increased Pain, Numbness or Tingling, Change in Color, Calf discomfort Allergies/Adverse Reactions: Allergies ciprofloxacin Allergy (Verified 05/04/20 08:20) Rash Iodinated Contrast Media [CONTRASTS] Allergy (Verified 05/04/20 08:20) blisters Sulfa (Sulfonamide Antibiotics) Allergy (Verified 05/04/20 08:20) Hives colored dyes Adverse Reaction (Uncoded 05/04/20 08:20) blisters Pt reports having had a pair of sandals that got wet and caused her feet to break out in blisters marigold Adverse Reaction (Uncoded 05/04/20 08:20) blisters Medications to take at Discharge Gabapentin [Neurontin] 300 mg PO DAILY 12/21/15 Hydrocodone Bitart/Apap 5-325 [[place] 5/325] 5 - 325 mg PO BID 12/21/15 Hydroxychloroquine [Plaquenil] 200 mg PO DAILY 12/21/15 Omeprazole [Prilosec] 20 mg PO DAILY 12/21/15 Aspirin E.C. [Ecotrin] 81 mg PO DAILY@0800 03/24/19 Ferrous Sulfate 65 mg PO DAILY 03/24/19 Losartan Potassium [Cozaar] 100 mg PO DAILY 03/24/19 Metformin HCl 1,000 mg PO DAILY 03/24/19 Multivit-Min/Iron/Folic/Lutein [Centrum Silver Women Tablet] 1 tab PO DAILY 03/24/19 Sertraline HCl [Zoloft] 50 mg PO DAILY 03/24/19 Simvastatin [Zocor] 80 mg PO QHS 03/24/19 Lactobacillus Acidophilus [Acidophilus] 1 ea PO DAILY 04/27/20 Tizanidine HCl 2 mg PO DAILY 04/27/20 Hydrocodone Bitart/Apap 5-325 [[place] 5MG-325MG] 1 - 2 tab PO Q6H PRN PRN 5 Days #40 tab 05/04/20 The following prescriptions were given: Hydrocodone Bitart/Apap 5-325 [[place] 5MG-325MG] 1 - 2 tab PO Q6H PRN PRN 5 Days #40 tab PRN Reason: Pain Transmission Status: Received by [facility] Primary Care Physician: Akil Kelly DO [Primary Care Provider] - Test Results: Test results from this visit will be discussed in further detail at your follow- up appointment, if applicable. Please Follow Up With: Opal Prado DO - [phone]
[2020-05-04] MEDS: Cefazolin 2 GM in 0.9% Normal Saline 100 ML IV (10:34)
[2020-05-04] MEDS: Mupirocin Ointment 22gm Tube 1 APPLIC (11:40)
[2020-05-04 12:52] VITALS: BP 143/72; BP 143/84; PULSE 74; RESP 16; TEMP 36.3; O2SAT 99
[2020-05-04 13:00] VITALS: BP 137/79; BP 143/84; PULSE 76; RESP 14; O2SAT 98
[2020-05-04 13:15] VITALS: BP 143/84; BP 145/75; PULSE 75; RESP 14; O2SAT 98
[2020-05-04 13:30] VITALS: BP 142/68; BP 143/84; PULSE 72; RESP 14; TEMP 36.2; O2SAT 97
[2020-05-04 14:09] VITALS: BP 142/78; BP 143/84; PULSE 73; RESP 16; TEMP 36.2; O2SAT 97
== END 2020-05-04 14:31 | disposition home or self-care (01) ==
LOC: SDC 08:03 → AC 08:04
PROVIDERS: Anesthesiology; PCP Student in an Organized Health Care Education/Training Program; Referring Provider Orthopaedic Surgery; Visit Provider Orthopaedic Surgery
PROC: (CPT 29827; principal; 2020-05-04 09:50)
DX: M75.101 Unspecified rotator cuff tear or rupture of right shoulder, not specified as traumatic (principal); M75.41 Impingement syndrome of right shoulder; M25.311 Other instability, right shoulder; M75.51 Bursitis of right shoulder; E11.22 Type 2 diabetes mellitus with diabetic chronic kidney disease; I12.9 Hypertensive chronic kidney disease with stage 1 through stage 4 chronic kidney disease, or unspecified chronic kidney disease; N18.3 Chronic kidney disease, stage 3 (moderate); G25.81 Restless legs syndrome; D64.9 Anemia, unspecified; F32.9 Major depressive disorder, single episode, unspecified; Z79.51 Long term (current) use of inhaled steroids; Z79.84 Long term (current) use of oral hypoglycemic drugs; Z79.82 Long term (current) use of aspirin; Z79.899 Other long term (current) drug therapy; Z88.8 Allergy status to other drugs, medicaments and biological substances; Z88.2 Allergy status to sulfonamides; Z87.891 Personal history of nicotine dependence; Z11.59 Encounter for screening for other viral diseases
CPT/HCPCS: 29826; 29827; 64415; 76942; 36415; 82962; 83036; 87635; 93005; G2023; J7120; C1713; J2405; U0003

== ENCOUNTER 2020-05-16 12:48 | Outpatient (RCR) | payer MEDICARE, SELFPAY ==
[2020-05-16 09:41] VITALS: BMI 30.1
== END 2020-05-16 19:00 | disposition home or self-care (01) ==
LOC: PT 12:48
PROVIDERS: PCP Student in an Organized Health Care Education/Training Program; Referring Provider Physician Assistant; Visit Provider Physician Assistant
DX: Z98.890 Other specified postprocedural states (principal)

== ENCOUNTER → 2020-05-23 09:25 | Outpatient (CLI) | payer MEDICARE, SELFPAY ==
[2020-05-16 09:41] VITALS: BMI 30.1
[2020-05-23 10:08] LABS: Hematocrit 40.6 % (37-47); Hemoglobin 12.9 g/dL (12.0-15.0); Mean Corp Hgb Conc 31.8 g/dL (32-36); Mean Corpuscular Volume 97.6 fL (81-99); Mean Platelet Vol. 11.8 fl (6.2-12.0); Platelet Count 176 K/mm3 (150-450); RBC Distribution Width CV 13.1 % (11.6-14.6); RBC Distribution Width SD 46.5 fl (35.1-43.9); Red Blood Count 4.16 M/mm3 (4.2-5.4); White Blood Count 3.7 K/mm3 (4.4-11.0)
[2020-05-23 10:23] LABS: Protein, Urine (Random) 23.5 mg/dL (<11.9); Protein:Creat Ratio 226 mg/g CRE (0-200)
[2020-05-23 10:31] LABS: Albumin, Serum 3.8 g/dL (3.2-5.0); BUN 21 mg/dL (7-18); BUN/Creat Ratio 13.1 RATIO (10-20); Calcium,Total 9.7 mg/dL (8.5-10.1); Chloride 108 mmol/L (98-107); EST Glomerular Filtration Rate 34 mL/min (>60); Est Glom Filt Rate - Afr Amer 41 mL/min (>60); Glucose 108 mg/dL (74-106); Phosphorus 3.8 mg/dL (2.5-4.9); Potassium 4.1 mmol/L (3.5-5.1); Sodium Level 140 mmol/L (136-145)
[2020-05-23 13:10] LABS: PTHIN 64.1 pg/mL (18.4-80.1)
[2020-05-23 13:12] LABS: Vitamin D,25 Hydroxy 57.3 ng/mL
== END ==
PROVIDERS: PCP Student in an Organized Health Care Education/Training Program; Referring Provider Internal Medicine Nephrology; Visit Provider Internal Medicine Nephrology
DX: N18.4 Chronic kidney disease, stage 4 (severe) (principal); D64.9 Anemia, unspecified
CPT/HCPCS: 36415; 80069; 82306; 82570; 83970; 84156; 85027

== ENCOUNTER 2020-06-13 10:30 | Outpatient (RCR) | payer MEDICARE, SELFPAY ==
[2020-03-01 13:58] VITALS: BMI 29.0
--- NOTE | 2020-03-03 12:24 | HP.PTEVAL_ITS ---
Patient's Visit Information ISIS JONES is a 69 year old F referred to Physical Therapy by Dr. Opal Min DO with a diagnosis of RIGHT SHLD RTC TEAR AND OA. Date of Evaluation: 03/03/20 Physical Therapist: Michelle Melton PT, Cert MDT - Visit Plan Frequency: 2-3x /Week Duration: 4-6 Weeks Plan: POSTURE CORRECTION/STRENGTHENING, INSTRUCTION IN APPROPRIATE BODY MECHANICS AND ACTIVITY MODIFICATIONS. ALEKSEY UE ROM, STRETCHING AND STRENGTHENING. HEP INSTRUCTION. - Subjective Subjective: Work/Leisure: RETIRED. Disability: YES - LUPUS AND ARTHRITIS. Present symptoms: RIGHT SHLD, ARM, FOREARM PAIN. MAINLY PAIN. SOME TINGLING IN FINGERS. ALEKSEY NECK PAIN RIGHT > LEFT. Present since: ABOUT 6 MONTHS AT LEAST. Pain Scale: Worst - 10/10 Least - 3/10. Currently: 03/11. Commenced as a result of: NO APPARENT REASON. Symptoms at onset: RIGHT SHOULDER PAIN. H/O YEARS OF NECK PAIN. Worse: LIFTING, CROCHETING, JUST USING IT A LOT - RIGHT UE. PUSHING, PULLING, REACHING, DRESSING, BATHING. WEARING BRA. Better: ICE, HEAT, PAIN MEDICINE - [place], JUST NOT USING IT SO MUCH. Disturbed sleep: YES. Previous history/Previous treatment: H/O NECK AND BACK PHYSICAL THERAPY. NO PRIOR H/O SHLD PROBLEMS. NO NECK OR SHLD SURGERY. H/O NECK AND RIGHT SHLD INJECTIONS WITH PAIN MGMT. LAST INJECTION WAS IN JAN FOR RIGHT SHLD AND IT HELPED A LITTLE BIT (DR. PASTOR). LAST NECK INJECTION WAS OCT 2019. This e pisode: NO NEW MEDICINES. CONSULT WITH DR. MIN. R SHLD INJECTION WITH DR. PASTOR. STATES DR. MIN THINKS SHE WILL NEED RIGHT SHLD SURGERY WHEN VIRUS PANDEMIC RESOLVES BUT WANTS HER TO TRY PT IN THE MEAN TIME. Dizziness: NO. Tinnitis: NO. Nausea: NO. Shortness of Breath: NO. Difficulty Swollowing: NO. Gait: NORMAL. Accidents: NO. Unexplained weight loss: NO. Imaging: RECENT RIGHT SHLD X-RAYS AND MRI: MPRESSION: Low-grade intrasubstance partial thickness tears and tendinosis of the. supraspinatus tendon. . Glenohumeral arthrosis. . Tendinosis of the long biceps tendon and subluxation of the proximal. extracapsular long biceps tendon. . Acromioclavicular arthrosis. . Mild subacromial-subdeltoid bursitis. . Small glenohumeral joint effusion. . Electronically Signed: Junior Sinha MD. at 11:20 EDT. Tel , Service support , . PMH/Recent major surgery: LUPUS, ARTHRITIS, HTN, NIDDM, STA GE IV KIDNEY FAILURE. H/O NECK AND BACK ISSUES. OTHER: LIVES WITH . DOES NOT DRIVE. - Objective Sitting Posture/Standing Posture: POOR. FH. ROUNDED SHLD'S. INCREASED KYPHOSIS. Active Correction of posture: NE. Other Observations: INDEP GAIT AND TRANSFERS. Motor deficit: RIGHT HANDED WITH A RIGHT KITCHEN SUPERVISOR STRENGTH OF 15 LBS AND 35 LBS LEFT. Sensory deficit: NO. ROM deficit: RIGHT SHLD PROM IN LYING: FLEX 135 DEG, ABD 98 DEG, IR 63 DEG AND ER 38 DEG WITH 50 DEG ABD. RIGHT SHLD AROM IN SITTIN DEG FLEX AND ABD 76 DEG. LEFT UE WFL. Dural Signs: P OSITIVE RIGHT UE. Cervical Mvmt Loss: Flex: NIL. Pro: NIL. Ext: MOD. Ret: JONAS. RSB: JONAS. LSB: MOD. R Rot: MOD. L Rot: MOD. PATIENT C/O INCREASED RIGHT SHLD PAIN WITH EXT, ALEKSEY SB AND RETRACTION ROM TESTING. Postural strength: POOR. Palpation: TENDERNESS WITH LIGHT PALPATION OF C56 REGION, RIGHT UPPER TRAP, RIGHT PERISCAPULAR REGIONS AND ALL AROUND RIGHT SHOULDER JOINT. SHE IS NOT TENDER IN THE SHAFT OF THE HUMERUS OR DOWN INTO THE FOREARM. TREATMENT: NEUROMUSCULAR REEDUCATION - RETRAINING OF MVMT AND POSTURE FOR SITTING, LYING AND STANDING ACTIVITIES. - Goals Goal 1:: DECREASE C/O RIGHT UE SX'S. Goal Time Frame: 4-6 Weeks Goal 2:: INCREASE RIGHT UE FUNCTIONAL ROM Goal Time Frame: 4-6 Weeks Goal 3:: INCREASE RIGHT UE FUNCTIONAL STRENGTH Goal Time Frame: 4-6 Weeks Goal 4:: INSTRUCT IN PROPHYLAXIS Goal Time Frame: 4-6 Weeks - Rehabilitation Potential Rehabilitation Potential: Fair - Anticipated Interventions Patient/Client Instruction: Educate patient on: Condition, Plan of Care, Risk Factors, Benefits of Fitness Program For the Purpose of:: To improve self management Therapeutic Exercise to Include: Strength training, Body mechanics, Postural training, Flexibilty training, Neuromotor development, Passive ROM, Active ROM, Scapular Strength/Stabilization For the Purpose of:: To decrease pain, To increase ROM, To improve muscle performance and motor function, To increase tolerance to activity/co ndition/position, To improve ability of physical actions for home/community/work/leisure Cryotherapy (ice pack, ice massage): Yes Thermo therapy (hot pack): Yes Ultrasound (thermal/non thermal): Yes For the Purpose of:: To decrease pain, To decrease swelling/inflammation, To increase ROM, To improve nutrient delivery to tissue Thank you for the opportunity to evaluate your patient. For Medicare and Medicare HMO plans, please review the plan of care and approve it. It will need to be FAXED BACK to us at [phone] for Medicare purposes. For Medicare only, by signing this I certify the plan of care. Please let me know if there are questions or concerns regarding this plan of care. Physician Signature: Date:
--- NOTE | 2020-04-05 13:54 | HP.PTREVAL ---
Dr. Opal Prado, DO, It has been my pleasure to treat ISIS JONES over the last 8 visits for RIGHT SHLD RTC TEAR AND OA. Please see the progress note below for an update on the physical therapy plan of care! Subjective: PATIENT REPORTS SHE DOES NOT HAVE AN NEGRITA'T FOR SURGERY YET AND WANTS TO CONTINUE PT. REPORTS SHE HAS SEEN SOME IMPROVEMENT BUT IT STILL HURTS A LOT. DR. PASTOR DID NOT RECOMMEND SHLD INJECTION DUE TO SURGERY RECOMMENDATION. STATES SHE OVER-DID-IT SATURDAY MOVING FURNITURE. PATIENT REPORTS SHE DOES GET SOME [place]IEF [place] ABLE TO SET UP A OZ AT HER GRAND-DAUGHTERS HOUSE. Objective/Function: PATIENT WAS SEEN TODAY FOR RE-ASSESSMENT OF PROGRESS TOWARD THE SET PT GOALS AND THE NEED FOR FURTHER PHYSICAL THERAPY VS READINESS FOR DISCHARGE. PATIENT IS MAKING SLOW PROGRESS AND IS A GOOD CANDIDATE TO CONTINUE PT. PATIENT IS AGREEABEL. UPON EXAM TODAY: Motor deficit: PATIENT IS RIGHT HANDED WITH A RIGHT PICKER TENDER HELPER STRENGTH OF 25 LBS AND 38 LBS LEFT. Sensory deficit: NO. ROM deficit: RIGHT SHLD PROM IN LYING: FLEX 142 DEG, ABD 105 DEG, IR 65 DEG AND ER 50 DEG WITH 50 DEG ABD. RIGHT SHLD AROM IN SITTIN DEG FLEX AND ABD 98 DEG. RIGHT UE FLEX WALL SLIDE - 144 DEG. LEFT UE WFL. Dural Signs: POSITIVE RIGHT UE. Cervical Mvmt Loss: Flex: NIL. Pro: NIL. Ext: MOD. Ret: JONAS. RSB: MOD LSB: MOD. R Rot: MOD. L Rot: MOD. PATIENT DENIES INCREASED PAIN WITH CERVICAL ROM TESTING ALL PLANES TODAY. CERVICAL ROM TESTING HAS NO EFFECT ON NECK OR SHLD TODAY. Postural strength: POOR. Palpation: TENDERNESS WITH LIGHT PALPATION OF THE RIGHT UPPER TRAP, RIGHT PERISCAPULAR REGIONS AND ALL AROUND RIGHT SHOULDER JOINT. NO NECK TENDERNESS TODAY. SHE IS NOT TENDER IN THE SHAFT OF THE HUMERUS OR DOWN INTO THE FOREARM. Plan Plan: CONTINUE PT 2X'S A WK X 5 WKS. ADD OZ SCAPTION TOLERATED NEXT. US, MANUAL THERAPY, POSTURE CORRECTION/STRENGTHENING, INSTRUCTION IN APPROPRIATE BODY MECHANICS AND ACTIVITY MODIFICATIONS. ALEKSEY UE ROM, STRETCHING AND STRENGTHENING. HEP INSTRUCTION. Goals Goal 1:: DECREASE C/O RIGHT UE SX'S. Goal Time Frame: 4-6 Weeks Goal 2:: INCREASE RIGHT UE FUNCTIONAL ROM Goal Time Frame: 4-6 Weeks Goal 3:: INCREASE RIGHT UE FUNCTIONAL STRENGTH Goal Time Frame: 4-6 Weeks Goal 4:: INSTRUCT IN PROPHYLAXIS Goal Time Frame: 4-6 Weeks Anticipated Interventions Patient/Client Instruction: Educate patient on: Condition, Plan of Care, Risk Factors, Benefits of Fitness Program For the Purpose of:: To improve self management Therapeutic Exercise to Include: Strength training, Body mechanics, Postural training, Flexibilty training, Neuromotor development, Passive ROM, Active ROM, Scapular Strength/Stabilization For the Purpose of:: To decrease pain, To increase ROM, To improve muscle performance and motor function, To increase tolerance to activity/condition/position, To improve ability of physical actions for home/community/work/leisure Cryotherapy (ice pack, ice massage): Yes Thermo therapy (hot pack): Yes Ultrasound (thermal/non thermal): Yes For the Purpose of:: To decrease pain, To decrease swelling/inflammation, To increase ROM, To improve nutrient delivery to tissue Please do not hesitate to contact me at [phone] by phone or if you have questions or concerns regarding this new plan of care! Sincerely, Michelle Melton, PT, Cert MDT
--- NOTE | 2020-04-26 14:11 | HP.PTDCSUM ---
It has been my pleasure to treat ISIS JONES referred by Dr. Opal Prado DO, with the diagnosis of RIGHT SHLD RTC TEAR AND OA for a total of 14 visit(s). Discharge Date: Please see the following information for a summary of their discharge status. Subjective: PATIENT REPORTS SHE REALLY FLARED HER SHLD UP TO 8/10 PAIN OVER THE WEEKEND TRYING TO GET THINGS DONE AROUND THE HOUSE BEFORE SURGERY. R SH Pain Intensity (Out of 10): 6 c-spine Pain Intensity (Out of 10): 2 % Improvement: 50 Objective/Function: PATIENT WAS SEEN TODAY FOR RE-ASSESSMENT OF PROGRESS TOWARD THE SET PT GOALS. UPON EXAM TODAY: ROM deficit: RIGHT SHLD PROM IN LYING: FLEX 141 DEG, ABD 138 DEG, IR 68 DEG AND ER 61 DEG WITH 75 DEG ABD. RIGHT SHLD AROM IN SITTIN DEG FLEX. STANDING FLEXION WITH WALL SLIDE TO 147 DEG. Goal 1:: DECREASE C/O RIGHT UE SX'S. Goal 2:: INCREASE RIGHT UE FUNCTIONAL ROM Goal 3:: INCREASE RIGHT UE FUNCTIONAL STRENGTH Goal 4:: INSTRUCT IN PROPHYLAXIS Plan: HOLD PT PENDING SURGERY If there are questions or concerns regarding this patient's physical therapy, please feel free to call me at [phone]. Thank you for the referral of this patient. Sincerely, Michelle Melton, PT, Cert MDT
--- NOTE | 2020-05-16 16:23 | HP.PTREVAL_ITS ---
Dr. Opal Prado, DO, It has been my pleasure to treat ISIS JONES over the last 15 visits for RIGHT SHLD RTC TEAR AND OA. Please see the progress note below for an update on the physical therapy plan of care! Subjective: THIS PATIENT PRESENTS TO PT NOW S/P RIGHT SHLD SURGERY. SHE HAD A RIGHT RTC REPAIR AND BICEPS TENOTOMY 05/04/20. SHE REPROTS SHE IS HAVING LESS PAIN SINCE THE SURGERY. CURRENTLY 5/10 PAIN IN THE RIGHT SHLD. SHE REPORTS THERE WAS SOME CONFUSION ABOUT HER PAIN PILLS IN THE HOSPITAL SO SHE HAD A LOT OF PAIN RIGHT AFTER SURGERY. BY SATURDAY THEY GOT IT STRAIGHTENED IT OUT. PATIENT REPORTS SHE HAS HAD TWO FOLLOW UPS WITH AVE AND HE SAID EVERYTHING LOOKS GOOD. THE STITCHES WERE TAKEN OUT TODAY. SHE STATES SHE IS GOING TO FOLLOW UP WITH HIM AGAIN IN A MONTH AND SHE IS SUPPOSED TO STAY IN THE SLING UNTIL THEN. SHE HAS ONLY BEEN TAKING THE SLING OFF TO SHOWER AND DO HER PENDULUM EX 2-3 TIMES A DAY. JUSTUS REPORTS SHE IS SLEEPING IN HER BED. Objective/Function: PATIENT WAS SEEN TODAY FOR RE-ASSESSMENT DUE TO HAVING SURGERY 05/04/20. ORDER IS FOR PROM ONLY. TODAY PATIENT HAD 50 DEG OF PASSIVE R IGHT SHLD FLEX, -20 DEG OF EXTERNAL ROTATION, AND APPROX 25% LOSS OF PASSIVE RIGHT ELBOW FLEXION AND EXTENSION. THIS PT DID NOT PUSH INTO PAIN WITH PROM TODAY. PATIENT HAS FULL ACTIVE ROM OF HER RIGHT HAND AND WRIST. NEAR FULL ACTIVE ASSISTIVE RIGHT FOREARM PRONATION AND SUPINATION. PATIENT IS ABLE TO DON AND DOFF RIGHT UE SLING INDEP'LY. Plan Plan: PATIENT REQUESTING FEMALE THERAPISTS ONLY. RESUME PT PER ROTATOR CUFF REPAIR PROTOCOL IN FOLDER IN WORK ROOM. Goals Goal 1:: DECREASE C/O RIGHT UE SX'S. Goal Time Frame: 4-6 Weeks Goal 2:: INCREASE RIGHT UE FUNCTIONAL ROM Goal Time Frame: 4-6 Weeks Goal 3:: INCREASE RIGHT UE FUNCTIONAL STRENGTH Goal Time Frame: 4-6 Weeks Goal 4:: INSTRUCT IN PROPHYLAXIS Goal Time Frame: 4-6 Weeks Anticipated Interventions Patient/Client Instruction: Educate patient on: Condition, Plan of Care, Risk Factors, Benefits of Fitness Program For the Purpose of:: To improve self management Therapeutic Exercise to Include: Strength training, Body mechanics, Postural training, Flexibilty training, Neuromotor development, Passive ROM, Active ROM, Scapular Strength/Stabilization For the Purpose of:: To decrease pain, To increase ROM, To improve muscle performance and motor function, To increase tolerance to activity/condition/position, To improve ability of physical actions for home/community/work/leisure Cryotherapy (ice pack, ice massage): Yes Thermo therapy (hot pack): Yes Ultrasound (thermal/non thermal): Yes For the Purpose of:: To decrease pain, To decrease swelling/inflammation, To increase ROM, To improve nutrient delivery to tissue Please do not hesitate to contact me at [phone] by phone or if you have questions or concerns regarding this new plan of care! Sincerely, Michelle Melton, PT, Cert MDT
--- NOTE | 2020-06-23 11:34 | HP.PTREVAL ---
Dr. Opal Prado, DO, It has been my pleasure to treat ISIS JONES over the last 25 visits for RIGHT SHLD RTC TEAR AND OA. Please see the progress note below for an update on the physical therapy plan of care! Subjective: PATIENT REPORTS HER ARM IS DOING GOOD AND SHE IS BACK TO CROCHETING Objective/Function: PATIENT IS MAKING GOOD PROGRESS TOWARD ALL PT GOALS AND IS A GOOD CANDIDATE TO CONTINUE PT PER PROTOCOL. Plan Plan: TRY SUB MAX 50% SHLD ISO FLEX, EXT, AGD, ER AND IR. PATIENT REQUESTING FEMALE THERAPISTS ONLY. RESUME PT PER ROTATOR CUFF REPAIR PROTOCOL IN FOLDER IN WORK ROOM. Goals Goal 1:: DECREASE C/O RIGHT UE SX'S. Goal Time Frame: 4-6 Weeks Goal Progress: Progressing Goal 2:: INCREASE RIGHT UE FUNCTIONAL ROM Goal Time Frame: 4-6 Weeks Goal Progress: Progressing Goal 3:: INCREASE RIGHT UE FUNCTIONAL STRENGTH Goal Time Frame: 4-6 Weeks Goal Progress: Progressing Goal 4:: INSTRUCT IN PROPHYLAXIS Goal Time Frame: 4-6 Weeks Goal Progress: Progressing Anticipated Interventions Patient/Client Instruction: Educate patient on: Condition, Plan of Care, Risk Factors, Benefits of Fitness Program For the Purpose of:: To improve self management Therapeutic Exercise to Include: Strength training, Body mechanics, Postural training, Flexibilty training, Neuromotor development, Passive ROM, Active ROM, Scapular Strength/Stabilization For the Purpose of:: To decrease pain, To increase ROM, To improve muscle performance and motor function, To increase tolerance to activity/condition/position, To improve ability of physical actions for home/community/work/leisure Cryotherapy (ice pack, ice massage): Yes Thermo therapy (hot pack): Yes Ultrasound (thermal/non thermal): Yes For the Purpose of:: To decrease pain, To decrease swelling/inflammation, To increase ROM, To improve nutrient delivery to tissue Please do not hesitate to contact me at [phone] by phone or if you have questions or concerns regarding this new plan of care! Sincerely, Michelle Melton, PT, Cert MDT
== END 2020-06-13 19:00 | disposition home or self-care (01) ==
LOC: PT 10:30
PROVIDERS: PCP Student in an Organized Health Care Education/Training Program; Referring Provider Orthopaedic Surgery; Visit Provider Orthopaedic Surgery
DX: M75.101 Unspecified rotator cuff tear or rupture of right shoulder, not specified as traumatic (principal); M19.011 Primary osteoarthritis, right shoulder
CPT/HCPCS: 97035; 97110; 97112; 97140; 97162; 97164; 97530

== ENCOUNTER → 2020-06-22 12:40 | Outpatient (CLI) | payer MEDICARE, SELFPAY ==
[2020-06-13 09:28] VITALS: BMI 30.1
[2020-06-22 13:32] LABS: Amphetamine Urine VISTA NEGATIVE (<1000 ng/mL); Barbiturate Urine VISTA NEGATIVE (< 200 ng/mL); Benzodiazepine Urine VISTA NEGATIVE (< 200 ng/mL); Cocaine Urine VISTA NEGATIVE (< 300 ng/mL); Ecstacy Urine VISTA NEGATIVE (< 500 ng/mL); Methadone Urine VISTA NEGATIVE (< 300 ng/mL); PCP Urine VISTA NEGATIVE (< 25 ng/mL); THC Urine VISTA NEGATIVE (< 50 ng/mL); Vista UDS pH Range 6
== END ==
PROVIDERS: PCP Student in an Organized Health Care Education/Training Program; Referring Provider Anesthesiology Pain Medicine; Visit Provider Anesthesiology Pain Medicine
DX: F11.20 Opioid dependence, uncomplicated (principal)
CPT/HCPCS: 80307

== ENCOUNTER → 2020-06-27 | Outpatient (CLI) | payer MEDICARE, SELFPAY ==
[2020-06-13 09:28] VITALS: BMI 30.1
[2020-06-27 14:13] LABS: Hemoglobin A1c 5.6 % (3.8-5.6)
[2020-06-27 14:15] LABS: Free T3 2.7 pg/mL (2.18-3.98); T4 Free Direct 0.89 ng/dL (0.76-1.46)
== END | disposition home or self-care (01) ==
LOC: LABSPEC 12:27
PROVIDERS: PCP Student in an Organized Health Care Education/Training Program; Referring Provider Nurse Practitioner Family; Visit Provider Nurse Practitioner Family
DX: E11.9 Type 2 diabetes mellitus without complications (principal); Z13.29 Encounter for screening for other suspected endocrine disorder
CPT/HCPCS: 83036; 84439; 84443; 84481

== ENCOUNTER 2020-07-21 10:30 | Outpatient (RCR) | payer MEDICARE, SELFPAY ==
[2020-06-13 09:28] VITALS: BMI 30.1
--- NOTE | 2020-07-21 10:56 | HP.PTDCSUM ---
It has been my pleasure to treat ISIS JONES referred by Dr. Opal Prado DO, with the diagnosis of RIGHT RTC REPAIR AND BICEPS TENOTOMY 05/04/20. for a total of 31 visit(s). Discharge Date: 07/21/20 Please see the following information for a summary of their discharge status. Subjective: PATIENT REPORTS SHE MISSED LAST VISIT DUE TO GETTING A HIP INJECTION. PATIENT REPORTS SHE IS USING HER ARM FOR EVERYTHING SHE WAS DOING BEFORE. SHE REPORTS SHE DOESN'T LIFT HEAVY THINGS BUT SHE DIDN'T BEFORE HER SHOULDER PROBLEM. SHE REPORTS HER BACK LIMITS SOME OF HER ACTIVITIES. STATES SHE IS BACK TO DOING ALL HER NORMAL STUFF. STATES SHE IS DOING ALL OF HER HOUSE WORK AND HELPED HER MOW WITH THE PUSH MOWER. SHE STATES USING THE PUSH MOWER DIDN'T HURT. WOULD LIKE TO CONTINUE WITH EX INDEP'LY NOW. PATIENT REPORTS HER NECK IS EVEN DOING FINE. PATIENT REPORS SHE IS BACK TO CROCHETING TOO. NECK Pain Intensity (Out of 10): Unrated R SHLD Pain Intensity (Out of 10): Unrated % Improvement: 90 Objective/Function: PATIENT WAS SEEN TODAY FOR RE-ASSESSMENT OF PROGRESS TOWARD THE SET PT GOALS AND THE NEED FOR FURTHER PHYSICAL THERAPY VS READINESS FOR DISCHARGE. PATIENT HAS MADE GREAT PROGRESS WITH PT, IS INDEP WITH A HEP AND IS PRETTY MUCH BACK TO PRIOR LEVEL OF FUNCTION BUT STILL CAUTIOUS. UPON EXAM TODAY: ROM deficit: RIGHT SHLD AROM IN STANDING: FLEX 132 DEG, ABD 118 DEG, SUPINE: IR 71 DEG AND ER 66 DEG WITH 75 DEG ABD. RIGHT SHLD PROM IN LYIN DEG FLEX. STANDING FLEXION WITH WALL SLIDE TO 140 DEG. Goal 1:: DECREASE C/O RIGHT UE SX'S Goal Progress: Goal Met Goal 2:: INCREASE FUNCTIONAL ROM R UE Goal Progress: Goal Met Goal 3:: INCREAASE FUNCTIONAL STRENGTH R UE Goal Progress: Goal Met Goal 4:: INSTRUCT IN PROPHYLAXIS Goal Progress: Goal Met Plan: D/C TO INDEP HEP. PATIENT IS AGREEABLE If there are questions or concerns regarding this patient's physical therapy, please feel free to call me at [phone]. Thank you for the referral of this patient. Sincerely, Michelle Melton, PT, Cert MDT
== END 2020-07-21 19:00 | disposition home or self-care (01) ==
LOC: PT 10:30
PROVIDERS: PCP Student in an Organized Health Care Education/Training Program; Referring Provider Orthopaedic Surgery; Visit Provider Orthopaedic Surgery
DX: M75.101 Unspecified rotator cuff tear or rupture of right shoulder, not specified as traumatic (principal); M19.011 Primary osteoarthritis, right shoulder
CPT/HCPCS: 97140; 97164; 97530

== ENCOUNTER → 2020-08-02 12:20 | Outpatient (CLI) | payer MEDICARE, SELFPAY ==
[2020-07-25 09:06] VITALS: BMI 30.1
[2020-08-02 13:09] LABS: Free T3 2.5 pg/mL (2.18-3.98); T4 Total, Thyroxin 7.2 ug/dL (4.8-13.9)
== END ==
PROVIDERS: PCP Student in an Organized Health Care Education/Training Program; Referring Provider Student in an Organized Health Care Education/Training Program; Visit Provider Student in an Organized Health Care Education/Training Program
DX: R79.89 Other specified abnormal findings of blood chemistry (principal)
CPT/HCPCS: 84436; 84443; 84481

== ENCOUNTER → 2020-08-11 12:44 | Outpatient (CLI) | payer MEDICARE, SELFPAY ==
[2020-07-25 09:06] VITALS: BMI 30.1
[2020-08-11 14:37] LABS: Color, Urine Yellow (Yellow); Glucose, Dipstick Normal (Normal); Ketone-Dipstick Negative (Negative); Leukocyte Esterase-Dipstick 500 /ul (Negative); Nitrite-Dipstick Negative (Negative); Occult Blood-Urine 10 /ul (Negative); Protein-Dipstick 30 mg/dl (Negative); Specific Gravity, Urine 1.015 (1.002-1.030); Urine Bilirubin Dipstick Negative (Negative); Urine Clarity Sl. Cloudy (Clear); Urine Urobilinogen Normal (Normal)
== END ==
PROVIDERS: PCP Student in an Organized Health Care Education/Training Program; Referring Provider Internal Medicine Nephrology; Visit Provider Internal Medicine Nephrology
DX: N39.0 Urinary tract infection, site not specified (principal)
CPT/HCPCS: 81002; 87077; 87086; 87088; 87186

== ENCOUNTER → 2020-11-07 09:35 | Outpatient (CLI) | payer MEDICARE, SELFPAY ==
[2020-11-07 11:04] LABS: Protein, Urine (Random) 39.3 mg/dL (<11.9); Protein:Creat Ratio 374 mg/g CRE (0-200)
[2020-11-07 11:27] LABS: Anion Gap 4 (5-15); BUN 35 mg/dL (7-18); BUN/Creat Ratio 22.4 RATIO (10-20); Calcium,Total 9.6 mg/dL (8.5-10.1); Chloride 111 mmol/L (98-107); Creatinine, Serum 1.56 mg/dL (0.55-1.02); EST Glomerular Filtration Rate 35 mL/min (>60); Est Glom Filt Rate - Afr Amer 42 mL/min (>60); Glucose 99 mg/dL (74-106); Potassium 4.2 mmol/L (3.5-5.1); Sodium Level 141 mmol/L (136-145)
== END ==
PROVIDERS: PCP Student in an Organized Health Care Education/Training Program; Visit Provider Internal Medicine Nephrology
DX: N18.4 Chronic kidney disease, stage 4 (severe) (principal)
CPT/HCPCS: 36415; 80048; 82570; 84156

== ENCOUNTER → 2020-12-15 09:07 | Outpatient (CLI) | payer MEDICARE, SELFPAY ==
[2020-12-15 09:40] LABS: Absolute Lymphocyte Count 1.47 X10^3/uL (0.83-4.51); Absolute Neutrophil Count 3.2 X10^3/uL (2.0-7.7); Basophil# 0.04 X10^3/uL; Basophil% 0.8 % (0-1); Eosinophil# 0.14 X10^3/uL; Eosinophils% 2.6 % (0-5); Hematocrit 39.7 % (37-47); Hemoglobin 12.9 g/dL (12.0-15.0); Lymphocyte # 1.47 X10^3/ul (4.0); Lymphocyte % 27.6 % (19-41); Mean Corp Hgb Conc 32.5 g/dL (32-36); Mean Corpuscular Hgb 31.7 pg (27.0-32.0); Mean Corpuscular Volume 97.5 fL (81-99); Mean Platelet Vol. 11.8 fl (6.2-12.0); Monocyte# 0.44 X10^3/uL; Monocyte% 8.3 % (0-10); NRBC Flagged by Analyzer 0 % (0-5); Neutrophil # 3.22 X10^3/uL (2.7-7.7); Neutrophil % 60.5 % (47-70); Platelet Count 135 K/mm3 (150-450); RBC Distribution Width CV 12.4 % (11.6-14.6); RBC Distribution Width SD 44.4 fl (35.1-43.9); Red Blood Count 4.07 M/mm3 (4.2-5.4); White Blood Count 5.3 K/mm3 (4.4-11.0)
--- NOTE | 2020-12-15 10:01 | RAD_ITS ---
STUDY: X-RAY - THORACIC SPINE REASON FOR EXAM: Female, 69 years old. Pain in the mid to upper back. TECHNIQUE: 3 view(s) of the thoracic spine were obtained. COMPARISON: None. FINDINGS: Normal kyphosis of the thoracic spine. There is no substantial scoliosis. There is demineralization of the thoracic spine with endplate spondylosis. There is multilevel disc space narrowing of the thoracic spine. There is no evidence of acute fracture or loss of vertebral axial height. The soft tissue structures are unremarkable. RAD/Thoracic Spine 3 Views IMPRESSION: Degenerative changes of the thoracic spine without visualized fracture or subluxation. Electronically Signed: Talha Yates DO at 18:05 EST Tel [phone], Service support ,
[2020-12-15 10:09] LABS: ALB/GLOB Ratio 1.1 RATIO (0.9-2.4); AST(SGOT) 19 U/L (15-37); Alanine Aminotransfer ALT/SGPT 23 U/L (13-56); Albumin, Serum 3.7 g/dL (3.2-5.0); Alkaline Phosphatase 89 U/L (45-117); Anion Gap 5 (5-15); BUN 28 mg/dL (7-18); BUN/Creat Ratio 18.8 RATIO (10-20); Calcium,Total 9.2 mg/dL (8.5-10.1); Chloride 111 mmol/L (98-107); Creatinine, Serum 1.49 mg/dL (0.55-1.02); EST Glomerular Filtration Rate 37 mL/min (>60); Est Glom Filt Rate - Afr Amer 44 mL/min (>60); Globulin 3.5 g/dL (2.2-4.2); Glucose 94 mg/dL (74-106); Potassium 4.1 mmol/L (3.5-5.1); Protein, Total 7.2 g/dL (6.4-8.2); Sodium Level 142 mmol/L (136-145)
== END ==
LOC: LAB 09:12 → RAD 09:58
PROVIDERS: PCP Student in an Organized Health Care Education/Training Program; Referring Provider Internal Medicine Rheumatology; Visit Provider Anesthesiology Pain Medicine
DX: M06.4 Inflammatory polyarthropathy (principal); M35.00 Sjogren syndrome, unspecified; I10 Essential (primary) hypertension; E11.42 Type 2 diabetes mellitus with diabetic polyneuropathy; K22.70 Barrett's esophagus without dysplasia; K21.00 Gastro-esophageal reflux disease with esophagitis, without bleeding; E78.49 Other hyperlipidemia; F32.89 Other specified depressive episodes; M54.9 Dorsalgia, unspecified
CPT/HCPCS: 36415; 72072; 80053; 85025

== ENCOUNTER → 2020-12-23 | Outpatient (CLI) | payer MEDICARE, SELFPAY ==
[2020-12-23 10:38] LABS: Absolute Lymphocyte Count 1.27 X10^3/uL (0.83-4.51); Absolute Neutrophil Count 2.9 X10^3/uL (2.0-7.7); Basophil# 0.04 X10^3/uL; Basophil% 0.8 % (0-1); Eosinophil# 0.17 X10^3/uL; Eosinophils% 3.6 % (0-5); Hematocrit 38.7 % (37-47); Hemoglobin 12.7 g/dL (12.0-15.0); Lymphocyte # 1.27 X10^3/ul (4.0); Lymphocyte % 26.8 % (19-41); Mean Corp Hgb Conc 32.8 g/dL (32-36); Mean Corpuscular Hgb 32.4 pg (27.0-32.0); Mean Corpuscular Volume 98.7 fL (81-99); Mean Platelet Vol. 11.9 fl (6.2-12.0); Monocyte# 0.33 X10^3/uL; NRBC Flagged by Analyzer 0 % (0-5); Neutrophil # 2.92 X10^3/uL (2.7-7.7); Neutrophil % 61.6 % (47-70); Platelet Count 134 K/mm3 (150-450); RBC Distribution Width CV 12.4 % (11.6-14.6); RBC Distribution Width SD 44.7 fl (35.1-43.9); Red Blood Count 3.92 M/mm3 (4.2-5.4); White Blood Count 4.7 K/mm3 (4.4-11.0)
[2020-12-23 10:49] LABS: T3 Total - Triiodothyronine 0.95 ng/mL (0.6-1.81)
[2020-12-23 10:52] LABS: Hemoglobin A1c 5.7 % (3.8-5.6)
[2020-12-23 10:53] LABS: ALB/GLOB Ratio 1.1 RATIO (0.9-2.4); AST(SGOT) 18 U/L (15-37); Alanine Aminotransfer ALT/SGPT 21 U/L (13-56); Albumin, Serum 3.6 g/dL (3.2-5.0); Alkaline Phosphatase 89 U/L (45-117); Anion Gap 3 (5-15); BUN 28 mg/dL (7-18); BUN/Creat Ratio 17.3 RATIO (10-20); Calcium,Total 9.1 mg/dL (8.5-10.1); Chloride 113 mmol/L (98-107); Cholesterol 128 mg/dL (200); Creatinine, Serum 1.62 mg/dL (0.55-1.02); EST Glomerular Filtration Rate 33 mL/min (>60); Est Glom Filt Rate - Afr Amer 40 mL/min (>60); Globulin 3.4 g/dL (2.2-4.2); Glucose 95 mg/dL (74-106); High Density Lipoprotein 63 mg/dL; Potassium 4.4 mmol/L (3.5-5.1); Sodium Level 143 mmol/L (136-145); T4 Free Direct 0.85 ng/dL (0.76-1.46); Thyroid Stim Hormone (TSH) 4.01 uIU/mL (0.358-3.74); Triglycerides 104 mg/dL; Very Low Density Lipoprotein 21 mg/dL (5-40)
[2020-12-23 10:54] LABS: Vitamin B12 > 2000 pg/mL (211-911)
== END | disposition home or self-care (01) ==
LOC: LABSPEC 10:19
PROVIDERS: PCP Student in an Organized Health Care Education/Training Program; Referring Provider Student in an Organized Health Care Education/Training Program; Visit Provider Student in an Organized Health Care Education/Training Program
DX: E11.9 Type 2 diabetes mellitus without complications (principal); I10 Essential (primary) hypertension; E78.00 Pure hypercholesterolemia, unspecified; E53.8 Deficiency of other specified B group vitamins; R79.89 Other specified abnormal findings of blood chemistry; Z79.4 Long term (current) use of insulin
CPT/HCPCS: 80053; 80061; 82607; 83036; 84439; 84443; 84480; 85025

== ENCOUNTER → 2021-02-08 09:52 | Outpatient (CLI) | payer MEDICARE, SELFPAY ==
[2021-02-08 10:41] LABS: Amphetamine Urine VISTA NEGATIVE (<1000 ng/mL); Barbiturate Urine VISTA NEGATIVE (< 200 ng/mL); Benzodiazepine Urine VISTA NEGATIVE (< 200 ng/mL); Cocaine Urine VISTA NEGATIVE (< 300 ng/mL); Ecstacy Urine VISTA NEGATIVE (< 500 ng/mL); Methadone Urine VISTA NEGATIVE (< 300 ng/mL); PCP Urine VISTA NEGATIVE (< 25 ng/mL); THC Urine VISTA NEGATIVE (< 50 ng/mL); Vista UDS pH Range 6
== END ==
PROVIDERS: PCP Student in an Organized Health Care Education/Training Program; Referring Provider Anesthesiology Pain Medicine; Visit Provider Anesthesiology Pain Medicine
DX: F11.20 Opioid dependence, uncomplicated (principal)
CPT/HCPCS: 80307

== ENCOUNTER → 2021-03-29 15:03 | Outpatient (CLI) | payer MEDICARE, SELFPAY ==
[2021-03-29 15:38] LABS: Cholesterol 120 mg/dL (200); High Density Lipoprotein 63 mg/dL; Triglycerides 67 mg/dL; Very Low Density Lipoprotein 13 mg/dL (5-40)
[2021-03-29 16:25] LABS: Hemoglobin A1c 5.6 % (3.8-5.6)
[2021-03-30 08:18] LABS: Vitamin B12 788 pg/mL (211-911)
== END ==
PROVIDERS: PCP Student in an Organized Health Care Education/Training Program; Visit Provider Student in an Organized Health Care Education/Training Program
DX: E11.9 Type 2 diabetes mellitus without complications (principal); E78.00 Pure hypercholesterolemia, unspecified; E55.9 Vitamin D deficiency, unspecified; E53.8 Deficiency of other specified B group vitamins
CPT/HCPCS: 80061; 82306; 82607; 83036

== ENCOUNTER → 2021-06-27 | Outpatient (CLI) | payer MEDICARE, SELFPAY ==
[2021-06-27 14:05] LABS: Hemoglobin A1c 5.8 % (3.8-5.6)
== END | disposition home or self-care (01) ==
LOC: LABSPEC 13:19
PROVIDERS: PCP Student in an Organized Health Care Education/Training Program; Referring Provider Student in an Organized Health Care Education/Training Program; Visit Provider Student in an Organized Health Care Education/Training Program
DX: E11.9 Type 2 diabetes mellitus without complications (principal)
CPT/HCPCS: 83036

== ENCOUNTER 2021-07-28 19:11 | Emergency (ER) | payer MEDICARE, SELFPAY ==
[2021-07-28 19:11] VITALS: BP 186/135; PULSE 90; RESP 22; TEMP 35.8; O2SAT 100; BMI 29.0
[2021-07-28 19:22] VITALS: BP 169/103; PULSE 93; RESP 22; TEMP 36.3; O2SAT 99
--- NOTE | 2021-07-28 19:51 | EKG12_ITS ---
Test Reason : GENERAL ILLNESS Blood Pressure : / mmHG Vent. Rate : 092 BPM Atrial Rate : 092 BPM P-R Int : 170 ms QRS Dur : 072 ms QT Int : 342 ms P-R-T Axes : 029 -05 008 degrees QTc Int : 422 ms Normal sinus rhythm Normal ECG Confirmed by HEMALATHA ROBERTS, SADIA ([id number]), tape editor NIDA GARCIA ([id number]) on 07/31/2021 12:52:37 PM Referred By: DR PÉREZ Confirmed By:SADIA PENNY MD
[2021-07-28] MEDS: Acetaminophen 500 MG Tablet 1000 MG PO (20:22)
[2021-07-28] MEDS: 0.9% Normal Saline 1,000 ML 250 ML IV (20:23)
[2021-07-28 20:29] LABS: Absolute Lymphocyte Count 0.55 X10^3/uL (0.83-4.51); Absolute Neutrophil Count 5.5 X10^3/uL (2.0-7.7); Basophil# 0.01 X10^3/uL; Basophil% 0.2 % (0-1); Eosinophils% 1.5 % (0-5); Hematocrit 38.6 % (37-47); Hemoglobin 12.7 g/dL (12.0-15.0); Lymphocyte # 0.55 X10^3/ul (0.83-4.51); Lymphocyte % 8.4 % (19-41); Mean Corp Hgb Conc 32.9 g/dL (32-36); Mean Corpuscular Hgb 31.7 pg (27.0-32.0); Mean Corpuscular Volume 96.3 fL (81-99); Mean Platelet Vol. 11.9 fl (6.2-12.0); Monocyte# 0.35 X10^3/uL; Monocyte% 5.4 % (0-10); NRBC Flagged by Analyzer 0 % (0-5); Neutrophil # 5.49 X10^3/uL (2.7-7.7); Neutrophil % 84.2 % (47-70); POSITIVE COUNT YES; POSITIVE DIFFERENTIAL YES; Platelet Count 88 K/mm3 (150-450); RBC Distribution Width CV 12.3 % (11.6-14.6); RBC Distribution Width SD 43.7 fl (35.1-43.9); Red Blood Count 4.01 M/mm3 (4.2-5.4); White Blood Count 6.5 K/mm3 (4.4-11.0)
[2021-07-28 20:31] LABS: Differential Indicated SCAN CRITERIA MET
[2021-07-28 20:32] VITALS: TEMP 36.8
[2021-07-28 20:33] VITALS: BP 141/94; PULSE 104; PULSE 89; RESP 24; RESP 25; TEMP 36.8; O2SAT 99
--- NOTE | 2021-07-28 20:37 | RAD_ITS ---
STUDY: X-RAY CHEST REASON FOR EXAM: Female, 70 years old. Cough TECHNIQUE: Single AP portable view of the chest. COMPARISON: 12/25/2015. FINDINGS: The lungs are clear and expanded. There is no demonstrated pleural abnormality. Normal size heart. Normal mediastinum and fidel. Normal visualized pulmonary arteries. Normal visualized aortic arch and descending thoracic aorta. Normal visualized thoracic spine. Normal visualized ribs, clavicles, and shoulders. There is no demonstrated abnormality of the visualized soft tissue structures of the upper abdomen. RAD/Chest 1 View (Portable) IMPRESSION: Normal x-ray examination of the chest. Electronically Signed: Angella Rucker MD at 21:25 EDT Tel , Service support ,
[2021-07-28 20:40] LABS: Prothrombin Time (Protime)PT. 12.5 SECONDS (11.7-14.9)
[2021-07-28 20:41] LABS: Partial Thromboplast Time 22.7 Seconds (24.1-36.2)
[2021-07-28 20:53] LABS: Bacteria 0 SEEN /hpf (None Seen); Mucous, Urine 0 SEEN /hpf (<or=2+); Red Blood Cells-Urine 0 SEEN /hpf (0-5); Squamous Epithelial Cells - UA 0 SEEN /hpf (5-10)
[2021-07-28 20:54] LABS: Color, Urine Yellow (Yellow); Glucose, Dipstick Normal (Normal); Ketone-Dipstick Negative (Negative); Leukocyte Esterase-Dipstick 500 /ul (Negative); Nitrite-Dipstick Negative (Negative); Occult Blood-Urine 50 /ul (Negative); Protein-Dipstick 30 mg/dl (Negative); Urine Bilirubin Dipstick Negative (Negative); Urine Clarity Cloudy (Clear); Urine Urobilinogen Normal (Normal)
[2021-07-28 21:10] LABS: Differential Comment SCANNED; Platelet Estimate MOD DEC (ADEQ)
[2021-07-28 21:14] LABS: Renal Epithelial Cells 0-5 SEEN /hpf (0-5); White Blood Cells >100 SEEN /hpf (0-5)
--- NOTE | 2021-07-28 21:27 | EDS_ITS ---
HPI History of Present Illness Chief Complaint: Allergic Reaction Narrative Narrative: Patient presenting for evaluation secondary to generalized illness. Patient states that over the course of the last hour or so she has developed chills and generalized body aches. Patient thinks that this could be an allergic reaction to either her coronavirus vaccine that she received yesterday at 10 AM or the Keflex that she was started on for a urinary tract infection today. Patient denies any rash. She denies that there is any sort of lip or tongue swelling. Patient denies that she has had any past allergic reactions to Keflex. Patient denies any nausea or vomiting. Denies any diarrhea. She denies any shortness of breath associated with this. No sick contacts. Review of systems otherwise negative. [facility] Medical History (Updated 07/28/21 @ 22:[address] González Coleman MD) DM type 2 (diabetes mellitus, type 2) HTN (hypertension) Lupus Stage 3 chronic kidney disease Home Medications gabapentin 300 mg PO DAILY 12/21/15 [History Last Taken 05/04/20 07:10] hydrocodone-acetaminophen 5 - 325 mg PO BID 12/21/15 [History Last Taken 03/23/19] hydroxychloroquine 200 mg PO DAILY 12/21/15 [History Last Taken 05/04/20 07:10] omeprazole 20 mg PO DAILY 12/21/15 [History Last Taken 05/04/20 07:10] aspirin 81 mg PO DAILY@0800 03/24/19 [History Last Taken 03/23/19] ferrous sulfate 65 mg PO DAILY 03/24/19 [History Last Taken 03/23/19] losartan 100 mg PO DAILY 03/24/19 [History Last Taken 05/04/20 07:10] metformin 1,000 mg PO DAILY 03/24/19 [History Last Taken 03/23/19] jddecpmo-ygh-bjvt-FA-lutein 1 tab PO DAILY 03/24/19 [History Last Taken 03/23/19] sertraline 50 mg PO DAILY 03/24/19 [History Last Taken 03/23/19] simvastatin 80 mg PO QHS 03/24/19 [History Last Taken 03/23/19] Lactobacillus acidophilus 1 ea PO DAILY 04/27/20 [History Last Taken Unknown] tizanidine 2 mg PO DAILY 04/27/20 [History Last Taken Unknown] Keto PO DIRECTED 10/10/20 [History Last Taken Unknown] Allergy/AdvReac Type Severity Reaction Status Date / Time cephalexin [From Keflex] Allergy Other Verified 07/28/21 19:14 ciprofloxacin Allergy Rash Verified 10/10/20 10:02 Iodinated Contrast Media Allergy blisters Verified 10/10/20 10:02 [CONTRASTS] Sulfa (Sulfonamide Allergy Hives Verified 10/10/20 10:02 Antibiotics) colored dyes AdvReac blisters Uncoded 10/10/20 10:02 marigold AdvReac blisters Uncoded 10/10/20 10:02 Family History Father Cancer Gastric Social History Smoking Status: Former smoker ROS ROS ED Constitutional Constitutional ED: Reports chills and fever(s) ENT ENT ED: Denies rhinorrhea Cardiovascular Cardiovascular: Denies chest pain Respiratory/Chest Respiratory/Chest: Denies cough or dyspnea Gastrointestinal Gastrointestinal: Denies abdominal pain, diarrhea, nausea or vomiting Genitourinary Genitourinary ED: Denies dysuria or hematuria Musculoskeletal Musculoskeletal: Reports myalgias Integumentary Denies rash Neurologic Neurologic: Denies paresthesias or weakness Psychiatric Psychiatric: Denies depression Endocrine Endocrinology: Denies fatigue Allergic/Immunologic Allergic/Immunologic ED: Denies urticaria EXAM Physical Exam Const Vital Signs: 07/28/21 19:11 07/28/21 19:22 07/28/21 20:32 Temperature 96.4 F L 97.4 F L 98.3 F Temperature Source Temporal Temporal Oral Pulse Rate 90 93 Respiratory Rate 22 H 22 H Blood Pressure 186/135 H 169/103 H Blood Pressure Mean 152 125 Pulse Ox 100 99 Oxygen Delivery Method Room Air Room Air 07/28/21 20:33 07/28/21 21:54 07/28/21 22:04 Temperature 98.3 F 99.4 F H 99.4 F H Temperature Source Oral Temporal Oral Pulse Rate 89 102 H Respiratory Rate 24 H 23 H Blood Pressure 141/94 H 130/72 H Blood Pressure Mean 109 91 Pulse Ox 99 97 Oxygen Delivery Method Room Air Room Air Positive well nourished and well developed Constitutional Narrative: Well-appearing elderly female no acute distress General Appearance ED: well developed and NAD HEENT Reports moist mucous membranes Negative for trauma or tenderness Eyes EOMs intact bilaterally Neck no lymphadenopathy, supple and no JVD Chest Wall inspection of chest normal Resp normal respiratory effort and clear to auscultation bilaterally Cardio regular rate, regular rhythm, no murmurs and peripheral pulses 2+ throughout GI normal to inspection, nondistended, normoactive bowel sounds, non-tender and no masses Palpation: soft Back/Spine normal to inspection Extremity normal to inspection General Extremety ED: Negative for tenderness Neuro oriented x3 and no sensory deficits noted Sensorium / Orientation: alert Motor Exam: strength 5/5 throughout Psych mental status grossly normal Skin no rashes or lesions noted Skin Narrative: Skin is hot to the touch, but no evidence of rashes MDM MDM MDM Narrative Medical decision making narrative: Patient presenting secondary to what seems to be a febrile illness. Patient was medicated in the emergency department, lab work and sepsis work-up was obtained. Chest x-ray by my personal review was found to be unremarkable. EKG as noted below was found to be unremarkable. CBC demonstrates normal white blood cell count with a neutrophilic predominance. Chemistry shows no anion gap or acidosis, lactic acid was found to be unremarkable. Urine does demonstrate evidence of infection. Chest x-ray by my personal review as well as radiology was found to be negative patient was given a dose of IV Rocephin. I do not believe that this is actually an allergic reaction like patient thought, as far as her coronavirus vaccine her symptoms started too far out from the vaccine and it does not have a characteristic presentation of allergic reaction to the Keflex. I believe that she should continue her Keflex for her UTI, but I do not believe that she has sepsis or requires admission given her relatively reassuring work-up. Patient was educated on signs and symptoms which to return. Patient was discharged in stable condition. Lab Data Labs: Laboratory Results - last 24 hr 07/28/21 07/28/21 07/28/21 20:15 20:15 20:15 WBC 6.5 RBC 4.01 L Hgb 12.7 Hct 38.6 MCV 96.3 MCH 31.7 MCHC 32.9 RDW Std Deviation 43.7 RDW Coeff of [place] 12.3 Plt Count 88 L MPV 11.9 Immature Gran % (Auto) 0.300 Neut % (Auto) 84.2 H Lymph % (Auto) 8.4 L [place] % (Auto) 5.4 Eos % (Auto) 1.5 Baso % (Auto) 0.2 Absolute Neuts (auto) 5.5 Absolute Lymphs (auto) 0.55 L Nucleated RBC % 0 Differential Comment SCANNED Platelet Estimate MOD DEC PT 12.5 INR 1.0 APTT 22.7 L Sodium 140 Potassium 4.0 Chloride 109 H Carbon Dioxide 27.0 Anion Gap 4 L BUN 27 H Creatinine 1.64 H Estim Creat Clear Calc 26.78 Est GFR (MDRD) Af Amer 40 L Est GFR (MDRD) Non-Af 33 L BUN/Creatinine Ratio 16.5 Glucose 156 H Lactic Acid Calcium 9.8 Total Bilirubin 0.70 AST 20 ALT 23 Alkaline Phosphatase 88 Total Protein 7.6 Albumin 3.9 Globulin 3.7 Albumin/Globulin Ratio 1.1 Urine Color Urine Clarity Urine pH Ur Specific [place] Urine Protein Urine Glucose (UA) Urine Ketones Urine Occult Blood Urine Nitrite Urine Bilirubin Urine Urobilinogen Ur Leukocyte Esterase Urine RBC Urine WBC Ur Squamous Epith Cells Ur Renal Epithelial Cell Urine Bacteria Urine Mucus 07/28/21 07/28/21 20:15 20:34 WBC RBC Hgb Hct MCV MCH MCHC RDW Std Deviation RDW Coeff of [place] Plt Count MPV Immature Gran % (Auto) Neut % (Auto) Lymph % (Auto) [place] % (Auto) Eos % (Auto) Baso % (Auto) Absolute Neuts (auto) Absolute Lymphs (auto) Nucleated RBC % Differential Comment Platelet Estimate PT INR APTT Sodium Potassium Chloride Carbon Dioxide Anion Gap BUN Creatinine Estim Creat Clear Calc Est GFR (MDRD) Af Amer Est GFR (MDRD) Non-Af BUN/Creatinine Ratio Glucose Lactic Acid 1.5 Calcium Total Bilirubin AST ALT Alkaline Phosphatase Total Protein Albumin Globulin Albumin/Globulin Ratio Urine Color Yellow Urine Clarity Cloudy Urine pH 6.0 Ur Specific [place] 1.010 Urine Protein 30 H Urine Glucose (UA) Normal Urine Ketones Negative Urine Occult Blood 50 H Urine Nitrite Negative Urine Bilirubin Negative Urine Urobilinogen Normal Ur Leukocyte Esterase 500 H Urine RBC 0 SEEN Urine WBC >100 SEEN Ur Squamous Epith Cells 0 SEEN Ur Renal Epithelial Cell 0-5 SEEN Urine Bacteria 0 SEEN Urine Mucus 0 SEEN Radiography Diagnostic Testing: Radiology Impression Chest X-Ray 07/28/21 20:37 IMPRESSION: Normal x-ray examination of the chest. Electronically Signed: Angella Rucker MD at 21:25 EDT Tel , Service support , Discharge Plan Triage Chief Complaint: Allergic Reaction ED Provider: González Coleman Dx/Rx/DC Orders Clinical Impression: UTI (urinary tract infection) Instructions: Urinary Tract Infections in Women Prescriptions: No Action Keto PO DIRECTED RF: 0 hydroxychloroquine 200 MG tablet 200 mg PO DAILY RF: 0 hydrocodone-acetaminophen 1 TABLET tablet 5 - 325 mg PO BID RF: 0 gabapentin 300 MG capsule 300 mg PO DAILY RF: 0 omeprazole 20 MG capsule 20 mg PO DAILY RF: 0 sertraline 50 MG tablet 50 mg PO DAILY RF: 0 simvastatin 80 MG tablet 80 mg PO QHS RF: 0 aspirin 81 MG tablet 81 mg PO DAILY@0800 RF: 0 ferrous sulfate 325 MG tablet 65 mg PO DAILY RF: 0 metformin 1,000 MG tablet 1,000 mg PO DAILY RF: 0 losartan 100 MG tablet 100 mg PO DAILY RF: 0 yzphgzvw-hau-npxs-FA-lutein 1 EACH tablet 1 tab PO DAILY RF: 0 tizanidine 2 MG tablet 2 mg PO DAILY RF: 0 Lactobacillus acidophilus 1 EACH capsule 1 ea PO DAILY RF: 0 Primary Care Provider: Akil Kelly Referrals: Akil Kelly DO [Primary Care Provider] - 3-5 Days Activity Restrictions/Additional Instructions: Continue taking your Keflex as previously prescribed Disposition Disposition: Home, Self Care
[2021-07-28 21:29] LABS: ALB/GLOB Ratio 1.1 RATIO (0.9-2.4); AST(SGOT) 20 U/L (15-37); Alanine Aminotransfer ALT/SGPT 23 U/L (13-56); Albumin, Serum 3.9 g/dL (3.2-5.0); Alkaline Phosphatase 88 U/L (45-117); Anion Gap 4 (5-15); BUN 27 mg/dL (7-18); BUN/Creat Ratio 16.5 RATIO (10-20); Calcium,Total 9.8 mg/dL (8.5-10.1); Chloride 109 mmol/L (98-107); Creatinine, Serum 1.64 mg/dL (0.55-1.02); EST Glomerular Filtration Rate 33 mL/min (>60); Est Glom Filt Rate - Afr Amer 40 mL/min (>60); Estimated Creatinine Clearance 26.78 ml/min; Globulin 3.7 g/dL (2.2-4.2); Glucose 156 mg/dL (74-106); Lactic Acid 1.5 mmol/L (0.4-1.9); Protein, Total 7.6 g/dL (6.4-8.2); Sodium Level 140 mmol/L (136-145)
[2021-07-28 21:54] VITALS: BP 130/72; PULSE 102; PULSE 108; PULSE 111; RESP 19; RESP 22; RESP 23; TEMP 37.4; TEMP 37.5; O2SAT 96; O2SAT 97
[2021-07-28] MEDS: Ceftriaxone 1 GM/50 ML BAG IV (22:01)
[2021-07-28 22:04] VITALS: TEMP 37.4
== END 2021-07-28 23:09 | disposition home or self-care (01) ==
PROVIDERS: Emergency Provider Emergency Medicine; PCP Student in an Organized Health Care Education/Training Program
DX: N39.0 Urinary tract infection, site not specified (principal); I12.9 Hypertensive chronic kidney disease with stage 1 through stage 4 chronic kidney disease, or unspecified chronic kidney disease; E11.22 Type 2 diabetes mellitus with diabetic chronic kidney disease; N18.30 Chronic kidney disease, stage 3 unspecified; Z79.82 Long term (current) use of aspirin; Z79.84 Long term (current) use of oral hypoglycemic drugs; Z79.899 Other long term (current) drug therapy; Z87.891 Personal history of nicotine dependence
CPT/HCPCS: 71045; 80053; 81001; 83605; 85025; 85610; 85730; 87040; 87077; 87086; 87088; 87186; 93005; 96361; 96365; 99285; J7030; A4216

== ENCOUNTER → 2021-07-28 | Outpatient (CLI) | payer MEDICARE, SELFPAY | END | disposition home or self-care (01) | LOC: LABSPEC 15:30 | PROVIDERS: PCP Student in an Organized Health Care Education/Training Program; Visit Provider Physician Assistant | DX: N39.0 Urinary tract infection, site not specified (principal) | CPT/HCPCS: 87077; 87086; 87088 ==

== ENCOUNTER → 2021-11-07 11:02 | Outpatient (CLI) | payer MEDICARE, SELFPAY ==
[2021-11-07 13:13] LABS: Amphetamine Urine VISTA NEGATIVE (<1000 ng/mL); Barbiturate Urine VISTA NEGATIVE (< 200 ng/mL); Benzodiazepine Urine VISTA NEGATIVE (< 200 ng/mL); Cocaine Urine VISTA NEGATIVE (< 300 ng/mL); Ecstacy Urine VISTA NEGATIVE (< 500 ng/mL); Methadone Urine VISTA NEGATIVE (< 300 ng/mL); PCP Urine VISTA NEGATIVE (< 25 ng/mL); THC Urine VISTA NEGATIVE (< 50 ng/mL); Vista UDS pH Range 6
== END ==
PROVIDERS: PCP Student in an Organized Health Care Education/Training Program; Visit Provider Anesthesiology Pain Medicine
DX: F11.20 Opioid dependence, uncomplicated (principal)
CPT/HCPCS: 80307

== ENCOUNTER 2022-03-08 10:47 | Emergency (ER) | payer MEDICARE, SELFPAY ==
[2022-03-08 10:48] VITALS: BP 116/57; PULSE 47; RESP 18; TEMP 36.6; O2SAT 96; BMI 29.7
[2022-03-08 11:22] LABS: Absolute Lymphocyte Count 1.34 X10^3/uL (0.83-4.51); Absolute Neutrophil Count 1.9 X10^3/uL (2.0-7.7); Basophil# 0.02 X10^3/uL; Basophil% 0.5 % (0-1); Eosinophil# 0.17 X10^3/uL; Eosinophils% 4.5 % (0-5); Hematocrit 34.7 % (37-47); Hemoglobin 11.5 g/dL (12.0-15.0); Lymphocyte # 1.34 X10^3/ul (0.83-4.51); Lymphocyte % 35.7 % (19-41); Mean Corp Hgb Conc 33.1 g/dL (32-36); Mean Corpuscular Hgb 31.7 pg (27.0-32.0); Mean Corpuscular Volume 95.6 fL (81-99); Mean Platelet Vol. 12.1 fl (6.2-12.0); Monocyte# 0.28 X10^3/uL; Monocyte% 7.5 % (0-10); NRBC Flagged by Analyzer 0 % (0-5); Neutrophil # 1.93 X10^3/uL (2.7-7.7); Neutrophil % 51.5 % (47-70); Platelet Count 101 K/mm3 (150-450); RBC Distribution Width CV 13.2 % (11.6-14.6); RBC Distribution Width SD 46.6 fl (35.1-43.9); Red Blood Count 3.63 M/mm3 (4.2-5.4); White Blood Count 3.8 K/mm3 (4.4-11.0)
--- NOTE | 2022-03-08 11:28 | EDS_ITS ---
HPI History of Present Illness Chief Complaint: Dizziness Informant: patient Onset/Context/Timing Onset: Weeks (3) Context: Gradual Onset Timing: Waxes and wanes Quality: Lightheaded Location: Generalized Worsened by: Standing Relieved by: Nothing Narrative Narrative: Patient presents with shortness of breath and dizziness that has been getting worse over the past 3 weeks. Patient states she gets dizzy whenever she stands up. Patient describes this as a lightheaded feeling. Patient denies any syncope. Patient denies any palpitations with that. Patient states she also feels short of breath and that her chest feels tight. Patient has been keeping track of her pulse at home. Patient has not documented low heart rates over the past 3 weeks. Patient admits to a mild cough. [facility] Medical History (Updated 03/08/22 @ 14:[address] José Miguel Jha, ) DM type 2 (diabetes mellitus, type 2) HTN (hypertension) Lupus Stage 3 chronic kidney disease Home Medications gabapentin 300 mg PO DAILY 12/21/15 [History Last Taken 05/04/20 07:10] hydrocodone-acetaminophen 5 - 325 mg PO BID 12/21/15 [History Last Taken 03/23/19] hydroxychloroquine 200 mg PO DAILY 12/21/15 [History Last Taken 05/04/20 07:10] omeprazole 20 mg PO DAILY 12/21/15 [History Last Taken 05/04/20 07:10] aspirin 81 mg PO DAILY@0800 03/24/19 [History Last Taken 03/23/19] ferrous sulfate 65 mg PO DAILY 03/24/19 [History Last Taken 03/23/19] losartan 100 mg PO DAILY 03/24/19 [History Last Taken 05/04/20 07:10] metformin 1,000 mg PO DAILY 03/24/19 [History Last Taken 03/23/19] zlgvxmhn-owr-pgnf-FA-lutein 1 tab PO DAILY 03/24/19 [History Last Taken 03/23/19] sertraline 50 mg PO DAILY 03/24/19 [History Last Taken 03/23/19] simvastatin 80 mg PO QHS 03/24/19 [History Last Taken 03/23/19] Lactobacillus acidophilus 1 ea PO DAILY 04/27/20 [History Last Taken Unknown] tizanidine 2 mg PO DAILY 04/27/20 [History Last Taken Unknown] Keto PO DIRECTED 10/10/20 [History Last Taken Unknown] Allergy/AdvReac Type Severity Reaction Status Date / Time cephalexin [From Keflex] Allergy Other Verified 03/08/22 10:50 ciprofloxacin Allergy Rash Verified 03/08/22 10:50 Iodinated Contrast Media Allergy blisters Verified 03/08/22 10:50 [CONTRASTS] Sulfa (Sulfonamide Allergy Hives Verified 03/08/22 10:50 Antibiotics) colored dyes AdvReac blisters Uncoded 03/08/22 10:50 marigold AdvReac blisters Uncoded 03/08/22 10:50 Family History Father Cancer Gastric Social History Smoking Status: Former smoker ROS ROS ED Constitutional Constitutional ED: Denies chills or fever(s) Eyes Eyes: Denies blurry vision or change in vision ENT ENT ED: Reports rhinorrhea; Denies sore throat Cardiovascular Cardiovascular: Reports chest pain; Denies palpitations Respiratory/Chest Respiratory/Chest: Reports cough and dyspnea Gastrointestinal Gastrointestinal: Denies nausea or vomiting Genitourinary Genitourinary ED: Denies dysuria or hematuria Musculoskeletal Musculoskeletal: Reports back pain; Denies neck pain Integumentary Denies abscess or rash Neurologic Neurologic: Denies headache(s) or weakness Allergic/Immunologic Allergic/Immunologic ED: Denies mouth swelling or urticaria EXAM Physical Exam Const Vital Signs: 03/08/22 10:48 03/08/22 11:18 03/08/22 13:02 Temperature 98 F Temperature Source Temporal Pulse Rate 47 L Pulse Rate [Lying] 45 L Pulse Rate [Sitting (for 1 minute prior to obtaining)] 47 L Pulse Rate [Standing (for 1 minute prior to obtaining)] 46 L Respiratory Rate 18 Respiratory Effort Normal Non-Labored Respiratory Pattern Normal Blood Pressure 116/57 L Blood Pressure [Lying] 137/78 H Blood Pressure [Sitting (for 1 minute prior to obtaining)] 146/63 H Blood Pressure [Standing (for 1 minute prior to obtaining)] 127/69 H Blood Pressure Mean 76 Blood Pressure Mean [Lying] 97 Blood Pressure Mean [Sitting (for 1 minute prior to obtaining)] 90 Blood Pressure Mean [Standing (for 1 minute prior to obtaining)] 88 Pulse Ox 96 Oxygen Delivery Method Room Air Positive well nourished and well developed General Appearance ED: well developed HEENT Reports moist mucous membranes Neck supple and no JVD Resp normal respiratory effort and clear to auscultation bilaterally Cardio regular rhythm and no murmurs Rate: bradycardia GI normal to inspection, nondistended, normoactive bowel sounds and non-tender Palpation: soft Extremity normal to inspection General Extremety ED: Negative for edema or tenderness General Extremity: Negative for edema Neuro oriented x3, CN's II-XII intact bilaterally and no sensory deficits noted Sensorium / Orientation: alert Motor Exam: strength 5/5 throughout Psych mental status grossly normal Skin no rashes or lesions noted MDM MDM MDM Narrative Medical decision making narrative: EKG was obtained. On my interpretation, it shows sinus bradycardia with a rate of 46. ID interval, QRS interval, and QTc intervals are normal. Laquey is normal. There are no acute ST or T wave changes. This is unchanged compared to previous EKG. Portable 1 view chest x-ray was obtained. On my interpretation, lung ferreira are clear. There is normal cardiac silhouette. Bony thorax is normal. There is no acute process noted. Radiologist also interpreted the x-ray and agrees. CBC shows a white blood cell count of 3.8. Hemoglobin was 11.5 and hematocrit of 34.7. Platelets were 101. Basic metabolic profile shows slightly elevated BUN of 22 and a creatinine of 1.92. Initial high-sensitivity troponin was normal at 14. 2-hour repeat high- sensitivity troponin was normal at 13. Patient was advised of her findings. Patient was instructed to follow-up with her primary care physician in 5 to 7 days. Patient understood and was agreeable with the plan. All questions were answered. Lab Data Attestation: I reviewed the patient's lab results. Labs: Laboratory Results - last 24 hr 03/08/22 03/08/22 03/08/22 11:13 11:13 11:13 WBC 3.8 L RBC 3.63 L Hgb 11.5 L Hct 34.7 L MCV 95.6 MCH 31.7 MCHC 33.1 RDW Std Deviation 46.6 H RDW Coeff of Maliha 13.2 Plt Count 101 L MPV 12.1 H Immature Gran % (Auto) 0.300 Neut % (Auto) 51.5 Lymph % (Auto) 35.7 Valencia % (Auto) 7.5 Eos % (Auto) 4.5 Baso % (Auto) 0.5 Absolute Neuts (auto) 1.9 L Absolute Lymphs (auto) 1.34 Nucleated RBC % 0 Sodium 140 Potassium 4.0 Chloride 109 H Carbon Dioxide 27.0 Anion Gap 4 L BUN 22 H Creatinine 1.92 H Estim Creat Clear Calc 22.53 Est GFR (MDRD) Af Amer 33 L Est GFR (MDRD) Non-Af 27 L BUN/Creatinine Ratio 11.5 Glucose 116 H Calcium 8.7 Troponin I High Sens 14 03/08/22 13:44 WBC RBC Hgb Hct MCV MCH MCHC RDW Std Deviation RDW Coeff of Maliha Plt Count MPV Immature Gran % (Auto) Neut % (Auto) Lymph % (Auto) Valencia % (Auto) Eos % (Auto) Baso % (Auto) Absolute Neuts (auto) Absolute Lymphs (auto) Nucleated RBC % Sodium Potassium Chloride Carbon Dioxide Anion Gap BUN Creatinine Estim Creat Clear Calc Est GFR (MDRD) Af Amer Est GFR (MDRD) Non-Af BUN/Creatinine Ratio Glucose Calcium Troponin I High Sens 13 Radiography Chest X-Ray - ED: 1 View, Read by ED Physician, Read by Radiologist and Normal Diagnostic Testing: Clinical Impression(s) from Imaging Studies Chest X-Ray 03/08/22 11:42 IMPRESSION: No acute abnormality is seen. Electronically Signed: Jakub Gasca MD at 12:31 EDT Reading Location ID and State: [address] [place] [id number] , Service support , EKG Initial EKG: Attestation: I personally reviewed and interpreted this EKG as follows: Interpretation: No Acute Injury Pattern and Sinus Bradycardia (46) Prior EKG tracings: available for review Prior: Unchanged (07/28/2021) Discharge Plan Triage Chief Complaint: Dizziness ED Provider: José Miguel Jha Dx/Rx/DC Orders Clinical Impression: Bradycardia, Dyspnea Instructions: ED Bradycardia, ED Dyspnea Prescriptions: No Action Keto PO DIRECTED RF: 0 hydroxychloroquine 200 MG tablet 200 mg PO DAILY RF: 0 hydrocodone-acetaminophen 1 TABLET tablet 5 - 325 mg PO BID RF: 0 gabapentin 300 MG capsule 300 mg PO DAILY RF: 0 omeprazole 20 MG capsule 20 mg PO DAILY RF: 0 sertraline 50 MG tablet 50 mg PO DAILY RF: 0 simvastatin 80 MG tablet 80 mg PO QHS RF: 0 aspirin 81 MG tablet 81 mg PO DAILY@0800 RF: 0 ferrous sulfate 325 MG tablet 65 mg PO DAILY RF: 0 metformin 1,000 MG tablet 1,000 mg PO DAILY RF: 0 losartan 100 MG tablet 100 mg PO DAILY RF: 0 sbjwnits-wbt-mqci-FA-lutein 1 EACH tablet 1 tab PO DAILY RF: 0 tizanidine 2 MG tablet 2 mg PO DAILY RF: 0 Lactobacillus acidophilus 1 EACH capsule 1 ea PO DAILY RF: 0 Stand Alone Forms: ED Work / School Excuse Primary Care Provider: Akil Kelly Referrals: Akil Kelly DO [Primary Care Provider] - 3-5 Days Disposition Disposition: Home, Self Care
[2022-03-08 11:33] LABS: Anion Gap 4 (5-15); BUN 22 mg/dL (7-18); BUN/Creat Ratio 11.5 RATIO (10-20); Calcium,Total 8.7 mg/dL (8.5-10.1); Chloride 109 mmol/L (98-107); Creatinine, Serum 1.92 mg/dL (0.55-1.02); EST Glomerular Filtration Rate 27 mL/min (>60); Est Glom Filt Rate - Afr Amer 33 mL/min (>60); Estimated Creatinine Clearance 22.53 ml/min; Glucose 116 mg/dL (74-106); Sodium Level 140 mmol/L (136-145)
--- NOTE | 2022-03-08 11:42 | RAD_ITS ---
STUDY: X-RAY CHEST REASON FOR EXAM: Female, 71 years old. Dyspnea TECHNIQUE: Single AP portable view of the chest. COMPARISON: Comparison is made with prior study dated 07/28/2021. FINDINGS: EKG electrodes are seen. The lungs are clear and expanded. There is no demonstrated pleural abnormality. Normal size heart. Normal mediastinum and fidel. Normal visualized pulmonary arteries. There is atherosclerotic calcification of the aortic arch with tortuosity. There are diffuse degenerative changes of the visualized thoracic spine. There is degenerative osteoarthritis of the bilateral shoulders. There is no demonstrated abnormality of the visualized soft tissue structures of the upper abdomen. RAD/Chest 1 View (Portable) IMPRESSION: No acute abnormality is seen. Electronically Signed: Jakub Gasca MD at 12:31 EDT ,
--- NOTE | 2022-03-08 11:42 | EKG12_ITS ---
Test Reason : BRADYCARDIA Blood Pressure : / mmHG Vent. Rate : 046 BPM Atrial Rate : 046 BPM P-R Int : 150 ms QRS Dur : 078 ms QT Int : 480 ms P-R-T Axes : -12 -04 010 degrees QTc Int : 420 ms Sinus bradycardia Low voltage QRS Inferior infarct , age undetermined , cannot be excluded Abnormal ECG Confirmed by ANTOINE ROBERTS, PEDRO ([id number]), map editor JENNY CARDOZA ([id number]) on 03/14/2022 11:01:37 AM Referred By: KIRAN Confirmed By:PEDRO SCHULTZ MD
[2022-03-08 12:18] LABS: Troponin-I HS 14 pg/mL (3.0-54.0)
[2022-03-08 13:02] VITALS: BP 127/69; BP 137/78; BP 146/63; PULSE 45; PULSE 46; PULSE 47
[2022-03-08 14:15] LABS: Troponin-I HS 13 pg/mL (3.0-54.0)
[2022-03-08 14:45] VITALS: BP 129/72; PULSE 51; RESP 19; O2SAT 98
== END 2022-03-08 15:00 | disposition home or self-care (01) ==
PROVIDERS: Emergency Provider Emergency Medicine; PCP Student in an Organized Health Care Education/Training Program; Visit Provider Emergency Medicine
DX: R00.1 Bradycardia, unspecified (principal); E11.22 Type 2 diabetes mellitus with diabetic chronic kidney disease; N18.30 Chronic kidney disease, stage 3 unspecified; R06.00 Dyspnea, unspecified; R42 Dizziness and giddiness; I12.9 Hypertensive chronic kidney disease with stage 1 through stage 4 chronic kidney disease, or unspecified chronic kidney disease; Z79.82 Long term (current) use of aspirin; Z79.84 Long term (current) use of oral hypoglycemic drugs; Z87.891 Personal history of nicotine dependence
CPT/HCPCS: 71045; 80048; 84484; 85025; 93005; 99283; A4216

== ENCOUNTER → 2022-06-11 | Outpatient (CLI) | payer MEDICARE, SELFPAY ==
[2022-06-11 10:44] LABS: Absolute Lymphocyte Count 1.16 X10^3/uL (0.83-4.51); Absolute Neutrophil Count 2.3 X10^3/uL (2.0-7.7); Basophil# 0.04 X10^3/uL; Eosinophil# 0.24 X10^3/uL; Eosinophils% 5.9 % (0-5); Hematocrit 36.2 % (37-47); Lymphocyte # 1.16 X10^3/ul (0.83-4.51); Lymphocyte % 28.7 % (19-41); Mean Corp Hgb Conc 33.1 g/dL (32-36); Mean Corpuscular Hgb 32.4 pg (27.0-32.0); Mean Corpuscular Volume 97.8 fL (81-99); Mean Platelet Vol. 11.5 fl (6.2-12.0); Monocyte# 0.29 X10^3/uL; Monocyte% 7.2 % (0-10); NRBC Flagged by Analyzer 0 % (0-5); Platelet Count 120 K/mm3 (150-450); RBC Distribution Width CV 12.1 % (11.6-14.6); RBC Distribution Width SD 43.3 fl (35.1-43.9)
[2022-06-11 10:53] LABS: Protein, Urine (Random) 18.1 mg/dL (<11.9); Protein:Creat Ratio 199 mg/g CRE (0-200)
[2022-06-11 10:55] LABS: Albumin, Serum 3.3 g/dL (3.2-5.0); BUN 21 mg/dL (7-18); Calcium,Total 9.3 mg/dL (8.5-10.1); Chloride 108 mmol/L (98-107); Creatinine, Serum 1.91 mg/dL (0.55-1.02); EST Glomerular Filtration Rate 27 mL/min (>60); Est Glom Filt Rate - Afr Amer 33 mL/min (>60); Glucose 135 mg/dL (74-106); Phosphorus 3.3 mg/dL (2.5-4.9); Potassium 4.2 mmol/L (3.5-5.1); Sodium Level 142 mmol/L (136-145)
[2022-06-11 10:56] LABS: PTHIN 111.1 pg/mL (18.4-80.1)
[2022-06-11 10:59] LABS: Vitamin D,25 Hydroxy 49.6 ng/mL
== END | disposition home or self-care (01) ==
PROVIDERS: PCP Student in an Organized Health Care Education/Training Program; Visit Provider Nurse Practitioner Adult Health
DX: N18.4 Chronic kidney disease, stage 4 (severe) (principal); R80.9 Proteinuria, unspecified; D64.9 Anemia, unspecified
CPT/HCPCS: 36415; 80069; 82306; 82570; 83970; 84156; 85025

== ENCOUNTER → 2022-07-23 | Outpatient (CLI) | payer MEDICARE, SELFPAY ==
[2022-07-23 11:28] LABS: Amphetamine Urine VISTA NEGATIVE (<1000 ng/mL); Barbiturate Urine VISTA NEGATIVE (< 200 ng/mL); Benzodiazepine Urine VISTA NEGATIVE (< 200 ng/mL); Cocaine Urine VISTA NEGATIVE (< 300 ng/mL); Ecstacy Urine VISTA NEGATIVE (< 500 ng/mL); Methadone Urine VISTA NEGATIVE (< 300 ng/mL); PCP Urine VISTA NEGATIVE (< 25 ng/mL); THC Urine VISTA NEGATIVE (< 50 ng/mL); Vista UDS pH Range 5
== END | disposition home or self-care (01) ==
LOC: LAB 10:50
PROVIDERS: PCP Student in an Organized Health Care Education/Training Program; Referring Provider Anesthesiology Pain Medicine; Visit Provider Anesthesiology Pain Medicine
DX: F11.20 Opioid dependence, uncomplicated (principal)
CPT/HCPCS: 80307

== ENCOUNTER → 2022-10-01 | Outpatient (CLI) | payer MEDICARE, SELFPAY ==
[2022-10-01 09:41] LABS: Bacteria 0 SEEN /hpf (None Seen); Mucous, Urine 0 SEEN /hpf (<or=2+); Red Blood Cells-Urine 0 SEEN /hpf (0-5); Squamous Epithelial Cells - UA 0 SEEN /hpf (5-10); White Blood Cells 0 SEEN /hpf (0-5)
[2022-10-01 10:25] LABS: Hematocrit 39.3 % (37-47); Hemoglobin 13.3 g/dL (12.0-15.0); Mean Corp Hgb Conc 33.8 g/dL (32-36); Mean Corpuscular Hgb 32.8 pg (27.0-32.0); Mean Platelet Vol. 12.3 fl (6.2-12.0); Platelet Count 126 K/mm3 (150-450); RBC Distribution Width CV 13.1 % (11.6-14.6); RBC Distribution Width SD 46.4 fl (35.1-43.9); Red Blood Count 4.05 M/mm3 (4.2-5.4); White Blood Count 7.1 K/mm3 (4.4-11.0)
[2022-10-01 10:29] LABS: Color, Urine Yellow (Yellow); Glucose, Dipstick Normal (Normal); Ketone-Dipstick Negative (Negative); Leukocyte Esterase-Dipstick 25 /ul (Negative); Nitrite-Dipstick Negative (Negative); Occult Blood-Urine Negative /ul (Negative); Protein-Dipstick 15 mg/dl (Negative); Specific Gravity, Urine 1.015 (1.002-1.030); Urine Bilirubin Dipstick Negative (Negative); Urine Clarity Clear (Clear); Urine Urobilinogen Normal (Normal)
[2022-10-01 10:50] LABS: Protein, Urine (Random) 20.6 mg/dL (<11.9); Protein:Creat Ratio 167 mg/g CRE (0-200)
[2022-10-01 10:51] LABS: PTHIN 101.6 pg/mL (18.4-80.1)
[2022-10-01 10:54] LABS: Vitamin D,25 Hydroxy 61.1 ng/mL
[2022-10-01 10:58] LABS: Albumin, Serum 3.6 g/dL (3.2-5.0); BUN 26 mg/dL (7-18); BUN/Creat Ratio 11.6 RATIO (10-20); Calcium,Total 9.6 mg/dL (8.5-10.1); Chloride 108 mmol/L (98-107); Creatinine, Serum 2.24 mg/dL (0.55-1.02); EST Glomerular Filtration Rate 23 mL/min (>60); Est Glom Filt Rate - Afr Amer 28 mL/min (>60); Glucose 107 mg/dL (74-106); Phosphorus 3.9 mg/dL (2.5-4.9); Potassium 5.1 mmol/L (3.5-5.1); Sodium Level 141 mmol/L (136-145)
== END | disposition home or self-care (01) ==
LOC: LAB 09:38
PROVIDERS: PCP Student in an Organized Health Care Education/Training Program; Visit Provider Nurse Practitioner Adult Health
DX: N18.4 Chronic kidney disease, stage 4 (severe) (principal); D64.9 Anemia, unspecified
CPT/HCPCS: 36415; 80069; 81001; 82306; 82570; 83970; 84156; 85027

== ENCOUNTER → 2022-11-01 | Outpatient (CLI) | payer MEDICARE, SELFPAY ==
--- NOTE | 2022-11-01 13:40 | CT_ITS ---
STUDY: CT ABDOMEN AND PELVIS WITHOUT CONTRAST REASON FOR EXAM: Female, 71 years old. Diffuse abdominal pain RADIATION DOSAGE (If Supplied By Facility): CTDIvol = ( 14.77 ) mGy, DLP = ( 712.68 ) mGycm TECHNIQUE: Transaxial images were obtained from the dome of the diaphragm to the symphysis pubis without oral contrast, and without intravenous contrast. Sagittal and coronal images were reconstructed. Individualized dose optimization techniques were used for this CT. COMPARISON: 2018 FINDINGS: The visualized lung bases are unremarkable. The visualized portions of the heart are within normal limits. Normal liver. There are surgical clips in the gallbladder fossa consistent with a prior cholecystectomy. Normal spleen. There is diffuse atrophy of the pancreas. Normal bilateral adrenal glands. No obstructive uropathy or suspicious solid renal lesion, there are punctate nonobstructing right renal stones and a simple right renal cyst. Stable small hiatal hernia. Normal small intestine. Retained stool noted throughout the colon which may be impacted. There is non-visualization of the appendix. There is diffuse atherosclerotic calcification of the abdominal aorta, without a demonstrated aneurysm. Normal inferior vena cava. Normal retroperitoneum. The bladder is incompletely distended. Uterus is present, the endometrium cannot be accurately evaluated with CT. Normal abdominal wall. There are diffuse degenerative changes of the visualized lumbar spine, and pelvis. CT/Abdomen/Pelvis without Cont IMPRESSION: No suspicious solid organ abnormality, stable nonobstructing right renal stones, stable simple right renal cyst. No specific follow-up needed. Retained stool throughout the colon Uterus is present, the endometrium cannot be accurately evaluated with CT. No free intraperitoneal fluid, air, or suspicious adenopathy Electronically Signed: Gee Jimenez MD at 14:42 EST ,
[2022-11-01 13:52] LABS: Color, Urine Yellow (Yellow); Glucose, Dipstick Normal (Normal); Ketone-Dipstick Negative (Negative); Leukocyte Esterase-Dipstick 500 /ul (Negative); Nitrite-Dipstick Negative (Negative); Occult Blood-Urine Negative /ul (Negative); Protein-Dipstick 30 mg/dl (Negative); Urine Bilirubin Dipstick Negative (Negative); Urine Clarity Clear (Clear); Urine Urobilinogen Normal (Normal)
[2022-11-01 13:54] LABS: Absolute Lymphocyte Count 1.61 X10^3/uL (0.83-4.51); Absolute Neutrophil Count 3.8 X10^3/uL (2.0-7.7); Basophil# 0.03 X10^3/uL; Basophil% 0.5 % (0-1); Eosinophils% 3.4 % (0-5); Hematocrit 40.2 % (37-47); Hemoglobin 13.1 g/dL (12.0-15.0); Lymphocyte # 1.61 X10^3/ul (0.83-4.51); Mean Corp Hgb Conc 32.6 g/dL (32-36); Mean Corpuscular Volume 98.3 fL (81-99); Mean Platelet Vol. 11.7 fl (6.2-12.0); Monocyte# 0.36 X10^3/uL; NRBC Flagged by Analyzer 0 % (0-5); Neutrophil # 3.75 X10^3/uL (2.7-7.7); Neutrophil % 62.8 % (47-70); Platelet Count 148 K/mm3 (150-450); RBC Distribution Width CV 12.4 % (11.6-14.6); RBC Distribution Width SD 44.9 fl (35.1-43.9); Red Blood Count 4.09 M/mm3 (4.2-5.4)
[2022-11-01 14:06] LABS: ALB/GLOB Ratio 1.2 RATIO (0.9-2.4); AST(SGOT) 20 U/L (15-37); Alanine Aminotransfer ALT/SGPT 22 U/L (13-56); Albumin, Serum 3.9 g/dL (3.2-5.0); Alkaline Phosphatase 111 U/L (45-117); Anion Gap 7 (5-15); BUN 28 mg/dL (7-18); BUN/Creat Ratio 12.8 RATIO (10-20); Calcium,Total 9.6 mg/dL (8.5-10.1); Chloride 110 mmol/L (98-107); Creatinine, Serum 2.18 mg/dL (0.55-1.02); EST Glomerular Filtration Rate 23 mL/min (>60); Est Glom Filt Rate - Afr Amer 28 mL/min (>60); Globulin 3.3 g/dL (2.2-4.2); Glucose 108 mg/dL (74-106); Potassium 4.6 mmol/L (3.5-5.1); Protein, Total 7.2 g/dL (6.4-8.2); Sodium Level 142 mmol/L (136-145)
== END | disposition home or self-care (01) ==
PROVIDERS: PCP Student in an Organized Health Care Education/Training Program; Referring Provider Nurse Practitioner Family; Visit Provider Nurse Practitioner Family
DX: R10.31 Right lower quadrant pain (principal); R55 Syncope and collapse
CPT/HCPCS: 36415; 74176; 80053; 81002; 85025; 87086; 87088

== ENCOUNTER → 2023-03-18 | Outpatient (CLI) | payer MEDICARE, SELFPAY ==
[2023-03-18 09:36] LABS: Hematocrit 41.1 % (37-47); Hemoglobin 13.6 g/dL (12.0-15.0); Mean Corp Hgb Conc 33.1 g/dL (32-36); Mean Corpuscular Hgb 32.3 pg (27.0-32.0); Mean Corpuscular Volume 97.6 fL (81-99); Mean Platelet Vol. 11.8 fl (6.2-12.0); Platelet Count 158 K/mm3 (150-450); RBC Distribution Width CV 12.5 % (11.6-14.6); RBC Distribution Width SD 44.9 fl (35.1-43.9); Red Blood Count 4.21 M/mm3 (4.2-5.4); White Blood Count 6.1 K/mm3 (4.4-11.0)
[2023-03-18 09:45] LABS: Protein, Urine (Random) 38.6 mg/dL (<11.9); Protein:Creat Ratio 193 mg/g CRE (0-200)
[2023-03-18 09:50] LABS: PTHIN 59.3 pg/mL (18.4-80.1)
[2023-03-18 09:54] LABS: Vitamin D,25 Hydroxy 78.6 ng/mL
[2023-03-18 09:58] LABS: Albumin, Serum 3.8 g/dL (3.2-5.0); BUN 27 mg/dL (7-18); BUN/Creat Ratio 13.4 RATIO (10-20); Chloride 108 mmol/L (98-107); Creatinine, Serum 2.02 mg/dL (0.55-1.02); EST Glomerular Filtration Rate 26 mL/min (>60); Est Glom Filt Rate - Afr Amer 31 mL/min (>60); Glucose 125 mg/dL (74-106); Phosphorus 2.9 mg/dL (2.5-4.9); Potassium 4.7 mmol/L (3.5-5.1); Sodium Level 138 mmol/L (136-145)
[2023-03-19 11:18] LABS: Microalbumin,Random Urine 55.7 mg/L (NO RANGE EST.)
== END | disposition home or self-care (01) ==
LOC: LAB 08:19
PROVIDERS: PCP Student in an Organized Health Care Education/Training Program; Referring Provider Internal Medicine Nephrology; Visit Provider Internal Medicine Nephrology
DX: N18.4 Chronic kidney disease, stage 4 (severe) (principal); R80.9 Proteinuria, unspecified; D64.9 Anemia, unspecified
CPT/HCPCS: 36415; 80069; 82043; 82306; 82570; 83970; 84156; 85027

== ENCOUNTER → 2023-03-27 | Outpatient (CLI) | payer MEDICARE, SELFPAY ==
[2023-03-27 11:59] LABS: Amphetamine Urine VISTA NEGATIVE (<1000 ng/mL); Barbiturate Urine VISTA NEGATIVE (< 200 ng/mL); Benzodiazepine Urine VISTA NEGATIVE (< 200 ng/mL); Cocaine Urine VISTA NEGATIVE (< 300 ng/mL); Ecstacy Urine VISTA NEGATIVE (< 500 ng/mL); Methadone Urine VISTA NEGATIVE (< 300 ng/mL); PCP Urine VISTA NEGATIVE (< 25 ng/mL); THC Urine VISTA NEGATIVE (< 50 ng/mL); Vista UDS pH Range 5
== END | disposition home or self-care (01) ==
LOC: LAB 11:12
PROVIDERS: PCP Student in an Organized Health Care Education/Training Program; Referring Provider Anesthesiology Pain Medicine; Visit Provider Anesthesiology Pain Medicine
DX: F11.20 Opioid dependence, uncomplicated (principal)
CPT/HCPCS: 80307

== ENCOUNTER → 2023-04-04 | Outpatient (CLI) | payer MEDICARE, SELFPAY | END | disposition home or self-care (01) | LOC: LAB 11:19 | PROVIDERS: PCP Student in an Organized Health Care Education/Training Program; Referring Provider Internal Medicine Nephrology; Visit Provider Internal Medicine Nephrology | DX: N39.0 Urinary tract infection, site not specified (principal) | CPT/HCPCS: 87077; 87086; 87088; 87186 ==

== ENCOUNTER 2023-04-26 22:14 | Observation (INO) | payer MEDICARE, SELFPAY ==
[2023-04-26 22:15] VITALS: BP 67/47; PULSE 71; RESP 14; TEMP 36; O2SAT 97; BMI 34.0
[2023-04-26 22:18] VITALS: BP 67/47; PULSE 71; RESP 18; TEMP 36; O2SAT 97
[2023-04-26 22:21] VITALS: BP 67/47; PULSE 67; RESP 18; O2SAT 98
--- NOTE | 2023-04-26 22:34 | CT_ITS ---
STUDY: CT CERVICAL SPINE WITHOUT CONTRAST REASON FOR EXAM: Female, 72 years old. injury RADIATION DOSAGE (If Supplied By Facility): CTDIvol = ( 22.33 ) mGy, DLP = ( 489.37 ) mGycm TECHNIQUE: High resolution transaxial imaging was performed without contrast material. Sagittal and coronal images were reconstructed. Individualized dose optimization techniques were used for this CT. COMPARISON: None FINDINGS: Normal craniovertebral junction. Normal anterior atlantoaxial articulation. Normal odontoid process. Normal cervical lordosis. Normal vertebral bodies and posterior osseous elements. C2-3: Normal endplates. Normal disc height with a mild central disc protrusion. Normal central canal and intervertebral neuroforamina. C3-4: Spurring at the endplates. Narrowed disc height. Mild central disc protrusion. Normal central canal. Facet hypertrophy and uncovertebral spurring narrowing the intervertebral neuroforamina, left more than right. C4-5: Mild spurring at the endplates. Normal disc height and morphology. Posterior spurring protruding into the central canal. Uncovertebral spurring narrowing the intervertebral neuroforamina, left more than right. C5-6: Mild spurring at the endplates. Normal disc height and morphology. Mild spurring protruding into the central canal. Uncovertebral spurring narrowing the intervertebral neuroforamina. C6-7: Mild spurring at the endplates. Normal disc height. Normal central canal. Uncovertebral spurring slightly narrowing the intervertebral neuroforamina, right more than left. C7-T1: Spurring at the endplates. Narrowed disc height. Normal central canal. Uncovertebral spurring narrowing the right intervertebral neural foramen. Normal visualized soft tissue structures. CT/Spine Cervical without Contras IMPRESSION: Degenerative changes and discogenic disease as noted of the cervical spine. Electronically Signed: Jony Cook DO at 23:54 EDT Reading Location ID and State: [facility] / [place] Tel [phone], Service support ,
--- NOTE | 2023-04-26 22:34 | CT_ITS ---
STUDY: CT BRAIN WITHOUT CONTRAST REASON FOR EXAM: Female, 72 years old. head injury RADIATION DOSAGE (If Supplied By Facility): CTDIvol = ( 44.99 ) mGy, DLP = ( 897.35 ) mGycm TECHNIQUE: Transaxial CT imaging of the brain was performed without administration of intravenous contrast material. Individualized dose optimization techniques were used for this CT. COMPARISON: No relevant priors. FINDINGS: Normal soft tissue structures. Normal calvarium. Normal size ventricles and extra-axial spaces for the patient''s age. Mild white matter microangiopathic ischemic changes of the cerebral hemispheres. Normal basal ganglia and thalami. Normal brainstem. Normal cerebellum. There is no intracranial hemorrhage. There are no findings of an acute ischemic infarction. Normal visualized paranasal sinuses. CT/Brain/Head without Contrast IMPRESSION: No acute intracranial pathology of the brain. Electronically Signed: Jony Cook DO at 23:29 EDT ,
--- NOTE | 2023-04-26 22:34 | RAD_ITS ---
INDICATION: pain EXAMINATION/TECHNIQUE: X-RAY - XR Hip Unilateral with Pelvis when performed; 2-3 Views COMPARISON: None. FINDINGS: PELVIC BONES: There is a questionable lucency through the right superior pubic ramus near the tubercle. Note that overlapping bowel shadows may however obscure fine detail. Sacroiliac joints are unremarkable. No widening of the pubic symphysis. HIPS: The articular structures are unremarkable. No displaced fracture seen in this frontal view. SOFT TISSUES: No soft tissue swelling or gas. RAD/HIP, UNI W/ Pelvis 2-3 Views IMPRESSION: Possible fracture of the right superior pubic ramus. Electronically Signed: Jony Cook DO at 23:41 EDT Reading Location ID and State: [facility] / [place] Tel [phone], Service support ,
--- NOTE | 2023-04-26 22:34 | RAD_ITS ---
STUDY: X-RAY - LUMBAR SPINE REASON FOR EXAM: Female, 72 years old. pain TECHNIQUE: 2 view(s) of the lumbar spine were obtained. COMPARISON: None FINDINGS: Normal lumbar lordosis. There is no substantial scoliosis. There is a normal alignment of the vertebrae. Normal vertebral bodies with spurring at the endplates. Slightly narrowed L3-4 disc space. The soft tissue structures are unremarkable. RAD/Lumbar Spine 2 or 3 Views IMPRESSION: Mild degenerative changes of the lumbar spine. Electronically Signed: Jony Cook DO at 23:38 EDT Reading Location ID and State: [facility] / [place] Tel [phone], Service support ,
[2023-04-26] MEDS: 0.9% Normal Saline 1,000 ML 999 ML IV ×2 (22:49→23:21)
[2023-04-26 22:51] VITALS: BP 93/60; PULSE 73
[2023-04-26 22:52] LABS: Absolute Lymphocyte Count 1.48 X10^3/uL (0.83-4.51); Absolute Neutrophil Count 3.7 X10^3/uL (2.0-7.7); Basophil# 0.04 X10^3/uL; Basophil% 0.7 % (0-1); Eosinophil# 0.23 X10^3/uL; Hematocrit 31.3 % (37-47); Lymphocyte # 1.48 X10^3/ul (0.83-4.51); Lymphocyte % 25.9 % (19-41); Mean Corp Hgb Conc 31.9 g/dL (32-36); Mean Corpuscular Hgb 32.1 pg (27.0-32.0); Mean Corpuscular Volume 100.3 fL (81-99); Mean Platelet Vol. 12.3 fl (6.2-12.0); Monocyte% 5.2 % (0-10); NRBC Flagged by Analyzer 0 % (0-5); Neutrophil # 3.66 X10^3/uL (2.7-7.7); Platelet Count 100 K/mm3 (150-450); RBC Distribution Width CV 12.1 % (11.6-14.6); RBC Distribution Width SD 43.8 fl (35.1-43.9); Red Blood Count 3.12 M/mm3 (4.2-5.4); White Blood Count 5.7 K/mm3 (4.4-11.0)
[2023-04-26 23:10] LABS: Anion Gap 11 (5-15); BUN 23 mg/dL (7-18); BUN/Creat Ratio 13.3 RATIO (10-20); Calcium,Total 7.2 mg/dL (8.5-10.1); Chloride 115 mmol/L (98-107); Creatinine, Serum 1.73 mg/dL (0.55-1.02); EST Glomerular Filtration Rate 31 mL/min (>60); Est Glom Filt Rate - Afr Amer 37 mL/min (>60); Estimated Creatinine Clearance 24.64 ml/min; Glucose 154 mg/dL (74-106); Magnesium 1.3 mg/dL (1.6-2.6); Sodium Level 145 mmol/L (136-145)
[2023-04-26] MEDS: Ondansetron 4 MG/2 ML Vial IV (23:16)
[2023-04-26 23:25] VITALS: BP 104/71; PULSE 77; RESP 16; O2SAT 97
--- NOTE | 2023-04-26 23:36 | EKG12_ITS ---
Test Reason : FALL Blood Pressure : / mmHG Vent. Rate : 067 BPM Atrial Rate : 067 BPM P-R Int : 150 ms QRS Dur : 078 ms QT Int : 448 ms P-R-T Axes : 047 012 036 degrees QTc Int : 473 ms Normal sinus rhythm Normal ECG Confirmed by HEMALATHA ROBERTS, SADIA ([id number]), science editor NIDA GARCIA ([id number]) on 04/30/2023 10:26:55 AM Referred By: GEETHA Confirmed By:SADIA PENNY MD
[2023-04-27] VITALS (11 sets, daily range): BP systolic 97–152; BP diastolic 57–90; PULSE 57–89; RESP 16–18; TEMP 36–36.9; O2SAT 96–99; BMI 29.4
--- NOTE | 2023-04-27 00:54 | PCM.HP.STD ---
HPI - General General Date of Admission: 04/27/23 Date of Service: 04/27/23 Chief Complaint: Syncope HPI Narrative ISIS JONES, is a 72 F with a significant history of hypertension; diabetes mellitus and chronic lower back pain who presents emergency department with syncope. Reportedly patient took her nighttime medicine then she went to sleep. She woke up from her bedroom with the intent to go to the bathroom. What she remembers afterwards that her woke her from the bedroom floor. Reportedly her found her unresponsive on the floor and her called the paramedics. On arrival to the emergency department patient blood pressure was low at 67/47. She complains of right groin pain which is new. Also she complains of a worsened lower back which is worse than her baseline. Also she complains of new tingling in her right leg. [facility] Medical History (Updated 04/27/23 @ 02:[address] Gordon Knapp MD) DM type 2 (diabetes mellitus, type 2) HTN (hypertension) Lupus Stage 3 chronic kidney disease Home Medications gabapentin 300 mg capsule 300 mg PO DAILY NERVE PAIN 12/21/15 [History Last Taken 05/04/20 07:10] hydrocodone-acetaminophen 5-325mg 5mg-325mg 5 - 325 mg PO BID PAIN 12/21/15 [History Last Taken 03/23/19] hydroxychloroquine 200 mg tablet 200 mg PO DAILY LUPUS 12/21/15 [History Last Taken 05/04/20 07:10] omeprazole 20 mg capsule,delayed release 20 mg PO DAILY GERD 12/21/15 [History Last Taken 05/04/20 07:10] aspirin 81 mg tablet,delayed release 81 mg PO DAILY@0800 HEART HEALTH 03/24/19 [History Last Taken 03/23/19] ferrous sulfate 325 mg (65 mg iron) tablet 65 mg PO DAILY SUPPLEMENT 03/24/19 [History Last Taken 03/23/19] losartan 100 mg tablet 100 mg PO DAILY HEART 03/24/19 [History Last Taken 05/04/20 07:10] metformin 1,000 mg tablet 1,000 mg PO DAILY DM 03/24/19 [History Last Taken 03/23/19] multivit with pvxoovmq-kgca-GY-lutein 8 mg iron-400 mcg-300 mcg tablet 1 tab PO DAILY SUPPLEMENT 03/24/19 [History Last Taken 03/23/19] sertraline 50 mg tablet 50 mg PO DAILY DEPRESSION 03/24/19 [History Last Taken 03/23/19] simvastatin 80 mg tablet 80 mg PO QHS CHOLESTEROL 03/24/19 [History Last Taken 03/23/19] Lactobacillus acidophilus 1 ea PO DAILY 04/27/20 [History Last Taken Unknown] tizanidine 2 mg tablet 2 mg PO DAILY 04/27/20 [History Last Taken Unknown] Keto PO DIRECTED 10/10/20 [History Last Taken Unknown] carvedilol 3.125 mg tablet 3.125 mg PO BID 04/27/23 [History Last Taken Unknown] furosemide 20 mg tablet 20 mg PO PRN PRN leg swelling 04/27/23 [History Last Taken Unknown] hydralazine 10 mg tablet 10 mg PO BID 04/27/23 [History Last Taken Unknown] Allergy/AdvReac Type Severity Reaction Status Date / Time cephalexin [From Keflex] Allergy Other Verified 03/08/22 10:50 ciprofloxacin Allergy Rash Verified 03/08/22 10:50 moran Allergy blisters Verified 04/09/23 11:54 Iodinated Contrast Media Allergy blisters Verified 03/08/22 10:50 [CONTRASTS] Sulfa (Sulfonamide Allergy Hives Verified 03/08/22 10:50 Antibiotics) Family History Father Cancer Gastric Surgical History (Updated 04/27/23 @ 02:[address] Gordon Knapp MD) History of bilateral knee replacement History of cholecystectomy Hx of shoulder surgery S/P foot surgery, left Social History Smoking Status: Former smoker ROS ROS Narrative Pertinent positives and pertinent negatives as noted in HPI. All other systems were reviewed and are negative Vital Signs Vital Signs Vital Signs: 04/26/23 22:15 04/26/23 22:18 04/26/23 22:18 Temperature 96.8 F L 96.8 F L Temperature Source Temporal Temporal Pulse Rate 71 71 Respiratory Rate 14 18 Respiratory Effort Normal Respiratory Depth Normal Respiratory Pattern Normal Blood Pressure 67/47 L 67/47 L Blood Pressure Mean 53 53 Pulse Ox 97 97 Oxygen Delivery Method Room Air Room Air Room Air 04/26/23 22:21 04/26/23 22:51 04/26/23 23:25 Temperature Temperature Source Pulse Rate 67 73 77 Respiratory Rate 18 16 Respiratory Effort Respiratory Depth Respiratory Pattern Blood Pressure 67/47 L 93/60 104/71 Blood Pressure Mean 53 71 82 Pulse Ox 98 97 Oxygen Delivery Method Room Air Room Air 04/27/23 00:49 Temperature 96.8 F L Temperature Source Temporal Pulse Rate 82 Respiratory Rate 16 Respiratory Effort Respiratory Depth Respiratory Pattern Blood Pressure 127/73 H Blood Pressure Mean 91 Pulse Ox 98 Oxygen Delivery Method Room Air Weight Weight: 89.9 kg Body Mass Index (BMI) 34.0 Physical Exam Narrative Physical exam: General: Well-nourished, well-developed. Head: Normocephalic, atraumatic, no tenderness Eyes: Vision is grossly intact. EOMI ENT, no trauma, moist mucous membranes, no rhinorrhea Neck: Nontender, No thyromegaly. CVS: Regular rate and rhythm. S1-S2 present. No murmur, gallop or rub. Respiratory : clear to auscultation bilaterally, chest wall nontender Abdomen: Soft, nontender, nondistended, normal bowel sounds, no masses : Deferred Back: Nontender, no CVA tenderness Extremities: Tender right groin. Skin: Normal color, no trauma, abrasions Neuro: Alert, oriented, cranial nerves II through XII grossly intact. Psychiatry: Normal mood. Normal affect. Not depressed. Not anxious. Results Lab / Micro Data Result Diagrams: 04/26/23 22:45 04/26/23 22:45 Labs: Laboratory Results - last 24 hr 04/26/23 22:45: WBC 5.7, RBC 3.12 L, Hgb 10.0 L, Hct 31.3 L, MCV 100.3 H, MCH 32.1 H, MCHC 31.9 L, RDW Std Deviation 43.8, RDW Coeff of [place]iha 12.1, Plt Count 100 L, MPV 12.3 H, Immature Gran % (Auto) 0.200, Neut % (Auto) 64.0, Lymph % (Auto) 25.9, [place] % (Auto) 5.2, Eos % (Auto) 4.0, Baso % (Auto) 0.7, Absolute Neuts (auto) 3.7, Absolute Lymphs (auto) 1.48, Nucleated RBC % 0 04/26/23 22:45: Sodium 145, Potassium 3.0 L, Chloride 115 H, Carbon Dioxide 19.0 L, Anion Gap 11, BUN 23 H, Creatinine 1.73 H, Estim Creat Clear Calc 24.64, Est GFR (MDRD) Af Amer 37 L, Est GFR (MDRD) Non-Af 31 L, BUN/Creatinine Ratio 13.3, Glucose 154 H, Calcium 7.2 L, Magnesium 1.3 L Radiology Impression Brain CT 04/26/23 22:34 IMPRESSION: No acute intracranial pathology of the brain. Electronically Signed: Jony Cook DO at 23:29 EDT , Cervical Spine CT 04/26/23 22:34 IMPRESSION: Degenerative changes and discogenic disease as noted of the cervical spine. Electronically Signed: Jony Cook DO at 23:54 EDT , Hip/Pelvis X-Ray 04/26/23 22:34 IMPRESSION: Possible fracture of the right superior pubic ramus. Electronically Signed: Jony Cook DO at 23:41 EDT , Lumbar Spine X-Ray 04/26/23 22:34 IMPRESSION: Mild degenerative changes of the lumbar spine. Electronically Signed: Jony Cook DO at 23:38 EDT , Assessment & Plan Assessment/Plan (1) Syncope: (2) Syncope and collapse: (3) Fracture of right superior pubic ramus: (4) Hypokalemia: (5) Hypomagnesemia: (6) Hypocalcemia: PLAN: Plan Syncope and collapse Likely secondary to orthostatic hypotension from hypotension and hypovolemia. Hold all home blood pressure medications. Normal saline hydration ordered. Orthostatic vitals per protocol. Impression of lumbar spine x-ray by radiology: Mild degenerative changes of the lumbar spine. Patient with degenerative changes on cervical spine CT. Patient also have hyperchloremia and hypokalemia so half-normal saline with 20 mEq of potassium infusion ordered. Fracture of right superior pubic ramus Impression of hip/pelvis x-ray by radiology: Possible fracture of the right superior pubic ramus. Independent interpretation of hip/pelvis x-ray by hospitalist: Agree with radiology interpretation. With severe pain in the right groin likely patient has fracture of right superior pubic ramus. Home as needed [place] ordered. As needed acetaminophen ordered. PT and OT to work with patient. Case management consult. Hypokalemia Potassium of 3.0 on presentation. IV potassium replacement ordered at the ED. Half normal saline with 20 mEq of potassium infusion ordered. Trend CMP. Hypomagnesemia Magnesium of 1.3. Received magnesium sulfate IV at emergency department. Hypocalcemia Calcium of 7.2 on presentation. Check CMP and calculate total calcium level. Diabetes mellitus Blood glucose is stable. Accu-Chek with correction scale insulin ordered. DVT prophylaxis Subcutaneous Lovenox ordered. Charges/Coding Visit Charges Inpatient E&M: 78373 Init Hosp L3
--- NOTE | 2023-04-27 01:17 | NURSING ---
PCU AGYEPONG ORTHOSTATIC SYNCOPE, HYPOKALEMIA, SUPERIOR PUBIC RAMI FRACTURE
--- NOTE | 2023-04-27 02:56 | ECHOD_ITS ---
Reason For Study: SYNCOPE/NEAR SYNCOPE Procedure This was a 2D Doppler, Color Flow transthoracic echocardiogram. The study was technically difficult. Due to back pain, exam performed with patient in supine position. Exam performed portable in patient room. Left Ventricle Normal size and thickness. Left ventricular systolic function is normal. The estimated ejection fraction is 65 %. Stage 1 diastolic dysfunction. No regional wall motion abnormalities noted. Right Ventricle Normal RV size. Normal systolic function. Atria Normal left atrium. Normal right atrium. Mitral Valve Normal mitral valve. Tricuspid Valve Normal tricuspid valve. Mild (1+) tricuspid valve insufficiency. Pulmonary artery systolic pressure is 34 mmHg. Aortic Valve Trisinus/trileaflet aortic valve. Pulmonic Valve Normal pulmonic valve. Great Vessels Normal aortic root. The pulmonary artery is normal size. Normal inferior vena cava. Pericardium/Pleural No pericardial effusion. MMode/2D Measurements & Calculations LVIDd: 3.9 cm IVSd: 0.92 cm LVOT diam: 2.0 cm LVIDs: 2.4 cm LVPWd: 1.0 cm LVOT area: 3.1 cm2 RVDd: 2.9 cm FS: 37.2 % Ao root diam: 3.0 cm LAV(MOD-bp): 52.7 ml EDV(MOD-sp4): 96.2 ml LAV(MOD-bp) Indexed: 27.0 ml/m2 ESV(MOD-sp4): 24.6 ml LAV(MOD-sp2): 52.4 ml EF(MOD-sp4): 74.4 % LAV(MOD-sp4): 48.1 ml EDV(MOD-sp2): 73.4 ml SV(MOD-sp4): 71.6 ml SV(MOD-sp2): 49.3 ml ESV(MOD-sp2): 24.1 ml EF(MOD-sp2): 67.2 % LA A4 area: 18.3 cm2 LA dimension(2D): 4.0 cm RA A4 area: 11.2 cm2 Time Measurements MV dec time: 0.27 sec Doppler Measurements & Calculations MV E max josue: 85.5 cm/sec Lat Peak E' Josue: 12.5 cm/sec Med Peak E' Josue: 8.8 cm/sec MV A max josue: 140.8 cm/sec E/E' lat: 6.8 E/E' med: 9.8 MV E/A: 0.61 Ao V2 max: 247.7 cm/sec LV V1 max: 150.3 cm/sec SV(LVOT): 99.1 ml Ao max P.6 mmHg LV V1 max P.0 mmHg Ao V2 mean: 171.9 cm/sec LV V1 mean P.0 mmHg Ao mean P.0 mmHg LV V1 mean: 117.8 cm/sec Ao V2 VTI: 50.1 cm LV V1 VTI: 31.9 cm AV (velocity ratio): 0.64 CHUCK(I,D): 2.0 cm2 CHUCK(V,D): 1.9 cm2 PA V2 max: 117.5 cm/sec TR max josue: 268.7 cm/sec TR max P.9 mmHg ECHO/Echo Complete Interpretation Summary Normal size and thickness. Left ventricular systolic function is normal. The estimated ejection fraction is 65 %. Stage 1 diastolic dysfunction. Pulmonary artery systolic pressure is 34 mmHg. Ordering Physician: Gordon Knapp Referring Physician: Akil Kelly Performed By: Bernadette Yañez, MARBELLA, RVT
[2023-04-27] MEDS: Potassium Chloride 10mEq/100mL 10 MEQ/100 ML IV.SOLN. 100 MEQ IV BOLUS ×3 (03:14→05:55)
[2023-04-27] MEDS: HYDROcodone Bitartrate/Apap 5/325 Tablet PO (03:32)
--- NOTE | 2023-04-27 04:15 | EX.ED.DYSGE1 ---
HPI History of Present Illness Chief Complaint: Fall Informant: patient and EMS Narrative Narrative: Patient is a 72-year-old female from home with past medical history of lupus hypertension hyperlipidemia chronic kidney disease and chronic pain. She states today she was outside for most the day doing work in the yard. She states this evening she took her nighttime medication and then roughly an hour later got up out of bed to use the bathroom and as she was walking towards the bathroom had a syncopal event. She denies any chest pain shortness of breath or palpitations prior to the event occurring. She reports pain in her head neck and right hip at this time. Secondary to the event and pain EMS was contacted and patient was brought in for potential dehydration and or trauma [facility] Medical History (Updated 04/27/23 @ 05:[address] Pancho Hernandez, ) DM type 2 (diabetes mellitus, type 2) HTN (hypertension) Lupus Stage 3 chronic kidney disease Home Medications gabapentin 300 mg capsule 300 mg PO DAILY NERVE PAIN 12/21/15 [History Last Taken 05/04/20 07:10] hydrocodone-acetaminophen 5-325mg 5mg-325mg 5 - 325 mg PO BID PAIN 12/21/15 [History Last Taken 03/23/19] hydroxychloroquine 200 mg tablet 200 mg PO DAILY LUPUS 12/21/15 [History Last Taken 05/04/20 07:10] omeprazole 20 mg capsule,delayed release 20 mg PO DAILY GERD 12/21/15 [History Last Taken 05/04/20 07:10] aspirin 81 mg tablet,delayed release 81 mg PO DAILY@0800 HEART HEALTH 03/24/19 [History Last Taken 03/23/19] ferrous sulfate 325 mg (65 mg iron) tablet 65 mg PO DAILY SUPPLEMENT 03/24/19 [History Last Taken 03/23/19] losartan 100 mg tablet 100 mg PO DAILY HEART 03/24/19 [History Last Taken 05/04/20 07:10] metformin 1,000 mg tablet 1,000 mg PO DAILY DM 03/24/19 [History Last Taken 03/23/19] multivit with ocrkwbcp-yqlm-DJ-lutein 8 mg iron-400 mcg-300 mcg tablet 1 tab PO DAILY SUPPLEMENT 03/24/19 [History Last Taken 03/23/19] sertraline 50 mg tablet 50 mg PO DAILY DEPRESSION 03/24/19 [History Last Taken 03/23/19] simvastatin 80 mg tablet 80 mg PO QHS CHOLESTEROL 03/24/19 [History Last Taken 03/23/19] Lactobacillus acidophilus 1 ea PO DAILY 04/27/20 [History Last Taken Unknown] tizanidine 2 mg tablet 2 mg PO DAILY 04/27/20 [History Last Taken Unknown] Keto PO DIRECTED 10/10/20 [History Last Taken Unknown] carvedilol 3.125 mg tablet 3.125 mg PO BID 04/27/23 [History Last Taken Unknown] furosemide 20 mg tablet 20 mg PO PRN PRN leg swelling 04/27/23 [History Last Taken Unknown] hydralazine 10 mg tablet 10 mg PO BID 04/27/23 [History Last Taken Unknown] Allergy/AdvReac Type Severity Reaction Status Date / Time cephalexin [From Keflex] Allergy Other Verified 03/08/22 10:50 ciprofloxacin Allergy Rash Verified 03/08/22 10:50 moran Allergy blisters Verified 04/09/23 11:54 Iodinated Contrast Media Allergy blisters Verified 03/08/22 10:50 [CONTRASTS] Sulfa (Sulfonamide Allergy Hives Verified 03/08/22 10:50 Antibiotics) Family History Father Cancer Gastric Surgical History (Updated 04/27/23 @ 02:[address] Gordon Knapp MD) History of bilateral knee replacement History of cholecystectomy Hx of shoulder surgery S/P foot surgery, left Social History Smoking Status: Former smoker ROS ROS ED Constitutional Constitutional ED: Denies chills or fever(s) Eyes Eyes: Denies change in vision ENT ENT ED: Denies sore throat Cardiovascular Cardiovascular: Reports other Details: Positive syncope ; Denies chest pain, palpitations or racing heartbeat Respiratory/Chest Respiratory/Chest: Denies cough or dyspnea Gastrointestinal Gastrointestinal: Denies abdominal pain, diarrhea, nausea or vomiting Genitourinary Genitourinary ED: Denies dysuria or hematuria Musculoskeletal Musculoskeletal: Reports back pain and neck pain Integumentary Denies rash Neurologic Neurologic: Denies headache(s), paresthesias or weakness Psychiatric Psychiatric: Reports anxiety and depression Hematologic/Lymphatic Hematologic/Lymphatic: Denies easy bleeding or easy bruising EXAM Physical Exam Const Vital Signs: 04/26/23 22:15 04/26/23 22:18 04/26/23 22:18 Temperature 96.8 F L 96.8 F L Temperature Source Temporal Temporal Pulse Rate 71 71 Respiratory Rate 14 18 Respiratory Effort Normal Respiratory Depth Normal Respiratory Pattern Normal Blood Pressure 67/47 L 67/47 L Blood Pressure Mean 53 53 Pulse Ox 97 97 Oxygen Delivery Method Room Air Room Air Room Air 04/26/23 22:21 04/26/23 22:51 04/26/23 23:25 Temperature Temperature Source Pulse Rate 67 73 77 Respiratory Rate 18 16 Respiratory Effort Respiratory Depth Respiratory Pattern Blood Pressure 67/47 L 93/60 104/71 Blood Pressure Mean 53 71 82 Pulse Ox 98 97 Oxygen Delivery Method Room Air Room Air 04/27/23 00:49 Temperature 96.8 F L Temperature Source Temporal Pulse Rate 82 Respiratory Rate 16 Respiratory Effort Respiratory Depth Respiratory Pattern Blood Pressure 127/73 H Blood Pressure Mean 91 Pulse Ox 98 Oxygen Delivery Method Room Air Positive well nourished and well developed General Appearance ED: well developed HEENT Reports dry mucous membranes HEENT Narrative: No signs of depressed or basilar skull fracture Mouth ED: Yes dry mucous membranes Mouth: dry mucous membranes Eyes PERRL and EOMs intact bilaterally Neck Neck Narrative: C-collar in place there is midline pain on palpation without bony deformity or step-off Chest Wall palpation of chest normal Chest Narrative: No bony deformity or crepitus noted Resp normal respiratory effort and clear to auscultation bilaterally Cardio regular rate and regular rhythm GI normal to inspection, nondistended, normoactive bowel sounds, non-tender, non-distended and no masses GI Narrative: No voluntary guarding or rigidity no pulsatile mass Auscultation: normoactive bowel sounds Palpation: soft Back/Spine Back/Spine Narrative: No bony deformity or step-off of the thoracic or lumbar spine but there is midline lumbar pain with palpation Extremity Extremity Narrative: Pelvis is stable there is no shortening or external rotation of either lower extremity. However patient does have pain with palpation in the right inguinal region and decreased active range of motion secondary to pain Neuro oriented x3 and CN's II-XII intact bilaterally Sensorium / Orientation: alert Motor Exam: strength 5/5 throughout Psych mental status grossly normal Skin no rashes or lesions noted Skin Narrative: No abrasions or ecchymosis noted MDM MDM MDM Narrative Medical decision making narrative: Patient presented to the ER hypotensive and had physical exam findings concerning for dehydration. Differential diagnosis includes orthostatic syncope versus closed head injury versus acute on chronic kidney failure versus electrolyte derangement or acute blood loss anemia. Basic work-up was obtained and shows patient's hemoglobin has dropped from 13 to a value of 10 over the past month and therefore rectal exam was performed but does not show any type of internal bleeding. Blood work showed a creatinine at baseline and consistent with her history of renal insufficiency but her potassium is now low at 3 and her magnesium is down at 1.3. The patient's x-ray of the hip does question a superior pubic rami fracture and she is tender at that site so therefore does not clinically correlate. After receiving 2 L of fluid the patient's blood pressure improved and she was able to stand without syncopal event but can only stand for a few seconds without ambulation secondary to pain. At this point the patient's symptoms are consistent with orthostatic syncope and she has had improvement with IV hydration however because of the electrolyte issues I do not feel it is safe to return home. Moreover she has a superior pubic rami fracture based on x-ray and exam and is unable to ambulate secondary to the pain from it and therefore she will be kept in the hospital for further evaluation and treatment. This plan of care was discussed with the hospital service they do agree to accept the patient at this time History & Record Review Discussion w/independent historian: EMS personnel and Patient Lab Data Attestation: I reviewed the patient's lab results. Labs: Laboratory Results - last 24 hr 04/26/23 04/26/23 04/26/23 20:45 22:45 22:45 WBC 5.7 RBC 3.12 L Hgb 10.0 L Hct 31.3 L MCV 100.3 H MCH 32.1 H MCHC 31.9 L RDW Std Deviation 43.8 RDW Coeff of [place] 12.1 Plt Count 100 L MPV 12.3 H Immature Gran % (Auto) 0.200 Neut % (Auto) 64.0 Lymph % (Auto) 25.9 [place] % (Auto) 5.2 Eos % (Auto) 4.0 Baso % (Auto) 0.7 Absolute Neuts (auto) 3.7 Absolute Lymphs (auto) 1.48 Nucleated RBC % 0 Sodium 145 Potassium 3.0 L Chloride 115 H Carbon Dioxide 19.0 L Anion Gap 11 BUN 23 H Creatinine 1.73 H Estim Creat Clear Calc 24.64 Est GFR (MDRD) Af Amer 37 L Est GFR (MDRD) Non-Af 31 L BUN/Creatinine Ratio 13.3 Glucose 154 H Calcium 7.2 L Magnesium 1.3 L B-Natriuretic Peptide 46.3 Radiography Diagnostic Testing: Clinical Impression(s) from Imaging Studies Brain CT 04/26/23 22:34 IMPRESSION: No acute intracranial pathology of the brain. Electronically Signed: Jony Cook DO at 23:29 EDT , Cervical Spine CT 04/26/23 22:34 IMPRESSION: Degenerative changes and discogenic disease as noted of the cervical spine. Electronically Signed: Jony Cook DO at 23:54 EDT , Hip/Pelvis X-Ray 04/26/23 22:34 IMPRESSION: Possible fracture of the right superior pubic ramus. Electronically Signed: Jony Cook DO at 23:41 EDT , Lumbar Spine X-Ray 04/26/23 22:34 IMPRESSION: Mild degenerative changes of the lumbar spine. Electronically Signed: Jony Cook DO at 23:38 EDT , Right hip x-ray with 1 view pelvis as interpreted by the emergency medicine physician displays questionable changes of a superior pubic rami fracture on right otherwise no acute dislocation or joint effusion or bony abnormality Management Discussion w/another healthcare provider: Hospitalist Discharge Plan Dx/Rx/DC Orders Clinical Impression: Syncope due to orthostatic hypotension, DM type 2 (diabetes mellitus, type 2), CKD (chronic kidney disease) stage 3, GFR 30-59 ml/min, Hypomagnesemia, Dehydration, Acute hypokalemia Disposition Disposition: Acute Care Hospital [facility] Discharge Date/Time: 04/27/23 02:27
[2023-04-27 04:24] LABS: BNP,B-Type NATRIURETIC PEPTIDE 46.3 pg/mL (0-100)
[2023-04-27] MEDS: KCL 20MEQ in 0.45%NS 20 MEQ/1,000 ML IV.SOLN. 100 MEQ IV (05:56)
[2023-04-27 06:34] LABS: Absolute Lymphocyte Count 1.67 X10^3/uL (0.83-4.51); Absolute Neutrophil Count 3.7 X10^3/uL (2.0-7.7); Basophil# 0.03 X10^3/uL; Basophil% 0.5 % (0-1); Eosinophil# 0.19 X10^3/uL; Eosinophils% 3.2 % (0-5); Hematocrit 32.6 % (37-47); Hemoglobin 10.8 g/dL (12.0-15.0); Lymphocyte # 1.67 X10^3/ul (0.83-4.51); Lymphocyte % 27.8 % (19-41); Mean Corp Hgb Conc 33.1 g/dL (32-36); Mean Corpuscular Volume 96.7 fL (81-99); Mean Platelet Vol. 12.1 fl (6.2-12.0); Monocyte# 0.45 X10^3/uL; Monocyte% 7.5 % (0-10); NRBC Flagged by Analyzer 0 % (0-5); Neutrophil # 3.65 X10^3/uL (2.7-7.7); Neutrophil % 60.7 % (47-70); Platelet Count 137 K/mm3 (150-450); RBC Distribution Width CV 12.2 % (11.6-14.6); RBC Distribution Width SD 42.6 fl (35.1-43.9); Red Blood Count 3.37 M/mm3 (4.2-5.4)
[2023-04-27 07:13] LABS: AST(SGOT) 24 U/L (15-37); Alanine Aminotransfer ALT/SGPT 17 U/L (13-56); Albumin, Serum 2.9 g/dL (3.2-5.0); Alkaline Phosphatase 79 U/L (45-117); Anion Gap 7 (5-15); BUN 24 mg/dL (7-18); BUN/Creat Ratio 13.8 RATIO (10-20); Calcium,Total 8.5 mg/dL (8.5-10.1); Chloride 114 mmol/L (98-107); Creatinine, Serum 1.74 mg/dL (0.55-1.02); EST Glomerular Filtration Rate 30 mL/min (>60); Est Glom Filt Rate - Afr Amer 37 mL/min (>60); Estimated Creatinine Clearance 24.49 ml/min; Globulin 2.8 g/dL (2.2-4.2); Glucose 111 mg/dL (74-106); Phosphorus 2.8 mg/dL (2.5-4.9); Potassium 4.2 mmol/L (3.5-5.1); Protein, Total 5.7 g/dL (6.4-8.2); Sodium Level 143 mmol/L (136-145)
[2023-04-27 08:24] LABS: Magnesium 2.2 mg/dL (1.6-2.6)
[2023-04-27] MEDS: 0.9% Saline Lock 10 ML Syringe IV (08:50)
[2023-04-27] MEDS: Acetaminophen 500 MG Tablet 1000 MG PO ×3 (08:50→20:28)
[2023-04-27] MEDS: oxyCODONE 5 MG Tablet PO ×2 (08:50→12:56)
--- NOTE | 2023-04-27 14:11 | CASEMGMT ---
VELIA ALAMO in to discuss [employer] form with patient. VELIA ALAMO explained [employer] form, patient voiced understanding. Pt signed form and filed in chart. Pt provided with a copy of signed [employer] form. Patient had no further questions or concerns at this time. Pt with multiple family members at bedside. Pt has not been up with therapy as of yet. Pt states she is not sure if she can return home as she had a hard time sitting on the edge of bed. Pt states her cannot take care of her at home. VELIA ALAMO to follow. Discussed HHC vs SNF.
--- NOTE | 2023-04-27 14:39 | PCM.PN.HOSP ---
Reason for Visit Reason for Visit: Syncope/fall Subjective Subjective Mrs. Wright is a 72-year-old white female who presented to the emergency department at [facility] on 04/27/2023. She reported that she had been outside most of the day doing yard work in the evening she took her nighttime medication and roughly an hour later she got up out of bed to use the bathroom. She was walking towards the bathroom when she had a syncopal event. She does not remember exactly what happened but does remember her waking her up. She was not out for extensive period of time. On presentation she reported pain in her head and neck as well as her right hip. CT of the brain was unremarkable for any acute findings. CT of the cervical spine was unremarkable for any acute findings. Hip and pelvic x-ray showed possible fracture of the right superior pubic ramus and this is where she is having most of her pain. Lumbar spine x-rays were showed no acute findings. Her CBC showed a mild anemia with a hemoglobin of 10. Platelet count was low at 100. These are new when compared to previous lab from March. She was hypokalemic with a BUN and creatinine of 23 and 1.73 respectively which appears consistent with her baseline. Her magnesium level was low at 1.3 and this was replaced on presentation. Her liver function was within normal limits. She was markedly hypotensive on arrival with a blood pressure 67 systolic. I did discuss with her with regards to her blood pressure and evidently she has had some difficulty controlling her blood pressure and chlorthalidone was just recently added by Dr. 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 She had been compliant with her home medications but did indicate her blood pressures had been quite fluctuating. We did obtain orthostatic vitals this morning and they were unremarkable. She was admitted to PCU given IV fluids and echocardiogram was ordered. Echocardiogram shows an EF of 65% with stage I diastolic dysfunction and pulmonary systolic pressure of 34 mmHg. This morning she states that she is uncomfortable because of her superior pubic ramus fracture however moving decently giving her diagnosis. We are awaiting therapy to see her. As noted above she states that they had been having difficulty controlling her blood pressure consistently and chlorthalidone was recently added. Objective Data Objective Data Vital Signs: Vital Signs Temp Pulse Resp BP Pulse Ox O2 Del Method 97.5 F L 88 16 110/65 99 Room Air 04/27/23 09:00 04/27/23 09:52 04/27/23 09:00 04/27/23 09:52 04/27/23 09:00 04/27/23 09:00 Oxygen Delivery Method Room Air Weight: 77.706 kg Body Mass Index (BMI) 29.4 Intake & Output: Intake and Output for Last 24 Hours 04/25/23 04/26/23 04/27/23 23:59 23:59 23:59 Intake Total 1000 / 1000 1764 / 1764 Output Total 450 / 450 Balance 1000 / 1000 1314 / 1314 Lab / Micro Data Result Diagrams: 04/27/23 06:20 04/27/23 06:20 Labs: Laboratory Results - last 24 hr 04/26/23 20:45: B-Natriuretic Peptide 46.3 04/26/23 22:45: WBC 5.7, RBC 3.12 L, Hgb 10.0 L, Hct 31.3 L, MCV 100.3 H, MCH 32.1 H, MCHC 31.9 L, RDW Std Deviation 43.8, RDW Coeff of Maliha 12.1, Plt Count 100 L, MPV 12.3 H, Immature Gran % (Auto) 0.200, Neut % (Auto) 64.0, Lymph % (Auto) 25.9, Knott % (Auto) 5.2, Eos % (Auto) 4.0, Baso % (Auto) 0.7, Absolute Neuts (auto) 3.7, Absolute Lymphs (auto) 1.48, Nucleated RBC % 0 04/26/23 22:45: Sodium 145, Potassium 3.0 L, Chloride 115 H, Carbon Dioxide 19.0 L, Anion Gap 11, BUN 23 H, Creatinine 1.73 H, Estim Creat Clear Calc 24.64, Est GFR (MDRD) Af Amer 37 L, Est GFR (MDRD) Non-Af 31 L, BUN/Creatinine Ratio 13.3, Glucose 154 H, Calcium 7.2 L, Magnesium 1.3 L 04/27/23 06:20: WBC 6.0, RBC 3.37 L, Hgb 10.8 L, Hct 32.6 L, MCV 96.7, MCH 32.0, MCHC 33.1, RDW Std Deviation 42.6, RDW Coeff of Maliha 12.2, Plt Count 137 L, MPV 12.1 H, Immature Gran % (Auto) 0.300, Neut % (Auto) 60.7, Lymph % (Auto) 27.8, Knott % (Auto) 7.5, Eos % (Auto) 3.2, Baso % (Auto) 0.5, Absolute Neuts (auto) 3.7, Absolute Lymphs (auto) 1.67, Nucleated RBC % 0 04/27/23 06:20: Sodium 143, Potassium 4.2, Chloride 114 H, Carbon Dioxide 22.0, Anion Gap 7, BUN 24 H, Creatinine 1.74 H, Estim Creat Clear Calc 24.49, Est GFR (MDRD) Af Amer 37 L, Est GFR (MDRD) Non-Af 30 L, BUN/Creatinine Ratio 13.8, Glucose 111 H, Calcium 8.5, Phosphorus 2.8, Total Bilirubin 0.40, AST 24, ALT 17, Alkaline Phosphatase 79, Total Protein 5.7 L, Albumin 2.9 L, Globulin 2.8, Albumin/Globulin Ratio 1.0 04/27/23 06:20: Magnesium 2.2 Micro: Microbiology 04/27/23 01:30 Stool Stool Occult Blood (STEVIE) - Final Radiography Diagnostic Testing: Radiology Impression Brain CT 04/26/23 22:34 IMPRESSION: No acute intracranial pathology of the brain. Electronically Signed: Jony Cook DO at 23:29 EDT , Cervical Spine CT 04/26/23 22:34 IMPRESSION: Degenerative changes and discogenic disease as noted of the cervical spine. Electronically Signed: Jony Cook DO at 23:54 EDT , Hip/Pelvis X-Ray 04/26/23 22:34 IMPRESSION: Possible fracture of the right superior pubic ramus. Electronically Signed: Jony Cook DO at 23:41 EDT , Lumbar Spine X-Ray 04/26/23 22:34 IMPRESSION: Mild degenerative changes of the lumbar spine. Electronically Signed: Jony Cook DO at 23:38 EDT , Echocardiogram 04/27/23 02:56 Interpretation Summary Normal size and thickness. Left ventricular systolic function is normal. The estimated ejection fraction is 65 %. Stage 1 diastolic dysfunction. Pulmonary artery systolic pressure is 34 mmHg. Ordering Physician: Gordon Knapp Referring Physician: Akil Kelly Performed By: Bernadette Yañez, MARBELLA, RVT Assessment & Plan Assessment/Plan (1) Syncope: (2) Hypomagnesemia: (3) Dehydration: (4) Acute hypokalemia: (5) Fracture of right superior pubic ramus: (6) Anemia: (7) Thrombocytopenia: PLAN: Plan Syncope with fall -Patient was hypotensive on presentation and was fluid responsive -Patient also states she was recently started on chlorthalidone and had been outside working all day with difficult to control blood pressure as of late -We will hold chlorthalidone -Orthostatic vitals are negative at this time -Echocardiogram overall unremarkable with normal EF at 65%, stage I diastolic dysfunction, and right ventricular systolic pressure of 34 mmHg -Telemetry has been unremarkable -We will continue to monitor and if remains stable may just need some adjustment of her antihypertensives Suprapubic ramus fracture R -PT/OT to evaluate patient and make recommendations -She is hopeful that she will be able to go home and have home health rather than have to go to a nursing facility -If unable to go home patient is amenable to being placed -Case management/social work following and will help with setting up for discharge planning -We will schedule Tylenol 1000 mg every 8 -Continue as needed oxycodone -Start bowel regimen -weightbearing as tolerated Hypomagnesemia -Bolus given on admission in the emergency department -Resolved with current magnesium level 2.2 Hypokalemia -Repleted on admission -Resolved Normocytic anemia -This appears to be new -Hemoglobin on 03/18/2023 was 13.6 -Current hemoglobin 10.8 -Check iron studies and ferritin level -Check reticulocyte count -If studies are consistent with iron deficiency will check Hemoccult and hold aspirin Thrombocytopenia -This is new -Current platelet count is 137,000 -Was 157,000 on 03/18/2023 -With new anemia may be consumptive as patient could potentially be bleeding CKD stage IIIb -Baseline serum creatinine is between 1.6 and 1.9 -Current serum creatinine is 1.74 -Continue to monitor -Avoid nephrotoxins as able -Patient does follow with nephrology as an outpatient and sees Dr. Carvajal DM-2 -Hold metformin -Start sliding scale insulin -Carb/cardiac diet -Accu-Cheks as ordered Hypertension -Restart carvedilol 3.125 twice daily -Hold Lasix for now -Hold with an -Hold losartan -Restart home hydralazine 10 mg twice daily Lupus -Continue hydroxychloroquine -Continue outpatient follow-up GERD -continue home PPI Hyperlipidemia -Continue home statin Diabetic neuropathy -Continue home gabapentin DVT prophylaxis -Continue subcu Lovenox CODE STATUS -DNR CCA with no intubation is verified admission
[2023-04-27] MEDS: Sertraline 50 MG Tablet PO (15:50)
[2023-04-27] MEDS: Pantoprazole Sodium 20 MG Tablet PO (15:50)
[2023-04-27] MEDS: hydrALAZINE 10 MG Tablet PO (15:50)
[2023-04-27] MEDS: Hydroxychloroquine 200 MG Tablet PO (15:51)
[2023-04-27] MEDS: Gabapentin 300 MG Capsule PO (15:51)
[2023-04-27] MEDS: Carvedilol 3.125 MG TABLET PO (15:51)
[2023-04-27 15:58] LABS: Platelet Count 131 K/mm3 (150-450); RET-HE 36.2 pg (30-35); Reticulocyte Count 2.02 % (0.5-1.5)
[2023-04-27 16:26] LABS: Ferritin 150 ng/mL (8-252); Iron 33 ug/dL (50-170); Iron Binding Capacity,Total 211 ug/dL (250-450); PERCENT IRON SATURATION 15.6 % (15.0-55.0)
[2023-04-27] MEDS: Atorvastatin Calcium 40 MG Tablet PO (20:28)
[2023-04-27] MEDS: Senna/Docusate Sodium 1 Tablet 2 TABLET PO (20:28)
[2023-04-28] VITALS (8 sets, daily range): BP systolic 88–143; BP diastolic 51–75; PULSE 64–68; RESP 15–18; TEMP 36.2–36.6; O2SAT 96–97
[2023-04-28] MEDS: Acetaminophen 500 MG Tablet 1000 MG PO (05:18)
[2023-04-28 05:55] LABS: Magnesium 1.9 mg/dL (1.6-2.6)
[2023-04-28] MEDS: Aspirin E.C. 81 MG Tablet PO (07:41)
[2023-04-28] MEDS: Sertraline 50 MG Tablet PO (07:42)
[2023-04-28] MEDS: Pantoprazole Sodium 20 MG Tablet PO (07:42)
[2023-04-28] MEDS: Hydroxychloroquine 200 MG Tablet PO (07:43)
[2023-04-28] MEDS: oxyCODONE 5 MG Tablet PO (07:48)
[2023-04-28] MEDS: Gabapentin 300 MG Capsule PO (07:48)
[2023-04-28] MEDS: Ferrous Sulfate 325 MG Tablet PO (09:42)
[2023-04-28] MEDS: tiZANidine HCl 2 MG Tablet PO (09:42)
[2023-04-28] MEDS: hydrALAZINE 10 MG Tablet PO (09:42)
[2023-04-28] MEDS: Carvedilol 3.125 MG TABLET PO (09:43)
--- NOTE | 2023-04-28 11:01 | PCM.DC.SUM ---
Providers Date of Admission: 04/27/23 Date of Discharge: 04/28/23 Primary Care Physician: Dr. Akil Kelly, Reason For Visit: SYNCOPE Diagnosis Discharge Diagnosis (1) Syncope: Status: Acute Code(s): R55 - Syncope and collapse (2) Hypomagnesemia: Status: Acute Code(s): E83.42 - Hypomagnesemia (3) Dehydration: Status: Acute Code(s): E86.0 - Dehydration (4) Acute hypokalemia: Status: Acute Code(s): E87.6 - Hypokalemia (5) Fracture of right superior pubic ramus: Status: Acute Code(s): S32.511A - Fracture of superior rim of right pubis, initial encounter for closed fracture (6) Anemia: Status: Acute Code(s): D64.9 - Anemia, unspecified (7) Thrombocytopenia: Status: Acute Code(s): D69.6 - Thrombocytopenia, unspecified Plan Syncope with fall -Patient was hypotensive on presentation and was fluid responsive -Patient also states she was recently started on chlorthalidone and had been outside working all day with difficult to control blood pressure as of late -We will hold chlorthalidone -Orthostatic vitals are negative at this time -Echocardiogram overall unremarkable with normal EF at 65%, stage I diastolic dysfunction, and right ventricular systolic pressure of 34 mmHg -Telemetry has been unremarkable -We will continue to monitor and if remains stable may just need some adjustment of her antihypertensives Suprapubic ramus fracture R -PT/OT to evaluate patient and make recommendations -She is hopeful that she will be able to go home and have home health rather than have to go to a nursing facility -If unable to go home patient is amenable to being placed -Case management/social work following and will help with setting up for discharge planning -We will schedule Tylenol 1000 mg every 8 -Continue as needed oxycodone -Start bowel regimen -weightbearing as tolerated Hypomagnesemia -Bolus given on admission in the emergency department -Resolved with current magnesium level 2.2 Hypokalemia -Repleted on admission -Resolved Normocytic anemia -This appears to be new -Hemoglobin on 03/18/2023 was 13.6 -Current hemoglobin 10.8 -Check iron studies and ferritin level -Check reticulocyte count -If studies are consistent with iron deficiency will check Hemoccult and hold aspirin Thrombocytopenia -This is new -Current platelet count is 137,000 -Was 157,000 on 03/18/2023 -With new anemia may be consumptive as patient could potentially be bleeding CKD stage IIIb -Baseline serum creatinine is between 1.6 and 1.9 -Current serum creatinine is 1.74 -Continue to monitor -Avoid nephrotoxins as able -Patient does follow with nephrology as an outpatient and sees Dr. Carvajal DM-2 -Hold metformin -Start sliding scale insulin -Carb/cardiac diet -Accu-Cheks as ordered Hypertension -Restart carvedilol 3.125 twice daily -Hold Lasix for now -Hold with an -Hold losartan -Restart home hydralazine 10 mg twice daily Lupus -Continue hydroxychloroquine -Continue outpatient follow-up GERD -continue home PPI Hyperlipidemia -Continue home statin Diabetic neuropathy -Continue home gabapentin DVT prophylaxis -Continue subcu Lovenox CODE STATUS -DNR CCA with no intubation is verified admission Medications at Discharge Home Medications gabapentin 300 mg capsule 300 mg PO DAILY NERVE PAIN 12/21/15 hydrocodone-acetaminophen 5-325mg 5mg-325mg 5 - 325 mg PO BID PAIN 12/21/15 hydroxychloroquine 200 mg tablet 200 mg PO DAILY LUPUS 12/21/15 omeprazole 20 mg capsule,delayed release 20 mg PO DAILY GERD 12/21/15 aspirin 81 mg tablet,delayed release 81 mg PO DAILY@0800 [facility] 03/24/19 ferrous sulfate 325 mg (65 mg iron) tablet 65 mg PO DAILY SUPPLEMENT 03/24/19 metformin 1,000 mg tablet 1,000 mg PO DAILY DM 03/24/19 multivit with plxxngwk-sllo-GB-lutein 8 mg iron-400 mcg-300 mcg tablet 1 tab PO DAILY SUPPLEMENT 03/24/19 sertraline 50 mg tablet 50 mg PO DAILY DEPRESSION 03/24/19 simvastatin 80 mg tablet 80 mg PO QHS CHOLESTEROL 03/24/19 Lactobacillus acidophilus 1 ea PO DAILY 04/27/20 tizanidine 2 mg tablet 2 mg PO DAILY 04/27/20 Keto PO DIRECTED 10/10/20 carvedilol 3.125 mg tablet 3.125 mg PO BID 04/27/23 hydralazine 10 mg tablet 10 mg PO BID 04/27/23 Hospital Course Operations None Procedures 2-D Echocardiogram and EKG Summary of Care Provided Minutes Spent on Discharge: 38 Hospital Course: Her Lasix had justMrs. Kyle is a 72-year-old white female who presented to the emergency department at [facility] on 04/27/2023.? She reported that she had been outside most of the day doing yard work in the evening she took her nighttime medication and roughly an hour later she got up out of bed to use the bathroom.? She was walking towards the bathroom when she had a syncopal event.? She does not remember exactly what happened but does remember her waking her up.? She was not out for extensive period of time.? On presentation she reported pain in her head and neck as well as her right hip.? CT of the brain was unremarkable for any acute findings.? CT of the cervical spine was unremarkable for any acute findings.? Hip and pelvic x-ray showed possible fracture of the right superior pubic ramus and this is where she is having most of her pain.? Lumbar spine x-rays were showed no acute findings.? Her CBC showed a mild anemia with a hemoglobin of 10.? Platelet count was low at 100.? These are new when compared to previous lab from March.? She was hypokalemic with a BUN and creatinine of 23 and 1.73 respectively which appears consistent with her baseline.? Her magnesium level was low at 1.3 and this was replaced on presentation. Her liver function was within normal limits.? She was markedly hypotensive on arrival with a blood pressure 67 systolic.? 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 She was taking this as needed for swelling. Her Lasix was discontinued. She also reports her primary care physician had decreased her losartan by 50% from 100 mg daily to 50 mg daily. She had been compliant with her home medications but did indicate her blood pressures had been quite fluctuating.? We did obtain orthostatic vitals this morning and they were unremarkable, these were taken after she was hydrated.? She was admitted to PCU given IV fluids and echocardiogram was ordered.? Echocardiogram shows an EF of 65% with stage I diastolic dysfunction and pulmonary systolic pressure of 34 mmHg. With regards to her superior pubic ramus fracture she is able to be weightbearing as tolerated on that right lower extremity. She was seen by physical and Occupational Therapy and did extremely well. They felt she was safe to go home and follow-up with outpatient physical therapy. I had her bring her home blood pressure cuff to see if it correlated with our manual cuff and it did not correlate at all. Her home blood pressure cuff read much lower than our cuff here. In comparison, her home blood pressure cuff read 91/65 with a manual cuff here was 124/52 after her medications with Coreg 3.15 OD and hydralazine 10 mg. Given the fact that her blood pressure was appropriate and she had no real hypertensive episodes while on medication during her hospitalization. We discontinued her losartan completely at discharge. I told her she can take her chlorthalidone at home but her blood pressure must be greater than 140/90 to do so. She will be maintained on her Coreg and hydralazine as noted. She has pain at home and indicated she needed no new pain medication. I did indicate to her she could take Tylenol 1000 mg 3 times daily but no more if needed for pain on top of what she is already prescribed by pain management. She was noted to have anemia which appears to be new compared to our previous lab having a hemoglobin of 10.8. Iron studies were obtained and its not consistent with iron deficiency having a low TIBC. She denied any blood in her stool. I would recommend a repeat CBC be obtained after follow-up to check for stability of her hemoglobin and if she continues to be low she may need referral to GI. We will discharge her home in stable condition on 04/28/2023. I have asked that she follow-up with her primary care physician for blood pressure check and obtain a new cuff and have it compared to her primary care physician's manual cuff prior to consistent utilization. She states she already has an appointment to see her on 05/07/2023. I have also asked her to follow-up with her primary heavy duty diesel mechanic within the next month. Renal function was stable on admission. Discharge diagnoses: Syncope with fall due to orthostasis Suprapubic ramus fractures right Hypomagnesemia-resolved Hypokalemia-resolved Normocytic anemia Thrombocytopenia-resolving CKD stage IIIb DM-2 Hypertension Lupus GERD Hyperlipidemia Diabetic neuropathy Chronic pain Physical Exam Const alert, oriented x3, no apparent distress and well nourished Constitutional Narrative: Elderly, white female, sitting up in a chair at the bedside, appears comfortable and nontoxic, currently knitting, at bedside General Appearance: cooperative, comfortable, well kempt and well developed Orientation / Consciousness: awake, oriented to person, oriented to place and oriented to time Exam Limitations: no limitations Nutritional Appearance: overweight HEENT normocephalic, head/scalp atraumatic, hearing grossly normal bilaterally and moist oral mucous membranes HEENT Narrative: Mallampati 2, no thrush Eyes PERRL, EOMs intact bilaterally and conjunctivae normal Eyes Narrative: No scleral icterus Neck no lymphadenopathy, supple and no JVD Neck Narrative: Trachea midline, no thyroid enlargement Resp normal respiratory effort, no retractions, no use of accessory muscles and clear to auscultation bilaterally Auscultation: Negative for rales, rhonchi or wheezes Cardio regular rate, regular rhythm, S1 normal heart sound, S2 normal heart sound, no murmurs, no rub, no gallops and no clicks GI normal to inspection, nondistended, normoactive bowel sounds, soft to palpation and non-tender Extremity no clubbing, cyanosis or edema Extremity Narrative: 2+ pedal doses Skin no rashes or lesions noted, no wounds, skin turgor normal and no jaundice Neuro oriented x3, CN's II-XII intact bilaterally, moves all extremities and no focal motor deficits Speech: speech normal Psych affect normal Psych Narrative: Extremely pleasant Weight / BMI Weight Weight: 77.706 kg Body Mass Index (BMI) 29.4 ABG / Lab / Microbiology Data Result Diagrams: 04/27/23 06:20 04/27/23 06:20 Laboratory: Laboratory Results - last 24 hr 04/27/23 06:20: Retic Count 2.02 H, Immature Retic Fraction 11.90, Retic Hgb Equivalent 36.2 H 04/27/23 06:20: Iron 33 L, TIBC 211 L, Iron Saturation 15.6, Ferritin 150 04/28/23 05:00: Magnesium 1.9 Microbiology: Microbiology 04/27/23 01:30 Stool Stool Occult Blood (STEVIE) - Final D/C Instructions Discharge Diet: Low fat / Low cholesterol and 1800 Calorie Control Diet Discharge Activity: Return to Normal Activity and Use Walker (Until cleared by physical therapy to walk without it) Meaningful Use Info Meaningful Use Diagnoses (Choose all that apply): None applicable Discharge Plan Admission Admit Date/Time: 04/27/23 01:03 Primary Reason for Your Visit: Syncope/fall with right hip pain Attending Provider: Bibi Dumas Primary Care Provider: Akil Kelly Consulting Providers: Gordon Knapp Instructions Additional Instructions / Restrictions: 1. Please get a new blood pressure cuff for home and have it compared with your physician's office manual cuff after purchase to assess for accuracy. Your home cuff does not correlate with our manual pressures while you have been hospitalized. I would recommend throwing this away. 2. Stop losartan 3. Take chlorthalidone only if your blood pressure is greater than 140/90 on your new home cuff. Your blood pressures were well controlled on your carvedilol and hydralazine only while hospitalized 4. We suspect your episode of passing out is related to your blood pressure medications and possibly some dehydration due to your activities on the day of presentation. The ultrasound of your heart showed normal pumping function and no significant abnormalities. 5. Please follow-up with physical therapy. You may put as much weight on your right lower extremity as you are able to tolerate. Please use a walker until physical therapy clears you to walk without a walker. Call Saturday to set up your first appointment Discharge Orders/Prescriptions Prescriptions: Continued Keto PO DIRECTED hydroxychloroquine 200 MG tablet 200 mg PO DAILY Label Comments: Lupus hydrocodone-acetaminophen 1 TABLET tablet 5 - 325 mg PO BID Label Comments: pain gabapentin 300 MG capsule 300 mg PO DAILY Label Comments: neuropathy omeprazole 20 MG capsule 20 mg PO DAILY Label Comments: reflux sertraline 50 MG tablet 50 mg PO DAILY simvastatin 80 MG tablet 80 mg PO QHS aspirin 81 MG tablet 81 mg PO DAILY@0800 ferrous sulfate 325 MG tablet 65 mg PO DAILY metformin 1,000 MG tablet 1,000 mg PO DAILY Label Comments: Take 2 tablets by mouth daily with breakfast. drqsbyid-rpg-eqvw-FA-lutein 1 EACH tablet 1 tab PO DAILY tizanidine 2 MG tablet 2 mg PO DAILY Lactobacillus acidophilus 1 EACH capsule 1 ea PO DAILY hydralazine 10 mg tablet 10 mg PO BID carvedilol 3.125 mg tablet 3.125 mg PO BID Discontinued losartan 100 MG tablet 50 mg PO DAILY furosemide 20 mg tablet 20 mg PO PRN PRN (Reason: leg swelling) Label Comments: med d/c'd Referrals / Follow Up: Eder Carvajal MD [Med Staff - Consulting] - Within 1 Month Akil Kelly DO [Primary Care Provider] - Within 2 Weeks Disposition Disposition (needs filled in before D/C Order can be placed): Home, Self Care Charges/Coding Visit Charges Inpatient E&M: 57993 Disch Hosp >30min
--- NOTE | 2023-04-30 12:59 | CASEMGMT ---
Addendum entered by Kamilah Hernandez 04/30/23 13:33: Received tc back from Michelle at [facility], they are able to accept pt for SOC on . Original Note: RN JASMEET called pt at home. Pt states she is doing well. States she has been up today and bathed. She is agreeable to [facility] PT and OT at home. Patient was provided a verbal list of [facility] providers including quality and resource use data and consistent with the patient?s preferred geographic region, medical needs, and insurance network were provided from the [employer] Guide. Pt states she has called [facility] already this morning to set this up. This is the agency she prefers. Made her aware that this RN CM will set up for her and to expect a tc from them. TC to Michelle at [facility], referral made. Will await acceptance.
== END 2023-04-28 11:06 | disposition home health service (06) ==
LOC: ED 04-27 01:07 → PCU 04-27 01:33
PROVIDERS: Admitting Provider Hospitalist; Emergency Provider Emergency Medicine; PCP Student in an Organized Health Care Education/Training Program; Visit Provider Internal Medicine
DX: I95.1 Orthostatic hypotension (principal); M32.9 Systemic lupus erythematosus, unspecified; S32.511A Fracture of superior rim of right pubis, initial encounter for closed fracture; E11.22 Type 2 diabetes mellitus with diabetic chronic kidney disease; E11.40 Type 2 diabetes mellitus with diabetic neuropathy, unspecified; D69.6 Thrombocytopenia, unspecified; N18.32 Chronic kidney disease, stage 3b; E86.0 Dehydration; D64.9 Anemia, unspecified; Z79.84 Long term (current) use of oral hypoglycemic drugs; W19.XXXA Unspecified fall, initial encounter; I12.9 Hypertensive chronic kidney disease with stage 1 through stage 4 chronic kidney disease, or unspecified chronic kidney disease; K21.9 Gastro-esophageal reflux disease without esophagitis; E83.42 Hypomagnesemia; Z87.891 Personal history of nicotine dependence; E78.5 Hyperlipidemia, unspecified; E87.6 Hypokalemia; Z79.82 Long term (current) use of aspirin; G89.29 Other chronic pain; E83.51 Hypocalcemia; Z79.899 Other long term (current) drug therapy
CPT/HCPCS: 36415; 70450; 72100; 72125; 73502; 80048; 80053; 82274; 82728; 83540; 83550; 83735; 83880; 84100; 85025; 85045; 93005; 93306; 96361; 96365; 96366; 96367; 96375; 97116; 97162; 97166; 97530; 99221; 99285; J7030; Q9957; A4216; G0378; J2405

== ENCOUNTER → 2023-09-17 | Outpatient (CLI) | payer MEDICARE, SELFPAY ==
[2023-09-17 14:01] LABS: Amphetamine Urine VISTA NEGATIVE (<1000 ng/mL); Barbiturate Urine VISTA NEGATIVE (< 200 ng/mL); Benzodiazepine Urine VISTA NEGATIVE (< 200 ng/mL); Cocaine Urine VISTA NEGATIVE (< 300 ng/mL); Ecstacy Urine VISTA NEGATIVE (< 500 ng/mL); Methadone Urine VISTA NEGATIVE (< 300 ng/mL); PCP Urine VISTA NEGATIVE (< 25 ng/mL); THC Urine VISTA NEGATIVE (< 50 ng/mL); Vista UDS pH Range 5
== END | disposition home or self-care (01) ==
LOC: LAB 12:53
PROVIDERS: PCP Student in an Organized Health Care Education/Training Program; Referring Provider Anesthesiology Pain Medicine; Visit Provider Anesthesiology Pain Medicine
DX: F11.20 Opioid dependence, uncomplicated (principal)
CPT/HCPCS: 80307

== ENCOUNTER → 2023-09-26 | Outpatient (CLI) | payer MEDICARE, SELFPAY ==
[2023-09-26 09:33] LABS: Hematocrit 39.9 % (37-47); Hemoglobin 12.8 g/dL (12.0-15.0); Mean Corp Hgb Conc 32.1 g/dL (32-36); Mean Corpuscular Hgb 31.7 pg (27.0-32.0); Mean Corpuscular Volume 98.8 fL (81-99); Mean Platelet Vol. 12.2 fl (6.2-12.0); Platelet Count 140 K/mm3 (150-450); RBC Distribution Width CV 13.8 % (11.6-14.6); RBC Distribution Width SD 50.8 fl (35.1-43.9); Red Blood Count 4.04 M/mm3 (4.2-5.4); White Blood Count 5.5 K/mm3 (4.4-11.0)
[2023-09-26 09:39] LABS: Protein, Urine (Random) 13.9 mg/dL (<11.9); Protein:Creat Ratio 184 mg/g CRE (0-200)
[2023-09-26 09:57] LABS: Albumin, Serum 3.2 g/dL (3.2-5.0); BUN 25 mg/dL (7-18); BUN/Creat Ratio 15.9 RATIO (10-20); Calcium,Total 9.2 mg/dL (8.5-10.1); Chloride 110 mmol/L (98-107); Creatinine, Serum 1.57 mg/dL (0.55-1.02); EST Glomerular Filtration Rate 34 mL/min (>60); Est Glom Filt Rate - Afr Amer 41 mL/min (>60); Glucose 100 mg/dL (74-106); Phosphorus 3.8 mg/dL (2.5-4.9); Potassium 4.3 mmol/L (3.5-5.1); Sodium Level 143 mmol/L (136-145)
== END | disposition home or self-care (01) ==
LOC: LAB 08:26
PROVIDERS: PCP Student in an Organized Health Care Education/Training Program; Referring Provider Internal Medicine Nephrology; Visit Provider Internal Medicine Nephrology
DX: N18.4 Chronic kidney disease, stage 4 (severe) (principal); D64.9 Anemia, unspecified
CPT/HCPCS: 36415; 80069; 82570; 84156; 85027

== ENCOUNTER → 2023-10-10 | Outpatient (CLI) | payer MEDICARE, SELFPAY | END | disposition home or self-care (01) | LOC: LABSPEC 10:24 | PROVIDERS: PCP Student in an Organized Health Care Education/Training Program; Referring Provider Internal Medicine Nephrology; Visit Provider Internal Medicine Nephrology | DX: N39.0 Urinary tract infection, site not specified (principal) | CPT/HCPCS: 87077; 87086; 87088; 87186 ==

== ENCOUNTER → 2024-03-31 | Outpatient (CLI) | payer MEDICARE, SELFPAY ==
[2024-03-31 11:41] LABS: Amphetamine Urine VISTA NEGATIVE (<1000 ng/mL); Barbiturate Urine VISTA NEGATIVE (< 200 ng/mL); Benzodiazepine Urine VISTA NEGATIVE (< 200 ng/mL); Cocaine Urine VISTA NEGATIVE (< 300 ng/mL); Ecstacy Urine VISTA NEGATIVE (< 500 ng/mL); Methadone Urine VISTA NEGATIVE (< 300 ng/mL); PCP Urine VISTA NEGATIVE (< 25 ng/mL); THC Urine VISTA NEGATIVE (< 50 ng/mL); Vista UDS pH Range 4
== END | disposition home or self-care (01) ==
PROVIDERS: PCP Student in an Organized Health Care Education/Training Program; Referring Provider Anesthesiology Pain Medicine; Visit Provider Anesthesiology Pain Medicine
DX: F11.20 Opioid dependence, uncomplicated (principal)
CPT/HCPCS: 80307

== ENCOUNTER 2024-09-13 17:57 | Observation (INO) | payer MEDICARE, SELFPAY ==
[2024-09-13] VITALS (10 sets, daily range): BP systolic 128–201; BP diastolic 58–118; PULSE 59–69; RESP 15–30; TEMP 35.6–37.2; O2SAT 95–100; BMI 27.1
--- NOTE | 2024-09-13 19:18 | RAD_ITS ---
STUDY: XR Chest 2 Views 09/13/2024 7:47 PM REASON FOR EXAM: Female, 73 years old. Cough COMPARISON: 03/08/2022 TECHNIQUE: XR Chest 2 Views FINDINGS: There is no demonstrated pleural abnormality. Normal heart size. Normal mediastinum. Normal fidel. Prominent appearing increased interstitial lung markings. Normal visualized pulmonary arteries. There is atherosclerotic calcification of the aortic arch with tortuosity. There are diffuse degenerative changes of the visualized thoracic spine. There is degenerative osteoarthritis of the bilateral shoulders. There are no acute findings of the upper abdomen. RAD/Chest PA and Lateral IMPRESSION: There are no acute findings. Electronically Signed: Dimas Waldrop MD at 20:07 EDT ,
--- NOTE | 2024-09-13 19:18 | EKG12_ITS ---
Test Reason : COUGH Blood Pressure : / mmHG Vent. Rate : 060 BPM Atrial Rate : 060 BPM P-R Int : 146 ms QRS Dur : 070 ms QT Int : 440 ms P-R-T Axes : 022 012 052 degrees QTc Int : 440 ms Normal sinus rhythm Low voltage QRS Possible Inferior infarct , age undetermined Abnormal ECG Confirmed by González Mishra ([id number]), restaurant expeditor TARA BARRAGAN ([id number]) on 09/15/2024 8:24:44 AM Referred By: SHAHBAZ Confirmed By:González Mishra
--- NOTE | 2024-09-13 19:31 | ED.VIS.DYS ---
HPI History of Present Illness Chief Complaint: Cough Narrative Narrative: Chief complaint and HPI: Cough. 73-year-old female with history of HTN, CKD, HTN, DM2 presents for evaluation of cough and general malaise. Patient states she developed URI type symptoms including a cough earlier this week. She states her symptoms were improving in which she was able to do stuff around the house today such as cook. She states this evening her general malaise worsened. She endorses feeling shaky all over with full body tingling. She has a productive cough. Endorses chills but denies fever. Denies any chest pain, shortness of breath, abdominal pain, nausea, vomiting, dysuria. Review of systems: See HPI Medications: As listed on the chart Allergies: As listed on the chart PFSH: Per chart Vital signs: As listed on the chart. Reviewed. Physical exam: Gen: A&O x3, nontoxic but covered up in multiple blankets Head: Normocephalic, atraumatic Eyes: No sclera icterus, conjunctiva clear, PERRL, EOMI ENT: TMs clear BL, dry mucous membranes, posterior oropharynx unremarkable, uvula midline Neck: Trachea midline, No JVD, Full ROM, No meningismus CV: RRR, no murmurs, no peripheral edema Resp: Diminished in the bilateral bases with few expiratory wheeze GI: Abd soft, non-distended, non-tender, no r/r/g Musc: Full ROM, no deformity Skin: Warm, dry, no rash Neuro: Alert, oriented, grossly intact, sensation intact Psych: Cooperative, appropriate mood and affect [facility] Medical History (Updated 05/06/23 @ 00:02 by Background Angella) Stage 3 chronic kidney disease DM type 2 (diabetes mellitus, type 2) HTN (hypertension) Lupus Home Medications ?Medication ?Instructions ?Recorded ?Last Taken ?Type gabapentin 300 mg capsule 300 mg PO DAILY NERVE PAIN 12/21/15 05/04/20 07:10 History hydrocodone-acetaminophen 5-325mg 5 - 325 mg PO BID PAIN 12/21/15 03/23/19 History 5mg-325mg hydroxychloroquine 200 mg tablet 200 mg PO DAILY LUPUS 12/21/15 05/04/20 07:10 History omeprazole 20 mg capsule,delayed 20 mg PO DAILY GERD 12/21/15 05/04/20 07:10 History release aspirin 81 mg tablet,delayed 81 mg PO DAILY@0800 HEART HEALTH 03/24/19 03/23/19 History release ferrous sulfate 325 mg (65 mg 65 mg PO DAILY SUPPLEMENT 03/24/19 03/23/19 History iron) tablet nreuougw-vlyx-uszi 8 mg-folic 400 1 tab PO DAILY SUPPLEMENT 03/24/19 03/23/19 History mcg-K 50 mcg-lutein 300 mcg tablet sertraline 50 mg tablet 50 mg PO DAILY DEPRESSION 03/24/19 03/23/19 History simvastatin 80 mg tablet 80 mg PO QHS CHOLESTEROL 03/24/19 03/23/19 History Lactobacillus acidophilus 1 ea PO DAILY 04/27/20 Unknown History tizanidine 2 mg tablet 2 mg PO DAILY 04/27/20 Unknown History Keto PO DIRECTED 10/10/20 Unknown History carvedilol 3.125 mg tablet 3.125 mg PO BID 04/27/23 Unknown History hydralazine 10 mg tablet 10 mg PO BID 04/27/23 Unknown History chlorthalidone 25 mg tablet 25 mg PO 09/13/24 Unknown History furosemide 20 mg tablet 20 mg PO DAILY PRN edema 09/13/24 Unknown History glimepiride 2 mg tablet 2 mg PO DAILY 09/13/24 Unknown History Allergy/AdvReac Type Severity Reaction Status Date / Time cephalexin (From Keflex) Allergy Other Verified 09/13/24 17:57 ciprofloxacin Allergy Rash Verified 09/13/24 17:57 moran Allergy blisters Verified 09/13/24 17:57 Iodinated Contrast Media Allergy blisters Verified 09/13/24 17:57 (CONTRASTS) Sulfa (Sulfonamide Allergy Hives Verified 09/13/24 17:57 Antibiotics) Family History Father Cancer Gastric Surgical History (Updated 04/27/23 @ 02:[address] Gordon Knapp MD) S/P foot surgery, left Hx of shoulder surgery History of cholecystectomy History of bilateral knee replacement Social History Smoking Status: Former smoker EXAM Physical Exam Const Vital Signs: 09/13/24 17:57 09/13/24 18:25 09/13/24 18:26 Temperature 96.1 F L 97.3 F L Temperature Source Temporal Oral Pulse Rate 69 69 Respiratory Rate 18 15 Respiratory Effort Normal Non-Labored Respiratory Depth Normal Respiratory Pattern Normal Blood Pressure 182/118 H 159/84 H Blood Pressure Mean 139 109 Pulse Ox 100 97 Oxygen Delivery Method Room Air Room Air Room Air 09/13/24 19:44 09/13/24 19:53 09/13/24 20:24 Temperature 98.9 F Temperature Source Temporal Pulse Rate 61 59 L Respiratory Rate 16 18 Respiratory Effort Respiratory Depth Respiratory Pattern Normal Blood Pressure 201/111 H 153/78 H Blood Pressure Mean 141 103 Pulse Ox 95 Oxygen Delivery Method Room Air MDM MDM MDM Narrative Medical decision making narrative: 73-year-old female with history of HTN, DM, CKD presents for evaluation of cough, general malaise, and full body tingling. Differential diagnosis includes but is not limited to viral syndrome, COVID-19 infection, influenza, pneumonia, electrolyte abnormality. Suspect less likely ACS. DuoNeb ordered for wheezing. EKG and chest x-ray reviewed, see below. CBC without leukocytosis or anemia. BMP shows a creatinine of 1.96. A year ago her creatinine was 1.57. Prior to that her creatinine has been 2. Unknown her current baseline. Could be stable CKD versus ZENY. She does appear dry on exam therefore NS bolus ordered. Magnesium level unremarkable. Troponin negative x 2. Patient not having any chest pain. UA negative for UTI. COVID, flu, RSV negative. On reexamination, patient has improvement in her breath sounds, she still has a few expiratory wheezes. No history of COPD. On reexamination, patient states her symptoms have not improved. She still endorses general malaise and full body tingling. She states she does not feel comfortable discharging home. Suspect patient's symptoms are secondary to viral syndrome. Hospitalist service was contacted and patient was discussed with Dr. Donaldson. We will perform a full respiratory panel. Patient will be admitted for observation. EKG: Interpreted by me/EM physician: EKG shows normal sinus rhythm without any acute ischemic changes. Heart rate 60 Diagnostic: Interpreted by me/EM physician: No pneumonia, pneumothorax, effusion, cardiomegaly Impression: 1. Viral syndrome 2. General malaise 3. CKD versus ZENY Lab Data Labs: Laboratory Results - last 24 hr 09/13/24 09/13/24 09/13/24 19:30 19:43 21:22 WBC 7.7 RBC 4.72 Hgb 14.8 Hct 45.3 MCV 96.0 MCH 31.4 MCHC 32.7 RDW Std Deviation 44.3 H RDW Coeff of [place] 12.3 Plt Count 202 MPV 11.6 Immature Gran % (Auto) 0.400 Neut % (Auto) 70.8 H Lymph % (Auto) 21.3 [place] % (Auto) 5.0 Eos % (Auto) 2.0 Baso % (Auto) 0.5 Absolute Neuts (auto) 5.4 Absolute Lymphs (auto) 1.63 Nucleated RBC % 0 Sodium 140 Potassium 3.7 Chloride 109 H Carbon Dioxide 25.0 Anion Gap 6 BUN 24 H Creatinine 1.96 H Estim Creat Clear Calc 24.07 Est GFR (MDRD) Af Amer 32 L Est GFR (MDRD) Non-Af 26 L BUN/Creatinine Ratio 12.2 Glucose 164 H Calcium 9.8 Magnesium 2.0 Troponin I High Sens 28 27 Urine Color Yellow Urine Clarity Clear Urine pH 6.0 Ur Specific [place] 1.010 Urine Protein 15 H Urine Glucose (UA) Normal Urine Ketones Negative Urine Occult Blood Negative Urine Nitrite Negative Urine Bilirubin Negative Urine Urobilinogen Normal Ur Leukocyte Esterase Negative Urine RBC 0 SEEN Urine WBC 0 SEEN Ur Squamous Epith Cells 0 SEEN Urine Bacteria 0 SEEN Fine Granular Casts 0-5 SEEN Urine Mucus 0 SEEN Radiography Diagnostic Testing: Clinical Impression(s) from Imaging Studies Chest X-Ray 09/13/24 19:18 IMPRESSION: There are no acute findings. Electronically Signed: Dimas Waldrop MD at 20:07 EDT Reading Location ID and State: [facility] / [place] , Service support , Discharge Plan Triage Chief Complaint: Cough ED Provider: Sridhar Bergeron Dx/Rx/DC Orders Prescriptions: No Action Keto PO DIRECTED hydroxychloroquine 200 MG tablet 200 mg PO DAILY Patient Comments: Lupus hydrocodone-acetaminophen 1 TABLET tablet 5 - 325 mg PO BID Patient Comments: pain gabapentin 300 MG capsule 300 mg PO DAILY Patient Comments: neuropathy omeprazole 20 MG capsule 20 mg PO DAILY Patient Comments: reflux sertraline 50 MG tablet 50 mg PO DAILY simvastatin 80 MG tablet 80 mg PO QHS aspirin 81 MG tablet 81 mg PO DAILY@0800 ferrous sulfate 325 MG tablet 65 mg PO DAILY egfovnze-agl-lham-FA-vit K-lut 1 EACH tablet 1 tab PO DAILY tizanidine 2 MG tablet 2 mg PO DAILY Lactobacillus acidophilus 1 EACH capsule 1 ea PO DAILY hydralazine 10 mg tablet 10 mg PO BID carvedilol 3.125 mg tablet 3.125 mg PO BID chlorthalidone 25 mg tablet 25 mg PO glimepiride 2 mg tablet 2 mg PO DAILY furosemide 20 mg tablet 20 mg PO DAILY PRN (Reason: edema) Primary Care Provider: Akil Kelly Referrals: Akil Kelly DO [Primary Care Provider] - Print Language: Spanish
[2024-09-13 19:46] LABS: Bacteria 0 SEEN /hpf (None Seen); Mucous, Urine 0 SEEN /hpf (<or=2+); Red Blood Cells-Urine 0 SEEN /hpf (0-5); Squamous Epithelial Cells - UA 0 SEEN /hpf (5-10); White Blood Cells 0 SEEN /hpf (0-5)
[2024-09-13 19:47] LABS: Color, Urine Yellow (Yellow); Glucose, Dipstick Normal (Normal); Ketone-Dipstick Negative (Negative); Leukocyte Esterase-Dipstick Negative /ul (Negative); Nitrite-Dipstick Negative (Negative); Occult Blood-Urine Negative /ul (Negative); Protein-Dipstick 15 mg/dl (Negative); Urine Bilirubin Dipstick Negative (Negative); Urine Clarity Clear (Clear); Urine Urobilinogen Normal (Normal)
[2024-09-13 19:51] LABS: Absolute Lymphocyte Count 1.63 X10^3/uL (0.83-4.51); Absolute Neutrophil Count 5.4 X10^3/uL (2.0-7.7); Basophil# 0.04 X10^3/uL; Basophil% 0.5 % (0-1); Eosinophil# 0.15 X10^3/uL; Hematocrit 45.3 % (37-47); Hemoglobin 14.8 g/dL (12.0-15.0); Lymphocyte # 1.63 X10^3/ul (0.83-4.51); Lymphocyte % 21.3 % (19-41); Mean Corp Hgb Conc 32.7 g/dL (32-36); Mean Corpuscular Hgb 31.4 pg (27.0-32.0); Mean Platelet Vol. 11.6 fl (6.2-12.0); Monocyte# 0.38 X10^3/uL; NRBC Flagged by Analyzer 0 % (0-5); Neutrophil # 5.44 X10^3/uL (2.7-7.7); Neutrophil % 70.8 % (47-70); Platelet Count 202 K/mm3 (150-450); RBC Distribution Width CV 12.3 % (11.6-14.6); RBC Distribution Width SD 44.3 fl (35.1-43.9); Red Blood Count 4.72 M/mm3 (4.2-5.4); White Blood Count 7.7 K/mm3 (4.4-11.0)
[2024-09-13] MEDS: Ipratropium/Albuterol Sulfate 3 ML AMPUL.NEB 9 ML INHALATION (19:51)
[2024-09-13 20:07] LABS: Fine Granular Cast- Urine 0-5 SEEN /lpf (0-5)
[2024-09-13 20:10] LABS: Anion Gap 6 (5-15); BUN 24 mg/dL (7-18); BUN/Creat Ratio 12.2 RATIO (10-20); Calcium,Total 9.8 mg/dL (8.5-10.1); Chloride 109 mmol/L (98-107); Creatinine, Serum 1.96 mg/dL (0.55-1.02); EST Glomerular Filtration Rate 26 mL/min (>60); Est Glom Filt Rate - Afr Amer 32 mL/min (>60); Estimated Creatinine Clearance 24.07 ml/min; Glucose 164 mg/dL (74-106); Potassium 3.7 mmol/L (3.5-5.1); Sodium Level 140 mmol/L (136-145); Troponin-I HS 28 pg/mL (3.0-54.0)
[2024-09-13] MEDS: 0.9% Normal Saline (1000mL) 1,000 ML 999 ML IV (20:40)
[2024-09-13 21:46] LABS: Troponin-I HS 27 pg/mL (3.0-54.0)
--- NOTE | 2024-09-13 21:53 | NURSING ---
Hospitalist paged for admit.
--- NOTE | 2024-09-13 21:58 | PCM.HP.STD ---
[facility] General General Date of Admission: 09/13/24 Date of Service: 09/13/24 Chief Complaint: URI, Cough, Malaise and Paresthesias with Myalgias. [facility] Narrative ISIS WRIGHT, is a 73 F with a past medical history of essential hypertension, hyperlipidemia, former history of tobacco abuse, overweight; with BMI of 27.1 this admission, DM-2; of unknown control on Glimepiride, diabetic neuropathy, SLE; on hydroxychloroquine, Sjogren's syndrome, CKD; stage III; with baseline creatinine of ~1.8 mg/dL, LAINEY, history of thrombocytopenia, history of Clostridium difficile colitis, history of UTI, depression; on sertraline, GERD; on omeprazole, history of cholecystectomy, history of Right superior pubic ramus fracture and OA; with history of bilateral TKR's who presents to [facility] ER complaining of URI, cough, malaise and paresthesias with myalgias. Ms. Wright reports her symptoms began approximately approximately 3-4 days prior to admission with the gradual-onset of generalized malaise and fatigue. She admits to a productive cough and chills but she denies fever. She also admits to feeling shaky all over and tingling sensations in her extremities but she denies related chest pain, SOB, abdominal pain, nausea, vomiting, diarrhea, constipation or dysuria. In the ER she was diagnosed with a Viral URI complicated by Malaise and Fatigue, and because she was uncomfortable going home she was then admitted to the general medical floor under observation status for a stay that is expected to be less than 2 midnights. [facility] Medical History Stage 3 chronic kidney disease DM type 2 (diabetes mellitus, type 2) HTN (hypertension) Lupus Home Medications ?Medication ?Instructions ?Recorded ?Last Taken ?Type gabapentin 300 mg capsule 300 mg PO DAILY NERVE PAIN 12/21/15 05/04/20 07:10 History hydrocodone-acetaminophen 5-325mg 5 - 325 mg PO TID PRN PAIN 12/21/15 03/23/19 History 5mg-325mg omeprazole 20 mg capsule,delayed 20 mg PO DAILY GERD 12/21/15 05/04/20 07:10 History release aspirin 81 mg tablet,delayed 81 mg PO DAILY@0800 HEART HEALTH 03/24/19 03/23/19 History release ferrous sulfate 325 mg (65 mg 65 mg PO DAILY SUPPLEMENT 03/24/19 03/23/19 History iron) tablet yzatbzum-gppj-veqy 8 mg-folic 400 1 tab PO DAILY SUPPLEMENT 03/24/19 03/23/19 History mcg-K 50 mcg-lutein 300 mcg tablet sertraline 50 mg tablet 100 mg PO DAILY DEPRESSION 03/24/19 03/23/19 History simvastatin 80 mg tablet 80 mg PO QHS CHOLESTEROL 03/24/19 03/23/19 History Lactobacillus acidophilus 1 ea PO DAILY stomach 04/27/20 Unknown History tizanidine 2 mg tablet 2 mg PO DAILY spasm 04/27/20 Unknown History Keto 1 tab PO DAILY 10/10/20 Unknown History carvedilol 3.125 mg tablet 3.125 mg PO BID heart 04/27/23 Unknown History hydralazine 10 mg tablet 10 mg PO BID bp 04/27/23 Unknown History chlorthalidone 25 mg tablet 25 mg PO DAILY 09/13/24 Unknown History furosemide 20 mg tablet 20 mg PO DAILY edema 09/13/24 Unknown History glimepiride 2 mg tablet 2 mg PO DAILY dm 09/13/24 Unknown History levothyroxine 75 mcg tablet 75 mcg PO .COMPLEX thyroid 09/13/24 Unknown History Allergy/AdvReac Type Severity Reaction Status Date / Time cephalexin (From Keflex) Allergy Other Verified 09/13/24 17:57 ciprofloxacin Allergy Rash Verified 09/13/24 17:57 moran Allergy blisters Verified 09/13/24 17:57 Iodinated Contrast Media Allergy blisters Verified 09/13/24 17:57 (CONTRASTS) Sulfa (Sulfonamide Allergy Hives Verified 09/13/24 17:57 Antibiotics) Family History Father Cancer Gastric Surgical History S/P foot surgery, left Hx of shoulder surgery History of cholecystectomy History of bilateral knee replacement Social History Smoking Status: Former smoker ROS ROS Narrative Review of Systems: Constitutional: Patient admits to chills but denies fever. Eyes: Patient denies changes in vision or discharge from eyes. ENT: Patient admits to nasal congestion but she denies sore throat or ear pain. Resp: Patient admits to SOB and productive cough. CV: Patient denies chest pain, palpitations or heart racing. GI: Patient denies nausea, vomiting, diarrhea or constipation. : Patient denies dysuria or hematuria. MSK: Patient admits to myalgias but she denies arthralgias. Skin: Patient denies rash, abscess or jaundice. Psych: Patient denies symptoms of uncontrolled depression or anxiety. Neuro: Patient denies headache, paresthesias or focal neurologic deficits. Allergy: Patient denies lip swelling, tongue swelling or urticaria. Hematology: Patient denies easy bleeding or easy bruisability. Endocrinology: Patient denies polyuria, polydipsia or polyphagia. 14 point ROS otherwise negative except for positives noted above in HPI. Vital Signs Vital Signs Vital Signs: 09/13/24 17:57 09/13/24 18:25 09/13/24 18:26 Temperature 96.1 F L 97.3 F L Temperature Source Temporal Oral Pulse Rate 69 69 Respiratory Rate 18 15 Respiratory Effort Normal Non-Labored Respiratory Depth Normal Respiratory Pattern Normal Blood Pressure 182/118 H 159/84 H Blood Pressure Mean 139 109 Pulse Ox 100 97 Oxygen Delivery Method Room Air Room Air Room Air 09/13/24 19:44 09/13/24 19:53 09/13/24 20:24 Temperature 98.9 F Temperature Source Temporal Pulse Rate 61 59 L Respiratory Rate 16 18 Respiratory Effort Respiratory Depth Respiratory Pattern Normal Blood Pressure 201/111 H 153/78 H Blood Pressure Mean 141 103 Pulse Ox 95 Oxygen Delivery Method Room Air Weight Weight: 158 lb Body Mass Index (BMI) 27.1 Physical Exam Const alert, oriented x3 and average body habitus Constitutional Narrative: Mild distress noted. General Appearance: cooperative HEENT normocephalic, head/scalp atraumatic, hearing grossly normal bilaterally and moist oral mucous membranes Eyes PERRL and EOMs intact bilaterally Neck no lymphadenopathy and supple Resp normal respiratory effort, no retractions, no use of accessory muscles and clear to auscultation bilaterally Cardio regular rate and regular rhythm GI normal to inspection, nondistended, normoactive bowel sounds, soft to palpation, non-tender and non-distended Extremity normal to inspection, full ROM and no clubbing, cyanosis or edema Skin Skin Narrative: Patient has no evidence of rash, abscess or jaundice. Neuro oriented x3, CN's II-XII intact bilaterally, moves all extremities and no focal motor deficits Sensorium / Orientation: awake, alert, oriented to person, oriented to place and oriented to time Speech: speech normal Psych Mood & Affect: depressed and anxious Results Medical Records Data Attestation: I reviewed the patient's medical records Lab / Micro Data Attestation: I reviewed the patient's lab results. 09/13/24 19:43 09/13/24 19:43 Labs: Laboratory Results - last 24 hr 09/13/24 19:30: Urine Color Yellow, Urine Clarity Clear, Urine pH 6.0, Ur Specific [place] 1.010, Urine Protein 15 H, Urine Glucose (UA) Normal, Urine Ketones Negative, Urine Occult Blood Negative, Urine Nitrite Negative, Urine Bilirubin Negative, Urine Urobilinogen Normal, Ur Leukocyte Esterase Negative, Urine RBC 0 SEEN, Urine WBC 0 SEEN, Ur Squamous Epith Cells 0 SEEN, Urine Bacteria 0 SEEN, Fine Granular Casts 0-5 SEEN, Urine Mucus 0 SEEN 09/13/24 19:43: WBC 7.7, RBC 4.72, Hgb 14.8, Hct 45.3, MCV 96.0, MCH 31.4, MCHC 32.7, RDW Std Deviation 44.3 H, RDW Coeff of [place] 12.3, Plt Count 202, MPV 11.6, Immature Gran % (Auto) 0.400, Neut % (Auto) 70.8 H, Lymph % (Auto) 21.3, [place] % (Auto) 5.0, Eos % (Auto) 2.0, Baso % (Auto) 0.5, Absolute Neuts (auto) 5.4, Absolute Lymphs (auto) 1.63, Nucleated RBC % 0, Sodium 140, Potassium 3.7, Chloride 109 H, Carbon Dioxide 25.0, Anion Gap 6, BUN 24 H, Creatinine 1.96 H, Estim Creat Clear Calc 24.07, Est GFR (MDRD) Af Amer 32 L, Est GFR (MDRD) Non-Af 26 L, BUN/Creatinine Ratio 12.2, Glucose 164 H, Calcium 9.8, Magnesium 2.0, Troponin I High Sens 28 10/13/24 21:22: Troponin I High Sens 27 Micro: Microbiology 09/13/24 19:28 Mucosa - Nose SARS-CoV-2, Influenza & RSV (PCR) - Final Imaging Radiology Impression Chest X-Ray 09/13/24 19:18 IMPRESSION: There are no acute findings. Electronically Signed: Dimas Waldrop MD at 20:07 EDT Reading Location ID and State: [facility][note 3] / [place] , Service support , Assessment & Plan Assessment/Plan (1) Viral URI with cough: (2) Myalgia: (3) Malaise and fatigue: (4) Stage 3 chronic kidney disease: QUALIFIERS: Chronic kidney disease stage 3 subtype: stage 3b (GFR 30-44) Qualified Code(s): N18.32 - Chronic kidney disease, stage 3b (5) Systemic lupus erythematosus: QUALIFIERS: Systemic lupus erythematosus organ involvement: unspecified Systemic lupus erythematosus type: unspecified Qualified Code(s): M32.9 - Systemic lupus erythematosus, unspecified (6) Sjoegren syndrome: QUALIFIERS: Sjogren's organ involvement: unspecified organ involvement Qualified Code(s): M35.00 - Sicca syndrome, unspecified PLAN: Plan 1. Viral URI complicated by Malaise and Fatigue - Admit to general medical floor under observation status. Give vitamin D3, vitamin C and Zinc to help boost immunity and hopefully speed recovery. Give Tylenol prn awqm-vj-dgyqdwnb (level 1-5/10) pain or fever. Give Percocet prn for severe (level 6-10/10) pain. 2. CKD; stage IIIb; with baseline creatinine of ~1.8 mg/dL - Patient given IVF in ER. We will recheck renal indices in AM to ensure improvement after volume resuscitation. Hold Lasix and Chlorthalidone overnight in case of mild overdiuresis. 3. Essential hypertension - Continue home regimen as previous. 4. Hyperlipidemia - Hold statin and monitor for improvement in case this high-dose statin in this elderly patient is causing potential myotoxicity and consider restarting at lesser dose. 5. Former history of tobacco abuse - Noted. 6. Overweight; with BMI of 27.1 this admission - Weight loss will be recommended. Check TSH in light of #1. 7. DM-2; of unknown control on Glimepiride with diabetic neuropathy - Hold Glimepiride while admitted. ADA diet. FSBS q. AC/HS plus lowest intensity SSI. Check HgbA1c to objectively evaluate quality of diabetic control. 8. SLE; on hydroxychloroquine - Noted. Resume hydroxychloroquine as before. 9. Sjogren's syndrome - Stable. 10. LAINEY - Stable with hemoglobin of 14.8 g/dL present on admission. 11. History of thrombocytopenia - Stable with platelet count of 202K present on admission. 12. History of Clostridium difficile colitis - Noted. 13. History of UTI - Noted with no signs of recurrence and negative UA on admission. 14. Depression; on sertraline - Continue sertraline as before. 15. GERD; on omeprazole - Resume PPI. 16. History of cholecystectomy - Noted. 17. History of Right superior pubic ramus fracture - Noted. 20. OA; with history of bilateral TKR's - Give Tylenol prn. 21. DVT prophylaxis - Lovenox 30 mg sq daily. Total time: Approximately 40 minutes. Charges/Coding Visit Charges OBSV E&M: 20941 Observ/hosp same date L1
[2024-09-13] MEDS: MELATONIN 3 MG TABLET PO (23:47)
[2024-09-13] MEDS: 0.9% Normal Saline (1000mL) 1,000 ML 70 ML IV (23:47)
[2024-09-14] VITALS (7 sets, daily range): BP systolic 96–109; BP diastolic 55–86; PULSE 59–64; RESP 16; TEMP 36.9–37; O2SAT 96–100; BMI 27.0
[2024-09-14] MEDS: Levothyroxine 100 MCG Tablet PO (05:58)
[2024-09-14 06:10] LABS: Absolute Lymphocyte Count 1.96 X10^3/uL (0.83-4.51); Basophil# 0.04 X10^3/uL; Basophil% 0.6 % (0-1); Eosinophil# 0.23 X10^3/uL; Eosinophils% 3.4 % (0-5); Hematocrit 38.5 % (37-47); Hemoglobin 12.5 g/dL (12.0-15.0); Lymphocyte # 1.96 X10^3/ul (0.83-4.51); Lymphocyte % 28.9 % (19-41); Mean Corp Hgb Conc 32.5 g/dL (32-36); Mean Corpuscular Hgb 31.2 pg (27.0-32.0); Mean Platelet Vol. 11.7 fl (6.2-12.0); Monocyte# 0.53 X10^3/uL; Monocyte% 7.8 % (0-10); NRBC Flagged by Analyzer 0 % (0-5); Platelet Count 163 K/mm3 (150-450); RBC Distribution Width CV 12.6 % (11.6-14.6); RBC Distribution Width SD 44.7 fl (35.1-43.9); Red Blood Count 4.01 M/mm3 (4.2-5.4); White Blood Count 6.8 K/mm3 (4.4-11.0)
[2024-09-14 06:19] LABS: Bedside Glucose 86 mg/dL (74-106)
[2024-09-14 06:50] LABS: ALB/GLOB Ratio 0.9 RATIO (0.9-2.4); AST(SGOT) 26 U/L (15-37); Alanine Aminotransfer ALT/SGPT 23 U/L (13-56); Albumin, Serum 3.1 g/dL (3.2-5.0); Alkaline Phosphatase 87 U/L (45-117); Anion Gap 6 (5-15); BUN 24 mg/dL (7-18); BUN/Creat Ratio 13.6 RATIO (10-20); Calcium,Total 9.3 mg/dL (8.5-10.1); Chloride 112 mmol/L (98-107); Creatinine, Serum 1.77 mg/dL (0.55-1.02); EST Glomerular Filtration Rate 30 mL/min (>60); Est Glom Filt Rate - Afr Amer 36 mL/min (>60); Globulin 3.4 g/dL (2.2-4.2); Glucose 76 mg/dL (74-106); Phosphorus 4.2 mg/dL (2.5-4.9); Potassium 3.6 mmol/L (3.5-5.1); Protein, Total 6.5 g/dL (6.4-8.2); Sodium Level 141 mmol/L (136-145)
[2024-09-14] MEDS: Carvedilol 3.125 MG TABLET PO ×2 (07:43→16:13)
[2024-09-14] MEDS: Ascorbic Acid 500 MG Tablet 1000 MG PO ×2 (07:43→16:13)
[2024-09-14] MEDS: hydrALAZINE 10 MG Tablet PO ×2 (07:43→16:13)
[2024-09-14] MEDS: Gabapentin 300 MG Capsule PO (07:43)
[2024-09-14] MEDS: Aspirin E.C. 81 MG Tablet PO (07:43)
--- NOTE | 2024-09-14 08:07 | PN.HOSP_ITS ---
Reason for Visit Reason for Visit: Diagnoses Acute upper respiratory infection, unspecified (09/13/24) Systemic lupus erythematosus, unspecified (09/13/24) Sjogren syndrome, unspecified (09/13/24) Myalgia, unspecified site (09/13/24) Chronic kidney disease, stage 3b (09/13/24) Other malaise (09/13/24) Other fatigue (09/13/24) Subjective Subjective Patient is a 73-year-old lady who presented with progressive generalized weakness with cough. An assessment of suspected viral upper respiratory tract infection was made admitted to regular nursing floor for further management Objective Data Objective Data Vital Signs: Vital Signs Temp Pulse Resp BP Pulse Ox O2 Del Method 98.4 F 59 L 16 109/56 L 100 Room Air 09/14/24 07:31 09/14/24 07:43 09/14/24 07:31 09/14/24 07:31 09/14/24 07:31 09/14/24 07:31 Oxygen Delivery Method Room Air Weight: 71.9 kg Body Mass Index (BMI) 27.0 Intake & Output: Intake and Output for Last 24 Hours 09/12/24 09/13/24 09/14/24 23:59 23:59 23:59 Intake Total 1000 / 1200 600 / 600 Balance 1000 / 1200 600 / 600 Lab / Micro Data 09/14/24 04:53 09/14/24 04:53 Labs: Laboratory Results - last 24 hr 09/13/24 19:30: Urine Color Yellow, Urine Clarity Clear, Urine pH 6.0, Ur Specific [place] 1.010, Urine Protein 15 H, Urine Glucose (UA) Normal, Urine Ketones Negative, Urine Occult Blood Negative, Urine Nitrite Negative, Urine Bilirubin Negative, Urine Urobilinogen Normal, Ur Leukocyte Esterase Negative, Urine RBC 0 SEEN, Urine WBC 0 SEEN, Ur Squamous Epith Cells 0 SEEN, Urine Bacteria 0 SEEN, Fine Granular Casts 0-5 SEEN, Urine Mucus 0 SEEN 09/13/24 19:43: WBC 7.7, RBC 4.72, Hgb 14.8, Hct 45.3, MCV 96.0, MCH 31.4, MCHC 32.7, RDW Std Deviation 44.3 H, RDW Coeff of [place] 12.3, Plt Count 202, MPV 11.6, Immature Gran % (Auto) 0.400, Neut % (Auto) 70.8 H, Lymph % (Auto) 21.3, [place] % (Auto) 5.0, Eos % (Auto) 2.0, Baso % (Auto) 0.5, Absolute Neuts (auto) 5.4, Absolute Lymphs (auto) 1.63, Nucleated RBC % 0, Sodium 140, Potassium 3.7, C hloride 109 H, Carbon Dioxide 25.0, Anion Gap 6, BUN 24 H, Creatinine 1.96 H, Estim Creat Clear Calc 24.07, Est GFR (MDRD) Af Amer 32 L, Est GFR (MDRD) Non-Af 26 L, BUN/Creatinine Ratio 12.2, Glucose 164 H, Calcium 9.8, Magnesium 2.0, Troponin I High Sens 28 09/13/24 21:22: Troponin I High Sens 27 09/14/24 04:53: WBC 6.8, RBC 4.01 L, Hgb 12.5, Hct 38.5, MCV 96.0, MCH 31.2, MCHC 32.5, RDW Std Deviation 44.7 H, RDW Coeff of [place] 12.6, Plt Count 163, MPV 11.7, Immature Gran % (Auto) 0.300, Neut % (Auto) 59.0, Lymph % (Auto) 28.9, [place] % (Auto) 7.8, Eos % (Auto) 3.4, Baso % (Auto) 0.6, Absolute Neuts (auto) 4.0, Absolute Lymphs (auto) 1.96, Nucleated RBC % 0, Sodium 141, Potassium 3.6, Chloride 112 H, Carbon Dioxide 23.0, Anion Gap 6, BUN 24 H, Creatinine 1.77 H, Estim Creat Clear Calc 26.70, Est GFR (MDRD) Af Amer 36 L, Est GFR (MDRD) Non-Af 30 L, BUN/Creatinine Ratio 13.6, Glucose 76, Calcium 9.3, Phosphorus 4.2, Magnesium 2.0, Total Bilirubin 0.50, AST 26, ALT 23, Alkaline Phosphatase 87, Total Protein 6.5, Albumin 3.1 L, Globulin 3.4, Albumin/Globulin Ratio 0.9, TSH 0.670 09/14/24 05:54: POC Glucose 86 Micro: Microbiology 09/13/24 19:28 Mucosa - Nose SARS-CoV-2, Influenza & RSV (PCR) - Final Radiography Diagnostic Testing: Radiology Impression Chest X-Ray 09/13/24 19:18 IMPRESSION: There are no acute findings. Electronically Signed: Dimas Waldrop MD at 20:07 EDT Reading Location ID and State: [facility] / [place] , Service support , Physical Exam Narrative GENERAL: cooperative HEENT: Atraumatic; normocephalic EYES; Anicteric, Normal Conjunctiva NECK; supple, normal thyroid, RESPIRATORY: Diminished to auscultation, some wheezes CARDIOVASCULAR: Regular S1 S2, GI: soft, normoactive bowel sounds, : No Renal angle tenderness; EXTREMITIES: No edema, no clubbing, MUSCULOSKELETAL: no muscle wasting NEURO: Awake; no lateralizing signs. SKIN: No Rash PSYCH; Flat affect Assessment & Plan Assessment/Plan (1) Viral URI with cough: (2) Myalgia: (3) Malaise and fatigue: (4) Stage 3 chronic kidney disease: QUALIFIERS: Chronic kidney disease stage 3 subtype: stage 3b (GFR 30-44) Qualified Code(s): N18.32 - Chronic kidney disease, stage 3b (5) Systemic lupus erythematosus: QUALIFIERS: Systemic lupus erythematosus type: unspecified S ystemic lupus erythematosus organ involvement: unspecified Qualified Code(s): M 32.9 - Systemic lupus erythematosus, unspecified (6) Sjoegren syndrome: QUALIFIERS: Sjogren's organ involvement: unspecified organ involvement Qualified Code(s): M35.00 - Sicca syndrome, unspecified PLAN: Plan Patient is a 73-year-old lady who presented with progressive generalized weakness with cough. An assessment of suspected viral upper respiratory tract infection was made admitted to regular nursing floor for further management 1. Suspected viral upper respiratory tract infection ? Admitted to regular nursing floor initial COVID assay came back negative. Ordered viral respiratory panel results pending 2.Chronic kidney disease stage IIIb ? Kidney function at baseline we will continue with daily monitoring BMPs 3. Hypertension ? Blood pressure controlled, home medications continued with dose adjustment as needed 4. Dyslipidemia ?Patient is on statin therapy, continued at home dose 5. GERD ? On PPI 6. Hypothyroidism ? Patient is on levothyroxine home dose continued 7. Diabetes mellitus type II -patient's oral hypoglycemics held. Placed on long acting insulin, Accu-Cheks a.c. and at bedtime and covered with sliding scale insulin 8. Depression ? Patient is on sertraline continue 9. SLE ? Per history currently not on any DMARDs 10. DVT prophylaxis ? On enoxaparin Time spent in the patient's overall evaluation,decision-making process, review of diagnostic data, adjustment of management, discussion with other providers, nursing nursing and ancillary staff involved in patient's care documentation, 38 . Minutes Advance planning; did discuss with the patient regarding advanced directives as well as CODE STATUS. Did explain the various scenarios involved ( FULL CODE, DNR CCA, DNR CCA with no intubation, and DNR CC and what each meant) patient elected to be to be full code with CPR and intubation if warranted. Order was placed. Time spent on discussion 16 minutes. Charges/Coding Multi Select Codes Visit Charges Visit Charges: 93931 [facility] L2 Hospitalists' Procedures Procedures: 29911 Advncd Care Plan 30 Min
[2024-09-14] MEDS: Lactobacillis Acidophilus 1 CAP PO (09:14)
[2024-09-14] MEDS: Sertraline 50 MG Tablet PO (09:15)
[2024-09-14] MEDS: tiZANidine HCl 2 MG Tablet PO (09:15)
[2024-09-14] MEDS: Cholecalciferol (Vit D3) 125 MCG CAPSULE (5,000 UNITS) PO (09:15)
[2024-09-14] MEDS: Zinc Sulfate 50 mg zinc (220 mg) ORAL capsule PO (09:15)
[2024-09-14] MEDS: Pantoprazole Sodium 20 MG Tablet PO (09:15)
[2024-09-14] MEDS: Enoxaparin 30 MG/0.3 ML Syringe SC (09:15)
[2024-09-14 09:33] LABS: Hemoglobin A1c 5.3 % (3.8-5.6)
[2024-09-14] MEDS: Ferrous Sulfate 325 MG Tablet PO (11:26)
[2024-09-14 11:47] LABS: Bedside Glucose 107 mg/dL (74-106)
--- NOTE | 2024-09-14 15:23 | CASEMGMT ---
Met with patient to complete PRADO form. PRADO form explained to patient who voiced understanding and signed form. Original form placed in pt?s chart and copy provided to patient. Brittany Haro, Discharge Planning Asst
[2024-09-14 17:00] LABS: Bedside Glucose 113 mg/dL (74-106)
[2024-09-14 22:06] LABS: Bedside Glucose 150 mg/dL (74-106)
[2024-09-15 05:39] VITALS: BMI 27.1
[2024-09-15] MEDS: Levothyroxine 100 MCG Tablet PO (05:40)
[2024-09-15 05:52] VITALS: BP 137/66; PULSE 66; RESP 16; TEMP 36.7; O2SAT 99
[2024-09-15 06:32] LABS: Bedside Glucose 99 mg/dL (74-106)
[2024-09-15 06:50] LABS: Absolute Lymphocyte Count 1.67 X10^3/uL (0.83-4.51); Absolute Neutrophil Count 3.3 X10^3/uL (2.0-7.7); Basophil# 0.03 X10^3/uL; Basophil% 0.5 % (0-1); Eosinophils% 3.6 % (0-5); Hematocrit 39.2 % (37-47); Hemoglobin 12.7 g/dL (12.0-15.0); Lymphocyte # 1.67 X10^3/ul (0.83-4.51); Lymphocyte % 29.7 % (19-41); Mean Corp Hgb Conc 32.4 g/dL (32-36); Mean Corpuscular Hgb 31.1 pg (27.0-32.0); Mean Corpuscular Volume 96.1 fL (81-99); Mean Platelet Vol. 11.4 fl (6.2-12.0); Monocyte# 0.39 X10^3/uL; Monocyte% 6.9 % (0-10); NRBC Flagged by Analyzer 0 % (0-5); Neutrophil # 3.32 X10^3/uL (2.7-7.7); Neutrophil % 59.1 % (47-70); Platelet Count 158 K/mm3 (150-450); RBC Distribution Width CV 12.9 % (11.6-14.6); RBC Distribution Width SD 45.5 fl (35.1-43.9); Red Blood Count 4.08 M/mm3 (4.2-5.4); White Blood Count 5.6 K/mm3 (4.4-11.0)
[2024-09-15 07:06] LABS: Anion Gap 4 (5-15); BUN 27 mg/dL (7-18); BUN/Creat Ratio 15.5 RATIO (10-20); Calcium,Total 9.3 mg/dL (8.5-10.1); Chloride 115 mmol/L (98-107); Creatinine, Serum 1.74 mg/dL (0.55-1.02); EST Glomerular Filtration Rate 30 mL/min (>60); Est Glom Filt Rate - Afr Amer 37 mL/min (>60); Estimated Creatinine Clearance 27.19 ml/min; Glucose 108 mg/dL (74-106); Phosphorus 3.5 mg/dL (2.5-4.9); Potassium 3.9 mmol/L (3.5-5.1); Sodium Level 143 mmol/L (136-145)
--- NOTE | 2024-09-15 07:43 | PCM.PN.HOSP ---
Reason for Visit Reason for Visit: Diagnoses Acute upper respiratory infection, unspecified (09/13/24) Systemic lupus erythematosus, unspecified (09/13/24) Sjogren syndrome, unspecified (09/13/24) Myalgia, unspecified site (09/13/24) Chronic kidney disease, stage 3b (09/13/24) Other malaise (09/13/24) Other fatigue (09/13/24) Subjective Subjective Patient seen complains of a productive cough otherwise unremarkable evening. Objective Data Objective Data Vital Signs: Vital Signs Temp Pulse Resp BP Pulse Ox O2 Del Method 98.0 F 66 16 137/66 H 99 Room Air 09/15/24 05:52 09/15/24 05:52 09/15/24 05:52 09/15/24 05:52 09/15/24 05:52 09/15/24 05:52 Oxygen Delivery Method Room Air Weight: 72.1 kg Body Mass Index (BMI) 27.1 Intake & Output: Intake and Output for Last 24 Hours 09/13/24 09/14/24 09/15/24 23:59 23:59 23:59 Intake Total 1000 / 1200 1600 / 1600 300 / 300 Balance 1000 / 1200 1600 / 1600 300 / 300 Lab / Micro Data 09/15/24 06:27 09/15/24 06:27 Labs: Laboratory Results - last 24 hr 09/14/24 04:53: Hemoglobin A1c 5.3 09/14/24 11:24: POC Glucose 107 H 09/14/24 16:09: POC Glucose 113 H 09/14/24 20:59: POC Glucose 150 H 09/15/24 05:50: POC Glucose 99 09/15/24 06:27: WBC 5.6, RBC 4.08 L, Hgb 12.7, Hct 39.2, MCV 96.1, MCH 31.1, MCHC 32.4, RDW Std Deviation 45.5 H, RDW Coeff of [place] 12.9, Plt Count 158, MPV 11.4, Immature Gran % (Auto) 0.200, Neut % (Auto) 59.1, Lymph % (Auto) 29.7, [place] % (Auto) 6.9, Eos % (Auto) 3.6, Baso % (Auto) 0.5, Absolute Neuts (auto) 3.3, Absolute Lymphs (auto) 1.67, Nucleated RBC % 0, Sodium 143, Potassium 3.9, Chloride 115 H, Carbon Dioxide 25.0, Anion Gap 4 L, BUN 27 H, Creatinine 1.74 H, Estim Creat Clear Calc 27.19, Est GFR (MDRD) Af Amer 37 L, Est GFR (MDRD) Non-Af 30 L, BUN/Creatinine Ratio 15.5, Glucose 108 H, Calcium 9.3, Phosphorus 3.5, Magnesium 2.0 Micro: Microbiology 09/13/24 22:17 Mucosa - Nose Respiratory Panel (PCR) - Final 09/13/24 19:28 Mucosa - Nose SARS-CoV-2, Influenza & RSV (PCR) - Final Physical Exam Narrative GENERAL: cooperative HEENT: Atraumatic; normocephalic EYES; Anicteric, Normal Conjunctiva NECK; supple, normal thyroid, RESPIRATORY: Diminished to auscultation, some wheezes CARDIOVASCULAR: Regular S1 S2, GI: soft, normoactive bowel sounds, : No Renal angle tenderness; EXTREMITIES: No edema, no clubbing, MUSCULOSKELETAL: no muscle wasting NEURO: Awake; no lateralizing signs. SKIN: No Rash PSYCH; Flat affect Assessment & Plan Assessment/Plan (1) Viral URI with cough: (2) Myalgia: (3) Malaise and fatigue: (4) Stage 3 chronic kidney disease: QUALIFIERS: Chronic kidney disease stage 3 subtype: stage 3b (GFR 30-44) Qualified Code(s): N18.32 - Chronic kidney disease, stage 3b (5) Systemic lupus erythematosus: QUALIFIERS: Systemic lupus erythematosus organ involvement: unspecified Systemic lupus erythematosus type: unspecified Qualified Code(s): M32.9 - Systemic lupus erythematosus, unspecified (6) Sjoegren syndrome: QUALIFIERS: Sjogren's organ involvement: unspecified organ involvement Qualified Code(s): M35.00 - Sicca syndrome, unspecified PLAN: Plan Patient is a 73-year-old lady who presented with progressive generalized weakness with cough. An assessment of suspected viral upper respiratory tract infection was made admitted to regular nursing floor for further management 1. Suspected viral upper respiratory tract infection ? Admitted to regular nursing floor initial COVID assay came back negative. Ordered viral respiratory panel results pending ? 08/16/2024 patient viral respiratory panel came back negative patient will be assessed for discharge 2.Chronic kidney disease stage IIIb ? Kidney function at baseline we will continue with daily monitoring BMPs 3. Hypertension ? Blood pressure controlled, home medications continued with dose adjustment as needed 4. Dyslipidemia ?Patient is on statin therapy, continued at home dose 5. GERD ? On PPI 6. Hypothyroidism ? Patient is on levothyroxine home dose continued 7. Diabetes mellitus type II -patient's oral hypoglycemics held. Placed on long acting insulin, Accu-Cheks a.c. and at bedtime and covered with sliding scale insulin 8. Depression ? Patient is on sertraline continue 9. SLE ? Per history currently not on any DMARDs 10. DVT prophylaxis ? On enoxaparin Time spent in the patient's overall evaluation,decision-making process, review of diagnostic data, adjustment of management, discussion with other providers, nursing nursing and ancillary staff involved in patient's care documentation, 38 . Minutes
[2024-09-15 08:52] VITALS: BP 133/70; PULSE 59; RESP 16; TEMP 36.7; O2SAT 99
[2024-09-15 09:03] VITALS: PULSE 59
[2024-09-15] MEDS: hydrALAZINE 10 MG Tablet PO (09:03)
[2024-09-15] MEDS: Lactobacillis Acidophilus 1 CAP PO (09:04)
[2024-09-15] MEDS: Aspirin E.C. 81 MG Tablet PO (09:04)
[2024-09-15] MEDS: Carvedilol 3.125 MG TABLET PO (09:04)
[2024-09-15] MEDS: Ascorbic Acid 500 MG Tablet 1000 MG PO (09:04)
[2024-09-15] MEDS: tiZANidine HCl 2 MG Tablet PO (09:05)
[2024-09-15] MEDS: Sertraline 50 MG Tablet PO (09:05)
[2024-09-15] MEDS: Cholecalciferol (Vit D3) 125 MCG CAPSULE (5,000 UNITS) PO (09:05)
[2024-09-15] MEDS: Zinc Sulfate 50 mg zinc (220 mg) ORAL capsule PO (09:05)
[2024-09-15] MEDS: Enoxaparin 30 MG/0.3 ML Syringe SC (09:05)
[2024-09-15] MEDS: Pantoprazole Sodium 20 MG Tablet PO (09:05)
[2024-09-15] MEDS: Gabapentin 300 MG Capsule PO (09:11)
--- NOTE | 2024-09-15 11:10 | PCM.DC.SUM ---
Providers Date of Admission: 09/13/24 Date of Discharge: 09/15/24 Primary Care Physician: Dr. Akil Kelly, DO Reason For Visit: VIRAL URI FATIGUE MALAISE MYALGIA Diagnosis Discharge Diagnosis (1) Viral URI with cough: Status: Acute Code(s): J06.9 - Acute upper respiratory infection, unspecified (2) Myalgia: Status: Acute Code(s): M79.10 - Myalgia, unspecified site (3) Malaise and fatigue: Status: Acute Code(s): R53.81 - Other malaise; R53.83 - Other fatigue (4) Stage 3 chronic kidney disease: Status: Chronic Code(s): N18.3 - Chronic kidney disease, stage 3 (moderate) Qualifiers: Chronic kidney disease stage 3 subtype: stage 3b (GFR 30-44) Qualified Code(s): N18.32 - Chronic kidney disease, stage 3b (5) Systemic lupus erythematosus: Status: Chronic Code(s): M32.9 - Systemic lupus erythematosus, unspecified Qualifiers: Systemic lupus erythematosus type: unspecified Systemic lupus erythematosus organ involvement: unspecified Qualified Code(s): M32.9 - Systemic lupus erythematosus, unspecified (6) Sjoegren syndrome: Status: Chronic Code(s): M35.00 - Sjogren syndrome, unspecified Qualifiers: Sjogren's organ involvement: unspecified organ involvement Qualified Code(s): M35.00 - Sicca syndrome, unspecified Plan Patient is a 73-year-old lady who presented with progressive generalized weakness with cough. An assessment of suspected viral upper respiratory tract infection was made admitted to regular nursing floor for further management 1. Suspected viral upper respiratory tract infection ? Admitted to regular nursing floor initial COVID assay came back negative. Ordered viral respiratory panel results pending ? 08/16/2024 patient viral respiratory panel came back negative patient will be assessed for discharge 2.Chronic kidney disease stage IIIb ? Kidney function at baseline we will continue with daily monitoring BMPs 3. Hypertension ? Blood pressure controlled, home medications continued with dose adjustment as needed 4. Dyslipidemia ?Patient is on statin therapy, continued at home dose 5. GERD ? On PPI 6. Hypothyroidism ? Patient is on levothyroxine home dose continued 7. Diabetes mellitus type II -patient's oral hypoglycemics held. Placed on long acting insulin, Accu-Cheks a.c. and at bedtime and covered with sliding scale insulin 8. Depression ? Patient is on sertraline continue 9. SLE ? Per history currently not on any DMARDs 10. DVT prophylaxis ? On enoxaparin Time spent in the patient's overall evaluation,decision-making process, review of diagnostic data, adjustment of management, discussion with other providers, nursing nursing and ancillary staff involved in patient's care documentation, 35 . Minutes Medications at Discharge Home Medications gabapentin 300 mg capsule 300 mg PO DAILY NERVE PAIN 12/21/15 hydrocodone-acetaminophen 5-325mg 5mg-325mg 5 - 325 mg PO TID PRN PAIN 12/21/15 omeprazole 20 mg capsule,delayed release 20 mg PO DAILY GERD 12/21/15 aspirin 81 mg tablet,delayed release 81 mg PO DAILY@0800 HEART HEALTH 03/24/19 ferrous sulfate 325 mg (65 mg iron) tablet 65 mg PO DAILY SUPPLEMENT 03/24/19 ozahajod-fign-hpxi 8 mg-folic 400 mcg-K 50 mcg-lutein 300 mcg tablet 1 tab PO DAILY SUPPLEMENT 03/24/19 sertraline 50 mg tablet 100 mg PO DAILY DEPRESSION 03/24/19 simvastatin 80 mg tablet 80 mg PO QHS CHOLESTEROL 03/24/19 Lactobacillus acidophilus 1 ea PO DAILY stomach 04/27/20 tizanidine 2 mg tablet 2 mg PO DAILY spasm 04/27/20 Keto 1 tab PO DAILY 10/10/20 carvedilol 3.125 mg tablet 3.125 mg PO BID heart 04/27/23 hydralazine 10 mg tablet 10 mg PO BID bp 04/27/23 chlorthalidone 25 mg tablet 25 mg PO DAILY 09/13/24 furosemide 20 mg tablet 20 mg PO DAILY edema 09/13/24 glimepiride 2 mg tablet 2 mg PO DAILY dm 09/13/24 levothyroxine 75 mcg tablet 75 mcg PO .COMPLEX thyroid 09/13/24 Physical Exam Narrative GENERAL: cooperative HEENT: Atraumatic; normocephalic EYES; Anicteric, Normal Conjunctiva NECK; supple, normal thyroid, RESPIRATORY: Diminished to auscultation, some wheezes CARDIOVASCULAR: Regular S1 S2, GI: soft, normoactive bowel sounds, : No Renal angle tenderness; EXTREMITIES: No edema, no clubbing, MUSCULOSKELETAL: no muscle wasting NEURO: Awake; no lateralizing signs. SKIN: No Rash PSYCH; Flat affect Weight / BMI Weight Weight: 72.1 kg Body Mass Index (BMI) 27.1 ABG / Lab / Microbiology Data 09/15/24 06:27 09/15/24 06:27 Laboratory: Laboratory Results - last 24 hr 09/14/24 11:24: POC Glucose 107 H 09/14/24 16:09: POC Glucose 113 H 09/14/24 20:59: POC Glucose 150 H 09/15/24 05:50: POC Glucose 99 09/15/24 06:27: WBC 5.6, RBC 4.08 L, Hgb 12.7, Hct 39.2, MCV 96.1, MCH 31.1, MCHC 32.4, RDW Std Deviation 45.5 H, RDW Coeff of [place] 12.9, Plt Count 158, MPV 11.4, Immature Gran % (Auto) 0.200, Neut % (Auto) 59.1, Lymph % (Auto) 29.7, [place] % (Auto) 6.9, Eos % (Auto) 3.6, Baso % (Auto) 0.5, Absolute Neuts (auto) 3.3, Absolute Lymphs (auto) 1.67, Nucleated RBC % 0, Sodium 143, Potassium 3.9, Chloride 115 H, Carbon Dioxide 25.0, Anion Gap 4 L, BUN 27 H, Creatinine 1.74 H, Estim Creat Clear Calc 27.19, Est GFR (MDRD) Af Amer 37 L, Est GFR (MDRD) Non-Af 30 L, BUN/Creatinine Ratio 15.5, Glucose 108 H, Calcium 9.3, Phosphorus 3.5, Magnesium 2.0 Microbiology: Microbiology 09/13/24 22:17 Mucosa - Nose Respiratory Panel (PCR) - Final 09/13/24 19:28 Mucosa - Nose SARS-CoV-2, Influenza & RSV (PCR) - Final D/C Instructions Discharge Diet: No restrictions Discharge Activity: Return to Normal Activity Call your doctor if you observe: Fever of 101 or Higher, Shortness of breath, Fainting spells and Chest pain Meaningful Use Info Meaningful Use Meaningful Use Diagnoses (Choose all that apply): None applicable Ischemic Stroke Statin Dosing Therapy Reference: STATIN DOSE THERAPY REFERENCE: * Patients > 75 years receive moderate or high dose statin therapy. * Patients 75 years or YOUNGER should receive HIGH intensity statin dose unless contraindicated. You will be required to document reason for non-treatment if statin daily dose does not meet guidelines. HIGH DOSE STATIN THERAPY DAILY Atorvastatin > than or = to 40 mg Rosuvastatin > than or = to 20 mg Amlodipine + Atorvastatin > than or = to 2.5/40 mg Ezetimibe + Simvastatin 10/80 mg Simvastatin 80mg Discharge Plan Admission Admit Date/Time: 09/13/24 22:33 Attending Provider: Александр York Primary Care Provider: Akil Kelly Consulting Providers: Александр [place] Discharge Orders/Prescriptions Prescriptions: No Action Keto 1 tab PO DAILY hydrocodone-acetaminophen 1 TABLET tablet 5 - 325 mg PO TID PRN Patient Comments: pain gabapentin 300 MG capsule 300 mg PO DAILY Patient Comments: neuropathy omeprazole 20 MG capsule 20 mg PO DAILY Patient Comments: reflux sertraline 50 MG tablet 100 mg PO DAILY simvastatin 80 MG tablet 80 mg PO QHS aspirin 81 MG tablet 81 mg PO DAILY@0800 ferrous sulfate 325 MG tablet 65 mg PO DAILY uedbbzmq-uxm-qacl-FA-vit K-lut 1 EACH tablet 1 tab PO DAILY tizanidine 2 MG tablet 2 mg PO DAILY Lactobacillus acidophilus 1 EACH capsule 1 ea PO DAILY hydralazine 10 mg tablet 10 mg PO BID carvedilol 3.125 mg tablet 3.125 mg PO BID chlorthalidone 25 mg tablet 25 mg PO DAILY glimepiride 2 mg tablet 2 mg PO DAILY furosemide 20 mg tablet 20 mg PO DAILY levothyroxine 75 mcg tablet 75 mcg PO .COMPLEX Rx Instructions: 75 mcg orally on mon, tu, wed, , sat, sat and 2 pills on suns Referrals / Follow Up: Akil Kelly DO [Primary Care Provider] - In 1 Week Disposition Disposition (needs filled in before D/C Order can be placed): Home, Self Care Charges/Coding Visit Charges Inpatient E&M: 44452 Disch Hosp >30min
--- NOTE | 2024-09-15 11:49 | CASEMGMT ---
RN CM into pt room, pt denies any homegoing needs. Pt states she has been up walking the halls. Pt is ready for dc.
[2024-09-15 12:11] LABS: Bedside Glucose 109 mg/dL (74-106)
[2024-09-15] MEDS: Ferrous Sulfate 325 MG Tablet PO (12:58)
== END 2024-09-15 13:28 | disposition home or self-care (01) ==
LOC: ED 18:57 → MS3 22:36
PROVIDERS: Admitting Provider Internal Medicine; Emergency Provider Surgery; PCP Student in an Organized Health Care Education/Training Program; Visit Provider Internal Medicine
DX: J06.9 Acute upper respiratory infection, unspecified (principal); M32.9 Systemic lupus erythematosus, unspecified; E11.22 Type 2 diabetes mellitus with diabetic chronic kidney disease; E11.40 Type 2 diabetes mellitus with diabetic neuropathy, unspecified; N18.32 Chronic kidney disease, stage 3b; D50.9 Iron deficiency anemia, unspecified; M35.09 Sjogren syndrome with other organ involvement; Z87.891 Personal history of nicotine dependence; K21.9 Gastro-esophageal reflux disease without esophagitis; Z79.84 Long term (current) use of oral hypoglycemic drugs; Z79.82 Long term (current) use of aspirin; I12.9 Hypertensive chronic kidney disease with stage 1 through stage 4 chronic kidney disease, or unspecified chronic kidney disease; E78.5 Hyperlipidemia, unspecified; R53.81 Other malaise; R53.83 Other fatigue; Z79.899 Other long term (current) drug therapy; E03.9 Hypothyroidism, unspecified; Z79.890 Hormone replacement therapy
CPT/HCPCS: 36415; 71046; 80048; 80053; 81001; 82962; 83036; 83735; 83880; 84100; 84443; 84484; 85025; 87631; 87633; 93005; 94640; 94668; 96360; 96361; 96372; 99221; 99284; J7030; A4216; G0378

== ENCOUNTER → 2024-09-17 | Outpatient (CLI) | payer MEDICARE, SELFPAY ==
--- NOTE | 2024-09-17 11:50 | RAD_ITS ---
INDICATION: lumbar radiculopathy EXAMINATION/TECHNIQUE: X-RAY - XR Spine Lumbar 2 or 3 Views COMPARISON: None. FINDINGS: VERTEBRAE: Preserved vertebral body height. No fracture. Millimeter anterolisthesis L4 on L5. Preservation of the normal lumbar lordosis. Severe multilevel facet arthropathy. DISCS: Severe multilevel degenerative disc disease and spondylosis. INCLUDED ABDOMEN: Included bowel gas pattern is non-obstructive. RAD/Lumbar Spine 2 or 3 Views IMPRESSION: No evidence of lumbar spinal fracture or spondylolisthesis. Severe multilevel degenerative disc disease and spondylosis. Electronically Signed: Ricardo Blank MD at 22:06 EDT ,
--- NOTE | 2024-09-17 12:15 | RAD_ITS ---
A INDICATION: radiculopathy in the cervical region, or neck: EXAMINATION/TECHNIQUE: X-RAY - XR Spine Cervical 2 or 3 Views COMPARISON: None. FINDINGS: VERTEBRAE: Preserved vertebral body height. No fracture. No spondylolisthesis. Preservation of the normal cervical lordosis. Moderate to severe multilevel facet arthropathy. DISCS: Moderate to severe multilevel degenerative disc disease and spondylosis. NECK SOFT TISSUES: No prevertebral soft tissue widening. LUNG APICES: Clear. RAD/Cerv Spine 2 or 3 Views IMPRESSION: No evidence of acute fracture or spondylolisthesis. Moderate to severe multilevel degenerative disc disease and spondylosis. Electronically Signed: Ricardo Blank MD at 22:05 EDT ,
== END | disposition home or self-care (01) ==
LOC: RAD 11:47
PROVIDERS: PCP Student in an Organized Health Care Education/Training Program; Referring Provider Anesthesiology Pain Medicine; Visit Provider Anesthesiology Pain Medicine
DX: M54.12 Radiculopathy, cervical region (principal); M54.16 Radiculopathy, lumbar region
CPT/HCPCS: 72040; 72100

== ENCOUNTER 2024-10-26 14:00 | Outpatient (RCR) | payer MEDICARE, SELFPAY ==
--- NOTE | 2024-09-29 10:32 | HP.PTEVAL ---
Patient's Visit Information Visit Information Visit Information: ISIS JONES is a 73 year old F referred to Physical Therapy by Dr. Sherri Olson MD with a diagnosis of BACK AND NECK PAIN. Date of Evaluation: 09/29/24 Physical Therapist: Michelle Melton PT, Cert MDT Visit Plan Frequency: 2x /Week Duration: 4-6 Weeks Plan: FOLLOW UP ON LAND NEXT VISIT FOR INSTRUCTION IN PROPER POSTURE CONTROL, BODY MECAHICS AND APPROPRIATE ACTIVITY MODIFICATIONS TO HELP DECREASE PAIN AND INFLAMMATION WELL HEP INSTRUCTION AND POC CHECK FOR POOL BASED ON PCP FOLLOW UP. AD TRAINING NEEDED/PATIENT RECEPTIVE. AQUATIC THERAPY IF OK'D BY PCP FOR PAIN RELIEF, POSTURE CORRECTION/STRENGTHENING, INSTRUCTION IN APPROPRIATE BODY MECHANICS AND ACTIVITY MODIFICATIONS. DLS STARTING WITH A NEUTRAL SPINE PROGRESSING ROM TOLERATED. ALEKSEY LE ROM, STRETCHING AND STRENGTHENING. HEP INSTRUCTION. Subjective Subjective: Work/Leisure: RETIRED. LIVES WITH IN MOBILE HOME WITH 3 STEPS IN WITH ONE HR. Present symptoms: ALEKSEY LOW BACK PAIN R>L. ALEKSEY LE PAIN AND NEUROPATHY. INTERMITTENT SX'S TO THE FEET. Present since: YEARS Pain Scale: WORST 9/10, LEAST 2/10 Currently: 4/10 Is it getting better, worse or staying the same: STAYING THE SAME Commenced as a result of: ARTHRITIS Worse: LIFTING, SWEEPING, MOPPING, PUTTING UP STORM WINDOWS, CARRYING THE GROCERIES IN THE HOUSE, WALKING TOO FAR Better: REALLY HOT SHOWERS, NORCO, LAYING DOWN, TYLONOL, RUDY'S Disturbed sleep: YES - SOMETIMES Previous history/Previous treatment: RUDY'S - WITH THE LAST ONE BEING JUL 2024 WITH BENEFIT. CHIROPRACTIC BUT NOT FOR YEARS. NO BACK SURGERY. NO PHYSICAL THERAPY. Coughing/sneezing/straining: INCREASED PAIN WITH A LOT OF COUGHING. Gait: IT HELPS TO USE A GROCERY CART BUT DOES NOT USE A CANE OR WALKER. TIME AND DISTANCE LIMITED. H/O FALLS BUT SPECIFICS NOT GIVEN. Bowel or Bladder Dysfunction: DENIES BLADDER DYSFUNCTION BUT REPORTS BOWEL ISSUES THAT ARE NOT NEW. SEEING DR. BUSH TO DISCUSS TODAY. STATES DR. BUSH CHANGED A MEDICATION AND HER BOWEL ISSUES ARE BETTER NOW. FEELS IT WON'T BE A PROBLEM FOR GETTING IN THE POOL BUT WILL GET AN OK FROM DR. BUSH FIRST. Unexplained weight loss: NO Imagin09/17/24 LUMBAR X-RAY: No evidence of lumbar spinal fracture or spondylolisthesis. Severe multilevel degenerative disc disease and spondylosis. 09/17/24 CERVICAL X-RAY: No evidence of acute fracture or spondylolisthesis. Moderate to severe multilevel degenerative disc disease and spondylosis. PMH/Recent major surgery: LUPUS. NIDDM. HTN. HAS HAD PT FOR KNEE AND SHLD. OTHER: PATIENT REPORTS SHE HAS DONE AQUATIC THERAPY FOR HER KNEE IN THE PAST AND IT HAS HELPED. WOULD LIKE TO START PT FOR HER BACK FIRST BUT ALSO HAS NECK PAIN. HAS TO LEAVE EARLY TODAY FOR ANOTHER APPOINTMENT. Objective Objective: Sitting/Standing Posture: INCREASED KYPHOSIS. DECREASED LORDOSIS. Active Correction of posture: INCREASES PAIN. Other Observations: THIS PATIENT AMBULATES INDEP'LY INTO PT WITH SLOW ANTALGIC GAIT PATTERN WITH SHORT ALEKSEY STRIDE LENGTH, RIGID TRUNK AND NO AD'S OR LOB. ABLE TO TRANSFER INDEP'LY SIT TO STAND WITHOUT UE ASSIST X 1. Sensory deficit: ALEKSEY LE LIGHT TOUCH SENSATION IS GROSSLY INTACT AND SYMMETRICAL ROM deficit: MOD ALEKSEY LE HS AND JONAS GASTROC-SOLEUS TIGHTNESS. Motor deficit: ALEKSEY HIPS 3+ TO 4-/5, KNEES 4-/5, ANKLES 4-/5. Reflexes: R QUAD 1+, L QUAD 2+, ALEKSEY ACHILLES ABSENT Dural Signs: NEGATIVE ALEKSEY LE'S. Lumbar mvmt loss: flex - MOD ext - JONAS R SG - JONAS L SG - MOD POOR STANDING TOLERANCE AND INCREASED C/O CENTRAL LBP WITH LUMBAR ROM TESTING ALL PLANES. Core strength: POOR. Balance/Special Test Scores Oswestry Low Back Score: 21 Goals Goal 1:: DECREASE C/O LOW BACK AND ALEKSEY LE SX'S BY AT LEAST 25% TO EASE ADL'S Goal Time Frame: 4-6 Weeks Goal 2:: PATIENT WILL COMPLETE 6 STANDS IN 30 SECS TO DEMONSTRATE IMPROVED FUNCTIONAL STRENGTH Goal Time Frame: 4-6 Weeks Goal 3:: PATIENT WILL COMPLETE TUG IN < 15 SECS TO DEMONSTRATE IMPROVED GAIT STABILITY Goal Time Frame: 4-6 Weeks Goal 4:: INDEP HEP. Goal Time Frame: 4-6 Weeks Rehabilitation Potential Physical Therapy Diagnosis: LOW BACK PAIN, CORE WEAKNESS AND STIFFNESS, LE WEAKNESS AND STIFFNESS, LIMITED STANDING AND WALKING FUNCTION. Rehabilitation Potential: Fair Anticipated Interventions Patient/Client Instruction: Educate patient on: Condition, Plan of Care and Risk Factors For the Purpose of:: To improve self management Therapeutic Exercise to Include: Strength training, Balance training, Body mechanics, Postural training, Flexibilty training, Neuromotor development, In an aquatic setting and Dynamic Lumbar Stabilization For the Purpose of:: To decrease pain, To improve muscle performance and motor function, To improve ability to perform ADL's, To increase tolerance to activity/condition/position, To improve ability of physical actions for home/community/work/leisure, To improve gait and locomotor functions, To increase flexibility/ROM and To improve safety with gait Thermo therapy (hot pack): Yes Ultrasound (thermal/non thermal): Yes For the Purpose of:: To decrease pain and To improve nutrient delivery to tissue Text: Thank you for the opportunity to evaluate your patient. For Medicare and Medicare HMO plans, please review the plan of care and approve it. It will need to be FAXED BACK to us at [phone] for Medicare purposes. For Medicare only, by signing this I certify the plan of care. Please let me know if there are questions or concerns regarding this plan of care. Physician Signature: Date:
== END 2024-10-26 19:00 | disposition home or self-care (01) ==
LOC: PT 14:00
PROVIDERS: PCP Student in an Organized Health Care Education/Training Program; Referring Provider Anesthesiology Pain Medicine; Visit Provider Anesthesiology Pain Medicine
DX: M54.2 Cervicalgia (principal)
CPT/HCPCS: 97035; 97110; 97162; 97530

== ENCOUNTER 2025-03-11 15:45 | Emergency (ER) | payer MEDICARE, SELFPAY ==
[2025-03-11 15:46] VITALS: BP 152/87; PULSE 72; RESP 16; TEMP 36.6; O2SAT 96
[2025-03-11 15:49] VITALS: O2SAT 96
--- NOTE | 2025-03-11 16:50 | RAD_ITS ---
PROCEDURE: CHEST 1 VIEW (PORTABLE) 03/11/2025 REASON FOR EXAM: SYNCOPE TECHNIQUE: Frontal view of the chest. COMPARISON: None. FINDINGS: The cardiac silhouette is mildly prominent. This may also be due to technique. No focal infiltrate or consolidation is seen within the lungs. There is no pneumothorax identified. Surgical clips seen within the patient's right upper abdominal quadrant, likely from prior cholecystectomy procedure. Radiopaque densities are noted to the left of the midline, likely external to the patient. Correlate clinically. No acute osseous abnormalities identified. RAD/Chest 1 View (Portable) IMPRESSION: No acute infiltrate or consolidation is seen within the lungs. Reading Location: [id number]
--- NOTE | 2025-03-11 16:51 | EKG12_ITS ---
Test Reason : Blood Pressure : */* mmHG Vent. Rate : 69 BPM Atrial Rate : 69 BPM P-R Int : 166 ms QRS Dur : 78 ms QT Int : 438 ms P-R-T Axes : 47 0 16 degrees QTcB Int : 469 ms Normal sinus rhythm with sinus arrhythmia Low voltage QRS Borderline ECG Confirmed by González Mishra ([id number]), graphic editor NIDA GARCIA ([id number]) on 03/15/2025 6:44:42 AM Referred By: JAVIER Confirmed By: González Mishra
--- NOTE | 2025-03-11 16:52 | RAD_ITS ---
PROCEDURE: PELVIS 1 OR 2 VIEWS 03/11/2025 REASON FOR EXAM: INJURY/PAIN TECHNIQUE: 1 view(s) of the pelvis. COMPARISON: None. FINDINGS: Limited by abundance of soft tissues. Mild arthritic narrowing seen at the bilateral hip joint. This appears to be symmetric. Degenerative changes seen within the lower lumbar spine. No definite displaced fracture is seen within the pelvis. Should patient continued to experience pain, cross-sectional imaging may be obtained. RAD/Pelvis 1 or 2 Views IMPRESSION: No definite displaced fracture is noted within the bony pelvis. Reading Location: [id number]
[2025-03-11] MEDS: Ondansetron 4 MG/2 ML Vial IV (16:57)
[2025-03-11] MEDS: morphine 8 MG/ML Syringe 6 MG IV (16:57)
--- NOTE | 2025-03-11 17:05 | EX.ED.GENINJ ---
HPI History of Present Illness Chief Complaint: Fall Informant: patient Narrative Narrative: Patient is a 74-year-old female with history of CKD 3, chronic back pain, C. difficile colitis, SLE, Sjogren syndrome, hypertension and diabetes mellitus on chronic [place] for her pain presenting for syncopal episode with subsequent left hip injury. Patient states he was at work when she suddenly woke up on the ground. She is not recall anything that happened right before she passed out. States she was in her normal health prior to this. She landed on her left side. She is having significant pain of her left hip. She think she hit her head but is not sure. She states she does have some tingling going down her left leg but denies any numbness. Able to move her toes. Is not on any blood thinners does take 81 mg aspirin. Is also made of her chronic back pain but no acute change in this. No other complaints or concerns reported at this time [facility] Medical History Low fecal elastase level Pancreatic abnormality Stage 3 chronic kidney disease DM type 2 (diabetes mellitus, type 2) HTN (hypertension) Lupus Home Medications ?Medication ?Instructions ?Recorded ?Last Taken ?Type gabapentin 300 mg capsule 300 mg PO DAILY NERVE PAIN 12/21/15 05/04/20 07:10 History hydrocodone-acetaminophen 5-325mg 5 - 325 mg PO TID PRN PAIN 12/21/15 03/23/19 History 5mg-325mg omeprazole 20 mg capsule,delayed 20 mg PO DAILY GERD 12/21/15 05/04/20 07:10 History release aspirin 81 mg tablet,delayed 81 mg PO DAILY@0800 HEART HE[facility] 03/24/19 03/23/19 History release ferrous sulfate 325 mg (65 mg 65 mg PO DAILY SUPPLEMENT 03/24/19 03/23/19 History iron) tablet dksqtdof-cvwc-ujki 8 mg-folic 400 1 tab PO DAILY SUPPLEMENT 03/24/19 03/23/19 History mcg-K 50 mcg-lutein 300 mcg tablet sertraline 50 mg tablet 100 mg PO DAILY DEPRESSION 03/24/19 03/23/19 History simvastatin 80 mg tablet 80 mg PO QHS CHOLESTEROL 03/24/19 03/23/19 History tizanidine 2 mg tablet 2 mg PO DAILY spasm 04/27/20 Unknown History Keto 1 tab PO DAILY 10/10/20 Unknown History carvedilol 3.125 mg tablet 3.125 mg PO BID heart 04/27/23 Unknown History hydralazine 10 mg tablet 10 mg PO BID bp 04/27/23 Unknown History furosemide 20 mg tablet 20 mg PO DAILY edema 09/13/24 Unknown History glimepiride 2 mg tablet 2 mg PO DAILY dm 09/13/24 Unknown History levothyroxine 75 mcg tablet 75 mcg PO .COMPLEX thyroid 09/13/24 Unknown History ojlwfu-lzqzexab-befyrhp cap PO 03/09/25 Unknown History 3,000-10,000-14,000 unit capsule,delayed rel (Zenpep) Allergy/AdvReac Type Severity Reaction Status Date / Time cephalexin (From Keflex) Allergy Other Verified 03/11/25 15:49 ciprofloxacin Allergy Rash Verified 03/11/25 15:49 moran Allergy blisters Verified 03/11/25 15:49 Iodinated Contrast Media Allergy blisters Verified 03/11/25 15:49 (CONTRASTS) Sulfa (Sulfonamide Allergy Hives Verified 03/11/25 15:49 Antibiotics) Family History Father Cancer Gastric Surgical History S/P foot surgery, left Hx of shoulder surgery History of cholecystectomy History of bilateral knee replacement Social History household members: spouse housing: house Smoking Status: Former smoker ROS ROS ED Constitutional Constitutional ED: Reports other Details: Syncope ; Denies chills or fever(s) ENT ENT ED: Denies rhinorrhea or sore throat Cardiovascular Cardiovascular: Denies chest pain Respiratory/Chest Respiratory/Chest: Denies cough Gastrointestinal Gastrointestinal: Denies nausea or vomiting Genitourinary Genitourinary ED: Denies dysuria Musculoskeletal Musculoskeletal: Reports arthralgias, back pain and other Details: Left hip pain Integumentary Denies rash Neurologic Neurologic: Reports headache(s) and paresthesias LLE; Denies weakness Psychiatric Psychiatric: Denies anxiety or depression Hematologic/Lymphatic Hematologic/Lymphatic: Denies easy bleeding or easy bruising EXAM Physical Exam Const Vital Signs: 03/11/25 15:46 04/10/25 15:49 03/11/25 17:41 Temperature 98 F Temperature Source Oral Pulse Rate 72 63 Respiratory Rate 16 16 Respiratory Effort Normal Non-Labored Respiratory Depth Normal Respiratory Pattern Normal Blood Pressure 152/87 H 185/76 H Blood Pressure Mean 108 112 Pulse Ox 96 96 96 Oxygen Delivery Method Room Air Room Air 03/11/25 19:00 03/11/25 21:00 03/11/25 22:16 Temperature 98 F Temperature Source Pulse Rate 70 Respiratory Rate 16 Respiratory Effort Respiratory Depth Respiratory Pattern Blood Pressure 150/78 H 156/92 H 168/78 H Blood Pressure Mean 102 113 108 Pulse Ox 95 99 Oxygen Delivery Method Positive well nourished and well developed General Appearance ED: well developed and NAD HEENT HEENT Narrative: Moist mucosal membranes, no signs of facial trauma. No septal hematoma atraumatic; Negative for tenderness Eyes PERRL and EOMs intact bilaterally Neck Neck Narrative: No midline tenderness, no step-off sign. Immobilized in a c-collar General: Negative for tenderness Chest Wall inspection of chest normal and palpation of chest normal Resp normal respiratory effort and clear to auscultation bilaterally Cardio regular rhythm Cardio Narrative: 2+ radial and DP pulses present GI normal to inspection, nondistended, normoactive bowel sounds and non-tender Back/Spine Back/Spine Narrative: Tenderness palpation approximately L4/L5 as well as paraspinal region. No step-off sign Thoracic Spine / Upper Back: Negative for thoracic spinal tenderness Extremity Extremity Narrative: Pelvis is stable. His palpation over the left hip and pain with range of motion of the left hip. Patient is laying with her thigh propped up on a towel and her left hip appears to be externally rotated and shortened. Compartments are soft. No other pinpoint bony tenderness of the extremities present. Neuro oriented x3, moves all extremities, no focal motor deficits and no sensory deficits noted Geeta Coma Scale: document GCS findings Spontaneous Obeys Commands Oriented 15 Psych mental status grossly normal and thought process normal Skin no rashes or lesions noted and no wounds MDM MDM MDM Narrative Medical decision making narrative: Patient evaluated after syncopal episode at work with subsequent injuries. She landed on her left side. Is not totally clear why or how she fell. She denies any prodrome however she does state that she has a history of this and states she has had extensive outpatient workup for this syncope and they cannot find anything. She states she wore a Holter monitor for 2 weeks. Traumatic workup looking for injuries associated with her fall as well as syncope workup is obtained. Patient is initially given IV morphine for pain control and IV Zofran. CBC largely normal. No signs of symptomatic anemia or leukocytosis suggestive of an acute infection. CMP shows CKD with a creatinine of 2.14 which is only minimally above her baseline. She does not have an ZENY. Her bicarb is normal. She is given a gentle 500 cc fluid bolus given her syncope and mild bump in her creatinine. Urinalysis not concerned with infection and actually has a low specific gravity. EKG does not show any significant/lethal arrhythmia. Chest x-ray viewed by myself as well as radiology does not show any acute process. Left hip/femur x-ray does not show any acute process but given her pain and her initial exam I am concerned about possible occult fracture. CT of the hip as well as lumbar spine as she is now having worsening lumbar pain is added on. CT imaging does not show any acute process. There was a delay in her hip x-ray. CT of the brain and cervical spine does not show any acute process and she is cleared from her C collar. Patient was given her home [place] for further pain control in the emergency room. Ultimately her hip CT comes back negative. Patient is able to ambulate in the emergency room. She is feeling well and at her baseline. She feels comfortable being discharged home. Given return precautions. This patient is mentate appropriately with a normal neurologic exam and able to ambulate I do not think she requires admission at this time especially as she is already had an extensive outpatient workup for syncope. Lab Data Attestation: I reviewed the patient's lab results. Labs: Laboratory Results - last 24 hr 03/11/25 03/11/25 15:59 19:13 WBC 5.5 RBC 4.16 L Hgb 13.4 Hct 40.3 MCV 96.9 MCH 32.2 H MCHC 33.3 RDW Std Deviation 45.9 H RDW Coeff of [place] 12.8 Plt Count 110 L MPV 12.6 H Immature Gran % (Auto) 0.000 Neut % (Auto) 53.2 Lymph % (Auto) 33.7 Bay % (Auto) 9.5 Eos % (Auto) 2.9 Baso % (Auto) 0.7 Absolute Neuts (auto) 2.9 Absolute Lymphs (auto) 1.84 Nucleated RBC % 0 Sodium 140 Potassium 4.5 Chloride 106 Carbon Dioxide 22.0 Anion Gap 12 BUN 25 H Creatinine 2.14 H Est GFR (MDRD) Non-Af 23 L BUN/Creatinine Ratio 11.4 Glucose 60 L Calcium 9.5 Total Bilirubin 0.38 AST 41 H ALT 15 Alkaline Phosphatase 120 H Total Protein 7.0 Albumin 4.1 Globulin 2.9 Albumin/Globulin Ratio 1.4 Urine Color Straw Urine Clarity Clear Urine pH 7.0 Ur Specific [place] 1.005 Urine Protein Negative Urine Glucose (UA) Normal Urine Ketones Negative Urine Occult Blood Negative Urine Nitrite Negative Urine Bilirubin Negative Urine Urobilinogen Normal Ur Leukocyte Esterase Negative Urine RBC 0 SEEN Urine WBC 0 SEEN Ur Squamous Epith Cells 0 SEEN Urine Bacteria 0 SEEN Urine Mucus 0 SEEN Radiography Diagnostic Testing: Clinical Impression(s) from Imaging Studies Chest X-Ray 03/11/25 16:50 IMPRESSION: No acute infiltrate or consolidation is seen within the lungs. Reading Location: [facility] Pelvis X-Ray 03/11/25 16:52 IMPRESSION: No definite displaced fracture is noted within the bony pelvis. Reading Location: [facility] Brain CT 03/11/25 17:25 IMPRESSION: Chronic microvascular ischemic disease No definite acute intracranial hemorrhage, mass effect or midline shift midline shift. Sinus disease as described above. Reading Location: [facility] Cervical Spine CT 03/11/25 17:25 IMPRESSION: Advanced degenerative changes within the cervical spine. No evidence for acute fracture or dislocation. Reading Location: [facility] Femur X-Ray 03/11/25 17:25 IMPRESSION: No definite fracture is seen within the left femur. Should patient continues to experience significant pain, cross-sectional imaging should be obtained to rule out an occult fracture. Reading Location: [facility] Lumbar Spine CT 03/11/25 19:00 IMPRESSION: No acute fracture or traumatic malalignment. Degenerative changes most prominent at L3-L4. Reading Location: [facility] Lower Extremity CT 03/11/25 19:10 IMPRESSION: No acute fracture or dislocation. Mild degenerative changes of the left hip. Reading Location: [facility] Rhythm Strip Rhythm Strip: Sinus Rhythm Rate: 69 Ectopy: None EKG Initial EKG: Attestation: I personally reviewed and interpreted this EKG as follows: Interpretation: Sinus Rhythm Comments: Normal sinus rhythm with sinus arrhythmia rate of 69 bpm Normal axis Normal intervals Normal ST segments Low voltage QRS No change compared to prior EKG on 09/13/2024 Differential Diagnosis Differential Diagnosis: PE Why less likely: Denies any chest pain, shortness of breath. Is not tachycardic, tachypneic or hypoxic Differential Diagnosis: ACS?denies any chest pain. EKG is nonischemic. Discharge Plan Triage Chief Complaint: Fall ED Provider: Joselin Orozco Dx/Rx/DC Orders Clinical Impression: Syncope and collapse, Acute exacerbation of chronic low back pain, CKD (chronic kidney disease) stage 3, GFR 30-59 ml/min Instructions: ED Back Pain (Acute or Chronic), ED Fainting, Uncertain Cause Prescriptions: No Action Keto 1 tab PO DAILY Zenpep 3,000-10,000 -14,000-unit capsule,delayed release(DR/EC) PO hydrocodone-acetaminophen 1 TABLET tablet 5 - 325 mg PO TID PRN Patient Comments: pain gabapentin 300 MG capsule 300 mg PO DAILY Patient Comments: neuropathy omeprazole 20 MG capsule 20 mg PO DAILY Patient Comments: reflux sertraline 50 MG tablet 100 mg PO DAILY simvastatin 80 MG tablet 80 mg PO QHS aspirin 81 MG tablet 81 mg PO DAILY@0800 ferrous sulfate 325 MG tablet 65 mg PO DAILY apiquypn-ucw-relt-FA-vit K-lut 1 EACH tablet 1 tab PO DAILY tizanidine 2 MG tablet 2 mg PO DAILY hydralazine 10 mg tablet 10 mg PO BID carvedilol 3.125 mg tablet 3.125 mg PO BID glimepiride 2 mg tablet 2 mg PO DAILY furosemide 20 mg tablet 20 mg PO DAILY levothyroxine 75 mcg tablet 75 mcg PO .COMPLEX Rx Instructions: 75 mcg orally on mon, tu, wed, , sat, sat and 2 pills on suns Primary Care Provider: Akil Kelly Referrals: Akil Kelly DO [Primary Care Provider] - Activity Restrictions/Additional Instructions: Follow-up with Dr. Olson for pain. Make sure you are drinking plenty of fluids. You do not have any acute traumatic fractures or broken bones from your fall today thankfully. Use heating pad to your back and hip. If you have worsening symptoms of a hard time getting on the house please return to the emergency room. Print Language: Greek Disposition Disposition: Home, Self Care Discharge Date/Time: 03/11/25 22:37
[2025-03-11 17:08] LABS: Absolute Lymphocyte Count 1.84 X10^3/uL (0.83-4.51); Absolute Neutrophil Count 2.9 X10^3/uL (2.0-7.7); Basophil# 0.04 X10^3/uL; Basophil% 0.7 % (0-1); Eosinophil# 0.16 X10^3/uL; Eosinophils% 2.9 % (0-5); Hematocrit 40.3 % (37-47); Hemoglobin 13.4 g/dL (12.0-15.0); Lymphocyte # 1.84 X10^3/ul (0.83-4.51); Lymphocyte % 33.7 % (19-41); Mean Corp Hgb Conc 33.3 g/dL (32-36); Mean Corpuscular Hgb 32.2 pg (27.0-32.0); Mean Corpuscular Volume 96.9 fL (81-99); Mean Platelet Vol. 12.6 fl (6.2-12.0); Monocyte# 0.52 X10^3/uL; Monocyte% 9.5 % (0-10); NRBC Flagged by Analyzer 0 % (0-5); Neutrophil % 53.2 % (47-70); Platelet Count 110 K/mm3 (150-450); RBC Distribution Width CV 12.8 % (11.6-14.6); RBC Distribution Width SD 45.9 fl (35.1-43.9); Red Blood Count 4.16 M/mm3 (4.2-5.4); White Blood Count 5.5 K/mm3 (4.4-11.0)
--- NOTE | 2025-03-11 17:25 | CT_ITS ---
PROCEDURE: BRAIN/HEAD WITHOUT CONTRAST 03/11/2025 REASON FOR EXAM: SYNCOPE, HEAD INJURY TECHNIQUE: Head CT without intravenous contrast. Coronal and Sagittal reconstruction series were provided. One or more dose reduction techniques were used (e.g., Automated exposure control, adjustment of the mA and/or kV according to patient size, use of iterative reconstruction technique. RADIATION DOSE SUMMARY: CTDlvol: 60 mGy DLP: 643 mGycm COMPARISON: None. FINDINGS: There is no acute intracranial hemorrhage, mass effect or midline shift. There are no abnormal extra-axial fluid collections present. The ventricles and sulci are within normal limits. The calvarium is intact. Advanced hypodense areas noted within the subcortical white matter, consistent with chronic microvascular ischemic disease. There is mucoperiosteal thickening involving the bilateral ethmoids. There is thickening involving the left sphenoid. The remainder of the visualized paranasal sinuses are unremarkable. The calvarium is intact. The nasal septum is deviated. CT/Brain/Head without Contrast IMPRESSION: Chronic microvascular ischemic disease No definite acute intracranial hemorrhage, mass effect or midline shift midline shift. Sinus disease as described above. Reading Location: [id number]
--- NOTE | 2025-03-11 17:25 | RAD_ITS ---
EXAM: Four views of the left femur CLINICAL HISTORY: Trauma COMPARISON: None. TECHNIQUE: Four views of the left femur. FINDINGS: Status post left knee arthroplasty, partially visualized. No fracture or dislocation is seen within the bony femur. Femoral popliteal atheromatous calcification is present. RAD/Femur Min 2 Views IMPRESSION: No definite fracture is seen within the left femur. Should patient continues t o experience significant pain, cross-sectional imaging should be obtained to rule out an occult fracture. Reading Location: [id number]
--- NOTE | 2025-03-11 17:25 | CT_ITS ---
PROCEDURE: SPINE CERVICAL WITHOUT CONTRAS 03/11/2025 REASON FOR EXAM: INJURY/PAIN TECHNIQUE: Cervical spine CT without contrast. Coronal and Sagittal reconstruction series were provided. One or more dose reduction techniques were used (e.g., Automated exposure control, adjustment of the mA and/or kV according to patient size, use of iterative reconstruction technique RADIATION DOSE SUMMARY: CTDlvol: 60 mGy DLP: 643 mGycm COMPARISON: None. FINDINGS: There is normal cervical lordosis. The vertebral heights are well-maintained. No fracture or dislocation is seen. Multilevel degenerate changes present including osteophytic spurring, disc space narrowing. No evidence of fracture is seen within the cervical spine. Please see CT brain which is separately dictated. There is evidence of interstitial thickening within the upper lungs are which may suggest pulmonary congestion versus chronic lung disease. Atheromatous calcification seen within the thoracic aorta. CT/Spine Cervical without Contras IMPRESSION: Advanced degenerative changes within the cervical spine. No evidence for acute fracture or dislocation. Reading Location: [id number]
[2025-03-11 17:39] LABS: ALB/GLOB Ratio 1.4 RATIO (0.9-2.4); AST(SGOT) 41 U/L (<=31); Alanine Aminotransfer ALT/SGPT 15 U/L (<=34); Albumin, Serum 4.1 g/dL (3.4-4.8); Alkaline Phosphatase 120 U/L (35-104); Anion Gap 12 (5-15); BUN 25 mg/dL (4-19); BUN/Creat Ratio 11.4 RATIO (10-20); Calcium,Total 9.5 mg/dL (7.6-11.0); Chloride 106 mmol/L (98-108); Creatinine, Serum 2.14 mg/dL (0.70-1.20); EST Glomerular Filtration Rate 23 (>60); Globulin 2.9 g/dL (2.2-4.2); Glucose 60 mg/dL (70-99); Potassium 4.5 mmol/L (3.3-5.1); Sodium Level 140 mmol/L (133-145); Total Bilirubin 0.38 mg/dL (0.00-1.30)
[2025-03-11 17:41] VITALS: BP 185/76; PULSE 63; RESP 16; O2SAT 96
[2025-03-11 19:00] VITALS: BP 150/78
--- NOTE | 2025-03-11 19:00 | CT_ITS ---
PROCEDURE: SPINE LUMBAR WITHOUT CONTRAST 03/11/2025 REASON FOR EXAM: TRAUMA, PAIN TECHNIQUE: Lumbar spine CT without contrast. Coronal and Sagittal reconstruction series were provided. One or more dose reduction techniques were used (e.g., Automated exposure control, adjustment of the mA and/or kV according to patient size, use of iterative reconstruction technique COMPARISON: Lumbar spine radiograph 03/09/2025 FINDINGS: Vertebrae: Vertebral body heights are within normal limits. Disc spaces are maintained. No suspicious lytic or blastic lesion. No acute fracture or traumatic malalignment. Alignment: Lumbar lordosis is maintained. Multilevel degenerative changes, most prominent at L3-L4, with up to moderate canal stenosis or neural foraminal narrowing. CT/Spine Lumbar without Contrast IMPRESSION: No acute fracture or traumatic malalignment. Degenerative changes most prominent at L3-L4. Reading Location: [facility]
--- NOTE | 2025-03-11 19:10 | CT_ITS ---
PROCEDURE: EXTREMITY LOWER WITHOUT CONTRA 03/11/2025 REASON FOR EXAM: PAIN, CONCERN FOR OCCULT FRACTURE TECHNIQUE: Axial CT images of the left hip joint obtained without contrast. Coronal and Sagittal reconstruction series were provided. One or more dose reduction techniques were used (e.g., Automated exposure control, adjustment of the mA and/or kV according to patient size, use of iterative reconstruction technique). COMPARISON: Pelvic radiographs 03/11/2020 FINDINGS: Bones: No acute fracture or dislocation. Degenerative changes of the imaged lower lumbar spine and left hip joint. Soft Tissues: No focal soft tissue abnormality. Moderate colonic stool. No bowel dilation. CT/Extremity Lower without Contra IMPRESSION: No acute fracture or dislocation. Mild degenerative changes of the left hip. Reading Location: [facility]
[2025-03-11 19:23] LABS: Bacteria 0 SEEN /hpf (None Seen); Mucous, Urine 0 SEEN /hpf (<or=2+); Red Blood Cells-Urine 0 SEEN /hpf (0-5); Squamous Epithelial Cells - UA 0 SEEN /hpf (5-10); White Blood Cells 0 SEEN /hpf (0-5)
[2025-03-11 19:28] LABS: Color, Urine Straw (Yellow); Glucose, Dipstick Normal (Normal); Ketone-Dipstick Negative (Negative); Leukocyte Esterase-Dipstick Negative /ul (Negative); Nitrite-Dipstick Negative (Negative); Occult Blood-Urine Negative /ul (Negative); Protein-Dipstick Negative (Negative); Specific Gravity, Urine 1.005 (1.002-1.030); Urine Bilirubin Dipstick Negative (Negative); Urine Clarity Clear (Clear); Urine Urobilinogen Normal (Normal)
[2025-03-11] MEDS: 0.9% Normal Saline (500mL Bag) 500 ML 999 ML IV (19:30)
[2025-03-11 21:00] VITALS: BP 156/92; O2SAT 95
--- NOTE | 2025-03-11 21:18 | ED.RN ---
THIS NURSE CALLED CAT SCAN IN REGARDS TO HIP CAT SCAN TAKING 2 HOURS TO RESULT. CAT SCAN ANTIQUE DEALER SAID THEY ARE AWARE OF AND WILL CALL ABOUT IT.
[2025-03-11] MEDS: HYDROcodone Bitartrate/Apap 5/325 Tablet PO (21:31)
[2025-03-11 22:16] VITALS: BP 168/78; PULSE 70; RESP 16; TEMP 36.6; O2SAT 99
== END 2025-03-11 22:37 | disposition home or self-care (01) ==
PROVIDERS: Emergency Provider Emergency Medicine; PCP Student in an Organized Health Care Education/Training Program; Visit Provider Emergency Medicine
DX: R55 Syncope and collapse (principal); M32.9 Systemic lupus erythematosus, unspecified; E11.22 Type 2 diabetes mellitus with diabetic chronic kidney disease; N18.30 Chronic kidney disease, stage 3 unspecified; I12.9 Hypertensive chronic kidney disease with stage 1 through stage 4 chronic kidney disease, or unspecified chronic kidney disease; M35.00 Sjogren syndrome, unspecified; M25.552 Pain in left hip; M54.50 Low back pain, unspecified; G89.29 Other chronic pain; Z79.891 Long term (current) use of opiate analgesic; Z79.82 Long term (current) use of aspirin; Z79.890 Hormone replacement therapy; Z79.899 Other long term (current) drug therapy; Z87.891 Personal history of nicotine dependence
CPT/HCPCS: 70450; 71045; 72125; 72131; 72170; 73552; 73700; 80053; 81001; 85025; 93005; 96361; 96374; 96375; 99285; J2405

== ENCOUNTER → 2025-04-08 | Outpatient (CLI) | payer MEDICARE, SELFPAY ==
--- NOTE | 2025-04-08 08:42 | CDU_ITS ---
Reason For Study Reason For Study: Syncope Rt. Velocities/BP Lt. Velocities/BP Prox CCA 83.3/19.4 cm/sec. Prox CCA 85.1/23.0 cm/sec. Mid CCA 116.2/28.5 cm/sec. Mid CCA 94.2/26.7 cm/sec. Dist CCA 94.2/24.8 cm/sec. Dist CCA 101.6/19.4 cm/sec. Prox ICA 147.2/35.8 cm/sec. Prox ICA 92.4/23.0 cm/sec. Mid ICA 139.9/39.5 cm/sec. Mid ICA 103.4/26.7 cm/sec. Dist ICA 96.5/32.7 cm/sec. Dist ICA 75.6/30.2 cm/sec. Rt. ICA/CCA = 1.3. Lt. ICA/CCA = 1.1. Prox ECA 123.5/11.8 cm/sec. Prox ECA 87.9/13.0 cm/sec. Rt. Vert. 47.8/15.7 cm/sec. Lt. Vert. 44.1/12.7 cm/sec. Right Extracranial There is intimal thickening but no significant atherosclerotic plaque noted in the right common carotid artery. There is heterogeneous, irregular atherosclerotic plaque noted in the right internal carotid artery. There is intimal thickening but no significant atherosclerotic plaque noted in the right external carotid artery. Antegrade flow is noted in the right vertebral artery. Left Extracranial There is heterogeneous, irregular atherosclerotic plaque noted in the left common carotid artery. There is heterogeneous, irregular atherosclerotic plaque noted in the left internal carotid artery. There is heterogeneous, irregular atherosclerotic plaque noted in the left external carotid artery. Antegrade flow is noted in the left vertebral artery. Procedure Carotid Duplex [id number]. This is a Carotid Duplex examination using B-mode, color flow and specral Doppler. The exam was diagnostic. Exam performed in department. VL/Carotid Duplex Ultrasound Interpretation Summary Moderate (50-69%) stenosis right extracranial internal carotid. Mild (<50%) stenosis left extracranial internal carotid. Patent and antegrade vertebrals bilaterally. Ordering Physician: Sandy Fischer Referring Physician: Akil Kelly Performed By: Gustavo Skinner RVT
== END | disposition home or self-care (01) ==
LOC: CVS 08:41
PROVIDERS: PCP Student in an Organized Health Care Education/Training Program; Referring Provider Nurse Practitioner Family; Visit Provider Nurse Practitioner Family
DX: R55 Syncope and collapse (principal)
CPT/HCPCS: 93880

== ENCOUNTER → 2025-05-13 | Outpatient (CLI) | payer MEDICARE, SELFPAY ==
[2025-05-13 10:48] LABS: Amphetamine Urine NEGATIVE (<1000 ng/mL); Barbiturate Urine NEGATIVE (< 200 ng/mL); Benzodiazepine Urine NEGATIVE (< 200 ng/mL); Buprenorphine Urine NEGATIVE (< 200 ng/mL); Cocaine Urine NEGATIVE (< 300 ng/mL); Fentanyl, Urine NEGATIVE; Methadone Urine NEGATIVE (< 300 ng/mL); Opiates Urine PRESUMPTIVE POSITIVE (< 300 ng/mL); Oxycodone, Urine NEGATIVE (< 100 ng/mL); PCP Urine NEGATIVE (< 25 ng/mL); THC Urine NEGATIVE (< 50 ng/mL)
== END | disposition home or self-care (01) ==
LOC: LAB 09:24
PROVIDERS: PCP Student in an Organized Health Care Education/Training Program; Referring Provider Anesthesiology Pain Medicine; Visit Provider Anesthesiology Pain Medicine
DX: F11.20 Opioid dependence, uncomplicated (principal)
CPT/HCPCS: 80307

== ENCOUNTER → 2025-06-17 | Outpatient (CLI) | payer MEDICARE, SELFPAY ==
[2025-06-12 08:27] LABS: Hematocrit 36.3 % (37-47); Hemoglobin 12.1 g/dL (12.0-15.0); Immature Granulocytes Count 0.010 X10^3/uL (0.0-0.0); Mean Corp Hgb Conc 33.3 g/dL (32-36); Mean Corpuscular Volume 97.3 fL (81-99); Mean Platelet Vol. 12.4 fl (6.2-12.0); NRBC Flagged by Analyzer 0 % (0-5); Platelet Count 115 K/mm3 (150-450); RBC Distribution Width CV 12.7 % (11.6-14.6); RBC Distribution Width SD 45.7 fl (35.1-43.9); Red Blood Count 3.73 M/mm3 (4.2-5.4); White Blood Count 4.0 K/mm3 (4.4-11.0)
[2025-06-12 08:59] LABS: Anion Gap 10 (5-15); BUN 16 mg/dL (4-19); BUN/Creat Ratio 9.9 RATIO (10-20); Calcium,Total 9.3 mg/dL (7.6-11.0); Carbon Dioxide 22.0 mmol/L (21.0-32.0); Chloride 110 mmol/L (98-108); Glucose 114 mg/dL (70-99); Potassium 4.5 mmol/L (3.3-5.1)
--- NOTE | 2025-06-17 12:33 | PCM.TILTTABL ---
Staff Staff: Annabel Escobar and Jaqueline Bray Summary Pre Test Resting HR: 62 Pre Test Resting BP: 131/80 Minimum Test HR: 56 Maximum Test HR: 82 Minimum Test BP: 0/0 Maximum Test BP: 141/80 Reason for Test Termination: Syncope Physician Tilt Table Report Patient's Physicians Primary Care Physician: Akil Kelly Indications/Diagnosis: Syncope Procedure Comments: Patient was brought to the noninvasive lab in the postabsorptive nonsedated state. Informed consent was obtained. Initial heart rate and blood pressure measurements were obtained patient was maintaining sinus rhythm. Patient was then put in the 70 degree head upright tilt position for total duration of 20 minutes. Patient to maintain adequate heart rate and blood pressure. No significant symptomatology was noted. The patient was then put in the recumbent position and given 0.4 mg of sublingual nitroglycerin. The patient was put back in the 70 degree head upright tilt position. Initial heart rate was 62 bpm with a blood pressure of 129/86 mmHg. The blood pressure then started following with patient getting paler in the heart rate going up to 82 bpm. Patient then became unresponsive with Myriam movements noted. Patient was put back in the recumbent position and subsequently recovered. Summary: Likely orthostatic mediated blood pressure changes on tilt table testing. Heart rate increase was likely blunted by beta-raffy use.
[2025-06-17 12:37] VITALS: BP 0/0; BP 131/80; BP 141/80
== END | disposition home or self-care (01) ==
PROVIDERS: Internal Medicine Cardiovascular Disease; PCP Student in an Organized Health Care Education/Training Program; Referring Provider Nurse Practitioner Primary Care; Visit Provider Nurse Practitioner Primary Care
DX: R55 Syncope and collapse (principal); N18.32 Chronic kidney disease, stage 3b
CPT/HCPCS: 36415; 80048; 85025; 93660; A4216

== ENCOUNTER 2025-07-08 11:43 | Emergency (ER) | payer MEDICARE, SELFPAY ==
[2025-07-08 11:45] VITALS: BP 179/94; PULSE 68; RESP 18; TEMP 36.4; O2SAT 99
--- NOTE | 2025-07-08 12:00 | EKG12_ITS ---
Test Reason : REPEAT Blood Pressure : */* mmHG Vent. Rate : 59 BPM Atrial Rate : 59 BPM P-R Int : 144 ms QRS Dur : 70 ms QT Int : 442 ms P-R-T Axes : * -14 16 degrees QTcB Int : 437 ms Sinus bradycardia Low voltage QRS Inferior infarct , age undetermined Abnormal ECG Confirmed by CAIN ANN ([id number]), video effects editor TARA BARRAGAN ([id number]) on 07/12/2025 6:46:53 AM Referred By: Confirmed By: CAIN ANN
--- NOTE | 2025-07-08 12:00 | EKG12_ITS ---
Test Reason : CP Blood Pressure : */* mmHG Vent. Rate : 65 BPM Atrial Rate : 65 BPM P-R Int : 142 ms QRS Dur : 74 ms QT Int : 418 ms P-R-T Axes : * -12 21 degrees QTcB Int : 434 ms Normal sinus rhythm Low voltage QRS Inferior infarct , age undetermined Abnormal ECG Confirmed by CAIN ANN ([id number]), magazine editor TARA BARRAGAN ([id number]) on 07/12/2025 6:46:43 AM Referred By: EMIR/SHAHBAZ Confirmed By: CAIN ANN
--- NOTE | 2025-07-08 12:03 | ED.VIS.CHEST ---
HPI <KENNY Chin - Last Filed: 07/08/25 16:04> History of Present Illness Chief Complaint: Chest Pain Narrative Narrative: 74-year-old female with female HTN, HLD, DM2, CKD, anemia presents with chest pain. Yesterday morning after waking up she had fatigue and chest heaviness which persisted throughout the day. She felt nauseated with decreased appetite and did not eat much. No vomiting. No abdominal pain, diarrhea, black or bloody stools. This morning she was on the couch around 9:30 AM and the chest heaviness worsened and she became sweaty. She denies history of cardiac disease or DVT/PE. She has never been a smoker. [facility] <KENNY Chin - Last Filed: 07/08/25 16:04> [facility] Medical History (Updated 07/08/25 @ 15:20 by KENNY Chin) Anxiety Depression Hypothyroidism Kidney disease Pancreatitis GI bleed Low fecal elastase level Pancreatic abnormality Stage 3 chronic kidney disease DM type 2 (diabetes mellitus, type 2) HTN (hypertension) Lupus Home Medications ?Medication ?Instructions ?Recorded ?Last Taken ?Type gabapentin 300 mg capsule 300 mg PO DAILY NERVE PAIN 12/21/15 05/04/20 07:10 History hydrocodone-acetaminophen 5-325mg 5 - 325 mg PO TID PRN PAIN 12/21/15 03/23/19 History 5mg-325mg omeprazole 20 mg capsule,delayed 20 mg PO DAILY GERD 12/21/15 05/04/20 07:10 History release aspirin 81 mg tablet,delayed 81 mg PO DAILY@0800 HEART HEALTH 03/24/19 03/23/19 History release ferrous sulfate 325 mg (65 mg 65 mg PO DAILY SUPPLEMENT 03/24/19 03/23/19 History iron) tablet xdqzjbxu-xgos-dsad 8 mg-folic 400 1 tab PO DAILY SUPPLEMENT 03/24/19 03/23/19 History mcg-K 50 mcg-lutein 300 mcg tablet sertraline 50 mg tablet 100 mg PO DAILY DEPRESSION 03/24/19 03/23/19 History simvastatin 80 mg tablet 80 mg PO QHS CHOLESTEROL 03/24/19 03/23/19 History tizanidine 2 mg tablet 2 mg PO DAILY spasm 04/27/20 Unknown History carvedilol 3.125 mg tablet 3.125 mg PO BID heart 04/27/23 Unknown History hydralazine 10 mg tablet 10 mg PO BID bp 04/27/23 Unknown History furosemide 20 mg tablet 20 mg PO DAILY edema 09/13/24 Unknown History levothyroxine 75 mcg tablet 75 mcg PO DAILY thyroid 09/13/24 Unknown History dbubdc-jxuiuzyf-juezmyt cap PO TID 03/09/25 Unknown History 3,000-10,000-14,000 unit capsule,delayed rel (Zenpep) carvedilol 6.25 mg tablet 6.25 mg PO BID 30 days #60 tabs 07/08/25 Unknown Rx Allergy/AdvReac Type Severity Reaction Status Date / Time nitroglycerin Allergy Severe syncope Verified 07/08/25 13:37 cephalexin (From Keflex) Allergy Other Verified 03/11/25 15:49 ciprofloxacin Allergy Rash Verified 03/11/25 15:49 moran Allergy blisters Verified 03/11/25 15:49 Iodinated Contrast Media Allergy blisters Verified 03/11/25 15:49 (CONTRASTS) Sulfa (Sulfonamide Allergy Hives Verified 03/11/25 15:49 Antibiotics) Family History Father Cancer Gastric Surgical History S/P foot surgery, left Hx of shoulder surgery History of cholecystectomy History of bilateral knee replacement Social History household members: spouse housing: house Smoking Status: Never smoker ROS <KENNY Chin - Last Filed: 07/08/25 16:04> ROS ED ROS Narrative CVS: Positive for chest pain. No palpitations or syncope. Respiratory: Negative for shortness of breath, cough, orthopnea. GI: Negative for abdominal pain, vomiting, diarrhea. EXAM <KENNY Chin - Last Filed: 07/08/25 16:04> Physical Exam Narrative Exam Narrative: CONST: Patient sitting in no acute distress. EYES: Normal inspection. NECK: Normal inspection. RESP: No respiratory distress, CTAB. CVS: Regular rate and rhythm, no murmur, no gallop. ABD: Soft with minimal epigastric tenderness, no guarding or rebound, nondistended, no hepatosplenomegaly. SKIN: Color normal, no rash, warm, dry, intact. EXTREMITIES: Normal appearance, no pedal edema. NEURO: Alert and answering questions appropriately. PSYCH: Normal affect. Const Vital Signs: 07/08/25 11:45 07/08/25 12:00 07/08/25 12:15 Temperature 97.6 F L Temperature Source Oral Pulse Rate 68 60 Respiratory Rate 18 Blood Pressure 179/94 H 150/113 H Blood Pressure Mean 122 Pulse Ox 99 Oxygen Delivery Method Room Air Room Air 07/08/25 12:44 07/08/25 13:00 07/08/25 14:00 Temperature Temperature Source Pulse Rate 60 63 63 Respiratory Rate 18 15 18 Blood Pressure 170/83 H 144/106 H 191/82 H Blood Pressure Mean 112 118 118 Pulse Ox 99 96 99 Oxygen Delivery Method Room Air Room Air Room Air 07/08/25 15:31 Temperature 98 F Temperature Source Pulse Rate 63 Respiratory Rate 18 Blood Pressure 164/90 H Blood Pressure Mean 114 Pulse Ox 99 Oxygen Delivery Method <Dr. Sridhar Bergeron DO - Last Filed: 07/10/25 15:17> Physical Exam Const Vital Signs: 07/08/25 11:45 07/08/25 12:00 07/08/25 12:15 Temperature 97.6 F L Temperature Source Oral Pulse Rate 68 60 Respiratory Rate 18 Blood Pressure 179/94 H 150/113 H Blood Pressure Mean 122 Pulse Ox 99 Oxygen Delivery Method Room Air Room Air 07/08/25 12:44 07/08/25 13:00 07/08/25 14:00 Temperature Temperature Source Pulse Rate 60 63 63 Respiratory Rate 18 15 18 Blood Pressure 170/83 H 144/106 H 191/82 H Blood Pressure Mean 112 118 118 Pulse Ox 99 96 99 Oxygen Delivery Method Room Air Room Air Room Air 07/08/25 15:31 Temperature 98 F Temperature Source Pulse Rate 63 Respiratory Rate 18 Blood Pressure 164/90 H Blood Pressure Mean 114 Pulse Ox 99 Oxygen Delivery Method <KENNY Chin - Last Filed: 07/08/25 16:04> Heart Score History: Slightly/Non-Suspicious ECG: Normal Age: >/= 65 years Risk Factors: >/= 3 Risk Factors or History of CAD Troponin: >1 - <3 Normal Limit Score: 5 <Dr. Sridhar Bergeron DO - Last Filed: 07/10/25 15:17> Heart Score Score: 5 MDM <KENNY Chin - Last Filed: 07/08/25 16:04> [facility] Narrative Medical decision making narrative: History gathered from: Patient and family Consults: Cardiology Differential includes but not limited to ACS, PE, GERD 74-year-old female presents with chest heaviness x 2 days. She appears well and nontoxic. She is hypertensive at 179/94 with otherwise normal vital signs. She takes multiple antihypertensives. She has a normal cardiopulmonary exam. Abdomen was soft with minimal epigastric tenderness but no peritoneal signs. CBC is within normal limits. Creatinine of 1.58 is baseline. LFTs and lipase overall unremarkable. EKG is normal sinus rhythm without ischemic changes and serial troponins are 26 and 25. D-dimer is negative. CXR shows no acute process. She was given aspirin and nitro x 1 and became presyncopal so was not given further doses. She then remembered she had nitro in the past which caused presyncope/syncope. I reviewed outpatient records at [facility] with an NM cardiac perfusion stress test on 05/17/2025 which was normal. EF was 75%. She has a new patient cardiology appointment with Dr. Mishra on July 28. I spoke with Dr. Banda review her workup and since it is negative and she had a recent negative stress test she is appropriate for outpatient management. Since her blood pressure is not well-controlled he recommended increasing carvedilol 3.125 twice daily to 6.25 twice daily. She was given return precautions and discharged in stable condition. History & Record Review Discussion w/independent historian: Patient and Family Additional record(s) reviewed:: Prior ED visit and Prior labs Lab Data Attestation: I reviewed the patient's lab results. Labs: Laboratory Results - last 24 hr 07/08/25 07/08/25 07/08/25 12:10 12:50 14:02 WBC 6.4 RBC 4.32 Hgb 13.9 Hct 40.8 MCV 94.4 MCH 32.2 H MCHC 34.1 RDW Std Deviation 42.4 RDW Coeff of [place] 12.1 Plt Count 130 L MPV 12.2 H Immature Gran % (Auto) 0.300 Neut % (Auto) 71.4 H Lymph % (Auto) 21.5 [place] % (Auto) 5.2 Eos % (Auto) 1.4 Baso % (Auto) 0.2 Absolute Neuts (auto) 4.6 Absolute Lymphs (auto) 1.37 Nucleated RBC % 0 D-Dimer Quant (PE/DVT) 0.45 Sodium 142 Potassium 3.8 Chloride 107 Carbon Dioxide 20.2 L Anion Gap 14 BUN 17 Creatinine 1.58 H Est GFR (MDRD) Non-Af 34 L BUN/Creatinine Ratio 10.6 Glucose 129 H Calcium 9.8 Total Bilirubin 0.59 AST 29 ALT 13 Alkaline Phosphatase 141 H Troponin T High Sens 26 H Troponin T Hi Sens 2 Hr 25 H Total Protein 6.7 Albumin 3.9 Globulin 2.8 Albumin/Globulin Ratio 1.4 Lipase 6 L Radiography Diagnostic Testing: Clinical Impression(s) from Imaging Studies Chest X-Ray 07/08/25 12:05 IMPRESSION: Right upper quadrant abdominal surgical clips are again seen. Postsurgical changes of the right shoulder are again noted. Mild thoracic spine degenerative changes plus DISH again noted. No acute osseous change is seen. Lungs are hypoinflated, but appear clear of acute disease. No pleural effusion or pneumothorax is noted. The cardiomediastinal silhouette is stable, given differences in technique, without evidence of cardiomegaly. No evidence of acute cardiopulmonary disease. Reading Location: [place] [id number] ED attending interpretation of data chest x-ray shows normal heart size, no acute infiltrate. EKG Initial EKG: Attestation: I personally reviewed and interpreted this EKG as follows: Interpretation: Sinus Rhythm and No Acute Injury Pattern Comments: Normal sinus rhythm at 65 bpm No acute STEMI Prior EKG tracings: available for review Prior: Unchanged <Dr. Sridhar Bergeron, DO - Last Filed: 07/10/25 15:17> [facility] Narrative Medical decision making narrative: History gathered from: Patient and family Consults: Cardiology Differential includes but not limited to ACS, PE, GERD 74-year-old female presents with chest heaviness x 2 days. She appears well and nontoxic. She is hypertensive at 179/94 with otherwise normal vital signs. She takes multiple antihypertensives. She has a normal cardiopulmonary exam. Abdomen was soft with minimal epigastric tenderness but no peritoneal signs. CBC is within normal limits. Creatinine of 1.58 is baseline. LFTs and lipase overall unremarkable. EKG is normal sinus rhythm without ischemic changes and serial troponins are 26 and 25. D-dimer is negative. CXR shows no acute process. She was given aspirin and nitro x 1 and became presyncopal so was not given further doses. She then remembered she had nitro in the past which caused presyncope/syncope. I reviewed outpatient records at [facility] with an NM cardiac perfusion stress test on 05/17/2025 which was normal. EF was 75%. She has a new patient cardiology appointment with Dr. Mishra on July 28. I spoke with Dr. Banda review her workup and since it is negative and she had a recent negative stress test she is appropriate for outpatient management. Since her blood pressure is not well-controlled he recommended increasing carvedilol 3.125 twice daily to 6.25 twice daily. She was given return precautions and discharged in stable condition. Supervisory Physician Note Patient was seen and examined with the Advanced Practice Provider. Nursing notes and vital signs have been reviewed. Pertinent old records have been reviewed. I agree with the essential elements of the NEGRITA's history, physical exam, assessment, and plan. The differential diagnosis and management options were discussed with the NEGRITA. I participated in determining and agree with the management, procedures, final impression and disposition as documented. See changes noted by me. Please see addendum or separate note for any additional details. Gen: A&O x3, NAD Head: Normocephalic, atraumatic Eyes: No sclera icterus, conjunctiva clear ENT: Moist mucous membranes Neck: Trachea midline, No JVD CV: RRR, no murmurs, no peripheral edema Resp: Lungs CTA BL, no w/r/c GI: Abd soft, non-distended, non-tender, no r/r/g Musc: Full ROM, no deformity Skin: Warm, dry Neuro: Alert, oriented, grossly intact, sensation intact Psych: Cooperative, appropriate mood and affect Lab Data Labs: Laboratory Results - last 24 hr 07/08/25 07/08/25 07/08/25 12:10 12:50 14:02 WBC 6.4 RBC 4.32 Hgb 13.9 Hct 40.8 MCV 94.4 MCH 32.2 H MCHC 34.1 RDW Std Deviation 42.4 RDW Coeff of [place] 12.1 Plt Count 130 L MPV 12.2 H Immature Gran % (Auto) 0.300 Neut % (Auto) 71.4 H Lymph % (Auto) 21.5 [place] % (Auto) 5.2 Eos % (Auto) 1.4 Baso % (Auto) 0.2 Absolute Neuts (auto) 4.6 Absolute Lymphs (auto) 1.37 Nucleated RBC % 0 D-Dimer Quant (PE/DVT) 0.45 Sodium 142 Potassium 3.8 Chloride 107 Carbon Dioxide 20.2 L Anion Gap 14 BUN 17 Creatinine 1.58 H Est GFR (MDRD) Non-Af 34 L BUN/Creatinine Ratio 10.6 Glucose 129 H Calcium 9.8 Total Bilirubin 0.59 AST 29 ALT 13 Alkaline Phosphatase 141 H Troponin T High Sens 26 H Troponin T Hi Sens 2 Hr 25 H Total Protein 6.7 Albumin 3.9 Globulin 2.8 Albumin/Globulin Ratio 1.4 Lipase 6 L Radiography Diagnostic Testing: Clinical Impression(s) from Imaging Studies Chest X-Ray 07/08/25 12:05 IMPRESSION: Right upper quadrant abdominal surgical clips are again seen. Postsurgical changes of the right shoulder are again noted. Mild thoracic spine degenerative changes plus DISH again noted. No acute osseous change is seen. Lungs are hypoinflated, but appear clear of acute disease. No pleural effusion or pneumothorax is noted. The cardiomediastinal silhouette is stable, given differences in technique, without evidence of cardiomegaly. No evidence of acute cardiopulmonary disease. Reading Location: [place] [address] Discharge Plan Triage Chief Complaint: Chest Pain ED Midlevel Provider: Zenobia Purdy ED Provider: Sridhar Bergeron Dx/Rx/DC Orders Clinical Impression: Chest pain, Chronic hypertension Instructions: ED Chest Pain, Uncertain Cause Prescriptions: New carvedilol 6.25 mg tablet 6.25 mg PO BID 30 Days Qty: 60 0RF Rx Instructions: must administer with a meal/food No Action Zenpep 3,000-10,000 -14,000-unit capsule,delayed release(DR/EC) PO TID Patient Comments: takes after each meal hydrocodone-acetaminophen 1 TABLET tablet 5 - 325 mg PO TID PRN Patient Comments: pain gabapentin 300 MG capsule 300 mg PO DAILY Patient Comments: neuropathy omeprazole 20 MG capsule 20 mg PO DAILY Patient Comments: reflux sertraline 50 MG tablet 100 mg PO DAILY simvastatin 80 MG tablet 80 mg PO QHS aspirin 81 MG tablet 81 mg PO DAILY@0800 ferrous sulfate 325 MG tablet 65 mg PO DAILY hxagwoyy-vmk-uaqb-FA-vit K-lut 1 EACH tablet 1 tab PO DAILY tizanidine 2 MG tablet 2 mg PO DAILY hydralazine 10 mg tablet 10 mg PO BID carvedilol 3.125 mg tablet 3.125 mg PO BID furosemide 20 mg tablet 20 mg PO DAILY levothyroxine 75 mcg tablet 75 mcg PO DAILY Primary Care Provider: Akil Kelly Referrals: Akil Kelly DO [Primary Care Provider] - Activity Restrictions/Additional Instructions: Your recent stress test was normal and your labs today look reassuring. I am increasing your carvedilol to better treat your blood pressure and recommend you follow-up with the ben day artist as scheduled. Print Language: Icelandic Disposition Disposition: Home, Self Care Discharge Date/Time: 07/08/25 15:40
--- NOTE | 2025-07-08 12:05 | RAD_ITS ---
PROCEDURE: CHEST PA AND LATERAL 07/08/2025 REASON FOR EXAM: CHEST PAIN TECHNIQUE: CHEST PA AND LATERAL COMPARISON: PA and lateral chest of 09/13/2024. RAD/Chest PA and Lateral IMPRESSION: Right upper quadrant abdominal surgical clips are again seen. Postsurgical sean nges of the right shoulder are again noted. Mild thoracic spine degenerative changes plus DISH again noted. No acute osseous change is seen. Lungs are hypoinflated, but appear clear of acute disease. No pleural effusion or pneumothorax is noted. The cardiomediastinal silhouette is stable, given differences in technique, wit hout evidence of cardiomegaly. No evidence of acute cardiopulmonary disease. Reading Location: [place] [address]
[2025-07-08 12:15] VITALS: BP 150/113; PULSE 60
[2025-07-08] MEDS: Nitroglycerin SL (ED/IMG/CATH) 0.4 MG TABLET SL (12:15)
[2025-07-08 12:44] VITALS: BP 170/83; PULSE 60; RESP 18; O2SAT 99
[2025-07-08 12:45] LABS: Hematocrit 40.8 % (37-47); Hemoglobin 13.9 g/dL (12.0-15.0); Immature Granulocytes Count 0.020 X10^3/uL (0.0-0.0); Mean Corp Hgb Conc 34.1 g/dL (32-36); Mean Corpuscular Volume 94.4 fL (81-99); Mean Platelet Vol. 12.2 fl (6.2-12.0); NRBC Flagged by Analyzer 0 % (0-5); Platelet Count 130 K/mm3 (150-450); RBC Distribution Width CV 12.1 % (11.6-14.6); RBC Distribution Width SD 42.4 fl (35.1-43.9); Red Blood Count 4.32 M/mm3 (4.2-5.4); White Blood Count 6.4 K/mm3 (4.4-11.0)
[2025-07-08 13:00] VITALS: BP 144/106; PULSE 63; RESP 15; O2SAT 96
[2025-07-08 13:06] LABS: D-Dimer Quantitative (DVT/PE) 0.45 FEU/ug/m (0.27-0.49)
[2025-07-08 13:17] LABS: AST(SGOT) 29 U/L (<=31); Alanine Aminotransfer ALT/SGPT 13 U/L (<=34); Albumin, Serum 3.9 g/dL (3.4-4.8); Alkaline Phosphatase 141 U/L (35-104); Anion Gap 14 (5-15); BUN 17 mg/dL (4-19); BUN/Creat Ratio 10.6 RATIO (10-20); Calcium,Total 9.8 mg/dL (7.6-11.0); Carbon Dioxide 20.2 mmol/L (21.0-32.0); Chloride 107 mmol/L (98-108); Globulin 2.8 g/dL (2.2-4.2); Glucose 129 mg/dL (70-99); Lipase 6 U/L (13-75); Potassium 3.8 mmol/L (3.3-5.1); Troponin T High Sensitivity 26 ng/L (<=14)
[2025-07-08 14:00] VITALS: BP 191/82; PULSE 63; RESP 18; O2SAT 99
[2025-07-08 14:28] LABS: Troponin T High Sens 2 HR 25 ng/L (<=14)
[2025-07-08 15:31] VITALS: BP 164/90; PULSE 63; RESP 18; TEMP 36.6; O2SAT 99
== END 2025-07-08 15:40 | disposition home or self-care (01) ==
PROVIDERS: Physician Assistant; Emergency Provider Surgery; PCP Student in an Organized Health Care Education/Training Program; Visit Provider Surgery
DX: R07.9 Chest pain, unspecified (principal); E11.22 Type 2 diabetes mellitus with diabetic chronic kidney disease; N18.9 Chronic kidney disease, unspecified; I12.9 Hypertensive chronic kidney disease with stage 1 through stage 4 chronic kidney disease, or unspecified chronic kidney disease; E78.5 Hyperlipidemia, unspecified; Z79.899 Other long term (current) drug therapy; Z79.82 Long term (current) use of aspirin
CPT/HCPCS: 71046; 80053; 83690; 84484; 85025; 85379; 93005; 99285; A4216

== ENCOUNTER 2025-07-12 08:38 | Emergency (ER) | payer MEDICARE, SELFPAY ==
[2025-07-12] VITALS (16 sets, daily range): BP systolic 142–184; BP diastolic 70–105; PULSE 53–78; RESP 16–30; TEMP 36.6–36.8; O2SAT 94–100; BMI 28.8
--- NOTE | 2025-07-12 08:54 | RAD_ITS ---
PROCEDURE: CHEST 1 VIEW (PORTABLE) 07/12/2025 REASON FOR EXAM: SOB TECHNIQUE: Frontal view of the chest. COMPARISON: Prior study dated July 08, 2025. FINDINGS: Hardware: EKG electrodes are seen. Heart: Cardiac and mediastinal contours are stable. Lungs: The lungs are clear. Bones: Osteoarthritis of both shoulders. Other: RAD/Chest 1 View (Portable) IMPRESSION: No Acute Findings. Reading Location: [place] [address]
--- NOTE | 2025-07-12 08:56 | CT_ITS ---
PROCEDURE: ABDOMEN/PELVIS WITHOUT CONT 07/12/2025 REASON FOR EXAM: MID-ABD PAIN, N/V TECHNIQUE: ABDOMEN/PELVIS WITHOUT CONT Noncontrast technique limits evaluation of the abdominal and pelvic viscera. Coronal and Sagittal reconstruction series were provided. One or more dose reduction techniques were used (e.g., Automated exposure control, adjustment of the mA and/or kV according to patient size, use of iterative reconstruction technique). RADIATION DOSE SUMMARY: CTDlvol: 9.85 mGy DLP: 484.70 mGycm COMPARISON: None. FINDINGS: Lung bases: Atherosclerotic calcifications of the coronary arteries. The lungs are clear. Liver: Unremarkable. Gallbladder: Status post cholecystectomy. Spleen: Unremarkable. Pancreas: Unremarkable. Adrenals: Unremarkable. Kidneys: No hydronephrosis or nephrolithiasis. Bladder: Unremarkable. Reproductive Organs: Unremarkable. Bowel: No bowel wall thickening. No bowel obstruction. Appendix: Unremarkable. Lymph nodes: No lymphadenopathy. Vasculature: No aneurysm. No dissection. Atherosclerotic calcifications. Peritoneum / Retroperitoneum: No free air or free fluid. Bones: No acute bony abnormalities. CT/Abdomen/Pelvis without Cont IMPRESSION: No acute abdominopelvic abnormalities. No nephrolithiasis or hydronephrosis. Reading Location: [id number]
--- NOTE | 2025-07-12 08:57 | EKG12_ITS ---
Test Reason : CP Blood Pressure : */* mmHG Vent. Rate : 57 BPM Atrial Rate : 57 BPM P-R Int : 148 ms QRS Dur : 72 ms QT Int : 454 ms P-R-T Axes : * 11 31 degrees QTcB Int : 441 ms Sinus bradycardia Low voltage QRS Borderline ECG Confirmed by González Mishra ([id number]), international editorial producer TARA BARRAGAN ([id number]) on 07/13/2025 11:39:27 AM Referred By: BB/UG Confirmed By: González Mishra
--- NOTE | 2025-07-12 09:00 | EDS_ITS ---
HPI HPI - GI History of Present Illness Chief Complaint: Shortness of Breath Informant: patient, spouse/S.O. and EMS Narrative Narrative: This 74-year-old female was sent to the ER from her primary care office according to the patient. She states that the symptoms she has been having are epigastric pain, nausea, vomiting, dyspnea, since the last time I was here on Saturday, today being Saturday. She states she was following up at her doctor's office today and they sent her back here. She states none of the symptoms are any different than they were when she was here in the ER. She denies having any chest discomfort which is why she was here then. The states that she is seem to be out of breath for about 3 weeks. No leg edema. She is a fairly poor informant, but she has been having worsening abdominal/epigastric pain with eating so she has been eating less, and having occasional bouts of nausea and vomiting over the past 5 days. No blood. No melena. PFSH [facility] Medical History Anxiety Depression Hypothyroidism Kidney disease Pancreatitis GI bleed Low fecal elastase level Pancreatic abnormality Stage 3 chronic kidney disease DM type 2 (diabetes mellitus, type 2) HTN (hypertension) Lupus Home Medications ?Medication ?Instructions ?Recorded ?Last Taken ?Type gabapentin 300 mg capsule 300 mg PO DAILY NERVE PAIN 0 12/21/15 05/04/20 07:10 History aspirin 81 mg tablet,delayed 81 mg PO DAILY@0800 HEART HEALTH 03/24/19 03/23/19 History release ferrous sulfate 325 mg (65 mg 65 mg PO DAILY SUPPLEMEN T 03/24/19 03/23/19 History iron) tablet ezrgzknj-kyee-szmb 8 mg-folic 400 1 tab PO DAILY SUPPL EMENT 03/24/19 03/23/19 History mcg-K 50 mcg-lutein 300 mcg tablet sertraline 50 mg tablet 100 mg PO DAILY DEPRESSION 0 03/24/19 03/23/19 History simvastatin 80 mg tablet 80 mg PO QHS CHOLESTEROL 03/23/19 History tizanidine 2 mg tablet 2 mg PO DAILY spasm 04/27/20 Unknown History hydralazine 10 mg tablet 10 mg PO BID bp 04/27/23 Unk nown History furosemide 20 mg tablet 20 mg PO DAILY edema 4 Unknown History Held on 07/12/25. Instructions: Resume on 07/15/25. levothyroxine 75 mcg tablet 100 mcg PO DAILY thyroid 1 Unknown History yvgvsr-cvxdhpad-nbypvrx 1 cap PO TID 03/09/25 Unknow n History 3,000-10,000-14,000 unit capsule,delayed rel (Zenpep) carvedilol 6.25 mg tablet 6.25 mg PO BID 30 days #60 t abs 07/08/25 Unknown Rx dicyclomine 20 mg tablet 20 mg PO Q8H PRN abdominal 0 07/12/25 Unknown Rx discomfort #15 tabs omeprazole 20 mg capsule,delayed 20 mg PO BID GERD #30 caps 07/12/25 05/04/20 0 7:10 Rx release ondansetron 8 mg disintegrating 8 mg PO Q8H PRN nausea and 07/12/25 Unknown Rx tablet vomiting #15 tabs Allergy/AdvReac Type Severity Reaction Status Date / Time nitroglycerin Allergy Severe syncope Verified 07/12/25 08:39 cephalexin (From Keflex) Allergy Other Verified 07/12/25 08:39 ciprofloxacin Allergy Rash Verified 07/12/25 08:39 moran Allergy blisters Verified 07/12/25 08:39 Iodinated Contrast Media Allergy blisters Verified 07/12/25 08:39 (CONTRASTS) Sulfa (Sulfonamide Allergy Hives Verified 07/12/25 08:39 Antibiotics) Family History Father Cancer Gastric Surgical History S/P foot surgery, left Hx of shoulder surgery History of cholecystectomy History of bilateral knee replacement Social History household members: spouse housing: house Smoking Status: Never smoker
--- NOTE | 2025-07-12 09:00 | ED.VIS.GI ---
HPI HPI - GI History of Present Illness Chief Complaint: Shortness of Breath Informant: patient, spouse/S.O. and EMS Narrative Narrative: This 74-year-old female was sent to the ER from her primary care office according to the patient. She states that the symptoms she has been having are epigastric pain, nausea, vomiting, dyspnea, since the last time I was here on Saturday, today being Saturday. She states she was following up at her doctor's office today and they sent her back here. She states none of the symptoms are any different than they were when she was here in the ER. She denies having any chest discomfort which is why she was here then. The states that she is seem to be out of breath for about 3 weeks. No leg edema. She is a fairly poor informant, but she has been having worsening abdominal/epigastric pain with eating so she has been eating less, and having occasional bouts of nausea and vomiting over the past 5 days. No blood. No melena. [facility] Medical History Anxiety Depression Hypothyroidism Kidney disease Pancreatitis GI bleed Low fecal elastase level Pancreatic abnormality Stage 3 chronic kidney disease DM type 2 (diabetes mellitus, type 2) HTN (hypertension) Lupus Home Medications ?Medication ?Instructions ?Recorded ?Last Taken ?Type gabapentin 300 mg capsule 300 mg PO DAILY NERVE PAIN 12/21/15 05/04/20 07:10 History aspirin 81 mg tablet,delayed 81 mg PO DAILY@0800 HEART HEALTH 03/24/19 03/23/19 History release ferrous sulfate 325 mg (65 mg 65 mg PO DAILY SUPPLEMENT 03/24/19 03/23/19 History iron) tablet winqnoxj-ffun-lklh 8 mg-folic 400 1 tab PO DAILY SUPPLEMENT 03/24/19 03/23/19 History mcg-K 50 mcg-lutein 300 mcg tablet sertraline 50 mg tablet 100 mg PO DAILY DEPRESSION 03/24/19 03/23/19 History simvastatin 80 mg tablet 80 mg PO QHS CHOLESTEROL 03/24/19 03/23/19 History tizanidine 2 mg tablet 2 mg PO DAILY spasm 04/27/20 Unknown History hydralazine 10 mg tablet 10 mg PO BID bp 04/27/23 Unknown History furosemide 20 mg tablet 20 mg PO DAILY edema 09/13/24 Unknown History Held on 07/12/25. Instructions: Resume on 07/15/25. levothyroxine 75 mcg tablet 100 mcg PO DAILY thyroid 09/13/24 Unknown History fzzjsi-mvjansbk-wffcvdm 1 cap PO TID 03/09/25 Unknown History 3,000-10,000-14,000 unit capsule,delayed rel (Zenpep) carvedilol 6.25 mg tablet 6.25 mg PO BID 30 days #60 tabs 07/08/25 Unknown Rx dicyclomine 20 mg tablet 20 mg PO Q8H PRN abdominal 07/12/25 Unknown Rx discomfort #15 tabs omeprazole 20 mg capsule,delayed 20 mg PO BID GERD #30 caps 07/12/25 05/04/20 07:10 Rx release ondansetron 8 mg disintegrating 8 mg PO Q8H PRN nausea and 07/12/25 Unknown Rx tablet vomiting #15 tabs Allergy/AdvReac Type Severity Reaction Status Date / Time nitroglycerin Allergy Severe syncope Verified 07/12/25 08:39 cephalexin (From Keflex) Allergy Other Verified 07/12/25 08:39 ciprofloxacin Allergy Rash Verified 07/12/25 08:39 moran Allergy blisters Verified 07/12/25 08:39 Iodinated Contrast Media Allergy blisters Verified 07/12/25 08:39 (CONTRASTS) Sulfa (Sulfonamide Allergy Hives Verified 07/12/25 08:39 Antibiotics) Family History Father Cancer Gastric Surgical History S/P foot surgery, left Hx of shoulder surgery History of cholecystectomy History of bilateral knee replacement Social History household members: spouse housing: house Smoking Status: Never smoker ROS ROS ED Constitutional Constitutional ED: Denies chills or fever(s) Eyes Eyes: Denies change in vision or diplopia ENT ENT ED: Denies rhinorrhea or sore throat Cardiovascular Cardiovascular: Denies chest pain or palpitations Respiratory/Chest Respiratory/Chest: Reports dyspnea; Denies cough Gastrointestinal Gastrointestinal: Reports abdominal pain, nausea and vomiting; Denies diarrhea, hematemesis, hematochezia or melena Genitourinary Genitourinary ED: Denies dysuria or hematuria Musculoskeletal Musculoskeletal: Denies back pain or neck pain Integumentary Denies abscess or rash Neurologic Neurologic: Denies headache(s), paresthesias or weakness Psychiatric Psychiatric: Denies suicidal thoughts EXAM Physical Exam Const Vital Signs: 07/12/25 08:39 07/12/25 08:56 07/12/25 10:38 Temperature 97.8 F Temperature Source Oral Pulse Rate 57 L 61 Respiratory Rate 22 H 20 H Respiratory Pattern Tachypnea Blood Pressure 177/81 H 151/78 H Blood Pressure Mean 113 102 Pulse Ox 100 94 Oxygen Delivery Method Room Air Room Air 07/12/25 12:00 Temperature Temperature Source Pulse Rate 62 Respiratory Rate 18 Respiratory Pattern Blood Pressure 142/70 H Blood Pressure Mean 94 Pulse Ox 98 Oxygen Delivery Method Room Air Positive well nourished and well developed General Appearance ED: well developed and NAD HEENT Reports moist mucous membranes normocephalic and atraumatic Eyes PERRL and EOMs intact bilaterally Neck full ROM and supple Resp normal respiratory effort and clear to auscultation bilaterally Cardio regular rate, regular rhythm and no murmurs GI non-distended GI Narrative: Diffusely tender. Worst in the left lower quadrant and epigastrium. Auscultation: normoactive bowel sounds Palpation: soft Back/Spine no CVA tenderness General Back: other FROM Extremity normal to inspection General Extremety ED: Negative for edema, pulses abnormal or tenderness General Extremity: Negative for edema or pulses abnormal Neuro oriented x3, CN's II-XII intact bilaterally and no sensory deficits noted Sensorium / Orientation: awake and alert Motor Exam: strength 5/5 throughout Psych Psych Narrative: Flat affect, short answers to questions Skin no rashes or lesions noted and no wounds MDM MDM MDM Narrative Medical decision making narrative: I reviewed her prior ER visit from last week. According to the documentation she was here for chest heaviness that had been going on for 2 days at that time, and did not complain of any GI symptoms. A D-dimer was performed ruling out PE, her chest x-ray was unremarkable and her cardiac workup was unremarkable and she had a negative nuclear stress test with an EF of 75% in May and actually is slated to follow-up with her md urologist. EKG shows sinus rhythm, unchanged c/w prior. Chest x-ray 1 view normal/negative on my interpretation, radiology in agreement. We ran labs and urine and did a CT of the abdomen/pelvis. I reviewed the images and the result which I agree with, it is negative for any acute. We withheld contrast because of her low EGFR.. Todd is mild, it is a pattern of dehydration with a BUN of 26 and a bicarb that is just below 20. She is not anemic to suggest that this elevated BUN is due to GI bleeding which she does not have any symptoms of. I reexamination after treating her with morphine and Zofran (Benadryl and Solu-Medrol 40 mg were also given as pretreatment for IV contrast which she ended up not receiving), she is doing much better. I had nurses give her some fluids she is tolerating oral fluids and her vital signs look normal with her blood pressure down to 142/70. Her abdomen is benign her reexamination. Her alkaline phosphatase is a little elevated as is her AST, this may be due to the vomiting. This is nonspecific and her lipase is normal suggesting absence of pancreatitis, and she is not focally tender or having pain at right upper quadrant to suggest cholangitis here, Especially with white blood count of 6.8 and no bandemia/left shift. Given all of this I am comfortable with her being discharged home symptomatic treatment and follow-up with her doctor. She is comfortable with that plan. History & Record Review Additional record(s) reviewed:: Prior ED visit Lab Data Attestation: I reviewed the patient's lab results. Labs: Laboratory Results - last 24 hr 07/12/25 07/12/25 09:50 11:14 WBC 6.8 RBC 4.44 Hgb 14.2 Hct 41.1 MCV 92.6 MCH 32.0 MCHC 34.5 RDW Std Deviation 41.6 RDW Coeff of [place] 12.2 Plt Count 125 L MPV 12.1 H Immature Gran % (Auto) 0.300 Neut % (Auto) 70.6 H Lymph % (Auto) 19.7 [place] % (Auto) 7.7 Eos % (Auto) 1.3 Baso % (Auto) 0.4 Absolute Neuts (auto) 4.8 Absolute Lymphs (auto) 1.33 Nucleated RBC % 0 Sodium 140 Potassium 4.0 Chloride 104 Carbon Dioxide 19.5 L Anion Gap 17 H BUN 26 H Creatinine 1.85 H Estim Creat Clear Calc 25.87 L Est GFR (MDRD) Non-Af 28 L BUN/Creatinine Ratio 13.9 Glucose 111 H Calcium 9.9 Total Bilirubin 0.81 AST 66 H ALT 24 Alkaline Phosphatase 136 H Total Protein 7.0 Albumin 4.1 Globulin 2.9 Albumin/Globulin Ratio 1.4 Lipase 8 L Urine Color Yellow Urine Clarity Clear Urine pH 7.0 Ur Specific [place] 1.005 Urine Protein 15 H Urine Glucose (UA) Normal Urine Ketones 5 H Urine Occult Blood 10 H Urine Nitrite Negative Urine Bilirubin Negative Urine Urobilinogen Normal Ur Leukocyte Esterase 25 H Urine RBC 0 SEEN Urine WBC 5-10 SEEN Ur Squamous Epith Cells 0 SEEN Urine Bacteria 0 SEEN Urine Mucus 0 SEEN Radiography Diagnostic Testing: Clinical Impression(s) from Imaging Studies Chest X-Ray 07/12/25 08:54 IMPRESSION: No Acute Findings. Reading Location: [facility]--1 Abdomen/Pelvis CT 07/12/25 08:56 IMPRESSION: No acute abdominopelvic abnormalities. No nephrolithiasis or hydronephrosis. Reading Location: [id number] Rhythm Strip Rhythm Strip: Sinus Rhythm Rate: 57 Ectopy: None EKG Initial EKG: Attestation: I personally reviewed and interpreted this EKG as follows: Interpretation: Sinus Rhythm and No Acute Injury Pattern Comments: Nml axis & intervals; nml EKG Discharge Plan Triage Chief Complaint: Shortness of Breath ED Provider: Konstantin Mcnulty Dx/Rx/DC Orders Clinical Impression: Diffuse abdominal pain, Nausea and vomiting, Dyspnea, Acute on chronic renal insufficiency Instructions: Abdominal Pain, Treating Gastritis Prescriptions: New dicyclomine 20 mg tablet 20 mg PO Q8H PRN (Reason: abdominal discomfort) Qty: 15 0RF ondansetron 8 mg tablet,disintegrating 8 mg PO Q8H PRN (Reason: nausea and vomiting) Qty: 15 0RF Continued Zenpep 3,000-10,000 -14,000-unit capsule,delayed release(DR/EC) 1 cap PO TID Patient Comments: takes after each meal gabapentin 300 MG capsule 300 mg PO DAILY Patient Comments: neuropathy sertraline 50 MG tablet 100 mg PO DAILY simvastatin 80 MG tablet 80 mg PO QHS aspirin 81 MG tablet 81 mg PO DAILY@0800 ferrous sulfate 325 MG tablet 65 mg PO DAILY zrixhbsg-fhy-ebar-FA-vit K-lut 1 EACH tablet 1 tab PO DAILY tizanidine 2 MG tablet 2 mg PO DAILY hydralazine 10 mg tablet 10 mg PO BID levothyroxine 75 mcg tablet 100 mcg PO DAILY carvedilol 6.25 mg tablet 6.25 mg PO BID 30 Days Qty: 60 0RF Rx Instructions: must administer with a meal/food Changed omeprazole 20 MG capsule 20 mg PO BID Qty: 30 0RF Patient Comments: reflux Held furosemide 20 mg tablet 20 mg PO DAILY Hold Instructions: Resume on 07/15/25. Primary Care Provider: Akil Kelly Referrals: Akil Kelly DO [Primary Care Provider] - 3-5 Days if not improving Print Language: Fijian Disposition Disposition: Home, Self Care
[2025-07-12] MEDS: DiphenhydrAMINE 50 MG/ML Syringe IV (09:46)
[2025-07-12 10:04] LABS: Hematocrit 41.1 % (37-47); Hemoglobin 14.2 g/dL (12.0-15.0); Immature Granulocytes Count 0.020 X10^3/uL (0.0-0.0); Mean Corp Hgb Conc 34.5 g/dL (32-36); Mean Corpuscular Volume 92.6 fL (81-99); Mean Platelet Vol. 12.1 fl (6.2-12.0); NRBC Flagged by Analyzer 0 % (0-5); Platelet Count 125 K/mm3 (150-450); RBC Distribution Width CV 12.2 % (11.6-14.6); RBC Distribution Width SD 41.6 fl (35.1-43.9); Red Blood Count 4.44 M/mm3 (4.2-5.4); White Blood Count 6.8 K/mm3 (4.4-11.0)
[2025-07-12 10:51] LABS: Lipase 8 U/L (13-75)
[2025-07-12 10:53] LABS: AST(SGOT) 66 U/L (<=31); Alanine Aminotransfer ALT/SGPT 24 U/L (<=34); Albumin, Serum 4.1 g/dL (3.4-4.8); Alkaline Phosphatase 136 U/L (35-104); Anion Gap 17 (5-15); BUN 26 mg/dL (4-19); BUN/Creat Ratio 13.9 RATIO (10-20); Calcium,Total 9.9 mg/dL (7.6-11.0); Carbon Dioxide 19.5 mmol/L (21.0-32.0); Chloride 104 mmol/L (98-108); Estimated Creatinine Clearance 25.87 ml/min (50-250); Globulin 2.9 g/dL (2.2-4.2); Glucose 111 mg/dL (70-99); Potassium 4.0 mmol/L (3.3-5.1)
[2025-07-12] MEDS: 0.9% Normal Saline (1000mL) 1,000 ML 125 ML IV (11:09)
[2025-07-12 11:19] LABS: Mucous, Urine 0 SEEN /hpf (<or=2+); Red Blood Cells-Urine 0 SEEN /hpf (0-5); Squamous Epithelial Cells - UA 0 SEEN /hpf (5-10)
[2025-07-12 11:42] LABS: Color, Urine Yellow (Yellow); Glucose, Dipstick Normal (Normal); Ketone-Dipstick 5 mg/dl (Negative); Leukocyte Esterase-Dipstick 25 /ul (Negative); Nitrite-Dipstick Negative (Negative); Occult Blood-Urine 10 /ul (Negative); Protein-Dipstick 15 mg/dl (Negative); Specific Gravity, Urine 1.005 (1.002-1.030); Urine Bilirubin Dipstick Negative (Negative)
== END 2025-07-12 15:57 | disposition home or self-care (01) ==
PROVIDERS: Emergency Provider Emergency Medicine; PCP Student in an Organized Health Care Education/Training Program; Visit Provider Emergency Medicine
DX: R10.13 Epigastric pain (principal); E11.22 Type 2 diabetes mellitus with diabetic chronic kidney disease; N18.30 Chronic kidney disease, stage 3 unspecified; R11.2 Nausea with vomiting, unspecified; R06.00 Dyspnea, unspecified; I12.9 Hypertensive chronic kidney disease with stage 1 through stage 4 chronic kidney disease, or unspecified chronic kidney disease; Z79.82 Long term (current) use of aspirin; Z79.899 Other long term (current) drug therapy
CPT/HCPCS: 71045; 74176; 80053; 81001; 83690; 85025; 93005; 96361; 96374; 96375; 99285; A4216; J2405

== ENCOUNTER 2025-08-23 10:37 | Observation (INO) | payer MEDICARE, SELFPAY ==
[2025-08-23] VITALS (12 sets, daily range): BP systolic 133–173; BP diastolic 75–106; PULSE 61–88; RESP 15–24; TEMP 36.4–36.8; O2SAT 96–100; BMI 27.9; BMI 26.9
--- NOTE | 2025-08-23 11:15 | ED.RN ---
unsuccessful IV attempt x2
--- NOTE | 2025-08-23 11:42 | RAD_ITS ---
PROCEDURE: CHEST 1 VIEW 08/23/2025 REASON FOR EXAM: NEURO DEFICIT, ACUTE, STROKE SUSPECTED TECHNIQUE: Frontal view of the chest. COMPARISON: Prior study dated July 12, 2025. FINDINGS: Hardware: EKG electrodes are seen. Heart: The heart size is normal. Lungs: Lungs are clear. Bones: Degenerative changes are identified within the thoracic spine. Degenerative changes of both shoulder joints. Other: RAD/Chest 1 View IMPRESSION: No Acute Findings. Reading Location: [place] [address]
--- NOTE | 2025-08-23 11:42 | EKG12_ITS ---
Test Reason : Blood Pressure : */* mmHG Vent. Rate : 66 BPM Atrial Rate : 66 BPM P-R Int : 150 ms QRS Dur : 66 ms QT Int : 408 ms P-R-T Axes : 8 -14 11 degrees QTcB Int : 427 ms Normal sinus rhythm Low voltage QRS Inferior infarct , age undetermined Abnormal ECG Confirmed by HEMALATHA ROBERTS, SADIA ([id number]), script editor NIDA GARCIA ([id number]) on 08/24/2025 7:28:27 AM Referred By: Landon Confirmed By: SADIA PENNY MD
[2025-08-23 12:18] LABS: Hematocrit 44.0 % (37-47); Hemoglobin 15.2 g/dL (12.0-15.0); Immature Granulocytes Count 0.010 X10^3/uL (0.0-0.0); Mean Corp Hgb Conc 34.5 g/dL (32-36); Mean Corpuscular Volume 94.6 fL (81-99); Mean Platelet Vol. 12.2 fl (6.2-12.0); NRBC Flagged by Analyzer 0 % (0-5); Platelet Count 119 K/mm3 (150-450); RBC Distribution Width CV 12.6 % (11.6-14.6); RBC Distribution Width SD 44.3 fl (35.1-43.9); Red Blood Count 4.65 M/mm3 (4.2-5.4); White Blood Count 6.2 K/mm3 (4.4-11.0)
[2025-08-23 12:21] LABS: Prothrombin Time (Protime)PT. 14.3 SECONDS (11.7-14.9)
[2025-08-23 12:22] LABS: Partial Thromboplast Time 24.9 Seconds (24.1-36.2)
--- NOTE | 2025-08-23 12:34 | ED.RN ---
Ok to change NIHSS screening to Q4H per ED MD
[2025-08-23 12:56] LABS: Anion Gap 15 (5-15); BUN 20 mg/dL (4-19); BUN/Creat Ratio 12.8 RATIO (10-20); Calcium,Total 10.1 mg/dL (7.6-11.0); Carbon Dioxide 17.0 mmol/L (21.0-32.0); Chloride 110 mmol/L (98-108); Estimated Creatinine Clearance 29.64 ml/min (50-250); Glucose 104 mg/dL (70-99); Lipase 6 U/L (13-75); Potassium 4.0 mmol/L (3.3-5.1); Troponin T High Sensitivity 38 ng/L (<=14)
--- NOTE | 2025-08-23 13:28 | CT_ITS ---
PROCEDURE: STROKE BRAIN/HEAD WITHOUT CONT 08/23/2025 REASON FOR EXAM: NEURO DEFICIT, ACUTE, STROKE SUSPECTED TECHNIQUE: Procedure Code: CTBR.ST Modality: CT Procedure: STROKE BRAIN/HEAD WITHOUT CONT Coronal and Sagittal reconstruction series were provided. One or more dose reduction techniques were used (e.g., Automated exposure control, adjustment of the mA and/or kV according to patient size, use of iterative reconstruction technique. RADIATION DOSE SUMMARY: CTDlvol: 47.06 mGy DLP: 890 mGycm COMPARISON: None. FINDINGS: Brain: No acute territorial infarction. No acute intracranial hemorrhage. The craniocervical junction is unremarkable. No midline shift or mass-effect. The orbits are unremarkable. CSF Spaces: Mild generalized cerebral atrophy Sinuses/Mastoids: Clear at visualized levels Bones: No acute bony abnormalities. CT/STROKE Brain/Head without Cont IMPRESSION: No acute intracranial abnormalities. Reading Location: [id number]
--- NOTE | 2025-08-23 13:53 | EX.ED.DYSGE1 ---
HPI History of Present Illness Chief Complaint: Dizziness Narrative Narrative: Patient is a 74-year-old female with past medical history of lupus, anxiety, depression, hypothyroidism, chronic kidney disease, type 2 diabetes, hypertension who presented to the emergency department chief complaint dizziness. Cording to the patient her dizziness started yesterday when she went to shower around 8:30 AM and states it has been persistent since then. States that when she woke up this morning she was still dizzy and had difficulty with walking therefore they brought her here to be further evaluated. Son at bedside noted that given his history of strokes he was concerned that this could be a stroke and brought her here to be further evaluated. Patient denies any recent sick contacts. [facility] Medical History Chronic hypertension GERD (gastroesophageal reflux disease) HLD (hyperlipidemia) Systemic lupus erythematosus Sjoegren syndrome Anxiety Depression Hypothyroidism Kidney disease Pancreatitis GI bleed Low fecal elastase level Pancreatic abnormality Stage 3 chronic kidney disease DM type 2 (diabetes mellitus, type 2) HTN (hypertension) Lupus Home Medications ?Medication ?Instructions ?Recorded ?Last Taken ?Type aspirin 81 mg tablet,delayed 81 mg PO DAILY HEART HEALTH 03/24/19 08/22/25 History release simvastatin 80 mg tablet 80 mg PO QHS CHOLESTEROL 03/24/19 08/22/25 History tizanidine 2 mg tablet 2 mg PO DAILY spasm 04/27/20 08/22/25 History hydralazine 10 mg tablet 10 mg PO BID bp 04/27/23 08/23/25 History [id number] 1 cap PO TID 03/09/25 08/23/25 History 3,000-10,000-14,000 unit capsule,delayed rel (Zenpep) omeprazole 20 mg capsule,delayed 20 mg PO BID GERD #30 caps 07/12/25 08/23/25 Rx release cholecalciferol (vitamin D3) 50 50 mcg PO QDAY 07/27/25 08/23/25 History mcg (2,000 unit) capsule hydrocodone-acetaminophen 5-325mg 1 tab PO Q6H PRN pain 07/27/25 08/23/25 History 5mg-325mg topiramate 50 mg tablet (Topamax) 50 mg PO QHS 07/27/25 08/22/25 History trazodone 50 mg tablet 50 mg PO QHS PRN sleep 07/27/25 08/22/25 History sertraline 100 mg tablet 100 mg PO QDAY 08/12/25 08/23/25 History levothyroxine 100 mcg tablet 100 mcg PO DAILY disorder of 08/23/25 08/23/25 History thyroid gland Allergy/AdvReac Type Severity Reaction Status Date / Time nitroglycerin Allergy Severe syncope Verified 08/23/25 10:40 cephalexin (From Keflex) Allergy Other Verified 08/23/25 10:40 ciprofloxacin Allergy Rash Verified 08/23/25 10:40 moran Allergy blisters Verified 08/23/25 10:40 Iodinated Contrast Media Allergy blisters Verified 08/23/25 10:40 (CONTRASTS) Sulfa (Sulfonamide Allergy Hives Verified 08/23/25 10:40 Antibiotics) Family History Father Cancer Gastric Surgical History History of esophagogastroduodenoscopy (EGD) History of tubal ligation History of colonoscopy History of carpal tunnel surgery S/P foot surgery, left Hx of shoulder surgery History of cholecystectomy History of bilateral knee replacement Social History household members: spouse housing: house Smoking Status: Never smoker alcohol intake: never substance use type: does not use caffeine: Yes ROS ROS ED ROS Narrative Constitutional: Complains of dizziness as noted above denies headache, lightness, fevers, chills Eyes: Denies double vision blurry vision Cardiovascular: Denies chest pain Respiratory: Denies shortness of breath Abdomen: Denies abdominal pain nausea vomit diarrhea : Denies any urinary symptoms Neurological: Denies any numbness, weakness, complains of difficulty walking as noted above Musculoskeletal: Denies back pain Skin: Denies any rashes or lesions EXAM Physical Exam Narrative Exam Narrative: General: Patient was lying in bed resting comfortably did not appear to be in acute distress Head: Atraumatic, normocephalic Eyes: PERRL bilaterally, EOMI bilateral, no conjunctival injection noted Neck: Soft, supple, trachea midline Cardiovascular: Regular rate and rhythm Respiratory: Clear to auscultation bilaterally Abdomen: Soft, nondistended, nontender to palpation Extremities: +5/5 strength noted in the bilateral upper and lower extremities, radial pulses +2/4 in the bladder extremities, no pedal edema exam Neurological: Patient following commands and that she was at [facility] the year it is 2024. NIH of 0 GCS 15 Skin: Warm, dry, intact no rashes or lesions noted Const Vital Signs: 08/23/25 10:38 08/23/25 11:42 08/23/25 12:12 Temperature 98.2 F Temperature Source Oral Pulse Rate 88 62 67 Respiratory Rate 18 15 20 H Blood Pressure 143/85 H 159/80 H 173/79 H Blood Pressure Mean 104 106 110 Pulse Ox 100 98 99 Oxygen Delivery Method Room Air Room Air Room Air 08/23/25 12:15 08/23/25 12:38 Temperature Temperature Source Pulse Rate 61 Respiratory Rate 24 H Blood Pressure 170/106 H Blood Pressure Mean 127 Pulse Ox 98 100 Oxygen Delivery Method Room Air Room Air MDM MDM MDM Narrative Medical decision making narrative: Patient is a 74-year-old female who presents to the emergency department chief complaint of dizziness. On the differential diagnose includes but not limited to intracranial hemorrhage, posterior circulation stroke, vertigo, complex migraine, electrolyte abnormality. Once workup is obtained reviewed she will be reevaluated. Patient's CBC was reviewed which showed no evidence leukocytosis white blood count was 6.2, hemoglobin 15.2, platelet count of 119 she has a history of thrombocytopenia according to previous blood draws. Patient's INR normal 0.1, PT of 14.3. Patient sodium normal 142, Tessman was 4, creatinine was 1.59 has underlying chronic kidney disease this appears to be around her baseline. Patient's troponin was 38, EKG reviewed which showed sinus rhythm with a rate of 66 bpm multiple areas of artifact noted however this was compared to previous EKG from August 12, 2025 which showed sinus bradycardia at that point time with a rate of 53 bpm. Patient lipase noted to be 6. Patient's CT head and brain without contrast showed no acute intracranial abnormalities. Patient's chest x-ray reviewed by myself by radiology showed no acute cardiopulmonary processes. At this point in time we will discuss case with hospitalist for admission for further workup of a posterior circulation stroke. Discussed case with hospitalist Dr. Bermudez who accept the patient for admission. Patient was notified as well as [employer] members at bedside they are agreeable this plan all question concerns answered. Lab Data Labs: Laboratory Results - last 24 hr 08/23/25 08/23/25 08/23/25 11:50 11:50 12:00 WBC Cancelled 6.2 Corrected WBC Cancelled RBC Cancelled 4.65 Hgb Cancelled 15.2 H Hct Cancelled 44.0 MCV Cancelled 94.6 MCH Cancelled 32.7 H MCHC Cancelled 34.5 RDW Std Deviation Cancelled 44.3 H RDW Coeff of Maliha Cancelled 12.6 Plt Count Cancelled 119 L MPV Cancelled 12.2 H Immature Gran % (Auto) Cancelled 0.200 Neut % (Auto) Cancelled 63.2 Lymph % (Auto) Cancelled 28.6 Mcminn % (Auto) Cancelled 6.5 Eos % (Auto) Cancelled 1.0 Baso % (Auto) Cancelled 0.5 Absolute Neuts (auto) Cancelled 3.9 Absolute Lymphs (auto) Cancelled 1.76 Total Counted Cancelled Neutrophils % (Manual) Cancelled Band Neutrophils % Cancelled Lymphocytes % (Manual) Cancelled Monocytes % (Manual) Cancelled Eosinophils % (Manual) Cancelled Basophils % (Manual) Cancelled Metamyelocytes % Cancelled Myelocytes % Cancelled Promyelocytes % Cancelled Blast Cells % Cancelled Plasma Cell % (Manual) Cancelled Other Cells % Cancelled Nucleated RBC % Cancelled 0 Nucleated RBCs/100 WBC Cancelled Differential Comment Cancelled Diff Path Review Cancelled Hypersegmented Neuts Cancelled Atypical Lymphocytes Cancelled Reactive Lymphocytes Cancelled Smudge Cells Cancelled Toxic Granulation Cancelled Toxic Vacuolation Cancelled Dohle Bodies Cancelled Kemi Rods Cancelled Platelet Estimate Cancelled Plt Morphology Comment Cancelled RBC Morphology Cancelled Cancelled Polychromasia Cancelled Hypochromasia Cancelled Basophilic Stippling Cancelled Anisocytosis Cancelled Microcytosis Cancelled Macrocytosis Cancelled Spherocytes Cancelled Sickle Cells Cancelled Target Cells Cancelled Tear Drop Cells Cancelled Ovalocytes Cancelled Stomatocytes Cancelled Diaz-Sebastian Bodies Cancelled [place] Cells Cancelled Bite Cells Cancelled Crenated Cell Cancelled Acanthocytes (Spur) Cancelled Rouleaux Cancelled Schistocytes Cancelled PT 14.3 INR 1.1 APTT 24.9 Sodium 142 Potassium 4.0 Chloride 110 H Carbon Dioxide 17.0 L Anion Gap 15 BUN 20 H Creatinine 1.59 H Estim Creat Clear Calc 29.64 L Est GFR (MDRD) Non-Af 33 L BUN/Creatinine Ratio 12.8 Glucose 104 H Calcium 10.1 Troponin T High Sens 38 H D Lipase 6 L Radiography Diagnostic Testing: Clinical Impression(s) from Imaging Studies Chest X-Ray 08/23/25 11:42 IMPRESSION: No Acute Findings. Reading Location: [facility] 08/23/25 13:28 IMPRESSION: No acute intracranial abnormalities. Reading Location: [facility] Discharge Plan Dx/Rx/DC Orders Clinical Impression: DM type 2 (diabetes mellitus, type 2), Dizziness, Difficulty walking, HTN (hypertension) Disposition Disposition: Acute Care Hospital [facility]
[2025-08-23 14:45] LABS: Troponin T High Sens 2 HR 34 ng/L (<=14)
--- NOTE | 2025-08-23 15:01 | PCM.HP.STD ---
HPI - General General Date of Admission: 08/23/25 Date of Service: 08/23/25 Chief Complaint: Dizziness HPI Narrative ISIS JONES, is a 74-year-old female history of lupus, hypertension, GERD, hypothyroidism, depression who presented to [facility] ED 08/23/2025 with chief complaint of dizziness that started yesterday around 8:30 AM and has been persistent since then. Woke up this morning was still feeling dizzy and had difficulty walking so was brought to the ED for further evaluation. In the ED temp 98.2, heart rate 88, blood pressure 143/85, respiratory 18 pulse ox 100% on room air. CBC with normal white count, hemoglobin 15.2, BMP with a BUN of 20 and a creatinine of 1.59 which seems to be at or close to baseline. Lipase of 6 and troponin 38. Chest x-ray no acute findings and head CT no acute intracranial abnormalities. Given her symptoms and they are persistent with difficulty walking there is concern for posterior circulation stroke so hospitalist contacted for admission for CVA rule out. Patient evaluated bedside. Patient reports the constant dizzy feeling since yesterday and today was having difficulty walking and symptoms not improving so she came to the ED. Has some intermittent chronic shortness of breath and slight nonproductive cough, when asked about chest pain she said sometimes she will, this is not new when asked to describe that she said it is like a shortness of breath but did not necessarily complain of any of this right now. No fevers or headache, no focal complaints [facility] Medical History Chronic hypertension GERD (gastroesophageal reflux disease) HLD (hyperlipidemia) Systemic lupus erythematosus Sjoegren syndrome Anxiety Depression Hypothyroidism Kidney disease Pancreatitis GI bleed Low fecal elastase level Pancreatic abnormality Stage 3 chronic kidney disease DM type 2 (diabetes mellitus, type 2) HTN (hypertension) Lupus Home Medications ?Medication ?Instructions ?Recorded ?Last Taken ?Type aspirin 81 mg tablet,delayed 81 mg PO DAILY HEART HEALTH 03/24/19 08/22/25 History release simvastatin 80 mg tablet 80 mg PO QHS CHOLESTEROL 03/24/19 08/22/25 History tizanidine 2 mg tablet 2 mg PO DAILY spasm 04/27/20 08/22/25 History hydralazine 10 mg tablet 10 mg PO BID bp 04/27/23 08/23/25 History [id number] 1 cap PO TID 03/09/25 08/23/25 History 3,000-10,000-14,000 unit capsule,delayed rel (Zenpep) omeprazole 20 mg capsule,delayed 20 mg PO BID GERD #30 caps 07/12/25 08/23/25 Rx release cholecalciferol (vitamin D3) 50 50 mcg PO QDAY 07/27/25 08/23/25 History mcg (2,000 unit) capsule hydrocodone-acetaminophen 5-325mg 1 tab PO Q6H PRN pain 07/27/25 08/23/25 History 5mg-325mg topiramate 50 mg tablet (Topamax) 50 mg PO QHS 07/27/25 08/22/25 History trazodone 50 mg tablet 50 mg PO QHS PRN sleep 07/27/25 08/22/25 History sertraline 100 mg tablet 100 mg PO QDAY 08/12/25 08/23/25 History levothyroxine 100 mcg tablet 100 mcg PO DAILY disorder of 08/23/25 08/23/25 History thyroid gland Allergy/AdvReac Type Severity Reaction Status Date / Time nitroglycerin Allergy Severe syncope Verified 08/23/25 10:40 cephalexin (From Keflex) Allergy Other Verified 08/23/25 10:40 ciprofloxacin Allergy Rash Verified 08/23/25 10:40 moran Allergy blisters Verified 08/23/25 10:40 Iodinated Contrast Media Allergy blisters Verified 08/23/25 10:40 (CONTRASTS) Sulfa (Sulfonamide Allergy Hives Verified 08/23/25 10:40 Antibiotics) Family History Father Cancer Gastric Surgical History History of esophagogastroduodenoscopy (EGD) History of tubal ligation History of colonoscopy History of carpal tunnel surgery S/P foot surgery, left Hx of shoulder surgery History of cholecystectomy History of bilateral knee replacement Social History household members: spouse housing: house Smoking Status: Never smoker alcohol intake: never substance use type: does not use caffeine: Yes ROS ROS Narrative General: Denies fever/chills HENT: Denies headache, denies stuffy nose, denies sore throat EYES: Denies changes in vision Resp: Has some chronic intermittent shortness of breath and dry cough Cardiac: Denies chest pain at this time GI: Denies abdominal pain, denies changes in bowel, denies nausea/vomiting : Denies changes in urination Extremity: Denies swelling MSK: Denies weakness Neuro: Denies any numbness/tingling, +feeling of dizziness Heme: Denies any bleeding or bruising Skin: Denies rashes Psychiatric: No complaints voiced Vital Signs Vital Signs Vital Signs: 08/23/25 10:38 08/23/25 11:42 08/23/25 12:12 Temperature 98.2 F Temperature Source Oral Pulse Rate 88 62 67 Respiratory Rate 18 15 20 H Blood Pressure 143/85 H 159/80 H 173/79 H Blood Pressure Mean 104 106 110 Pulse Ox 100 98 99 Oxygen Delivery Method Room Air Room Air Room Air 08/23/25 12:15 08/23/25 12:38 08/23/25 14:00 Temperature Temperature Source Pulse Rate 61 64 Respiratory Rate 24 H 19 H Blood Pressure 170/106 H 167/86 H Blood Pressure Mean 127 110 Pulse Ox 98 100 100 Oxygen Delivery Method Room Air Room Air 08/23/25 14:15 08/23/25 14:32 Temperature 98 F Temperature Source Pulse Rate 70 67 Respiratory Rate 20 H 22 H Blood Pressure 163/78 H 147/87 H Blood Pressure Mean 103 107 Pulse Ox 100 100 Oxygen Delivery Method Weight Weight: 73.9 kg Body Mass Index (BMI) 27.9 Physical Exam Narrative General: Alert, oriented, no apparent distress HEENT: Atraumatic, normocephalic Eyes: Anicteric, normal conjunctiva, extraocular movements intact, pupils equal Neck: Supple Respiratory: Clear to auscultation bilaterally, normal respiratory effort Cardiovascular: Regular rate and rhythm GI: Soft, nontender, nondistended Extremities: No edema Musculoskeletal: Strength 5 out of 5 in right upper extremity, 5 out of 5 left upper extremity, 5 out of 5 right lower extremity, 5 out of 5 left lower extremity Neuro: No overt focal neurological deficits, cranial nerves II through XII intact, [id number] without significant difficulty bilaterally Skin: No rashes appreciated Psych: Cooperative Results Lab / Micro Data 08/23/25 12:00 08/23/25 11:50 Labs: Laboratory Results - last 24 hr 08/23/25 11:50: WBC Cancelled, Corrected WBC Cancelled, RBC Cancelled, Hgb Cancelled, Hct Cancelled, MCV Cancelled, MCH Cancelled, MCHC Cancelled, RDW Std Deviation Cancelled, RDW Coeff of Maliha Cancelled, Plt Count Cancelled, MPV Cancelled, Immature Gran % (Auto) Cancelled, Neut % (Auto) Cancelled, Lymph % (Auto) Cancelled, Chambers % (Auto) Cancelled, Eos % (Auto) Cancelled, Baso % (Auto) Cancelled, Absolute Neuts (auto) Cancelled, Absolute Lymphs (auto) Cancelled, Total Counted Cancelled, Neutrophils % (Manual) Cancelled, Band Neutrophils % Cancelled, Lymphocytes % (Manual) Cancelled, Monocytes % (Manual) Cancelled, Eosinophils % (Manual) Cancelled, Basophils % (Manual) Cancelled, Metamyelocytes % Cancelled, Myelocytes % Cancelled, Promyelocytes % Cancelled, Blast Cells % Cancelled, Plasma Cell % (Manual) Cancelled, Other Cells % Cancelled, Nucleated RBC % Cancelled, Nucleated RBCs/100 WBC Cancelled, Differential Comment Cancelled, Diff Path Review Cancelled, Hypersegmented Neuts Cancelled, Atypical Lymphocytes Cancelled, Reactive Lymphocytes Cancelled, Smudge Cells Cancelled, Toxic Granulation Cancelled, Toxic Vacuolation Cancelled, Dohle Bodies Cancelled, Kemi Rods Cancelled, Platelet Estimate Cancelled, Plt Morphology Comment Cancelled, RBC Morphology Cancelled 08/23/25 11:50: RBC Morphology Cancelled, Polychromasia Cancelled, Hypochromasia Cancelled, Basophilic Stippling Cancelled, Anisocytosis Cancelled, Microcytosis Cancelled, Macrocytosis Cancelled, Spherocytes Cancelled, Sickle Cells Cancelled, Target Cells Cancelled, Tear Drop Cells Cancelled, Ovalocytes Cancelled, Stomatocytes Cancelled, Diaz-[place] Bodies Cancelled, [place] Cells Cancelled, Bite Cells Cancelled, Crenated Cell Cancelled, Acanthocytes (Spur) Cancelled, Rouleaux Cancelled, Schistocytes Cancelled, Sodium 142, Potassium 4.0, Chloride 110 H, Carbon Dioxide 17.0 L, Anion Gap 15, BUN 20 H, Creatinine 1.59 H, Estim Creat Clear Calc 29.64 L, Est GFR (MDRD) Non-Af 33 L, BUN/Creatinine Ratio 12.8, Glucose 104 H, Calcium 10.1, Troponin T High Sens 38 H D, Lipase 6 L 08/23/25 12:00: WBC 6.2, RBC 4.65, Hgb 15.2 H, Hct 44.0, MCV 94.6, MCH 32.7 H, MCHC 34.5, RDW Std Deviation 44.3 H, RDW Coeff of Maliha 12.6, Plt Count 119 L, MPV 12.2 H, Immature Gran % (Auto) 0.200, Neut % (Auto) 63.2, Lymph % (Auto) 28.6, Chambers % (Auto) 6.5, Eos % (Auto) 1.0, Baso % (Auto) 0.5, Absolute Neuts (auto) 3.9, Absolute Lymphs (auto) 1.76, Nucleated RBC % 0, PT 14.3, INR 1.1, APTT 24.9 08/23/25 14:10: Troponin T Hi Sens 2 Hr 34 H Imaging Radiology Impression Chest X-Ray 08/23/25 11:42 IMPRESSION: No Acute Findings. Reading Location: [facility] 08/23/25 13:28 IMPRESSION: No acute intracranial abnormalities. Reading Location: [facility] Assessment & Plan Assessment/Plan (1) Dizziness: (2) Difficulty walking: PLAN: Plan # Persistent dizziness -Admit to tele -CT head w/ no acute process -CTA head and neck not ordered in the ED due to kidney function and patient over 24 hours out from symptoms -MRI ordered with MRA head and neck, ideally will avoid contrast patient's CKD if possible -NIH q4hr -asa, statin -Echo ordered -PT/OT/Speech eval -Teleneuro consult placed -Hold BP medications to allow for permissive hypertension for 24 hours unless SBP greater than 220 or DBP greater than 120 or until stroke is ruled out, given dizziness seem to worsen this morning with more difficulty walking will still continue permissive hypertension - Will check TSH # CKD stage III b -Appears to be at baseline -Avoid nephrotoxic agents -Daily BMPs #GERD -Continue PPI #Hypothyroidism -Continue Synthroid #Depression/anxiety -Continue home medications # Reported history of lupus -Based on documentation -Outpatient follow-up #DVT ppx: SCDs Carrol Bermudez MD Charges/Coding Visit Charges Inpatient E&M: 38324 Init Hosp L2
--- NOTE | 2025-08-23 15:09 | ECHOD_ITS ---
Reason For Study Reason For Study: TIA/CVA Procedure This was a 2D Doppler, Color Flow transthoracic echocardiogram. The study was technically limited. Exam performed portable in patient room. Left Ventricle Normal LV size. Left ventricular systolic function is normal. The left ventricular ejection fraction is 70 %. Stage 1 diastolic dysfunction. No regional wall motion abnormalities noted. Right Ventricle Normal RV size. Normal systolic function. Atria Normal left atrium. Normal right atrium. Mitral Valve Normal mitral valve. Tricuspid Valve Normal tricuspid valve. Aortic Valve Trisinus/trileaflet aortic valve. Mild focal aortic valve calcification. Pulmonic Valve Normal pulmonic valve. Great Vessels Normal aortic root. The pulmonary artery is normal size. Inferior vena cava collapse with respiration. Pericardium/Pleural No pericardial effusion. MMode/2D Measurements & Calculations LVIDd: 3.4 cm IVSd: 1.3 cm LVOT diam: 2.0 cm LVIDs: 1.5 cm LVPWd: 1.0 cm LVOT area: 3.0 cm2 RVDd: 2.5 cm FS: 57.3 % asc Aorta Diam: 3.3 cm LAV(MOD-bp): 33.0 ml LVAd ap4: 17.3 cm2 LAV(MOD-bp) Indexed: 18.5 ml/m2 LVLd ap4: 7.4 cm LAV(MOD-sp2): 38.8 ml EDV(MOD-sp4): 33.2 ml LAV(MOD-sp4): 27.3 ml EDV(sp4-el): 34.5 ml LVAs ap4: 7.0 cm2 LVLs ap4: 5.8 cm ESV(MOD-sp4): 7.8 ml ESV(sp4-el): 7.2 ml EF(MOD-sp4): 76.4 % EF(sp4-el): 79.3 % LVAd ap2: 15.6 cm2 SV(MOD-sp4): 25.3 ml SV(MOD-sp2): 21.2 ml LVLd ap2: 6.8 cm SI(MOD-sp4): 14.2 ml/m2 SI(MOD-sp2): 11.9 ml/m2 EDV(MOD-sp2): 29.1 ml EDV(sp2-el): 30.4 ml LVAs ap2: 7.3 cm2 LVLs ap2: 5.8 cm ESV(MOD-sp2): 7.9 ml ESV(sp2-el): 7.8 ml EF(MOD-sp2): 72.9 % SV(sp4-el): 27.4 ml Ao sinus diam: 3.[address] Junction: 1.9 cm LA dimension(2D): 3.3 cm LA A4 area: 13.2 cm2 RA A4 area: 7.9 cm2 TAPSE: 1.8 cm Time Measurements MV dec time: 0.32 sec Doppler Measurements & Calculations MV E max josue: 89.3 cm/sec Lat Peak E' Josue: 9.4 cm/sec Med Peak E' Josue: 6.7 cm/sec MV A max josue: 144.9 cm/sec E/E' lat: 9.5 E/E' med: 13.3 MV E/A: 0.62 MV dec slope: 276.2 cm/sec2 Ao V2 max: 212.9 cm/sec LV V1 max: 143.2 cm/sec Ao max P.2 mmHg LV V1 max P.2 mmHg Ao V2 mean: 155.1 cm/sec LV V1 mean P.3 mmHg Ao mean P.4 mmHg LV V1 mean: 109.1 cm/sec Ao V2 VTI: 45.1 cm LV V1 VTI: 35.8 cm AV (velocity ratio): 0.79 CHUCK(I,D): 2.4 cm2 CHUCK(V,D): 2.0 cm2 SV(LVOT): 108.5 ml PA V2 max: 144.0 cm/sec ECHO/Echo Complete Interpretation Summary Normal LV size. Left ventricular systolic function is normal. The left ventricular ejection fraction is 70 %. Stage 1 diastolic dysfunction. Mild focal aortic valve calcification. Ordering Physician: Carrol Bermudez Performed By: Rosalina Maki RDCS
--- NOTE | 2025-08-23 15:09 | MRI_ITS ---
PROCEDURE: MRA HEAD ONLY WITHOUT CONTRAST; MRA NECK WITHOUT CONTRAST 08/23/2025 REASON FOR EXAM: CONCERN FOR POSTERIOR STROKE COMPARISON: None available. TECHNIQUE: Procedure Code: MRIMRAH; MRIMRAN Modality: MR Procedure: MRA HEAD ONLY WITHOUT CONTRAST; MRA NECK WITHOUT CONTRAST Multiplanar multisequential imaging was performed without IV contrast administration. MIP reconstructions of the head and neck were obtained. FINDINGS: MRA NECK: The origins of the vessels arising from the aortic arch are patent without high- grade stenosis. The right common carotid artery is patent without high-grade stenosis. The right cervical internal carotid artery is patent without hemodynamically significant stenosis. The left common carotid artery is patent without high-grade stenosis. The left cervical internal carotid artery is patent without hemodynamically significant stenosis. The cervical vertebral arteries are patent without high-grade stenosis. Assessment for carotid stenosis is performed utilizing NASCET criteria. NASCET carotid stenosis criteria: 0% - none, 1-49% - mild, 50-69% - moderate, 70-89% - severe, 90-99% - critical. % ICA stenosis = (normal distal cervical ICA diameter - narrowest cervical ICA diameter / normal distal cervical ICA diameter) x 100. MRA HEAD: The petrous, cavernous, and intracranial internal carotid arteries are patent without high-grade stenosis. The proximal anterior cerebral arteries are patent without high-grade stenosis. The proximal middle cerebral arteries are patent without high-grade stenosis. The intradural vertebral arteries are patent without high-grade stenosis. The basilar artery is patent without high-grade stenosis. The proximal posterior cerebral arteries are patent without high-grade stenosis. origin of the bilateral posterior cerebral arteries. 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 No dominant intracranial aneurysm or high flow arteriovenous malformation is identified. MRI/MRA Neck without Contrast IMPRESSION: No high-grade arterial stenosis, aneurysm, or arteriovenous malformation. Reading Location: [id number]
--- NOTE | 2025-08-23 15:09 | MRI_ITS ---
PROCEDURE: MRI BRAIN WITHOUT CONTRAST 08/23/2025 REASON FOR EXAM: CONCERN FOR POSTERIOR STROKE TECHNIQUE: Procedure Code: MRIBR Modality: MR Procedure: BRAIN WITHOUT CONTRAST Multiplanar and multisequential MRI of the brain was performed without contrast. COMPARISON: CT head earlier today 08/23/2025. FINDINGS: No regions of abnormal restricted diffusion to indicate recent infarct. No evidence of intracranial hemorrhage, extra-axial collection, mass-effect, or other acute abnormality. Mild generalized brain parenchymal volume loss, and moderate chronic small-vessel ischemic-gliotic changes in the supratentorial white matter. Preserved major vascular flow voids. Absent [place] ocular lenses. Mucosal thickening with subtotal opacification of left sphenoid sinus. Remainder of the paranasal sinuses and bilateral mastoid air cells are well-aerated. MRI/Brain without Contrast IMPRESSION: 1. No acute intracranial abnormality; no acute infarct. 2. Mild-moderate volume loss and chronic microangiopathic changes. 3. Left sphenoid sinus disease. Reading Location: [facility]
--- NOTE | 2025-08-23 15:09 | MRI_ITS ---
PROCEDURE: MRA HEAD ONLY WITHOUT CONTRAST; MRA NECK WITHOUT CONTRAST 08/23/2025 REASON FOR EXAM: CONCERN FOR POSTERIOR STROKE COMPARISON: None available. TECHNIQUE: Procedure Code: MRIMRAH; MRIMRAN Modality: MR Procedure: MRA HEAD ONLY WITHOUT CONTRAST; MRA NECK WITHOUT CONTRAST Multiplanar multisequential imaging was performed without IV contrast administration. MIP reconstructions of the head and neck were obtained. FINDINGS: MRA NECK: The origins of the vessels arising from the aortic arch are patent without high- grade stenosis. The right common carotid artery is patent without high-grade stenosis. The right cervical internal carotid artery is patent without hemodynamically significant stenosis. The left common carotid artery is patent without high-grade stenosis. The left cervical internal carotid artery is patent without hemodynamically significant stenosis. The cervical vertebral arteries are patent without high-grade stenosis. Assessment for carotid stenosis is performed utilizing NASCET criteria. NASCET carotid stenosis criteria: 0% - none, 1-49% - mild, 50-69% - moderate, 70-89% - severe, 90-99% - critical. % ICA stenosis = (normal distal cervical ICA diameter - narrowest cervical ICA diameter / normal distal cervical ICA diameter) x 100. MRA HEAD: The petrous, cavernous, and intracranial internal carotid arteries are patent without high-grade stenosis. The proximal anterior cerebral arteries are patent without high-grade stenosis. The proximal middle cerebral arteries are patent without high-grade stenosis. The intradural vertebral arteries are patent without high-grade stenosis. The basilar artery is patent without high-grade stenosis. The proximal posterior cerebral arteries are patent without high-grade stenosis. origin of the bilateral posterior cerebral arteries. 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 No dominant intracranial aneurysm or high flow arteriovenous malformation is identified. MRI/MRA Head ONLY without Contrast IMPRESSION: No high-grade arterial stenosis, aneurysm, or arteriovenous malformation. Reading Location: [id number]
--- NOTE | 2025-08-23 15:34 | CASEMGMT ---
Care Management Face to Face with patient for initial transition planning/care coordination assessment in the ED.? This automobile service writer introduced self and role at [facility]. Patient alert and oriented. Patient willing to participate in assessment and is able to answer all questions appropriately.? Care providers, pharmacy, and demographics verified. Admitting Diagnosis: ?Dizziness Other diagnosis history: ?hypertension, GERD, HLD, Hypothyroidism, kidney disease, GI bleed PCP: ?Robin Specialists: ?Tad, Cardiac ;? Pain management [facility]acy: [facility] Insurance: ?[facility] Prescription Benefit: ?yes Living Will/HPOA: ?none, not interested in completing LNOK: Living Arrangements: ?lives in a mobile home with 4 steps to enter. Independent with ADLs and IADLs.? Transportation: ? and son DME: ?cane, walker, wheelchair in storage HHC: ?outpatient in the past SNF/Rehab: ?none Community Resources: ?none Behavioral Health History: depression and anxiety Patient goals: Patient wishes to discharge home, denies need for home health care at this time. Patient denies any further needs or concerns at this time. Disposition Plan: admission to acute; RN CM/SW to follow for discharge planning needs that may arise. Radha Post, DYNAMITER, COMPENSATION/BENEFITS SPECIALIST
[2025-08-23 17:25] LABS: Troponin T High Sens 4 HR 40 ng/L (<=14)
[2025-08-23] MEDS: Creon 3,000 unit DR Capsule 1 CAP PO (18:41)
[2025-08-23] MEDS: 0.9% Normal Saline (1000mL) 1,000 ML 50 ML IV (18:41)
[2025-08-23] MEDS: MELATONIN 10 MG TABLET PO (21:33)
[2025-08-24 03:45] VITALS: BP 127/73; PULSE 75; RESP 16; TEMP 36.6; O2SAT 98
[2025-08-24 05:46] LABS: Hematocrit 39.3 % (37-47); Hemoglobin 13.2 g/dL (12.0-15.0); Immature Granulocytes Count 0.010 X10^3/uL (0.0-0.0); Mean Corp Hgb Conc 33.6 g/dL (32-36); Mean Corpuscular Volume 95.4 fL (81-99); Mean Platelet Vol. 12.4 fl (6.2-12.0); NRBC Flagged by Analyzer 0 % (0-5); Platelet Count 118 K/mm3 (150-450); RBC Distribution Width CV 12.9 % (11.6-14.6); RBC Distribution Width SD 44.5 fl (35.1-43.9); Red Blood Count 4.12 M/mm3 (4.2-5.4); White Blood Count 4.8 K/mm3 (4.4-11.0)
[2025-08-24 06:30] LABS: Anion Gap 14 (5-15); BUN 22 mg/dL (4-19); BUN/Creat Ratio 13.4 RATIO (10-20); Calcium,Total 9.4 mg/dL (7.6-11.0); Carbon Dioxide 16.4 mmol/L (21.0-32.0); Chloride 111 mmol/L (98-108); Cholesterol 130 mg/dL (<=200); Estimated Creatinine Clearance 28.43 ml/min (50-250); Glucose 102 mg/dL (70-99); Low Density Lipoprotein Calc. 63 mg/dL; Potassium 3.7 mmol/L (3.3-5.1); Triglycerides 111 mg/dL; Very Low Density Lipoprotein 22 mg/dL (5-40); cholesterol:hdl ratio screen 2.93
[2025-08-24 07:45] VITALS: BP 138/82; PULSE 69; RESP 18; TEMP 36.7; O2SAT 100
--- NOTE | 2025-08-24 08:15 | PCM.PN.HOSP ---
Reason for Visit Chief Complaint: Dizziness Subjective Subjective Dizziness improved. Objective Data Objective Data Vital Signs: Vital Signs Temp Pulse Resp BP Pulse Ox O2 Del Method 36.6 C 75 16 127/73 H 98 Room Air 08/24/25 03:45 08/24/25 03:45 08/24/25 03:45 08/24/25 03:45 08/24/25 03:45 08/24/25 03:45 Oxygen Delivery Method Room Air Weight: 71.3 kg Body Mass Index (BMI) 26.9 Lab / Micro Data 08/24/25 05:04 08/24/25 05:04 Labs: Laboratory Results - last 24 hr 08/23/25 11:50: WBC Cancelled, Corrected WBC Cancelled, RBC Cancelled, Hgb Cancelled, Hct Cancelled, MCV Cancelled, MCH Cancelled, MCHC Cancelled, RDW Std Deviation Cancelled, RDW Coeff of [place] Cancelled, Plt Count Cancelled, MPV Cancelled, Immature Gran % (Auto) Cancelled, Neut % (Auto) Cancelled, Lymph % (Auto) Cancelled, Rains % (Auto) Cancelled, Eos % (Auto) Cancelled, Baso % (Auto) Cancelled, Absolute Neuts (auto) Cancelled, Absolute Lymphs (auto) Cancelled, Total Counted Cancelled, Neutrophils % (Manual) Cancelled, Band Neutrophils % Cancelled, Lymphocytes % (Manual) Cancelled, Monocytes % (Manual) Cancelled, Eosinophils % (Manual) Cancelled, Basophils % (Manual) Cancelled, Metamyelocytes % Cancelled, Myelocytes % Cancelled, Promyelocytes % Cancelled, Blast Cells % Cancelled, Plasma Cell % (Manual) Cancelled, Other Cells % Cancelled, Nucleated RBC % Cancelled, Nucleated RBCs/100 WBC Cancelled, Differential Comment Cancelled, Diff Path Review Cancelled, Hypersegmented Neuts Cancelled, Atypical Lymphocytes Cancelled, Reactive Lymphocytes Cancelled, Smudge Cells Cancelled, Toxic Granulation Cancelled, Toxic Vacuolation Cancelled, Dohle Bodies Cancelled, Kemi Rods Cancelled, Platelet Estimate Cancelled, Plt Morphology Comment Cancelled, RBC Morphology Cancelled 08/23/25 11:50: RBC Morphology Cancelled, Polychromasia Cancelled, Hypochromasia Cancelled, Basophilic Stippling Cancelled, Anisocytosis Cancelled, Microcytosis Cancelled, Macrocytosis Cancelled, Spherocytes Cancelled, Sickle Cells Cancelled, Target Cells Cancelled, Tear Drop Cells Cancelled, Ovalocytes Cancelled, Stomatocytes Cancelled, [place] Bodies Cancelled, [place] Cells Cancelled, Bite Cells Cancelled, Crenated Cell Cancelled, Acanthocytes (Spur) Cancelled, Rouleaux Cancelled, Schistocytes Cancelled, Sodium 142, Potassium 4.0, Chloride 110 H, Carbon Dioxide 17.0 L, Anion Gap 15, BUN 20 H, Creatinine 1.59 H, Estim Creat Clear Calc 29.64 L, Est GFR (MDRD) Non-Af 33 L, BUN/Creatinine Ratio 12.8, Glucose 104 H, Calcium 10.1, Troponin T High Sens 38 H D, Lipase 6 L 08/23/25 12:00: WBC 6.2, RBC 4.65, Hgb 15.2 H, Hct 44.0, MCV 94.6, MCH 32.7 H, MCHC 34.5, RDW Std Deviation 44.3 H, RDW Coeff of [place] 12.6, Plt Count 119 L, MPV 12.2 H, Immature Gran % (Auto) 0.200, Neut % (Auto) 63.2, Lymph % (Auto) 28.6, Rains % (Auto) 6.5, Eos % (Auto) 1.0, Baso % (Auto) 0.5, Absolute Neuts (auto) 3.9, Absolute Lymphs (auto) 1.76, Nucleated RBC % 0, PT 14.3, INR 1.1, APTT 24.9 08/23/25 14:10: Troponin T Hi Sens 2 Hr 34 H 08/23/25 16:48: Troponin T Hi Sens 4Hr 40 H 08/24/25 05:04: WBC 4.8, RBC 4.12 L, Hgb 13.2, Hct 39.3, MCV 95.4, MCH 32.0, MCHC 33.6, RDW Std Deviation 44.5 H, RDW Coeff of [place] 12.9, Plt Count 118 L, MPV 12.4 H, Immature Gran % (Auto) 0.200, Neut % (Auto) 54.5, Lymph % (Auto) 34.2, Rains % (Auto) 8.4, Eos % (Auto) 2.1, Baso % (Auto) 0.6, Absolute Neuts (auto) 2.6, Absolute Lymphs (auto) 1.63, Nucleated RBC % 0, Sodium 142, Potassium 3.7, Chloride 111 H, Carbon Dioxide 16.4 L, Anion Gap 14, BUN 22 H, Creatinine 1.63 H, Estim Creat Clear Calc 28.43 L, Est GFR (MDRD) Non-Af 32 L, BUN/Creatinine Ratio 13.4, Glucose 102 H, Calcium 9.4, Triglycerides 111, Cholesterol 130, LDL Cholesterol, Calc 63, VLDL Cholesterol 22, HDL Cholesterol 44, Cholesterol/HDL Ratio 2.93, TSH 0.805 Radiography Diagnostic Testing: Radiology Impression Chest X-Ray 08/23/25 11:42 IMPRESSION: No Acute Findings. Reading Location: [facility] 08/23/25 13:28 IMPRESSION: No acute intracranial abnormalities. Reading Location: [facility] Brain MRI 08/23/25 15:09 IMPRESSION: 1. No acute intracranial abnormality; no acute infarct. 2. Mild-moderate volume loss and chronic microangiopathic changes. 3. Left sphenoid sinus disease. Reading Location: [facility] Head MRA 08/23/25 15:09 IMPRESSION: No high-grade arterial stenosis, aneurysm, or arteriovenous malformation. Reading Location: [id number] Neck MRA 08/23/25 15:09 IMPRESSION: No high-grade arterial stenosis, aneurysm, or arteriovenous malformation. Reading Location: [id number] Physical Exam Const alert and no apparent distress HEENT HEENT Narrative: left lateral nystagmus. Resp normal respiratory effort and no retractions Cardio regular rate, regular rhythm, S1 normal heart sound and S2 normal heart sound GI normal to inspection, nondistended, normoactive bowel sounds, soft to palpation, non-tender and non-distended Neuro Sensorium / Orientation: awake and alert Assessment & Plan Assessment/Plan (1) Dizziness: (2) Difficulty walking: PLAN: Plan Persistent dizziness 2/[address] head w/ no acute process. CTA head and neck not ordered in the ED due to kidney function and patient over 24 hours out from symptoms. MRI brain showed no acute infarct. Mild-moderate volume loss and chronic microangiopathic changes. Left sphenoid sinus disease. MRA head and neck negative. Echo from 04/06/25 showed an EF 68%. add meclizine Chronic medical conditions: CKD stage III b-Appears to be at baseline-Avoid nephrotoxic agents-Daily BMPs GERD-Continue PPI Hypothyroidism-Continue Synthroid Depression/anxiety-Continue home medications Reported history of lupus-Based on documentation-Outpatient follow-up DVT ppx: SCDs NIHSS NIHSS Nursing Documentation NIHSS Nursing Documentation: NIHSS: Ischemic Stroke/TIA Start: 08/23/25 15:43 Text: For PCU Patients: NIH and Neuro Check every 4 Status: Active hours, PRN and with change in RN caregiver. Freq: [id number] Protocol: Activity Type Activity Date Activity User E-sign Co-sign Detail Recorded Client Recorded Date Recorded By Document 08/24/25 03:45 GARRETT [id number] 08/24/25 04:00 GARRETT 08/24/25 03:45 NIH Stroke Scale [NIHSS] A score of 0 is normal or asymptomatic . Total possible score is 42. Inpatient: RN or Physician to activate a stroke alert for onset of new stroke symptoms or with NIHSS increase >/= 3 points. Following change in neurological status, NIHSS will be performed per physician order or more frequently PRN. -1a. Level of Consciousness 0 - Alert; keenly responsive -1b. LOC Questions 0 - Answers BOTH questions correctly -1c. LOC Commands 0 - Performs BOTH tasks correctly -2. Best Gaze 0 - Normal -3. Visual 0 - No visual loss -4. Facial Palsy 0 - Normal symmetrical movements -5a. Left Arm 0 - No drift; arm holds 90 ( or 45) degrees for full 10 seconds -5b. Right Arm 0 - No drift; arm holds 90 ( or 45) degrees for full 10 seconds -6a. Left Leg 0 - No drift; leg holds 30- degree position for full 5 seconds -6b. Right Leg 0 - No drift; leg holds 30- degree position for full 5 seconds -7. Limb Ataxia 0 - Absent -8. Sensory 0 - Normal; no sensory loss -9. Best Language 0 - No aphasia; normal -10. Dysarthria 0 - Normal -11. Extinction and Inattention 0 - No abnormality -Total 0 Query Text:A score of 0 is normal or asymptomatic. Total possible score is 42 . ED: Notify Physician for NIHSS increase by > / = 3 points. Inpatient: RN or Physician to activate a stroke alert for NIHSS increase of > / = 3 points. Coma Scale [Assess] -Eye Opening Spontaneous -Motor Obeys Commands -Verbal Oriented [Total] -Coma Scale Total 15
--- NOTE | 2025-08-24 09:32 | CASEMGMT ---
Social Work Per physician pt negative for stroke, therefore PHQ9 not completed. MARION Villela
[2025-08-24] MEDS: Creon 3,000 unit DR Capsule 1 CAP PO ×2 (09:46→13:10)
--- NOTE | 2025-08-24 11:07 | DS.PCM_ITS ---
Providers Date of Admission: 08/23/25 Primary Care Physician: Dr. Akil Kelly, DO Consultations 08/23/25 15:43 Consult: Tele-Neurology Routine Consulting Provider: [facility] Reason for Consult: Acute Ischemic Stroke/TIA EMERGENT Consult: No MD Notified: Yes Date Notified: 08/23/25 Time Notified: 16:23 Method of Notification: Answering Service Nursing Unit Staff Notify [facility] of Tele-Neurology Consult: Yes Reason For Visit: CVA RULE OUT Diagnosis Discharge Diagnosis (1) Dizziness: Status: Acute Code(s): R42 - Dizziness and giddiness (2) Difficulty walking: Status: Acute Code(s): R26.2 - Difficulty in walking, not elsewhere classified Plan Persistent dizziness * 2/2 BPPV. * CT head w/ no acute process. CTA head and neck not ordered in the ED due to kidney function and patient over 24 hours out from symptoms. * MRI brain showed no acute infarct. Mild-moderate volume loss and chronic microangiopathic changes. Left sphenoid sinus disease. * MRA head and neck negative. * Echo from 04/06/25 showed an EF 68%. * add meclizine Chronic medical conditions: * CKD stage III b-Appears to be at baseline-Avoid nephrotoxic agents-Daily BMPs * GERD-Continue PPI * Hypothyroidism-Continue Synthroid * Depression/anxiety-Continue home medications * Reported history of lupus-Based on documentation-Outpatient follow-up DVT ppx: SCDs Medications at Discharge Home Medications aspirin 81 mg tablet,delayed release 81 mg PO DAILY HEART HEALTH 03/24/19 simvastatin 80 mg tablet 80 mg PO QHS CHOLESTEROL 03/24/19 tizanidine 2 mg tablet 2 mg PO DAILY spasm 04/27/20 hydralazine 10 mg tablet 10 mg PO BID bp 04/27/23 ndgvgx-[id number]-[id number] 3,000-10,000-14,000 unit capsule,delayed rel (Zenpep) 1 cap PO TID 03/09/25 omeprazole 20 mg capsule,delayed release 20 mg PO BID GERD #30 caps 07/12/25 cholecalciferol (vitamin D3) 50 mcg (2,000 unit) capsule 50 mcg PO QDAY 07/27/25 hydrocodone-acetaminophen 5-325mg 5mg-325mg 1 tab PO Q6H PRN pain 07/27/25 topiramate 50 mg tablet (Topamax) 50 mg PO QHS 07/27/25 trazodone 50 mg tablet 50 mg PO QHS PRN sleep 07/27/25 sertraline 100 mg tablet 100 mg PO QDAY 08/12/25 levothyroxine 100 mcg tablet 100 mcg PO DAILY disorder of thyroid gland 08/23/25 meclizine 25 mg tablet (Travel-Ease (meclizine)) 25 mg PO TID PRN PRN Dizziness #20 tabs 08/24/25 Hospital Course Operations None Procedures 2-D Echocardiogram Summary of Care Provided Hospital Course: Patient presents with acute onset of dizziness. Patient underwent a stroke workup with MRI, MRI of the brain that were all unremarkable. Dizziness is improving. She does have some nystagmus that is seems consistent with benign paroxysmal positional vertigo. Patient was seen by therapy had no additional recommendations. Patient be discharged home. Patient prescription for as needed meclizine. Weight / BMI Weight Weight: 71.3 kg Body Mass Index (BMI) 26.9 ABG / Lab / Microbiology Data 08/24/25 05:04 08/24/25 05:04 Laboratory: Laboratory Results - last 24 hr 08/23/25 11:50: WBC Cancelled, Corrected WBC Cancelled, RBC Cancelled, Hgb Cancelled, Hct Cancelled, MCV Cancelled, MCH Cancelled, MCHC Cancelled, RDW Std Deviation Cancelled, RDW Coeff of [place] Cancelled, Plt Count Cancelled, MPV Cancelled, Immature Gran % (Auto) Cancelled, Neut % (Auto) Cancelled, Lymph % (Auto) Cancelled, [place] % (Auto) Cancelled, Eos % (Auto) Cancelled, Baso % (Auto) Cancelled, Absolute Neuts (auto) Cancelled, Absolute Lymphs (auto) Cancelled, Total Counted Cancelled, Neutrophils % (Manual) Cancelled, Band Neutrophils % Cancelled, Lymphocytes % (Manual) Cancelled, Monocytes % (Manual) Cancelled, Eosinophils % (Manual) Cancelled, Basophils % (Manual) Cancelled, Metamyelocytes % Cancelled, Myelocytes % Cancelled, Promyelocytes % Cancelled, Blast Cells % Cancelled, Plasma Cell % (Manual) Cancelled, Other Cells % Cancelled, Nucleated RBC % Cancelled, Nucleated RBCs/100 WBC Cancelled, Differential Comment Cancelled, Diff Path Review Cancelled, Hypersegmented Neuts Cancelled, Atypical Lymphocytes Cancelled, Reactive Lymphocytes Cancelled, Smudge Cells Cancelled, Toxic Granulation Cancelled, Toxic Vacuolation Cancelled, Dohle Bodies Cancelled, Kemi Rods Cancelled, Platelet Estimate Cancelled, Plt Morphology Comment Cancelled, RBC Morphology Cancelled 08/23/25 11:50: RBC Morphology Cancelled, Polychromasia Cancelled, Hypochromasia Cancelled, Basophilic Stippling Cancelled, Anisocytosis Cancelled, Microcytosis Cancelled, Macrocytosis Cancelled, Spherocytes Cancelled, Sickle Cells Cancelled, Target Cells Cancelled, Tear Drop Cells Cancelled, Ovalocytes Cancelled, Stomatocytes Cancelled, [place] Bodies Cancelled, [place] Cells Cancelled, Bite Cells Cancelled, Crenated Cell Cancelled, Acanthocytes (Spur) Cancelled, Rouleaux Cancelled, Schistocytes Cancelled, Sodium 142, Potassium 4.0, Chloride 110 H, Carbon Dioxide 17.0 L, Anion Gap 15, BUN 20 H, Creatinine 1.59 H, Estim Creat Clear Calc 29.64 L, Est GFR (MDRD) Non-Af 33 L, BUN/Creatinine Ratio 12.8, Glucose 104 H, Calcium 10.1, Troponin T High Sens 38 H D, Lipase 6 L 08/23/25 12:00: WBC 6.2, RBC 4.65, Hgb 15.2 H, Hct 44.0, MCV 94.6, MCH 32.7 H, MCHC 34.5, RDW Std Deviation 44.3 H, RDW Coeff of [place]iha 12.6, Plt Count 119 L, MPV 12.2 H, Immature Gran % (Auto) 0.200, Neut % (Auto) 63.2, Lymph % (Auto) 28.6, [place] % (Auto) 6.5, Eos % (Auto) 1.0, Baso % (Auto) 0.5, Absolute Neuts (auto) 3.9, Absolute Lymphs (auto) 1.76, Nucleated RBC % 0, PT 14.3, INR 1.1, APTT 24.9 08/23/25 14:10: Troponin T Hi Sens 2 Hr 34 H 08/23/25 16:48: Troponin T Hi Sens 4Hr 40 H 08/24/25 05:04: WBC 4.8, RBC 4.12 L, Hgb 13.2, Hct 39.3, MCV 95.4, MCH 32.0, MCHC 33.6, RDW Std Deviation 44.5 H, RDW Coeff of [place] 12.9, Plt Count 118 L, MPV 12.4 H, Immature Gran % (Auto) 0.200, Neut % (Auto) 54.5, Lymph % (Auto) 34.2, [place] % (Auto) 8.4, Eos % (Auto) 2.1, Baso % (Auto) 0.6, Absolute Neuts (auto) 2.6, Absolute Lymphs (auto) 1.63, Nucleated RBC % 0, Sodium 142, Potassium 3.7, Chloride 111 H, Carbon Dioxide 16.4 L, Anion Gap 14, BUN 22 H, Creatinine 1.63 H , Estim Creat Clear Calc 28.43 L, Est GFR (MDRD) Non-Af 32 L, BUN/Creatinine Ratio 13.4, Glucose 102 H, Calcium 9.4, Triglycerides 111, Cholesterol 130, LDL Cholesterol, Calc 63, VLDL Cholesterol 22, HDL Cholesterol 44, Cholesterol/HDL Ratio 2.93, TSH 0.805 Radiography Diagnostic Testing: Radiology Impression Chest X-Ray 08/23/25 11:42 IMPRESSION: No Acute Findings. [facility] 08/23/25 13:28 IMPRESSION: No acute intracranial abnormalities. Reading Location: [facility] Brain MRI 08/23/25 15:09 IMPRESSION: 1. No acute intracranial abnormality; no acute infarct. 2. Mild-moderate volume loss and chronic microangiopathic changes. 3. Left sphenoid sinus disease. Reading Location: [id number] Head MRA 08/23/25 15:09 IMPRESSION: No high-grade arterial stenosis, aneurysm, or arteriovenous malformation. Reading Location: [id number] Neck MRA 08/23/25 15:09 IMPRESSION: No high-grade arterial stenosis, aneurysm, or arteriovenous malformation. Reading Location: [id number] D/C Instructions DC O2, CPAP, BIPAP Needs Home O2 Discharge instructions: No Meaningful Use Info Meaningful Use Meaningful Use Diagnoses (Choose all that apply): None applicable Discharge Plan Admission Admit Date/Time: 08/23/25 15:01 Primary Reason for Your Visit: dizziness Attending Provider: José Miguel Romero Primary Care Provider: Akil Kelly Consulting Providers: Kelvin Thompson; Meghan Anders; Tessa Pichardo; Jazlyn Barnard; Ellen Yadav; Ricardo East; Pauline Garcia; Bowen Holm; Harry Cline; Carlos Cortez; Fany Brumfield; Masha Aiken; Seth Richardson; Silvia Thompson; Karsten Gutierrez; Estefania Lira; Obey Singh; Aguilar Wood; Lenard Montemayor; Noemí Dumas; Lorna Alanis; Carrol Bermudez Instructions Additional Instructions / Restrictions: Dizziness secondary to vertigo. Your symptoms are improving. If this recurs, you can take meclizine (Antivert) as needed. Discharge Orders/Prescriptions Prescriptions: New meclizine [Travel-Ease (meclizine)] 25 mg Tablet 25 mg PO TID PRN PRN (Reason: Dizziness) Qty: 20 0RF Continued Zenpep 3,000-10,000 -14,000-unit capsule,delayed release(DR/EC) 1 cap PO TID Patient Comments: takes after each meal cholecalciferol (vitamin D3) 50 mcg (2,000 unit) capsule 50 mcg PO QDAY hydrocodone-acetaminophen 5-325 mg tablet 1 tab PO Q6H PRN (Reason: pain) topiramate [Topamax] 50 mg tablet 50 mg PO QHS trazodone 50 mg tablet 50 mg PO QHS PRN (Reason: sleep) sertraline 100 mg tablet 100 mg PO QDAY simvastatin 80 MG tablet 80 mg PO QHS aspirin 81 MG tablet 81 mg PO DAILY tizanidine 2 MG tablet 2 mg PO DAILY hydralazine 10 mg tablet 10 mg PO BID omeprazole 20 MG capsule 20 mg PO BID Qty: 30 0RF Patient Comments: reflux levothyroxine 100 mcg tablet 100 mcg PO DAILY Referrals / Follow Up: Akil Kelly DO [Primary Care Provider, Medical] - Within 2 Weeks Disposition Disposition (needs filled in before D/C Order can be placed): Home, Self Care Charges/Coding Visit Charges Inpatient E&M: 84629 Disch Hosp
[2025-08-24 11:15] VITALS: BP 140/87; PULSE 70; RESP 18; TEMP 36.7; O2SAT 95
--- NOTE | 2025-08-24 12:04 | PHA.DC_ITS ---
Pharmacy [facility] Counseling Pharmacy Service has performed discharge medication reconciliation and counseling for this patient. 1. MECLIZINE 25MG PO TID PRN DIZZINESS The patient's discharge medication list was reviewed for discrepancies and discrepancies were resolved. The patient was counseled on the following discharge medications and changes in medications for homegoing were reviewed. The Reason for Use, instructions for use, and potential side effects were reviewed for all new medications. The patient's questions regarding all of their medications were answered. The patient was able to verbally demonstrate an understanding of their discharge medications. Medications at Discharge Home Medications aspirin 81 mg tablet,delayed release 81 mg PO DAILY HEART HEALTH 03/24/19 simvastatin 80 mg tablet 80 mg PO QHS CHOLESTEROL 03/24/19 tizanidine 2 mg tablet 2 mg PO DAILY spasm 04/27/20 hydralazine 10 mg tablet 10 mg PO BID bp 04/27/23 vilrtd-jlbzukkb-kgnusiw 3,000-10,000-14,000 unit capsule,delayed rel (Zenpep) 1 cap PO TID digestion 03/09/25 omeprazole 20 mg capsule,delayed release 20 mg PO BID GERD #30 caps 07/12/25 cholecalciferol (vitamin D3) 50 mcg (2,000 unit) capsule 50 mcg PO QDAY vitamin 07/27/25 hydrocodone-acetaminophen 5-325mg 5mg-325mg 1 tab PO Q6H PRN pain 07/27/25 topiramate 50 mg tablet (Topamax) 50 mg PO QHS seizures 07/27/25 trazodone 50 mg tablet 50 mg PO QHS PRN sleep 07/27/25 sertraline 100 mg tablet 100 mg PO QDAY mental health 08/12/25 levothyroxine 100 mcg tablet 100 mcg PO DAILY disorder of thyroid gland 08/23/25 meclizine 25 mg tablet (Travel-Ease (meclizine)) 25 mg PO TID PRN PRN Dizziness #20 tabs 08/24/25
[2025-08-24 12:25] VITALS: BMI 26.9
[2025-08-24 13:49] VITALS: O2SAT 95
== END 2025-08-24 13:26 | disposition home or self-care (01) ==
LOC: ED 14:24 → PCU 15:10
PROVIDERS: Admitting Provider Internal Medicine; Emergency Provider Emergency Medicine; PCP Student in an Organized Health Care Education/Training Program
DX: H81.10 Benign paroxysmal vertigo, unspecified ear (principal); M32.9 Systemic lupus erythematosus, unspecified; E11.22 Type 2 diabetes mellitus with diabetic chronic kidney disease; N18.32 Chronic kidney disease, stage 3b; E78.5 Hyperlipidemia, unspecified; F41.9 Anxiety disorder, unspecified; F32.A Depression, unspecified; E03.9 Hypothyroidism, unspecified; I12.9 Hypertensive chronic kidney disease with stage 1 through stage 4 chronic kidney disease, or unspecified chronic kidney disease; R00.1 Bradycardia, unspecified; R26.2 Difficulty in walking, not elsewhere classified; Z79.890 Hormone replacement therapy; K21.9 Gastro-esophageal reflux disease without esophagitis; Z79.82 Long term (current) use of aspirin
CPT/HCPCS: 36415; 70450; 70544; 70547; 70551; 71045; 80048; 80061; 83690; 84443; 84484; 85025; 85610; 85730; 93005; 93306; 94762; 97162; 97166; 99221; 99284; A4216; G0378